=== PATIENT | male | born 1955 ===

== ENCOUNTER 2017-02-17 10:34 | Emergency (ER) | payer MEDICARE, OTHER ==
[2017-02-17 10:34] VITALS: BMI 32.9
--- NOTE | 2017-02-17 11:48 | ED PDOC ---
Upper Extremity Pain/Injury Time Seen by Provider: 02/17/17 10:51 Chief Complaint (Nursing): Upper Extremity Problem/Injury Chief Complaint (Provider): tremors History Per: Patient History/Exam Limitations: no limitations Additional Complaint(s): 61yo M in ED with hx of DM, HTN and renal failure-dialysis T Abram-MD Aaron- states he developed a tremor from face to neck-states that his tongue has tremor and tremor to voice that began at 4am this AM and presenting now. Pt completed his dialysis today. admitted to SOB earlier, but no longer with SOB. currently denies: CP, vision changes dizziness, SINGER, tinnitus, numbness to UE/LE , weakness, change in MS, abd pain, dysuria, change in BM, rash. Past Medical History Reviewed: Historical Data, Nursing Documentation, Vital Signs Vital Signs: Last Vital Signs Temp Pulse 75 02/17/17 10:50 Resp 17 02/17/17 10:50 BP 148/94 H 02/17/17 10:50 Pulse Ox 99 02/17/17 10:50 - Medical History PMH: Anemia, Diabetes, HTN, Chronic Kidney Disease, TIA Denies: Arthritis, CHF, COPD, HIV, Hypercholesterolemia, Hypothyroidism, Rheumatoid Arthritis - Family History Family History: States: Unknown Family Hx - Home Medications Home Medications: Ambulatory Orders Medication Instructions Recorded Bimatoprost [Lumigan] 1 drop EACHEYE HS #0 ahrini 05/08/15 Dorzolamide 2%/Timolol 0.5% 1 drop EACHEYE BID #0 bottle 05/08/15 [Cosopt 2%-0.5% Opht] Linagliptin [Tradjenta] 5 mg PO DAILY #0 tab 05/08/15 Brimonidine Tartrate [Alphagan P] 1 drop EACHEYE Q12H 07/20/15 Brimonidine 0.2% [Alphagan 0.2% 1 drop OU Q12 #0 bottle 08/08/15 Opht] Acetazolamide 250 mg PO HS 08/30/15 Aspirin 81 mg PO DAILY 08/30/15 Carvedilol [Coreg] 25 mg PO BID 08/30/15 Clindamycin HCl [Clindamycin] 4 tab PO Q8 08/30/15 Clopidogrel [Plavix] 75 mg PO DAILY 08/30/15 Hydralazine Hydrochloride 25 mg PO Q8 08/30/15 [Apresoline] Simvastatin 40 mg PO HS 08/30/15 Valsartan/Hydrochlorothiazide 1 tab PO DAILY 08/30/15 [Valsartan-Hydrochlorothiazide 25 mg-320 mg] Vitamin A/Vitamin D [Vitamin A & D 1 cap PO DAILY 08/30/15 24702 Iu-400 Iu] levoFLOXacin [Levaquin] 250 mg PO BID 08/30/15 - Allergies Allergies/Adverse Reactions: Allergies Allergy/AdvReac Type Severity Reaction Status Date / Time No Known Allergies Allergy Verified 02/17/17 10:47 Review of Systems ROS Statement: Except As Marked, All Systems Reviewed And Found Negative Constitutional: Negative for: Fever, Chills, Weakness, Malaise ENT: Negative for: Ear Pain, Ear Discharge, Nose Pain, Nose Discharge, Nose Congestion, Mouth Pain, Mouth Swelling, Throat Pain, Throat Swelling Cardiovascular: Negative for: Chest Pain, Palpitations, Orthopnea, Edema, Light Headedness Respiratory: Negative for: Cough Gastrointestinal: Negative for: Nausea, Vomiting, Abdominal Pain, Diarrhea, Constipation Genitourinary Male: Negative for: Dysuria, Penile Discharge Skin: Negative for: Rash Neurological: Negative for: Weakness, Numbness, Incoordination, Altered Mental Status, Headache, Dizziness Physical Exam - Reviewed Nursing Documentation Reviewed: Yes Vital Signs Reviewed: Yes - Physical Exam Appears: Positive for: Non-toxic, No Acute Distress Head Exam: Positive for: ATRAUMATIC, NORMAL INSPECTION, NORMOCEPHALIC Skin: Positive for: Normal Color, Warm. Negative for: Diaphoresis, Jaundice Eye Exam: Positive for: Normal appearance, EOMI, PERRL. Negative for: Scleral icterus ENT: Positive for: Normal ENT Inspection Neck: Positive for: Normal, Painless ROM Cardiovascular/Chest: Positive for: Regular Rate, Rhythm Respiratory: Positive for: CNT, Normal Breath Sounds Gastrointestinal/Abdominal: Positive for: Normal Exam, Bowel Sounds, Soft. 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 tremor mild noted to face, no nystagmus noted no evidence at this time fo tardive dyskinesia, some trmeor noted to voice. uvula not swollen. ). Negative for: Motor/Sensory Deficits, Facial Droop - Laboratory Results Result Diagrams: 02/17/17 12:05 02/17/17 12:05 - ECG ECG Rhythm: Positive for: Normal QRS, Sinus Rhythm, ST/T Changes Interpretation Of Abn EKG: QT: 506 O2 Sat by Pulse Oximetry: 99 Medical Decision Making Medical Decision Making: Pt looks well in ED, no longer with tremor. Pt with stable VS, well appearing, no elevated WBC, no abnormality of mag/phos/K +, EKG shows abdnormality however compared to prev. EKG uchanged. Creatine is elevated, however pt is undergoing dialysis. Pt has appt for Thurs at 11am at [facility]-made in ED by resident. MD Michael made aware and agrees with plan. Disposition - Clinical Impression Clinical Impression: Occasional tremors - Patient ED Disposition Is Patient to be Admitted: No Counseled Patient/Family Regarding: Studies Performed, Diagnosis, Need For Followup - Disposition Disposition: Routine/Home Disposition Time: 15:23 Condition: STABLE Instructions: Tremors (ED) Print Language: KAZAKH
--- NOTE | 2017-02-17 11:58 | CT ---
PROCEDURE: CT HEAD WITHOUT CONTRAST. HISTORY: tremor to face COMPARISON: Noncontrast head CT performed 09/26/14 TECHNIQUE: Axial computed tomography images were obtained through the head/brain without intravenous contrast. Radiation dose: Total exam DLP = 877.68 mGy-cm. FINDINGS: Streak artifact obscures evaluation of the skullbase. HEMORRHAGE: No intracranial hemorrhage. BRAIN: Diffuse atrophy with prominence of the ventricles and sulci noted. No mass effect or edema. Intracranial atherosclerosis. Moderate scattered periventricular and subcortical white matter hypodensities, which are nonspecific, but often seen with chronic microvascular ischemic disease. Scattered chronic appearing lacunar infarcts within the basal ganglia and thalami. Nonspecific left parietal small calcification re-identified. VENTRICLES: No hydrocephalus. CALVARIUM: Unremarkable. PARANASAL SINUSES: Unremarkable as visualized. No significant inflammatory changes. MASTOID AIR CELLS: Unremarkable as visualized. No inflammatory changes. OTHER FINDINGS: None. IMPRESSION: Generalized atrophy. Moderate nonspecific white matter changes. Please note that MRI with diffusion imaging is more sensitive in the detection of acute ischemic event. Scattered chronic appearing basal ganglia and thalamic lacunar infarcts. Additional incidental findings as above.
[2017-02-17 12:17] LABS: BASO # 0.1 K/uL (0.0-0.2); BASO % 1.1 % (0.0-2.0); EOS # 0.3 K/uL (0.0-0.7); EOS % 3.9 % (0.0-4.0); HEMATOCRIT 36.3 % (35.0-51.0); LYMPH # 0.9 K/uL (1.0-4.3); LYMPH % 12.4 % (20.0-40.0); MEAN CELL VOLUME 91.7 fl (80.0-94.0); MEAN CORPUSCULAR HEMOGLOBIN 30.4 pg (27.0-31.0); MEAN CORPUSCULAR HGB CONC 33.2 g/dL (33.0-37.0); MEAN PLATELET VOLUME 8.6 fl (7.2-11.7); MONO # 0.8 K/uL (0.0-0.8); MONO % 11.1 % (0.0-10.0); NEUT # 5.2 K/uL (1.8-7.0); NEUT % 71.5 % (50.0-75.0); WHITE BLOOD COUNT 7.3 K/uL (4.8-10.8)
[2017-02-17 12:33] LABS: PARTIAL THROMBOPLASTIN TIME 27.1 SECONDS (23.3-32.5)
[2017-02-17 12:43] LABS: ALB/GLOB RATIO 1.4 (1.0-2.1); BILIRUBIN,TOTAL 0.9 mg/dl (0.2-1.3); MAGNESIUM 2.1 MG/DL (1.6-2.3); PHOSPHOROUS 4.4 mg/dl (2.5-4.5); POTASSIUM 3.7 MMOL/L (3.6-5.0); TOTAL PROTEIN 7.7 G/DL (6.3-8.2)
--- NOTE | 2017-02-17 13:50 | RAD ---
HISTORY: SOB COMPARISON: 08/27/2015 TECHNIQUE: Chest PA and lateral FINDINGS: LUNGS: No active pulmonary disease. PLEURA: No significant pleural effusion identified. No pneumothorax apparent. CARDIOVASCULAR: Normal heart size. Left subclavian vascular stent. OSSEOUS STRUCTURES: No significant abnormalities. VISUALIZED UPPER ABDOMEN: Normal. OTHER FINDINGS: None. IMPRESSION: No active disease.
[2017-02-17 14:05] LABS: TROPONIN I 0.095 ng/mL (0.00-0.120)
[2017-02-17 17:18] VITALS: BP 149/88; PULSE 87; RESP 18; O2SAT 98
== END 2017-02-17 17:10 | disposition home or self-care (01) ==
LOC: H.ER 10:34
DX: R25.1 Tremor, unspecified (principal); E11.22 Type 2 diabetes mellitus with diabetic chronic kidney disease; I12.9 Hypertensive chronic kidney disease with stage 1 through stage 4 chronic kidney disease, or unspecified chronic kidney disease; N18.9 Chronic kidney disease, unspecified; Z86.73 Personal history of transient ischemic attack (TIA), and cerebral infarction without residual deficits; Z79.82 Long term (current) use of aspirin
CPT/HCPCS: 70450; 71020; 80053; 82948; 83735; 84100; 84484; 85025; 85610; 85730; 87040; 87804; 96374; 99283; J2060

== ENCOUNTER 2017-05-27 09:45 | Inpatient (IN) | payer MEDICARE, OTHER ==
--- NOTE | 2017-05-27 10:17 | ED PDOC ---
HPI:STROKE - Time Time: 09:50 - Historian Historian: Patient, Family (brother), EMS - Chief Complaint Chief Complaint: Weakness - Onset Date: 05/27/17 Time: 07:30 Onset: This morning - Location Locate right:: Face, Upper extremity, Lower extremity - Notes: Notes:: Lon Lafleur is a 61 year old male, with a previous medical history of end stage renal failure, hypertension and diabetes, who presents to the ED via EMS after being found on the floor by his family member. Patient reports feeling fine when he woke up and began experiencing right sided weakness and numbness at 07: 30 in the morning (2.5 hours prior to arrival) while he was walking to the bathroom. Patient denies any chest pain or shortness of breath. Brother reports patient experienced similar symptoms approximately 5 years ago where the patient was informed it was the beginning of a stroke. No headaches or dizziness. No nausea, vomit. PMD: [facility] NIHSS Stroke Scale - Date/Time Evaluation Performed Date Performed: 05/27/17 Time Performed: 10:00 When Was NIHSS Performed: Baseline - How Severe is the Stroke Level of Consciousness: 0=Alert LOC to Questions: 0=Both comments correct LOC to commands: 0=Obeys both correctly Best Gaze: 0=Normal Visual: 0=No visual loss Facial: 0=Normal Motor Arm - Left: 0=No drift Motor Arm - Right: 0=No drift Motor Leg - Left: 0=No drift Motor Leg - Right: 1=Drift before 5 sec Limb Ataxia: 0=Absent Sensory: 0=Normal Best Language: 0=No aphasia Dysarthia: 0=Normal articulation Extinction & Inattention (Neglect): 0=Normal, no object Score: 1 rTPA Inclusion/Exclusion - Refusal of Treatment Patient Refused Treatment: No - Inclusion Criteria for Altepase Patient is 18 years or Older: Yes The Clinical Diagnosis of Ischemic Stroke That is Causing a Potentially Disabling Neurological Deficit: No Time of Onset is Well Established to be Less Than 270 Minute Before Treatment Would Begin: Yes Risk/Benefit Discussed With Patient/Family Member Present: No - Exclusion Criteria for Altepase Uncontrolled Hypertension at Time of Treatment (Systolic BP above 185 or Diastolic BP above 110 mmHg): Yes Past Medical History Reviewed: Historical Data, Nursing Documentation, Vital Signs Vital Signs: Last Vital Signs Temp 98 F 05/27/17 10:00 Pulse 73 05/27/17 10:00 Resp 18 05/27/17 10:00 BP 191/108 H 05/27/17 10:00 Pulse Ox 98 05/27/17 10:00 - Medical History PMH: Anemia, Diabetes, HTN, Hyperlipidemia, End Stage Renal Disease, Chronic Kidney Disease, TIA Denies: Arthritis, CHF, COPD, HIV, Hypercholesterolemia, Hypothyroidism, Rheumatoid Arthritis - Surgical History Other surgeries: L arm fistula - Family History Family History: States: Unknown Family Hx - Living Arrangements Living Arrangements: With Family - Social History Current smoker - smoking cessation education provided: No Alcohol: None Drugs: Denies - Home Medications Home Medications: Ambulatory Orders Medication Instructions Recorded Bimatoprost [Lumigan] 1 drop EACHEYE HS #0 harini 05/08/15 Dorzolamide 2%/Timolol 0.5% 1 drop EACHEYE BID #0 bottle 05/08/15 [Cosopt 2%-0.5% Opht] Linagliptin [Tradjenta] 5 mg PO DAILY #0 tab 05/08/15 Brimonidine Tartrate [Alphagan P] 1 drop EACHEYE Q12H 07/20/15 Brimonidine 0.2% [Alphagan 0.2% 1 drop OU Q12 #0 bottle 08/08/15 Opht] Acetazolamide 250 mg PO HS 08/30/15 Aspirin 81 mg PO DAILY 08/30/15 Carvedilol [Coreg] 25 mg PO BID 08/30/15 Clindamycin HCl [Clindamycin] 4 tab PO Q8 08/30/15 Clopidogrel [Plavix] 75 mg PO DAILY 08/30/15 Hydralazine Hydrochloride 25 mg PO Q8 08/30/15 [Apresoline] Simvastatin 40 mg PO HS 08/30/15 Valsartan/Hydrochlorothiazide 1 tab PO DAILY 08/30/15 [Valsartan-Hydrochlorothiazide 25 mg-320 mg] Vitamin A/Vitamin D [Vitamin A & D 1 cap PO DAILY 08/30/15 88057 Iu-400 Iu] levoFLOXacin [Levaquin] 250 mg PO BID 08/30/15 - Allergies Allergies/Adverse Reactions: Allergies Allergy/AdvReac Type Severity Reaction Status Date / Time No Known Allergies Allergy Verified 05/27/17 10:00 Review of Systems ROS Statement: Except As Marked, All Systems Reviewed And Found Negative Constitutional: Positive for: Weakness Cardiovascular: Negative for: Chest Pain Respiratory: Negative for: Shortness of Breath Neurological: Positive for: Weakness, Numbness Physical Exam - Reviewed Nursing Documentation Reviewed: Yes Vital Signs Reviewed: Yes - Physical Exam Appears: Positive for: Well, Non-toxic, No Acute Distress Head Exam: Positive for: ATRAUMATIC, NORMAL INSPECTION, NORMOCEPHALIC Skin: Positive for: Normal Color, Warm, Dry Eye Exam: Positive for: EOMI, Normal appearance, PERRL ENT: Positive for: Normal ENT Inspection Neck: Positive for: Normal, Painless ROM, Supple Cardiovascular/Chest: Positive for: Regular Rate, Rhythm Respiratory: Positive for: Normal Breath Sounds Gastrointestinal/Abdominal: Positive for: Normal Exam, Bowel Sounds, Soft. Negative for: Tenderness Back: Positive for: Normal Inspection. Negative for: L CVA Tenderness, R CVA Tenderness, Vertebral Tenderness Extremity: Positive for: Deformity (amputation of right great toe ), Other ( right leg 3/5 all other extremities 4/5). 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 Negative for: Facial Droop - ECG ECG: Positive for: Interpreted By Me, Viewed By Me ECG Rhythm: Positive for: Sinus Rhythm, Nonspecific Changes (same as old) O2 Sat by Pulse Oximetry: 98 (RA) Pulse Ox Interpretation: Normal - Radiology X-Ray: Interpreted by Me, Viewed By Me X-Ray Interpretation: No Acute Disease - CT Scan/US ct Other Rad Studies (CT/US): Read By Radiologist Other Rad Interpretation: bleed basal ganglia and intraventricular - Progress ED Course And Treament: 1045: Spoke with neurology Dr. Long and neurosurgery. Will give labetolol and continue monitoring. Not a thrombolytic candidate as pt. has a bleed. [facility] resident aware and will admit. 1121: Spoke with ICU Dr. Arredondo. Will admit. - Critical Care Total Time (In Min): 30 Documented Critical Care: Time excludes all time spent performint seperately billable procedures Medical Decision Making Medical Decision Making: Initial Impression: Initial Plan: * blood type and screen * CT head w/o contrast * EKG * labs * hemoglobin A1C * lipid panel * Troponin I * PTT * PT * CXR * online content developer continuous * accu-check * vital signs Q 15 * reevaluation 10:00 accu-check: 114 Heart rate: 78 bpm O2: 100 % Blood Pressure: 190/105 10:48 CT head w/o contrast FINDINGS: BRAIN: Diffuse atrophy with prominence of the ventricles and sulci noted. Dense intracranial atherosclerotic calcifications. 1.3 x 1.6 x 2.6 cm focal hemorrhage within the left basal ganglia. Small amount of left intraventricular hemorrhage within the posterior horn lateral ventricle. Moderate scattered periventricular and subcortical white matter hypodensities, which are nonspecific, but often seen with chronic microvascular ischemic disease. Numerous scattered chronic appearing lacunar infarcts. VENTRICLES: See above. CALVARIUM: Unremarkable. PARANASAL SINUSES: Unremarkable as visualized. No significant inflammatory changes. MASTOID AIR CELLS: Unremarkable as visualized. No inflammatory changes. OTHER FINDINGS: None. IMPRESSION: 1.3 x 1.6 x 2.6 cm focal hemorrhage within the left basal ganglia. Small amount of left intraventricular hemorrhage within the posterior horn lateral ventricle. Moderate nonspecific white matter changes. Numerous scattered chronic appearing lacunar infarcts. Findings discussed with Dr. Rodriguez on 05/27/17 at 1029 a.m. Scribe Attestation: Documented by Daphne Oliveira, acting as a scribe for Jc Rodriguez MD. Provider Scribe Attestation: All medical record entries made by the Scribe were at my direction and personally dictated by me. I have reviewed the chart and agree that the record accurately reflects my personal performance of the history, physical exam, medical decision making, and the department course for this patient. I have also personally directed, reviewed, and agree with the discharge instructions and disposition. Disposition - Clinical Impression Clinical Impression: CVA (cerebral vascular accident), Hypertensive urgency - Patient ED Disposition Is Patient to be Admitted: Yes Counseled Patient/Family Regarding: Studies Performed, Diagnosis - Disposition Disposition Time: 11:30 Condition: FAIR - Pt Status Changed To: Hospital Disposition Of: Inpatient - Admit Certification Admit to Inpatient:: After my assessment, the patient will require hospitalization for at least two midnights. This is because of the severity of symptoms shown, intensity of services needed, and/or the medical risk in this patient being treated as an outpatient. - POA Present On Arrival: None
[2017-05-27 10:46] LABS: ALB/GLOB RATIO 1.6 (1.0-2.1); ALBUMIN 4.6 g/dL (3.5-5.0); CALCIUM 8.8 mg/dL (8.4-10.2)
[2017-05-27] MEDS ORDERED: Labetalol 5 mg/ml Inj 20ML IVP STA ×3 (10:49→16:56)
--- NOTE | 2017-05-27 10:50 | CT ---
PROCEDURE: CT HEAD WITHOUT CONTRAST. HISTORY: code stroke COMPARISON: None available. TECHNIQUE: Axial computed tomography images were obtained through the head/brain without intravenous contrast. Radiation dose: Total exam DLP = mGy-cm. This CT exam was performed using one or more of the following dose reduction techniques: Automated exposure control, adjustment of the mA and/or kV according to patient size, and/or use of iterative reconstruction technique. FINDINGS: BRAIN: Diffuse atrophy with prominence of the ventricles and sulci noted. Dense intracranial atherosclerotic calcifications. 1.3 x 1.6 x 2.6 cm focal hemorrhage within the left basal ganglia. Small amount of left intraventricular hemorrhage within the posterior horn lateral ventricle. Moderate scattered periventricular and subcortical white matter hypodensities, which are nonspecific, but often seen with chronic microvascular ischemic disease. Numerous scattered chronic appearing lacunar infarcts. VENTRICLES: See above. CALVARIUM: Unremarkable. PARANASAL SINUSES: Unremarkable as visualized. No significant inflammatory changes. MASTOID AIR CELLS: Unremarkable as visualized. No inflammatory changes. OTHER FINDINGS: None. IMPRESSION: 1.3 x 1.6 x 2.6 cm focal hemorrhage within the left basal ganglia. Small amount of left intraventricular hemorrhage within the posterior horn lateral ventricle. Moderate nonspecific white matter changes. Numerous scattered chronic appearing lacunar infarcts. Findings discussed with Dr. Rodriguez on 05/27/17 at 1029 a.m.
[2017-05-27 10:57] LABS: TROPONIN I 0.08 ng/mL (0.00-0.120)
--- NOTE | 2017-05-27 11:19 | RAD ---
HISTORY: code stroke COMPARISON: Chest x-ray performed 02/17/17 TECHNIQUE: Chest, one view. FINDINGS: Examination limited by habitus. Left vascular stent. LUNGS: Linear atelectasis, left mid lung zone. No focal consolidation. Please note that chest x-ray has limited sensitivity for the detection of pulmonary masses. PLEURA: No significant pleural effusion identified. No definite pneumothorax . CARDIOVASCULAR: The cardiomediastinal silhouette appears within normal limits of size. OSSEOUS STRUCTURES: No acute osseous abnormality identified. VISUALIZED UPPER ABDOMEN: Unremarkable. OTHER FINDINGS: None. IMPRESSION: Linear atelectasis, left mid lung zone. No focal consolidation.
[2017-05-27 11:54] LABS: INR 0.9 (0.9-1.2); PROTHROMBIN TIME 10.5 Seconds (9.8-13.1)
[2017-05-27 11:55] LABS: PARTIAL THROMBOPLASTIN TIME 33.1 Seconds (25.6-37.1)
[2017-05-27 12:22] LABS: BASO # 0.1 K/uL (0.0-0.2); EOS # 0.4 K/uL (0.0-0.7); EOS % 4.8 % (0.0-4.0); HEMOGLOBIN 11.6 g/dL (12.0-18.0); LYMPH # 1.1 K/uL (1.0-4.3); LYMPH % 13.9 % (20.0-40.0); MEAN CORPUSCULAR HEMOGLOBIN 30.4 pg (27.0-31.0); MEAN CORPUSCULAR HGB CONC 32.4 g/dL (33.0-37.0); MEAN PLATELET VOLUME 9.6 fl (7.2-11.7); MONO # 0.6 K/uL (0.0-0.8); MONO % 8.1 % (0.0-10.0); NEUT # 5.5 K/uL (1.8-7.0); NEUT % 72.2 % (50.0-75.0); RBC 3.82 Mil/uL (4.40-5.90); WHITE BLOOD COUNT 7.7 K/uL (4.8-10.8)
--- NOTE | 2017-05-27 13:32 | CP.PCM.HP ---
Past Patient History - Infectious Disease Hx of Infectious Diseases: None - Past Medical History & Family History Past Medical History?: Yes - Past Social History Alcohol: None Drugs: Denies - CARDIAC Hx Congestive Heart Failure: No Hx Hypercholesterolemia: No Hx Hypertension: Yes - PULMONARY Hx Chronic Obstructive Pulmonary Disease (COPD): No - NEUROLOGICAL Hx Transient Ischemic Attacks (TIA): Yes - HEENT Hx HEENT Problems: No - RENAL Hx Chronic Kidney Disease: Yes - ENDOCRINE/METABOLIC Hx Hypothyroidism: No - HEMATOLOGICAL/ONCOLOGICAL Hx Anemia: Yes Hx Human Immunodeficiency Virus (HIV): No - INTEGUMENTARY Hx Dermatological Problems: No - MUSCULOSKELETAL/RHEUMATOLOGICAL Hx Arthritis: No Hx Rheumatoid Arthritis: No - GASTROINTESTINAL Hx Gastrointestinal Disorders: No - PSYCHIATRIC Hx Substance Use: No - SURGICAL HISTORY Other/Comment: LEFT ANKLE SX - ANESTHESIA Hx Anesthesia: Yes Hx Anesthesia Reactions: No Hx Malignant Hyperthermia: No Meds Allergies/Adverse Reactions: Allergies Allergy/AdvReac Type Severity Reaction Status Date / Time No Known Allergies Allergy Verified 05/27/17 10:00 Results - Vital Signs Recent Vital Signs: Last Vital Signs Temp 98.1 F 05/27/17 11:10 Pulse 70 05/27/17 12:25 Resp 19 05/27/17 12:25 BP 137/88 05/27/17 12:25 Pulse Ox 98 05/27/17 12:39 - Labs Result Diagrams: 05/27/17 12:10 05/27/17 10:30 Labs: Laboratory Results - last 24 hr 05/27/17 12:10 WBC 7.7 RBC 3.82 L Hgb 11.6 L Hct 35.9 MCV 94.0 D MCH 30.4 MCHC 32.4 L RDW 18.0 H Plt Count 157 MPV 9.6 Neut % (Auto) 72.2 Lymph % (Auto) 13.9 L [place] % (Auto) 8.1 Eos % (Auto) 4.8 H Baso % (Auto) 1.0 Neut # 5.5 Lymph # 1.1 [place] # 0.6 Eos # 0.4 Baso # 0.1
--- NOTE | 2017-05-27 14:09 | CP.PCM.HP ---
History of Present Illness - History of Present Illness History of Present Illness: Interpretor: Franklyn #[id number] This is a 61 y.o M with pmh of HTN, ESRD on HD (TThS), NIDDM, hyperlipidemia, and visual impairment who presents with right sided facial numbness and weakness radiating down to lower extremities causing him to collapse at home (2/ 5 hours prior to arrival to ED), noted dizziness prior to episode. Patient denies preceding shortness of breath, chest pain, diaphoresis, nausea/vomiting. Patient denies trauma to head or LOC, slurring of speech, altered mental status , and recent infection. Similar episode 7 years ago which prompted him to go to ER. Patient states he has been taking antihypertensives and lipid lowering agents. PMD:[facility], Dr. Gonzales (nephro) Allergies: NKDA Medications: as per ambulatory orders Surgeries: left foot surgery, right great toe amputation. L arm fistula Social: Patient not currently employed. History of tobacco abuse (2-3 cig/day x3 years, quit 1 year ago). Patient also admits to ETOH abuse, last drink 2 months ago-states had 10-12 beers every week. ER:labetalol 10 mg IVP x2 Initial Plan: * blood type and screen * CT head w/o contrast * EKG * labs * hemoglobin A1C * lipid panel * Troponin I * PTT * PT * CXR * manager cardiac continuous * accu-check accu-check: 114 Heart rate: 78 bpm O2: 100 % Blood Pressure: 190/105 CT head w/o contrast FINDINGS: BRAIN: Diffuse atrophy with prominence of the ventricles and sulci noted. Dense intracranial atherosclerotic calcifications. 1.3 x 1.6 x 2.6 cm focal hemorrhage within the left basal ganglia. Small amount of left intraventricular hemorrhage within the posterior horn lateral ventricle. Moderate scattered periventricular and subcortical white matter hypodensities, which are nonspecific, but often seen with chronic microvascular ischemic disease. Numerous scattered chronic appearing lacunar infarcts. VENTRICLES: See above. CALVARIUM: Unremarkable. PARANASAL SINUSES: Unremarkable as visualized. No significant inflammatory changes. MASTOID AIR CELLS: Unremarkable as visualized. No inflammatory changes. OTHER FINDINGS: None. IMPRESSION: 1.3 x 1.6 x 2.6 cm focal hemorrhage within the left basal ganglia. Small amount of left intraventricular hemorrhage within the posterior horn lateral ventricle. Moderate nonspecific white matter changes. Numerous scattered chronic appearing lacunar infarcts. Present on Admission - Present on Admission Any Indicators Present on Admission: Yes History of Uncontrolled Diabetes: Yes Review of Systems - Review of Systems All systems: reviewed and no additional remarkable complaints except Past Patient History - Infectious Disease Hx of Infectious Diseases: None - Past Medical History & Family History Past Medical History?: Yes - Past Social History Alcohol: None Drugs: Denies - CARDIAC Hx Congestive Heart Failure: No Hx Hypercholesterolemia: No Hx Hypertension: Yes - PULMONARY Hx Chronic Obstructive Pulmonary Disease (COPD): No - NEUROLOGICAL Hx Transient Ischemic Attacks (TIA): Yes - HEENT Hx HEENT Problems: No - RENAL Hx Chronic Kidney Disease: Yes - ENDOCRINE/METABOLIC Hx Hypothyroidism: No - HEMATOLOGICAL/ONCOLOGICAL Hx Anemia: Yes Hx Human Immunodeficiency Virus (HIV): No - INTEGUMENTARY Hx Dermatological Problems: No - MUSCULOSKELETAL/RHEUMATOLOGICAL Hx Arthritis: No Hx Rheumatoid Arthritis: No - GASTROINTESTINAL Hx Gastrointestinal Disorders: No - PSYCHIATRIC Hx Substance Use: No - SURGICAL HISTORY Other/Comment: LEFT ANKLE SX - ANESTHESIA Hx Anesthesia: Yes Hx Anesthesia Reactions: No Hx Malignant Hyperthermia: No Meds Allergies/Adverse Reactions: Allergies Allergy/AdvReac Type Severity Reaction Status Date / Time No Known Allergies Allergy Verified 05/27/17 10:00 Physical Exam - Constitutional Appears: No Acute Distress - Eye Exam Eye Exam: EOMI, Scleral icterus. absent: Conjunctival injection, Nystagmus - ENT Exam ENT Exam: Mucous Membranes Dry - Neck Exam Neck exam: Positive for: Full Rom. Negative for: Lymphadenopathy, Tenderness, Thyromegaly - Respiratory Exam Respiratory Exam: Clear to Auscultation Bilateral, NORMAL BREATHING PATTERN. absent: Accessory Muscle Use - Cardiovascular Exam Cardiovascular Exam: +S1, +S2 (0) - GI/Abdominal Exam GI & Abdominal Exam: Normal Bowel Sounds, Soft. absent: Organomegaly, Tenderness - Back Exam Back exam: NORMAL INSPECTION. absent: CVA tenderness (L), CVA tenderness (R) - Neurological Exam Neurological exam: Alert, Oriented x3 Additional comments: noted drift on right upper extremity decreased sensation on right sided face, cranial nerves intact - Psychiatric Exam Psychiatric exam: Normal Affect, Normal Mood - Skin Skin Exam: Dry, Pallor, Warm Additional comments: L arm fistula c/d/i Results - Vital Signs Recent Vital Signs: Last Vital Signs Temp 98.1 F 05/27/17 11:10 Pulse 70 05/27/17 12:25 Resp 19 05/27/17 12:25 BP 167/88 H 05/27/17 12:25 Pulse Ox 98 05/27/17 12:39 - Labs Result Diagrams: 05/27/17 12:10 05/27/17 10:30 Labs: Laboratory Results - last 24 hr 05/27/17 12:10 WBC 7.7 RBC 3.82 L Hgb 11.6 L Hct 35.9 MCV 94.0 D MCH 30.4 MCHC 32.4 L RDW 18.0 H Plt Count 157 MPV 9.6 Neut % (Auto) 72.2 Lymph % (Auto) 13.9 L [place] % (Auto) 8.1 Eos % (Auto) 4.8 H Baso % (Auto) 1.0 Neut # 5.5 Lymph # 1.1 [place] # 0.6 Eos # 0.4 Baso # 0.1 Assessment & Plan - Assessment and Plan (Free Text) Assessment: This is a 61 y.o M with pmh of HTN, ESRD on HD (TThS), NIDDM, hyperlipidemia, and visual impairment who presents with right sided facial numbness and weakness radiating down to lower extremities causing him to collapse at home (2/ 5 hours prior to arrival to ED), noted dizziness prior to episode. Code stroke called. CT remarkable for: 1.3 x 1.6 x 2.6 cm focal hemorrhage within the left basal ganglia. Small amount of left intraventricular hemorrhage within the posterior horn lateral ventricle. 1. Hemorrhagic CVA -admit to ICU -monitor vitals; keep systolic bp under 140-15os -neurosurgery consult -neurology consult; as per neurology and neurosurgery no surgical intervention at this time -swallow eval -pt/ot eval and treat -repeat CT in 24 hours 2. HTN -uncontrolled -labetalol IVP given in ED -consider restarting home medication valsartan 320 mg 3. ESRD -HD on TThSat -nephrology consult 4. DM -last hemoglobin A1C: 7.0 -repeat hemoglobin A1C 5. Hyperlipidemia -continue lovastatin 40 mg DVT prophalyxis -SCDs Decision To Admit - Pt Status Changed To: Hospital Disposition Of: Inpatient - Admit Certification Admit to Inpatient:: After my assessment, the patient will require hospitalization for at least two midnights. This is because of the severity of symptoms shown, intensity of services needed, and/or the medical risk in this patient being treated as an outpatient. - . Bed Request Type: Intensive Care Admitting Physician: Sejal Vásquez
--- NOTE | 2017-05-27 15:04 | CP.CCUPN ---
CCU Subjective - Physician Review Subjective (Free Text): 61M admitted with new onset R sided weakness, was well until 730AM today, presented to ER 2.5 hours later and underwent Code Stroke eval, initial NIH SS = 1, found to have hypertensive bleed into left basal ganglia area with some ventricular blood noted. NSurg and Neuro called and deemed not a candidate for transfer to tertiary facility for further mgmt.. Admitted to ICU for neuro observation and BP control. In ER, initial BP 185/99, HR 68, Labetalol 10mg IVP x 2 doses, with subsequent BP down to approx. 170/90, HR 70 nad now down to 137/90 in ICU. Presently, awake and alert, no other new focal deficits noted. Has ESRD on Thu schedule. Allergies: NKDA ROS: No other pertinent negs or positives on + system review. Other PMSFH: DM II, ESRD on CAHD, HTN, Hyperlipidemia, denies Tobacco or ETOH use, No early family deaths from cardiac disease nor renal disease. CCU Objective - Vital Signs / Intake & Output Vital Signs (Last 4 hours): Vital Signs Temp Pulse Resp BP Pulse Ox 05/27/17 13:45 68 17 170/84 H 100 05/27/17 12:39 98 05/27/17 12:25 70 19 167/88 H 100 05/27/17 12:00 71 17 171/92 H 100 05/27/17 11:45 70 20 188/96 H 100 05/27/17 11:30 69 18 195/68 H 100 05/27/17 11:15 69 20 176/98 H 100 05/27/17 11:10 98.1 F Intake and Output (Last 8hrs): Intake & Output 05/27/17 05/27/17 05/27/17 06:59 14:59 22:59 Output Total 5 Balance -5 Output: Urine 5 Urine, Voided 5 Other: # Voids Urine, Voided 1 - Physical Exam Head: Positive for: Normocephalic Pupils: Positive for: PERRL Extroacular Muscles: Positive for: EOMI Conjunctiva: Positive for: Normal Mouth: Positive for: Moist Mucous Membranes Pharnyx: Positive for: Normal Neck: Positive for: Normal Range of Motion. Negative for: JVD, Lymphadenopathy Respiratory/Chest: Positive for: Clear to Auscultation Cardiovascular: Positive for: Regular Rate and Rhythm Abdomen: Positive for: Normal Bowel Sounds. Negative for: Tenderness, Distention Genitourinary Male: Positive for: Normal External Genitalia Lower Extremity: Positive for: Other (LUE AVF wit good bruit and thrill.) Neurological: Positive for: GCS=15, CN II-XII Intact, Speech Normal, Normal Sensory Function, Norm Deep Tendon Reflexes, Memory Normal. Negative for: Motor Func Grossly Intact (minimal 4-5/5 RUE strength better than RLE. ) - Patient Studies Lab Studies: Lab Studies 05/27/17 Range/Units 12:10 WBC 7.7 (4.8-10.8) K/uL RBC 3.82 L (4.40-5.90) Mil/uL Hgb 11.6 L (12.0-18.0) g/dL Hct 35.9 (35.0-51.0) % MCV 94.0 D (80.0-94.0) fl MCH 30.4 (27.0-31.0) pg MCHC 32.4 L (33.0-37.0) g/dL RDW 18.0 H (11.5-14.5) % Plt Count 157 (130-400) K/uL MPV 9.6 (7.2-11.7) fl Neut % (Auto) 72.2 (50.0-75.0) % Lymph % (Auto) 13.9 L (20.0-40.0) % [place] % (Auto) 8.1 (0.0-10.0) % Eos % (Auto) 4.8 H (0.0-4.0) % Baso % (Auto) 1.0 (0.0-2.0) % Neut # 5.5 (1.8-7.0) K/uL Lymph # 1.1 (1.0-4.3) K/uL [place] # 0.6 (0.0-0.8) K/uL Eos # 0.4 (0.0-0.7) K/uL Baso # 0.1 (0.0-0.2) K/uL Laboratory Results - last 24 hr 05/27/17 12:10 WBC 7.7 RBC 3.82 L Hgb 11.6 L Hct 35.9 MCV 94.0 D MCH 30.4 MCHC 32.4 L RDW 18.0 H Plt Count 157 MPV 9.6 Neut % (Auto) 72.2 Lymph % (Auto) 13.9 L [place] % (Auto) 8.1 Eos % (Auto) 4.8 H Baso % (Auto) 1.0 Neut # 5.5 Lymph # 1.1 [place] # 0.6 Eos # 0.4 Baso # 0.1 Radiology Interpretations (Free Text): ( my interp) Bilateral hilar interstitial changes, no gross consolidation. EKG/Cardiology Interpretations (Free Text): ( my interp) sinus 69/min, LAD, Poor R wave anteriorly, T inversions in I, L and V5-6. Fingerstick Blood Sugar Results: 104 Review of Systems - Review of Systems All systems: reviewed and no additional remarkable complaints except - Neurological Neurological: Weakness (minimal 4-5/5 RUE strength better than RLE. ) Critical Care Progress Note - Extremities/Vascular Does the Patient have a Central Venous Catheter?: No Does the Patient need a Central Venous Catheter?: No Does the Patient have a Avila Catheter?: No Does the Patient need a Avila Catheter?: No - Prophylaxis GI Prophylaxis GI: Not Indicated - Prophylaxis DVT Prophylaxis DVT: SCDs - Nutrition Nutrition: Nutrition Category Date Time Status Renal Diet [DIET] Diets 05/27/17 Lunch Ordered Assessment/Plan - Assessment and Plan (Free Text) Assessment: MAJOR PROBLEMS: 1. ICH 2 Accelerated HTN, versus CVA with hemmorhagic conversion. 2. Accelerated HTN 3. ESRD on HD Plan: - Neurochecks, Seizure precautions, HOB elevation 30 degrees, SCDs - Keep SBP no higher than 140-150 range. - HD schedule as per Nephro, K levels OK. - Repeat brain imaging in 24H unless there are new clinical changes. - Watch for s/sx obstructive hydrocephalus. - Minimize Heparin during HD.
[2017-05-27] MEDS ORDERED: Labetalol 5 mg/ml Inj 20ML IVP PRN (16:57)
--- NOTE | 2017-05-27 17:38 | CP.PCM.CON ---
History of Present Illness - History of Present Illness History of Present Illness: NEURO CONSULT NOTE 05/27/17 CHIEF COMPLAINT:RIGHT SIDE WEAKNESS. HPI: This is a 62-year-old man history of hypertension, history of end-stage renal disease on hemodialysis, aik-euqjydw-isilfyjsk diabetes mellitus, hyperlipidemia , visual impairment came in right sided facial numbness and weakness of the right side down to the lower extremities causing the fall at home and mostly lightheaded found to have elevated systolic and diastolic blood pressures in the ER. CAT scan of the head showed left basal ganglia with mild intraventricular component. No neurosurgical intervention is needed to be done this time it is more aggressive blood pressure control. No antiplatelet activity for at least 3 weeks from the onset of acute bleed. He currently has some right-sided facial numbness and right-sided weakness with a mild right pronator drift from the left basal ganglia bleed. He is currently monitored in the ICU. He will need acute physical therapy. His elevated BUN/creatinine. ROS: 14 POINT REVIEW OF SYMPTOMS IS NEGATIVE PER HPI. ALLERGIES: NONE SOCIAL HISTORY: NO ILLICIT DRUG USE, SMOKING, OR ETOH USE. FAMILY: NON CONTRIBUTORY. MEDICATIONS: REVIEWED BY NURSE'S RECONCILIATION SHEET. PAST MEDICAL HISTORY: ESRD ON HD, HLD, HTN, DM2 PHYSICAL EXAM: VITAL SIGNS: REVIEWED BY THE CHART: HYPERTENSIVE. GENERAL EXAM: PATIENT SEEN IN BED, IN NO ACUTE DISTRESS MORBIDLY OBESE. HEENT: PERRLA, EOMI, NECK SUPPLE, NO JVD, NO ADENOPATHY CVS: S1, S2, RRR, NO MURMURS NOTED LUNGS: CLEAR TO AUSCULTATION, NO ADVENTITIOUS SOUNDS ABDOMEN: SOFT AND NONTENDER EXTREMITIES: NO CLUBBING OR CYANOSIS. PP 2+ B/L NEURO: PT IS ALERT AND ORIENTED TO PERSON, PLACE, AND YEAR. POOR ATTENTION SPAN , SLOW THOUGHT PROCESS, RECALL TO 5 MINUTES 0/3, SPEECH IS FLUENT WITHOUT ERRORS, CN II-XII INTACT, MOTOR EXAM: NORMAL TONE, NORMAL BULK OF MUSCLE, MOVES ALL EXTREMITIES EQUALLY, EXCEPT RIGHT SIDE WEAKNESS AND RIGHT PRONATOR DRIFT SEEN. SENSORY EXAM: DECREASED LIGHT TOUCH, PIN PRICK UP TO CALVES B/L, PROPRIOCEPTION , VIBRATION DECREASED AT TOES AND KNEES. DEEP TENDON REFLEXES: 2+ THROUGHOUT AND ABSENT AT BOTH KNEES AND ANKLES.. COORDINATION: FINGER TO NOSE IS INTACT. HEEL TO REED IS INTACT GAIT: DEFERRED FOR NOW. LABS: REVIEWED BY THE CHART. ASSESSMENT AND PLAN: This is a 62-year-old man history of hypertension, history of end-stage renal disease on hemodialysis, xbh-neqgopg-rjvdwlgfb diabetes mellitus, hyperlipidemia , visual impairment came in right sided facial numbness and weakness of the right side down to the lower extremities causing the fall at home and mostly lightheaded found to have elevated systolic and diastolic blood pressures in the ER. CAT scan of the head showed left basal ganglia with mild intraventricular component. No neurosurgical intervention is needed to be done this time it is more aggressive blood pressure control. No antiplatelet activity for at least 3 weeks from the onset of acute bleed. He currently has some right-sided facial numbness and right-sided weakness with a mild right pronator drift from the left basal ganglia bleed. He is currently monitored in the ICU. He will need acute physical therapy. His elevated BUN/creatinine. IMPRESSION: LEFT BASAL GANGLIA BLEED SECONDARY TO UNCONTROLLED HTN. PLAN: 1.. ASA 81 MG NOT FOR 3 WEEKS FROM ACUTE ONSET OF BLEED. REPEAT CT HEAD KIRAN. ICU MX. 2. MONITOR ELECTROLYTES AND CORRECT ACCORDINGLY. 3. KEEP SBP BTW 130-140 4. ACUTE REHAB AND NEEDS PT/OT. THANK YOU PLEASE RECONSULT NECESSARY. Carina MONTALVO MD Past Patient History - Infectious Disease Hx of Infectious Diseases: None - Past Medical History & Family History Past Medical History?: Yes - Past Social History Alcohol: None Drugs: Denies - CARDIAC Hx Congestive Heart Failure: No Hx Hypercholesterolemia: No Hx Hypertension: Yes - PULMONARY Hx Chronic Obstructive Pulmonary Disease (COPD): No - NEUROLOGICAL Hx Transient Ischemic Attacks (TIA): Yes - HEENT Hx HEENT Problems: No - RENAL Hx Chronic Kidney Disease: Yes - ENDOCRINE/METABOLIC Hx Hypothyroidism: No - HEMATOLOGICAL/ONCOLOGICAL Hx Anemia: Yes Hx Human Immunodeficiency Virus (HIV): No - INTEGUMENTARY Hx Dermatological Problems: No - MUSCULOSKELETAL/RHEUMATOLOGICAL Hx Arthritis: No Hx Rheumatoid Arthritis: No - GASTROINTESTINAL Hx Gastrointestinal Disorders: No - GENITOURINARY/GYNECOLOGICAL Hx Genitourinary Disorders: Yes (ESRD,CKD) - PSYCHIATRIC Hx Substance Use: No - SURGICAL HISTORY Other/Comment: LEFT ANKLE SX - ANESTHESIA Hx Anesthesia: Yes Hx Anesthesia Reactions: No Hx Malignant Hyperthermia: No Meds Allergies/Adverse Reactions: Allergies Allergy/AdvReac Type Severity Reaction Status Date / Time No Known Allergies Allergy Verified 05/27/17 10:00 - Medications Medications: Current Medications Labetalol HCl (Trandate) 20 mg IVP Q3 PRN PRN Reason: Systolic Blood Pressure Results - Vital Signs Recent Vital Signs: Last Vital Signs Temp 98.4 F 05/27/17 14:37 Pulse 70 05/27/17 17:10 Resp 16 05/27/17 16:57 BP 195/94 H 05/27/17 17:10 Pulse Ox 96 05/27/17 16:57 - Labs Result Diagrams: 05/27/17 12:10 05/27/17 10:30 Labs: Laboratory Results - last 24 hr 05/27/17 12:10 WBC 7.7 RBC 3.82 L Hgb 11.6 L Hct 35.9 MCV 94.0 D MCH 30.4 MCHC 32.4 L RDW 18.0 H Plt Count 157 MPV 9.6 Neut % (Auto) 72.2 Lymph % (Auto) 13.9 L [place] % (Auto) 8.1 Eos % (Auto) 4.8 H Baso % (Auto) 1.0 Neut # 5.5 Lymph # 1.1 [place] # 0.6 Eos # 0.4 Baso # 0.1
[2017-05-27] MEDS: Labetalol 5 mg/ml Inj 20ML IVP PRN (21:00)
[2017-05-28 05:02] LABS: HEMOGLOBIN 10.4 g/dL (12.0-18.0); MEAN CORPUSCULAR HEMOGLOBIN 30.8 pg (27.0-31.0); MEAN CORPUSCULAR HGB CONC 33.1 g/dL (33.0-37.0); RBC 3.37 Mil/uL (4.40-5.90); RED CELL DISTRIBUTION WIDTH 18.3 % (11.5-14.5); WHITE BLOOD COUNT 8.4 K/uL (4.8-10.8)
[2017-05-28 05:14] LABS: ALB/GLOB RATIO 1.6 (1.0-2.1); CALCIUM 8.3 mg/dL (8.4-10.2)
[2017-05-28] MEDS: Labetalol 5 mg/ml Inj 20ML IVP PRN (07:39)
[2017-05-28] MEDS ORDERED: Nicardipine HCl 40 MG/200 ML 40 MG/200 ML SOL IV SCH (09:00)
[2017-05-28] MEDS: Nicardipine 20 MG/200 ML 20 MG/200 ML BAG IV SCH ×3 (09:14→18:16)
[2017-05-28] MEDS ORDERED: Nicardipine 20 MG/200 ML 20 MG/200 ML BAG IV SCH (09:15)
--- NOTE | 2017-05-28 09:35 | CP.PCM.PN ---
Subjective - Date & Time of Evaluation Date of Evaluation: 05/28/17 Time of Evaluation: 10:21 - Subjective Subjective: No acute events overnight. Patient seen and examined with Dr. Vásquez and family medicine team. Patient feels better. No complaints at present. Right sided weakness is improving. Denies headache, dizziness, nausea, vomiting, abdominal pain, pedal edema. He is for HD today. Patient seen by Dr. Gonzales. Patient lives with his Mother, who is 85 years old, on the third floor of a walk up building. Objective - Vital Signs/Intake and Output Vital Signs (last 24 hours): Temp Pulse Resp BP Pulse Ox 98.2 F 72 17 131/74 100 05/28/17 07:33 05/28/17 09:31 05/28/17 09:31 05/28/17 09:31 05/28/17 09:31 - Medications Medications: Active Medications Epoetin Jerry (Procrit) 4,000 unit IV TTS MELINA Nicardipine HCl (Cardene Iv Premix) 20 mg in 200 mls @ 50 mls/hr IV .Q4H MELINA Insulin Human Lispro (Humalog) 0 units SC ACHS MELINA Pantoprazole Sodium (Protonix Ec Tab) 20 mg PO DAILY MELINA Sevelamer Carbonate (Renvela) 2,400 gm PO TIDWM MELINA Valsartan (Diovan) 320 mg PO DAILY MELINA - Labs Labs: 05/28/17 04:20 05/28/17 04:20 PT 10.5 Seconds (9.8-13.1) 05/27/17 10:30 INR 0.9 (0.9-1.2) 05/27/17 10:30 APTT 33.1 Seconds (25.6-37.1) 05/27/17 10:30 - Constitutional Appears: No Acute Distress, Chronically Ill - ENT Exam ENT Exam: Mucous Membranes Moist - Respiratory Exam Respiratory Exam: Clear to Ausculation Bilateral, NORMAL BREATHING PATTERN. absent: Rales, Rhonchi, Wheezes, Respiratory Distress - Cardiovascular Exam Cardiovascular Exam: REGULAR RHYTHM, +S1, +S2. absent: Bradycardia, Tachycardia - GI/Abdominal Exam GI & Abdominal Exam: Soft. absent: Distended, Firm, Guarding, Rigid, Tenderness - Extremities Exam Extremities Exam: absent: Pedal Edema, Tenderness - Neurological Exam Neurological Exam: Alert, Awake, CN II-XII Intact, Oriented x3 Additional comments: strength 4/5 right, 5/5 left - Psychiatric Exam Psychiatric exam: Normal Affect, Normal Mood - Skin Skin Exam: Dry, Intact. absent: Pallor, Rash Assessment and Plan - Assessment and Plan (Free Text) Assessment: 61 y.o M with pmh of HTN, ESRD on HD (TThS), NIDDM, hyperlipidemia, and visual impairment who presents with right sided facial numbness and weakness radiating down to lower extremities causing him to collapse at home (2/5 hours prior to arrival to ED), noted dizziness prior to episode. Code stroke. . Hemorrhagic CVA : left basal ganglia with mild intraventricular component -CT remarkable for: 1.3 x 1.6 x 2.6 cm focal hemorrhage within the left basal ganglia. Small amount of left intraventricular hemorrhage within the posterior horn lateral ventricle. -monitor vitals; cardene drip started -neurosurgery consult and neurology consult;no surgical intervention at this time -swallow eval -pt/ot eval and treat : likely will need acute rehab, await recommendations -repeat CT in 24 hours : pending . HTN -uncontrolled -cardene drip -valsartan 320 mg . ESRD -HD on TThSat -nephrology consult: [facility] . history of DM -last hemoglobin A1C: 6.1 -sliding scale . Hyperlipidemia -controlled -continue lovastatin 40 mg . DVT prophalyxis -SCDs
--- NOTE | 2017-05-28 10:19 | CP.PCM.CON ---
History of Present Illness - History of Present Illness History of Present Illness: This patient who is 61 years of age known to me with end-stage renal disease [place] [facility] [place] presented to the emergency room because he had apparently for at home and he was approved to the ER for further evaluation. Because of the language with interpretation also I got the history from the chart as follow. pmh of HTN, ESRD on HD (TThS), NIDDM, hyperlipidemia, and visual impairment who presents with right sided facial numbness and weakness radiating down to lower extremities causing him to collapse at home (2/5 hours prior to arrival to ED), noted dizziness prior to episode. Review of Systems - Review of Systems Systems not reviewed;Unavailable: Respiratory Distress - Constitutional Constitutional: absent: Chills - Cardiovascular Cardiovascular: absent: Chest Pain, Dyspnea - Respiratory Respiratory: absent: Cough, Hemoptysis - Gastrointestinal Gastrointestinal: absent: Abdominal Pain - Genitourinary Genitourinary: As Per HPI, Nocturia - Musculoskeletal Musculoskeletal: As Per HPI, Muscle Weakness - Neurological Neurological: As Per HPI Past Patient History - Infectious Disease Hx of Infectious Diseases: None - Past Medical History & Family History Past Medical History?: Yes - Past Social History Alcohol: None Drugs: Denies - CARDIAC Hx Congestive Heart Failure: No Hx Hypercholesterolemia: No Hx Hypertension: Yes - PULMONARY Hx Chronic Obstructive Pulmonary Disease (COPD): No - NEUROLOGICAL Hx Transient Ischemic Attacks (TIA): Yes - HEENT Hx HEENT Problems: No - RENAL Hx Chronic Kidney Disease: Yes - ENDOCRINE/METABOLIC Hx Hypothyroidism: No - HEMATOLOGICAL/ONCOLOGICAL Hx Anemia: Yes Hx Human Immunodeficiency Virus (HIV): No - INTEGUMENTARY Hx Dermatological Problems: No - MUSCULOSKELETAL/RHEUMATOLOGICAL Hx Arthritis: No Hx Rheumatoid Arthritis: No - GASTROINTESTINAL Hx Gastrointestinal Disorders: No - GENITOURINARY/GYNECOLOGICAL Hx Genitourinary Disorders: Yes (ESRD,CKD) - PSYCHIATRIC Hx Substance Use: No - SURGICAL HISTORY Other/Comment: LEFT ANKLE SX - ANESTHESIA Hx Anesthesia: Yes Hx Anesthesia Reactions: No Hx Malignant Hyperthermia: No Meds Allergies/Adverse Reactions: Allergies Allergy/AdvReac Type Severity Reaction Status Date / Time No Known Allergies Allergy Verified 05/27/17 10:00 - Medications Medications: Current Medications Amlodipine Besylate (Norvasc) 5 mg PO DAILY MELINA Nicardipine HCl (Cardene Iv Premix) 20 mg in 200 mls @ 50 mls/hr IV .Q4H MELINA PRN Reason: Protocol Last Admin: 05/28/17 09:14 Dose: 50 mls/hr Labetalol HCl (Trandate) 40 mg IVP Q4H PRN PRN Reason: Systolic Blood Pressure Last Admin: 05/28/17 07:39 Dose: 40 mg Sevelamer Carbonate (Renvela) 2,400 gm PO TIDWM MELINA Valsartan (Diovan) 320 mg PO DAILY MELINA Last Admin: 05/27/17 18:39 Dose: 320 mg Physical Exam - Constitutional Appears: No Acute Distress - ENT Exam ENT Exam: Mucous Membranes Moist - Respiratory Exam Respiratory Exam: NORMAL BREATHING PATTERN. absent: Chest Wall Tenderness - Cardiovascular Exam Cardiovascular Exam: REGULAR RHYTHM. absent: Rubs - Extremities Exam Extremities exam: Negative for: calf tenderness - Back Exam Back exam: absent: CVA tenderness (L), CVA tenderness (R) - Neurological Exam Neurological exam: Alert Results - Vital Signs Recent Vital Signs: Last Vital Signs Temp 98.2 F 05/28/17 07:33 Pulse 72 05/28/17 09:31 Resp 17 05/28/17 09:31 BP 131/74 05/28/17 09:31 Pulse Ox 100 05/28/17 09:31 - Labs Result Diagrams: 05/28/17 04:20 05/28/17 04:20 Labs: Laboratory Results - last 24 hr 05/27/17 05/27/17 05/27/17 12:10 13:22 15:55 WBC 7.7 RBC 3.82 L Hgb 11.6 L Hct 35.9 MCV 94.0 D MCH 30.4 MCHC 32.4 L RDW 18.0 H Plt Count 157 MPV 9.6 Neut % (Auto) 72.2 Lymph % (Auto) 13.9 L [place] % (Auto) 8.1 Eos % (Auto) 4.8 H Baso % (Auto) 1.0 Neut # 5.5 Lymph # 1.1 [place] # 0.6 Eos # 0.4 Baso # 0.1 Sodium Potassium Chloride Carbon Dioxide Anion Gap BUN Creatinine Est GFR ( Amer) Est GFR (Non-Af Amer) POC Glucose (mg/dL) 104 138 H Random Glucose Calcium Total Bilirubin AST ALT Alkaline Phosphatase Troponin I Total Protein Albumin Globulin Albumin/Globulin Ratio Alcohol, Quantitative 05/27/17 05/27/17 05/27/17 18:27 18:27 21:02 WBC RBC Hgb Hct MCV MCH MCHC RDW Plt Count MPV Neut % (Auto) Lymph % (Auto) [place] % (Auto) Eos % (Auto) Baso % (Auto) Neut # Lymph # [place] # Eos # Baso # Sodium Potassium Chloride Carbon Dioxide Anion Gap BUN Creatinine Est GFR ( Amer) Est GFR (Non-Af Amer) POC Glucose (mg/dL) 103 Random Glucose Calcium Total Bilirubin AST ALT Alkaline Phosphatase Troponin I 0.0770 Total Protein Albumin Globulin Albumin/Globulin Ratio Alcohol, Quantitative < 10 05/27/17 05/28/17 05/28/17 23:18 04:20 04:20 WBC 8.4 RBC 3.37 L Hgb 10.4 L Hct 31.3 L MCV 93.0 MCH 30.8 MCHC 33.1 RDW 18.3 H Plt Count 134 MPV Neut % (Auto) Lymph % (Auto) [place] % (Auto) Eos % (Auto) Baso % (Auto) Neut # Lymph # [place] # Eos # Baso # Sodium 141 Potassium 4.5 Chloride 99 Carbon Dioxide 26 Anion Gap 20 BUN 61 H Creatinine 15.6 H* D Est GFR ( Amer) 4 Est GFR (Non-Af Amer) 3 POC Glucose (mg/dL) 162 H Random Glucose 98 Calcium 8.3 L Total Bilirubin 0.5 AST 21 ALT 31 Alkaline Phosphatase 105 Troponin I Total Protein 6.5 Albumin 4.0 Globulin 2.5 Albumin/Globulin Ratio 1.6 Alcohol, Quantitative 05/28/17 05:20 WBC RBC Hgb Hct MCV MCH MCHC RDW Plt Count MPV Neut % (Auto) Lymph % (Auto) [place] % (Auto) Eos % (Auto) Baso % (Auto) Neut # Lymph # [place] # Eos # Baso # Sodium Potassium Chloride Carbon Dioxide Anion Gap BUN Creatinine Est GFR ( Amer) Est GFR (Non-Af Amer) POC Glucose (mg/dL) 104 Random Glucose Calcium Total Bilirubin AST ALT Alkaline Phosphatase Troponin I Total Protein Albumin Globulin Albumin/Globulin Ratio Alcohol, Quantitative Assessment & Plan (1) CVA (cerebral vascular accident) Status: Acute (2) Hypertensive urgency Status: Acute (3) ESRD (end stage renal disease) Assessment and Plan: Patient with end stage renal disease admitted with intracranial bleeding see the detailed of the report. 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 Patient also diabetic to continue with the diabetic control To adjust antihypertensive medication as noted Status: Chronic Priority: High
[2017-05-28] MEDS ORDERED: Epoetin Alfa 4000 UNIT/ML Inj IV SCH (11:00)
--- NOTE | 2017-05-28 11:39 | CARD ---
APPROVED REPORT EKG Measurement Heart [id number] <Conclusion> Normal sinus rhythm Left axis deviation Anteroseptal infarct, age undetermined ST & T wave abnormality, consider lateral ischemia Abnormal ECG
[2017-05-28] MEDS ORDERED: Sevelamer Carb 0.8 gm/Packet PO SCH (12:00)
--- NOTE | 2017-05-28 13:03 | CP.CCUPN ---
CCU Subjective - Physician Review Events Since Last Encounter (Free Text): 05/28/17 13:01 still has weakness in RUE. No other complaints. CCU Objective - Vital Signs / Intake & Output Vital Signs (Last 4 hours): Vital Signs Temp Pulse Resp BP Pulse Ox 05/28/17 12:04 98.5 F 70 16 142/77 95 05/28/17 11:00 75 18 140/71 99 05/28/17 10:25 81 23 126/71 100 05/28/17 10:00 73 16 123/76 98 05/28/17 09:31 72 17 131/74 100 05/28/17 09:15 72 16 160/84 H 99 Intake and Output (Last 8hrs): Intake & Output 05/27/17 05/28/17 05/28/17 22:59 06:59 14:59 Intake Total 37.5 Balance 37.5 Intake: IV 37.5 - Physical Exam Head: Positive for: Normocephalic Pupils: Positive for: PERRL Extroacular Muscles: Positive for: EOMI Conjunctiva: Positive for: Normal Mouth: Positive for: Moist Mucous Membranes Pharnyx: Positive for: Normal Neck: Positive for: Normal Range of Motion. Negative for: JVD, Lymphadenopathy Respiratory/Chest: Positive for: Clear to Auscultation Cardiovascular: Positive for: Regular Rate and Rhythm Abdomen: Positive for: Normal Bowel Sounds. Negative for: Tenderness, Distention Genitourinary Male: Positive for: Normal External Genitalia Upper Extremity: Positive for: Other (LUE AVF with good bruit and thrill.) Neurological: Positive for: GCS=15, Speech Normal, Normal Sensory Function, Norm Deep Tendon Reflexes, Memory Normal, Other (RUE weakness). Negative for: Motor Func Grossly Intact (minimal 4-5/5 RUE strength better than RLE. ) Psychiatric: Positive for: Alert - Medications Active Medications: Active Medications Generic Name Dose Route Start Last Admin Trade Name Freq PRN Reason Stop Dose Admin Amlodipine Besylate 5 mg 05/28/17 09:00 Norvasc PO DAILY MELIAN Epoetin Jerry 4,000 unit 05/28/17 11:00 Procrit IV TTS MELINA Nicardipine HCl 20 mg in 200 mls @ 50 mls/hr 05/28/17 09:15 05/28/17 10:00 Cardene Iv Premix IV 25 mls/hr .Q4H MELINA Titration Protocol Insulin Human Lispro 0 units 05/28/17 16:30 Humalog SC ACHS MELINA Protocol Labetalol HCl 40 mg 05/27/17 18:21 05/28/17 07:39 Trandate IVP 40 mg Q4H PRN Administration Systolic Blood Pressure Pantoprazole Sodium 20 mg 05/28/17 13:00 Protonix Ec Tab PO DAILY MELINA Sevelamer Carbonate 2,400 gm 05/28/17 12:00 Renvela PO TIDWM MELINA Valsartan 320 mg 05/27/17 18:16 05/27/17 18:39 Diovan PO 320 mg DAILY MELINA Administration - Patient Studies Lab Studies: Lab Studies 05/28/17 05/28/17 05/28/17 Range/Units 11:04 05:20 04:20 WBC (4.8-10.8) K/uL RBC (4.40-5.90) Mil/uL Hgb (12.0-18.0) g/dL Hct (35.0-51.0) % MCV (80.0-94.0) fl MCH (27.0-31.0) pg MCHC (33.0-37.0) g/dL RDW (11.5-14.5) % Plt Count (130-400) K/uL Sodium 141 (132-148) mmol/l Potassium 4.5 (3.6-5.0) MMOL/L Chloride 99 (98-107) mmol/L Carbon Dioxide 26 (22-30) mmol/L Anion Gap 20 (10-20) BUN 61 H (9-20) mg/dl Creatinine 15.6 H* D (0.8-1.5) mg/dL Est GFR ( Amer) 4 Est GFR (Non-Af Amer) 3 POC Glucose (mg/dL) 198 H 104 (65-110) mg/dL Random Glucose 98 (75-110) mg/dL Calcium 8.3 L (8.4-10.2) mg/dL Phosphorus 7.0 H (2.5-4.5) mg/dl Total Bilirubin 0.5 (0.2-1.3) mg/dl AST 21 (17-59) U/L ALT 31 (21-72) U/L Alkaline Phosphatase 105 (38-126) U/L Troponin I (0.00-0.120) ng/mL Total Protein 6.5 (6.3-8.2) G/DL Albumin 4.0 (3.5-5.0) g/dL Globulin 2.5 (2.2-3.9) gm/dL Albumin/Globulin Ratio 1.6 (1.0-2.1) Alcohol, Quantitative (0-10) mg/dl 05/28/17 05/27/17 05/27/17 Range/Units 04:20 23:18 21:02 WBC 8.4 (4.8-10.8) K/uL RBC 3.37 L (4.40-5.90) Mil/uL Hgb 10.4 L (12.0-18.0) g/dL Hct 31.3 L (35.0-51.0) % MCV 93.0 (80.0-94.0) fl MCH 30.8 (27.0-31.0) pg MCHC 33.1 (33.0-37.0) g/dL RDW 18.3 H (11.5-14.5) % Plt Count 134 (130-400) K/uL Sodium (132-148) mmol/l Potassium (3.6-5.0) MMOL/L Chloride (98-107) mmol/L Carbon Dioxide (22-30) mmol/L Anion Gap (10-20) BUN (9-20) mg/dl Creatinine (0.8-1.5) mg/dL Est GFR ( Amer) Est GFR (Non-Af Amer) POC Glucose (mg/dL) 162 H 103 (65-110) mg/dL Random Glucose (75-110) mg/dL Calcium (8.4-10.2) mg/dL Phosphorus (2.5-4.5) mg/dl Total Bilirubin (0.2-1.3) mg/dl AST (17-59) U/L ALT (21-72) U/L Alkaline Phosphatase (38-126) U/L Troponin I (0.00-0.120) ng/mL Total Protein (6.3-8.2) G/DL Albumin (3.5-5.0) g/dL Globulin (2.2-3.9) gm/dL Albumin/Globulin Ratio (1.0-2.1) Alcohol, Quantitative (0-10) mg/dl 05/27/17 05/27/17 05/27/17 Range/Units 18:27 18:27 15:55 WBC (4.8-10.8) K/uL RBC (4.40-5.90) Mil/uL Hgb (12.0-18.0) g/dL Hct (35.0-51.0) % MCV (80.0-94.0) fl MCH (27.0-31.0) pg MCHC (33.0-37.0) g/dL RDW (11.5-14.5) % Plt Count (130-400) K/uL Sodium (132-148) mmol/l Potassium (3.6-5.0) MMOL/L Chloride (98-107) mmol/L Carbon Dioxide (22-30) mmol/L Anion Gap (10-20) BUN (9-20) mg/dl Creatinine (0.8-1.5) mg/dL Est GFR ( Amer) Est GFR (Non-Af Amer) POC Glucose (mg/dL) 138 H (65-110) mg/dL Random Glucose (75-110) mg/dL Calcium (8.4-10.2) mg/dL Phosphorus (2.5-4.5) mg/dl Total Bilirubin (0.2-1.3) mg/dl AST (17-59) U/L ALT (21-72) U/L Alkaline Phosphatase (38-126) U/L Troponin I 0.0770 (0.00-0.120) ng/mL Total Protein (6.3-8.2) G/DL Albumin (3.5-5.0) g/dL Globulin (2.2-3.9) gm/dL Albumin/Globulin Ratio (1.0-2.1) Alcohol, Quantitative < 10 (0-10) mg/dl 05/27/17 Range/Units 13:22 WBC (4.8-10.8) K/uL RBC (4.40-5.90) Mil/uL Hgb (12.0-18.0) g/dL Hct (35.0-51.0) % MCV (80.0-94.0) fl MCH (27.0-31.0) pg MCHC (33.0-37.0) g/dL RDW (11.5-14.5) % Plt Count (130-400) K/uL Sodium (132-148) mmol/l Potassium (3.6-5.0) MMOL/L Chloride (98-107) mmol/L Carbon Dioxide (22-30) mmol/L Anion Gap (10-20) BUN (9-20) mg/dl Creatinine (0.8-1.5) mg/dL Est GFR ( Amer) Est GFR (Non-Af Amer) POC Glucose (mg/dL) 104 (65-110) mg/dL Random Glucose (75-110) mg/dL Calcium (8.4-10.2) mg/dL Phosphorus (2.5-4.5) mg/dl Total Bilirubin (0.2-1.3) mg/dl AST (17-59) U/L ALT (21-72) U/L Alkaline Phosphatase (38-126) U/L Troponin I (0.00-0.120) ng/mL Total Protein (6.3-8.2) G/DL Albumin (3.5-5.0) g/dL Globulin (2.2-3.9) gm/dL Albumin/Globulin Ratio (1.0-2.1) Alcohol, Quantitative (0-10) mg/dl Laboratory Results - last 24 hr 05/27/17 05/27/17 05/27/17 13:22 15:55 18:27 WBC RBC Hgb Hct MCV MCH MCHC RDW Plt Count Sodium Potassium Chloride Carbon Dioxide Anion Gap BUN Creatinine Est GFR ( Amer) Est GFR (Non-Af Amer) POC Glucose (mg/dL) 104 138 H Random Glucose Calcium Phosphorus Total Bilirubin AST ALT Alkaline Phosphatase Troponin I Total Protein Albumin Globulin Albumin/Globulin Ratio Alcohol, Quantitative < 10 05/27/17 05/27/17 05/27/17 18:27 21:02 23:18 WBC RBC Hgb Hct MCV MCH MCHC RDW Plt Count Sodium Potassium Chloride Carbon Dioxide Anion Gap BUN Creatinine Est GFR ( Amer) Est GFR (Non-Af Amer) POC Glucose (mg/dL) 103 162 H Random Glucose Calcium Phosphorus Total Bilirubin AST ALT Alkaline Phosphatase Troponin I 0.0770 Total Protein Albumin Globulin Albumin/Globulin Ratio Alcohol, Quantitative 05/28/17 05/28/17 05/28/17 04:20 04:20 05:20 WBC 8.4 RBC 3.37 L Hgb 10.4 L Hct 31.3 L MCV 93.0 MCH 30.8 MCHC 33.1 RDW 18.3 H Plt Count 134 Sodium 141 Potassium 4.5 Chloride 99 Carbon Dioxide 26 Anion Gap 20 BUN 61 H Creatinine 15.6 H* D Est GFR ( Amer) 4 Est GFR (Non-Af Amer) 3 POC Glucose (mg/dL) 104 Random Glucose 98 Calcium 8.3 L Phosphorus 7.0 H Total Bilirubin 0.5 AST 21 ALT 31 Alkaline Phosphatase 105 Troponin I Total Protein 6.5 Albumin 4.0 Globulin 2.5 Albumin/Globulin Ratio 1.6 Alcohol, Quantitative 05/28/17 11:04 WBC RBC Hgb Hct MCV MCH MCHC RDW Plt Count Sodium Potassium Chloride Carbon Dioxide Anion Gap BUN Creatinine Est GFR ( Amer) Est GFR (Non-Af Amer) POC Glucose (mg/dL) 198 H Random Glucose Calcium Phosphorus Total Bilirubin AST ALT Alkaline Phosphatase Troponin I Total Protein Albumin Globulin Albumin/Globulin Ratio Alcohol, Quantitative Fingerstick Blood Sugar Results: 198 Review of Systems - Review of Systems All systems: reviewed and no additional remarkable complaints except - Neurological Neurological: Focal Weakness Critical Care Progress Note - Nutrition Nutrition: Nutrition Category Date Time Status Renal Diet [DIET] Diets 05/27/17 Lunch Active Assessment/Plan (1) CVA (cerebral vascular accident) Assessment and plan: 61yo M. PMHx HTN, ESRD on HD (T//thu), NIDDM type 2, dyslipidemia, blind in right eye. p/w acute hemorrhagic hypertensive stroke, left basal ganglia. Neuro: Alert and following commands, neurologic symptoms improving. Pulm: No acute issues, breathing spontaneously on room air. CV: Hypertension, controlling currently with nicardipine drip to maintain systolic blood pressure less than 140. Holding oral antihypertensives, losartan , labetalol, Norvasc. Hem: No acute issues Renal: End-stage renal disease on hemodialysis, scheduled for today. Continue sevelamer for secondary hyperparathyroidism with chronic renal disease. Endo: DM type II, short acting insulin sliding scale for coverage. GI: Renal diet, with low carbohydrate consistency. ID: No acute issues DVT proph - SCDs, anticoagulation held with current bleed GI proph - Protonix blum for strict I/O's during acute illness Code status - full code Critical Care Time spent 35 minutes Multi-disciplinary rounds were performed with house staff, nursing, speech therapy, respiratory therapy, pharmacy and nutrition with integrated input from the primary team/attending and other consulting services. The documented time is cumulative and includes review of patient data/exams/labs/chart review and examination of the patient on rounds and throughout the day; time is exclusive of any procedures or teaching time. Current Visit: Yes Status: Acute
--- NOTE | 2017-05-28 13:18 | CT ---
PROCEDURE: CT HEAD WITHOUT CONTRAST. HISTORY: assess ICH COMPARISON: 05/27/2017. TECHNIQUE: Axial computed tomography images were obtained through the head/brain without intravenous contrast. Radiation dose: Total exam DLP = 1365.42 mGy-cm. This CT exam was performed using one or more of the following dose reduction techniques: Automated exposure control, adjustment of the mA and/or kV according to patient size, and/or use of iterative reconstruction technique. FINDINGS: HEMORRHAGE: No intracranial hemorrhage. BRAIN: Given differences in slice selection, there is no significant interval change in known 16 x 13 x 20 mm acute parenchymal hematoma in the left none posterior martins radiata and extending into the posterior limb of internal capsule and lateral thalamus. There is moderate surrounding vasogenic edema. No evidence of mass effect or midline shift. No evidence of herniation. Again seen are moderate chronic microangiopathic changes. There is an old infarction in the shikha and lacunar infarction in the right basal ganglia. There is no extra-axial fluid collection. There are coarse atherosclerotic calcifications in the cavernous carotid arteries. VENTRICLES: There is intraventricular extension of hemorrhage in the occipital horn of the right lateral ventricle. There is moderate age-related global parenchymal volume loss and proportionate enlargement of the ventricles and cortical sulci. CALVARIUM: The skull base and calvarium are normal. PARANASAL SINUSES: There is a retention cyst/ polyp in the right maxillary sinus. The remaining included paranasal sinuses are clear. MASTOID AIR CELLS: Predominantly clear. OTHER FINDINGS: None. IMPRESSION: 1. Little interval change in known acute parenchymal hematoma in the left posterior martins radiata extending to the posterior limb of the internal capsule and lateral thalamus with moderate surrounding vasogenic edema. No evidence of mass effect, midline shift or herniation. No hydrocephalus. 2. Intraventricular extension of hemorrhage in the occipital horn of the right lateral ventricle. No hemorrhage is seen in the left lateral ventricle. 3. Moderate chronic microangiopathic changes and moderate age-related global parenchymal volume loss. Additional comments as described above.
[2017-05-28] MEDS: Pantoprazole 20 mg EC Tab PO SCH (14:35)
[2017-05-28] MEDS: Sevelamer Carb 0.8 gm/Packet PO SCH (17:02)
[2017-05-28] MEDS: Insulin Lispro (humaLOG) 100 Units/ml Inj SC SCH ×2 (17:03→23:10)
[2017-05-28 17:35] LABS: HEPATITIS B SURFACE AG NEGATIVE (NEGATIVE)
[2017-05-28 17:53] LABS: HEPATITIS C ANTIBODY NEGATIVE (NEGATIVE)
--- NOTE | 2017-05-28 19:41 | CP.PCM.PN ---
Subjective - Date & Time of Evaluation Date of Evaluation: 05/28/17 Time of Evaluation: 19:37 - Subjective Subjective: I spoke with Neurosurgery household appliances salesperson Dr. Brewer to discuss the repeat CT scan Head after [address] initial [address] scan Head. New finding of Intraventricular extension of hemorrhage in the occipital horn of the right lateral ventricle is not significant. Dr. Brewer recommends continue current medical management. PROCEDURE: CT HEAD WITHOUT CONTRAST. HISTORY: assess ICH COMPARISON: 05/27/2017. TECHNIQUE: Axial computed tomography images were obtained through the head/brain without intravenous contrast. Radiation dose: Total exam DLP = 1365.42 mGy-cm. This CT exam was performed using one or more of the following dose reduction techniques: Automated exposure control, adjustment of the mA and/or kV according to patient size, and/or use of iterative reconstruction technique. FINDINGS: HEMORRHAGE: No intracranial hemorrhage. BRAIN: Given differences in slice selection, there is no significant interval change in known 16 x 13 x 20 mm acute parenchymal hematoma in the left none posterior martins radiata and extending into the posterior limb of internal capsule and lateral thalamus. There is moderate surrounding vasogenic edema. No evidence of mass effect or midline shift. No evidence of herniation. Again seen are moderate chronic microangiopathic changes. There is an old infarction in the shikha and lacunar infarction in the right basal ganglia. There is no extra-axial fluid collection. There are coarse atherosclerotic calcifications in the cavernous carotid arteries. VENTRICLES: There is intraventricular extension of hemorrhage in the occipital horn of the right lateral ventricle. There is moderate age-related global parenchymal volume loss and proportionate enlargement of the ventricles and cortical sulci. CALVARIUM: The skull base and calvarium are normal. PARANASAL SINUSES: There is a retention cyst/ polyp in the right maxillary sinus. The remaining included paranasal sinuses are clear. MASTOID AIR CELLS: Predominantly clear. OTHER FINDINGS: None. IMPRESSION: 1. Little interval change in known acute parenchymal hematoma in the left posterior martins radiata extending to the posterior limb of the internal capsule and lateral thalamus with moderate surrounding vasogenic edema. No evidence of mass effect, midline shift or herniation. No hydrocephalus. 2. Intraventricular extension of hemorrhage in the occipital horn of the right lateral ventricle. No hemorrhage is seen in the left lateral ventricle. 3. Moderate chronic microangiopathic changes and moderate age-related global parenchymal volume loss. Additional comments as described above. Objective - Vital Signs/Intake and Output Vital Signs (last 24 hours): Temp Pulse Resp BP Pulse Ox 98.6 F 74 18 134/78 98 05/28/17 16:30 05/28/17 18:00 05/28/17 18:00 05/28/17 18:00 05/28/17 18:00 Intake and Output: 05/28/17 05/29/17 18:59 06:59 Intake Total 680.00 Output Total 3000 Balance -2320.00 - Medications Medications: Current Medications Acetaminophen (Tylenol 325mg Tab) 650 mg PO Q6 PRN PRN Reason: Headache Last Admin: 05/28/17 14:35 Dose: 650 mg Atorvastatin Calcium (Lipitor) 40 mg PO DAILY MELINA Last Admin: 05/28/17 17:02 Dose: 40 mg Epoetin Jerry (Procrit) 4,000 unit IV TTS MELINA Last Admin: 05/28/17 14:34 Dose: 4,000 unit Nicardipine HCl (Cardene Iv Premix) 20 mg in 200 mls @ 50 mls/hr IV .Q4H MELINA PRN Reason: Protocol Last Admin: 05/28/17 18:16 Dose: 25 mls/hr Insulin Human Lispro (Humalog) 0 units SC ACHS MELINA PRN Reason: Protocol Last Admin: 05/28/17 17:03 Dose: 1 unit Pantoprazole Sodium (Protonix Ec Tab) 20 mg PO DAILY [facility] Last Admin: 05/28/17 14:35 Dose: 20 mg Sevelamer Carbonate (Renvela) 2.4 gm PO TIDWM MELINA Last Admin: 05/28/17 17:02 Dose: 2.4 gm - Labs Labs: 05/28/17 04:20 05/28/17 04:20 PT 10.5 Seconds (9.8-13.1) 05/27/17 10:30 INR 0.9 (0.9-1.2) 05/27/17 10:30 APTT 33.1 Seconds (25.6-37.1) 05/27/17 10:30
[2017-05-29 05:30] LABS: HEMOGLOBIN 12.2 g/dL (12.0-18.0); MEAN CELL VOLUME 92.6 fl (80.0-94.0); MEAN CORPUSCULAR HEMOGLOBIN 30.4 pg (27.0-31.0); MEAN CORPUSCULAR HGB CONC 32.9 g/dL (33.0-37.0); RED CELL DISTRIBUTION WIDTH 18.2 % (11.5-14.5); WHITE BLOOD COUNT 9.1 K/uL (4.8-10.8)
[2017-05-29] MEDS: Insulin Lispro (humaLOG) 100 Units/ml Inj SC SCH ×4 (06:32→22:00)
[2017-05-29] MEDS: Nicardipine 20 MG/200 ML 20 MG/200 ML BAG IV SCH (06:45)
--- NOTE | 2017-05-29 06:50 | CP.PCM.PN ---
Subjective - Date & Time of Evaluation Date of Evaluation: 05/29/17 Time of Evaluation: 07:45 - Subjective Subjective: Patient feels 'poquito johnathan', he is alert and awake. Tingling in right arm, weakness improving. He reports he has eye drops that his mother will bring in today. He is eating well. Pt had dialysis yesterday, tolerated well. BP: 140s systolic, HR 70-80s. He is on nicardipine drip. CT on 05/28: revealed Intraventricular extension of hemorrhage in the occipital horn of the right lateral ventricle. Repeat CT this AM. Objective - Vital Signs/Intake and Output Vital Signs (last 24 hours): Temp Pulse Resp BP Pulse Ox 98.1 F 82 16 147/94 H 100 05/29/17 04:00 05/29/17 06:47 05/29/17 06:47 05/29/17 06:47 05/29/17 06:47 Intake and Output: 05/28/17 05/29/17 18:59 06:59 Intake Total 680.00 750 Output Total 3000 Balance -2320.00 750 - Medications Medications: Current Medications Acetaminophen (Tylenol 325mg Tab) 650 mg PO Q6 PRN PRN Reason: Headache Last Admin: 05/28/17 14:35 Dose: 650 mg Atorvastatin Calcium (Lipitor) 40 mg PO DAILY [facility] Last Admin: 05/28/17 17:02 Dose: 40 mg Epoetin Jerry (Procrit) 4,000 unit IV TTS MELINA Last Admin: 05/28/17 14:34 Dose: 4,000 unit Nicardipine HCl (Cardene Iv Premix) 20 mg in 200 mls @ 50 mls/hr IV .Q4H MELINA PRN Reason: Protocol Last Admin: 05/29/17 06:45 Dose: 25 mls/hr Insulin Human Lispro (Humalog) 0 units SC ACHS MELINA PRN Reason: Protocol Last Admin: 05/29/17 06:32 Dose: Not Given Pantoprazole Sodium (Protonix Ec Tab) 20 mg PO DAILY [facility] Last Admin: 05/28/17 14:35 Dose: 20 mg Sevelamer Carbonate (Renvela) 2.4 gm PO TIDWM MELINA Last Admin: 05/28/17 17:02 Dose: 2.4 gm - Labs Labs: 05/29/17 04:25 05/29/17 04:25 PT 10.5 Seconds (9.8-13.1) 05/27/17 10:30 INR 0.9 (0.9-1.2) 05/27/17 10:30 APTT 33.1 Seconds (25.6-37.1) 05/27/17 10:30 - Constitutional Appears: Non-toxic, In Acute Distress, Chronically Ill - Eye Exam Eye Exam: EOMI - Respiratory Exam Respiratory Exam: Clear to Ausculation Bilateral, NORMAL BREATHING PATTERN. absent: Rales, Rhonchi, Wheezes, Respiratory Distress - Cardiovascular Exam Cardiovascular Exam: REGULAR RHYTHM, +S1, +S2 - GI/Abdominal Exam GI & Abdominal Exam: Normal Bowel Sounds. absent: Distended, Guarding, Tenderness, Hernia, Rebound - Rectal Exam Rectal Exam: Deferred - Neurological Exam Neurological Exam: Alert, Awake, Motor Sensory Deficit, Oriented x3 Neuro motor strength exam: Left Upper Extremity: 5, Right Upper Extremity: 4, Left Lower Extremity: 5, Right Lower Extremity: 4 - Psychiatric Exam Psychiatric exam: Normal Affect, Normal Mood - Skin Skin Exam: Dry, Intact, Normal Color Assessment and Plan - Assessment and Plan (Free Text) Assessment: 61 y.o M with pmh of HTN, ESRD on HD (TThS), NIDDM, hyperlipidemia, and visual impairment who presents with right sided facial numbness and weakness radiating down to lower extremities causing him to collapse at home (2/5 hours prior to arrival to ED), noted dizziness prior to episode. Hemiparesis improving, numbness tingling RUE. Patient denies dizziness. . 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 Small amount of left intraventricular hemorrhage within the posterior horn lateral ventricle. ; Repeat CT revealed: intraventricular extension of hemorrhage in the occipital horn of the right lateral ventricle -monitor vitals; cardene drip continued, consider d/c given BP 120s -neurosurgery consult and neurology consult; no surgical intervention at this time -swallow eval -pt/ot eval and treat : likely will need acute rehab, await recommendations -rpt CT this AM . HTN -bp in 140s during visit this AM consider d/c. -cardene drip -valsartan 320 mg . ESRD -HD on TThSat -nephrology consult(Dr. Gonzales): brooke and nacho -CMP reviewed; creatinine improved. . history of DM -last hemoglobin A1C: 6.1 -sliding scale . Hyperlipidemia -controlled -continue lovastatin 40 mg . DVT prophalyxis -SCDs; pt has ICH
--- NOTE | 2017-05-29 07:55 | PQF GENQUE ---
This form is a permanent part of the medical record 05/29/17 Dr. Flex Grant, Admitted with hemorrhagic CVA. Documentation of some right sided weakness. Would you please clarify if this patient has a right sided hemiparesis or not. Clarification of your documentation is requested to better reflect the severity of illness and intensity of treatment of your patient. Indicators present [] Specify: [] [] Specify: [] [] Specify: [] [] Specify: [] Location in the medical record that reflects the above clinical findings: [] Treatment Provided: [] PHYSICIAN'S RESPONSE Based on your medical judgment of the clinical indicators outlined above please clarify the following: [] Practitioner response [] If unable to determine, please check the box, sign and date. Present On Admission (POA) Indicator: [] Present at the time of admission [] Not present at the time of admission [] Clinically Undetermined In responding to this query, please exercise your independent professional judgment. The fact that a question is asked does not imply that any particular answer is desired or expected. Thank you for your clarification on this documentation. If you have any questions please call:ext [phone] * Thank you, Tia August RN CD[facility]
[2017-05-29] MEDS: Sevelamer Carb 0.8 gm/Packet PO SCH ×3 (08:22→16:23)
[2017-05-29] MEDS: Pantoprazole 20 mg EC Tab PO SCH (08:22)
--- NOTE | 2017-05-29 09:27 | CT ---
PROCEDURE: CT HEAD WITHOUT CONTRAST. HISTORY: assess ICH COMPARISON: 05/28/2017 TECHNIQUE: Axial computed tomography images were obtained through the head/brain without intravenous contrast. Radiation dose: Total exam DLP = 2236.73 mGy-cm. This CT exam was performed using one or more of the following dose reduction techniques: Automated exposure control, adjustment of the mA and/or kV according to patient size, and/or use of iterative reconstruction technique. FINDINGS: HEMORRHAGE: Since the prior examination, there has been no significant interval change in the size and appearance of a 16 x 11 mm acute parenchymal hematoma in the left posterior martins radiata and posterior limb of internal capsule with moderate surrounding vasogenic edema without mass effect or midline shift. No evidence of uncal herniation. BRAIN: There are moderate chronic microangiopathic changes. There is no mass, mass effect or abnormal extra-axial fluid collection. Again seen is an old infarction in the shikha. There are coarse atherosclerotic calcifications in the cavernous carotid arteries. VENTRICLES: There is redemonstration of layering hemorrhage in the occipital horn of the right lateral ventricle. There is no hemorrhage in the left lateral ventricle. There is redemonstration of moderate global parenchymal volume loss with proportionate enlargement of the ventricles and cortical sulci. CALVARIUM: The skull base and calvarium are normal. PARANASAL SINUSES: Predominantly clear. MASTOID AIR CELLS: Predominantly clear. OTHER FINDINGS: None. IMPRESSION: No significant interval change in the size and appearance of 16 x 11 mm acute parenchymal hematoma in the left posterior martins radiata and posterior limb of the internal capsule with moderate surrounding vasogenic edema and layering hemorrhage in the occipital horn of the right lateral ventricle. Moderate chronic microangiopathic changes and moderate global parenchymal volume loss.
--- NOTE | 2017-05-29 10:35 | CP.PCM.PN ---
Subjective - Date & Time of Evaluation Date of Evaluation: 05/29/17 Time of Evaluation: 10:32 - Subjective Subjective: Patient and bed appears to be comfortable Patient awake and conscious eating well Objective - Vital Signs/Intake and Output Vital Signs (last 24 hours): Temp Pulse Resp BP Pulse Ox 98.7 F 82 24 133/75 100 05/29/17 08:00 05/29/17 08:00 05/29/17 08:00 05/29/17 08:00 05/29/17 08:00 Intake and Output: 05/29/17 05/29/17 06:59 18:59 Intake Total 750 Balance 750 - Medications Medications: Current Medications Acetaminophen (Tylenol 325mg Tab) 650 mg PO Q6 PRN PRN Reason: Headache Last Admin: 05/28/17 14:35 Dose: 650 mg Atorvastatin Calcium (Lipitor) 40 mg PO DAILY [facility] Last Admin: 05/29/17 08:22 Dose: 40 mg Doxercalciferol (Hectorol) 4 mcg IV TTS ONE Stop: 05/30/17 10:31 Epoetin Jerry (Procrit) 4,000 unit IV TTS [facility] Last Admin: 05/28/17 14:34 Dose: 4,000 unit Nicardipine HCl (Cardene Iv Premix) 20 mg in 200 mls @ 50 mls/hr IV .Q4H MELINA PRN Reason: Protocol Last Admin: 05/29/17 06:45 Dose: 25 mls/hr Insulin Human Lispro (Humalog) 0 units SC ACHS MELINA PRN Reason: Protocol Last Admin: 05/29/17 06:32 Dose: Not Given Pantoprazole Sodium (Protonix Ec Tab) 20 mg PO DAILY [facility] Last Admin: 05/29/17 08:22 Dose: 20 mg Sevelamer Carbonate (Renvela) 2.4 gm PO TIDWM MELINA Last Admin: 05/29/17 08:22 Dose: 2.4 gm - Labs Labs: 05/29/17 04:25 05/29/17 04:25 PT 10.5 Seconds (9.8-13.1) 05/27/17 10:30 INR 0.9 (0.9-1.2) 05/27/17 10:30 APTT 33.1 Seconds (25.6-37.1) 05/27/17 10:30 - Constitutional Appears: No Acute Distress - ENT Exam ENT Exam: Mucous Membranes Moist - Respiratory Exam Respiratory Exam: NORMAL BREATHING PATTERN. absent: Chest Wall Tenderness - Cardiovascular Exam Cardiovascular Exam: REGULAR RHYTHM. absent: JVD, Rubs - GI/Abdominal Exam GI & Abdominal Exam: Normal Bowel Sounds - Extremities Exam Extremities Exam: absent: Calf Tenderness - Back Exam Back Exam: absent: CVA tenderness (L), CVA tenderness (R) - Neurological Exam Neurological Exam: Alert Assessment and Plan (1) CVA (cerebral vascular accident) Status: Acute (2) Hypertensive urgency Status: Acute (3) ESRD (end stage renal disease) Assessment & Plan: Patient appeared to be comfortable and he completed hemodialysis yesterday There is refusing to complete 4 hours of dialysis I explained to him his serum creatinine very high indicating inadequate dialysis. Blood pressure better controlled appears to be okay Serum phosphorus high 7.0 started on Renvela I added Hectorol to be given during hemodialysis his PTH is high as outpatient Continue monitoring Status: Chronic
--- NOTE | 2017-05-29 12:32 | CP.CCUPN ---
CCU Subjective - Physician Review Events Since Last Encounter (Free Text): 05/29/17 12:28 Patient feels better, increased strength in right hand. CCU Objective - Vital Signs / Intake & Output Vital Signs (Last 4 hours): Vital Signs Temp Pulse Resp BP Pulse Ox 05/29/17 12:00 98.9 F 69 14 139/76 100 Intake and Output (Last 8hrs): Intake & Output 05/28/17 05/29/17 05/29/17 22:59 06:59 14:59 Intake Total 433.75 600 Output Total 3000 Balance -2566.25 600 Intake: IV 43.75 500 Oral 390 100 Output: Ultrafiltrate 3000 - Physical Exam Head: Positive for: Normocephalic Pupils: Positive for: PERRL Extroacular Muscles: Positive for: EOMI Conjunctiva: Positive for: Normal Mouth: Positive for: Moist Mucous Membranes Pharnyx: Positive for: Normal Neck: Positive for: Normal Range of Motion. Negative for: JVD, Lymphadenopathy Respiratory/Chest: Positive for: Clear to Auscultation Cardiovascular: Positive for: Regular Rate and Rhythm Abdomen: Positive for: Normal Bowel Sounds. Negative for: Tenderness, Distention Genitourinary Male: Positive for: Normal External Genitalia Upper Extremity: Positive for: Other (LUE AVF with good bruit and thrill.) Lower Extremity: Positive for: Other (LUE AVF wit good bruit and thrill.) Neurological: Positive for: GCS=15, Speech Normal, Normal Sensory Function, Norm Deep Tendon Reflexes, Memory Normal, Other (RUE +4/5). Negative for: Motor Func Grossly Intact (minimal 4-5/5 RUE strength better than RLE. ) Psychiatric: Positive for: Alert - Medications Active Medications: Active Medications Generic Name Dose Route Start Last Admin Trade Name Freq PRN Reason Stop Dose Admin Acetaminophen 650 mg 05/28/17 14:29 05/28/17 14:35 Tylenol 325mg Tab PO 650 mg Q6 PRN Administration Headache Atorvastatin Calcium 40 mg 05/28/17 16:15 05/29/17 08:22 Lipitor PO 40 mg DAILY MELINA Administration Carvedilol 25 mg 05/29/17 12:30 Coreg PO Q12 MELINA Doxercalciferol 4 mcg 05/30/17 10:30 Hectorol IV 05/30/17 10:31 TTS ONE Epoetin Jerry 4,000 unit 05/28/17 11:00 05/28/17 14:34 Procrit IV 4,000 unit TTS MELINA Administration Hydrochlorothiazide 25 mg 05/29/17 12:30 Hydrodiuril PO DAILY MELINA Nicardipine HCl 20 mg in 200 mls @ 50 mls/hr 05/28/17 09:15 05/29/17 06:45 Cardene Iv Premix IV 25 mls/hr .Q4H MELINA Administration Protocol Insulin Human Lispro 0 units 05/28/17 16:30 05/29/17 06:32 Humalog SC Not Given ACHS MELINA Protocol Pantoprazole Sodium 20 mg 05/28/17 13:00 05/29/17 08:22 Protonix Ec Tab PO 20 mg DAILY MELINA Administration Sevelamer Carbonate 2.4 gm 05/28/17 17:00 05/29/17 08:22 Renvela PO 2.4 gm TIDWM MELINA Administration Valsartan 320 mg 05/29/17 12:30 Diovan PO DAILY MELINA - Patient Studies Lab Studies: Microbiology Studies 05/27/17 17:16 MRSA Culture (Admit) - Final Naris MRSA NOT DETECTED Lab Studies 05/29/17 05/29/17 05/29/17 Range/Units 11:04 05:29 04:25 WBC (4.8-10.8) K/uL RBC (4.40-5.90) Mil/uL Hgb (12.0-18.0) g/dL Hct (35.0-51.0) % MCV (80.0-94.0) fl MCH (27.0-31.0) pg MCHC (33.0-37.0) g/dL RDW (11.5-14.5) % Plt Count (130-400) K/uL Sodium 138 (132-148) mmol/l Potassium 4.2 (3.6-5.0) MMOL/L Chloride 94 L (98-107) mmol/L Carbon Dioxide 29 (22-30) mmol/L Anion Gap 19 (10-20) BUN 28 H (9-20) mg/dl Creatinine 9.9 H* D (0.8-1.5) mg/dL Est GFR ( Amer) 7 Est GFR (Non-Af Amer) 5 POC Glucose (mg/dL) 182 H 114 H (65-110) mg/dL Random Glucose 108 (75-110) mg/dL Calcium 9.0 (8.4-10.2) mg/dL Hep Bs Antigen (NEGATIVE) Hep Bs Antibody (NEGATIVE) Hepatitis C Antibody (NEGATIVE) 05/29/17 05/28/17 05/28/17 Range/Units 04:25 20:51 16:42 WBC 9.1 (4.8-10.8) K/uL RBC 4.00 L (4.40-5.90) Mil/uL Hgb 12.2 (12.0-18.0) g/dL Hct 37.0 (35.0-51.0) % MCV 92.6 (80.0-94.0) fl MCH 30.4 (27.0-31.0) pg MCHC 32.9 L (33.0-37.0) g/dL RDW 18.2 H (11.5-14.5) % Plt Count 130 (130-400) K/uL Sodium (132-148) mmol/l Potassium (3.6-5.0) MMOL/L Chloride (98-107) mmol/L Carbon Dioxide (22-30) mmol/L Anion Gap (10-20) BUN (9-20) mg/dl Creatinine (0.8-1.5) mg/dL Est GFR ( Amer) Est GFR (Non-Af Amer) POC Glucose (mg/dL) 134 H 159 H (65-110) mg/dL Random Glucose (75-110) mg/dL Calcium (8.4-10.2) mg/dL Hep Bs Antigen (NEGATIVE) Hep Bs Antibody (NEGATIVE) Hepatitis C Antibody (NEGATIVE) 05/28/17 05/28/17 Range/Units 14:10 14:10 WBC (4.8-10.8) K/uL RBC (4.40-5.90) Mil/uL Hgb (12.0-18.0) g/dL Hct (35.0-51.0) % MCV (80.0-94.0) fl MCH (27.0-31.0) pg MCHC (33.0-37.0) g/dL RDW (11.5-14.5) % Plt Count (130-400) K/uL Sodium (132-148) mmol/l Potassium (3.6-5.0) MMOL/L Chloride (98-107) mmol/L Carbon Dioxide (22-30) mmol/L Anion Gap (10-20) BUN (9-20) mg/dl Creatinine (0.8-1.5) mg/dL Est GFR ( Amer) Est GFR (Non-Af Amer) POC Glucose (mg/dL) (65-110) mg/dL Random Glucose (75-110) mg/dL Calcium (8.4-10.2) mg/dL Hep Bs Antigen Negative (NEGATIVE) Hep Bs Antibody Positive (NEGATIVE) Hepatitis C Antibody Negative (NEGATIVE) Laboratory Results - last 24 hr 05/28/17 05/28/17 05/28/17 14:10 14:10 16:42 WBC RBC Hgb Hct MCV MCH MCHC RDW Plt Count Sodium Potassium Chloride Carbon Dioxide Anion Gap BUN Creatinine Est GFR ( Amer) Est GFR (Non-Af Amer) POC Glucose (mg/dL) 159 H Random Glucose Calcium Hep Bs Antigen Negative Hep Bs Antibody Positive Hepatitis C Antibody Negative 05/28/17 05/29/17 05/29/17 20:51 04:25 04:25 WBC 9.1 RBC 4.00 L Hgb 12.2 Hct 37.0 MCV 92.6 MCH 30.4 MCHC 32.9 L RDW 18.2 H Plt Count 130 Sodium 138 Potassium 4.2 Chloride 94 L Carbon Dioxide 29 Anion Gap 19 BUN 28 H Creatinine 9.9 H* D Est GFR ( Amer) 7 Est GFR (Non-Af Amer) 5 POC Glucose (mg/dL) 134 H Random Glucose 108 Calcium 9.0 Hep Bs Antigen Hep Bs Antibody Hepatitis C Antibody 05/29/17 05/29/17 05:29 11:04 WBC RBC Hgb Hct MCV MCH MCHC RDW Plt Count Sodium Potassium Chloride Carbon Dioxide Anion Gap BUN Creatinine Est GFR ( Amer) Est GFR (Non-Af Amer) POC Glucose (mg/dL) 114 H 182 H Random Glucose Calcium Hep Bs Antigen Hep Bs Antibody Hepatitis C Antibody Fingerstick Blood Sugar Results: 114 Review of Systems - Review of Systems All systems: reviewed and no additional remarkable complaints except - Neurological Additional comments: right upper extremity tingling Critical Care Progress Note - Nutrition Nutrition: Nutrition Category Date Time Status Renal Diet [DIET] Diets 05/27/17 Lunch Active Assessment/Plan (1) CVA (cerebral vascular accident) Assessment and plan: 61yo M. PMHx HTN, ESRD on HD (//thu), NIDDM type 2, dyslipidemia, blind in right eye. p/w acute hemorrhagic hypertensive stroke, left basal ganglia. Neuro: Alert and following commands, neurologic symptoms improving. Pulm: No acute issues, breathing spontaneously on room air. CV: Hypertension, controlling currently with nicardipine drip to maintain systolic blood pressure less than 140, titrating of, restarting oral antihypertensives, coreg, hctz, and valsartan according to MAR. Hem: No acute issues Renal: End-stage renal disease on hemodialysis, regular schedule. Continue sevelamer for secondary hyperparathyroidism with chronic renal disease. Endo: DM type II, short acting insulin sliding scale for coverage. GI: Renal diet, with low carbohydrate consistency. ID: No acute issues OOB to chair, Occupational therapy eval. Patient ready to go to rehab once off cardene drip. DVT proph - SCDs, anticoagulation held with current bleed GI proph - Protonix Code status - full code Critical Care Time spent 35 minutes Multi-disciplinary rounds were performed with house staff, nursing, speech therapy, respiratory therapy, pharmacy and nutrition with integrated input from the primary team/attending and other consulting services. The documented time is cumulative and includes review of patient data/exams/labs/chart review and examination of the patient on rounds and throughout the day; time is exclusive of any procedures or teaching time. Current Visit: Yes Status: Acute
[2017-05-29] MEDS: Latanoprost 0.005% Opht SOUTION OU SCH (21:12)
[2017-05-30 07:33] LABS: BASO % 0.7 % (0.0-2.0); EOS # 0.5 K/uL (0.0-0.7); HEMOGLOBIN 11.7 g/dL (12.0-18.0); LYMPH # 1.4 K/uL (1.0-4.3); LYMPH % 17.8 % (20.0-40.0); MEAN CELL VOLUME 92.6 fl (80.0-94.0); MEAN CORPUSCULAR HEMOGLOBIN 30.3 pg (27.0-31.0); MEAN CORPUSCULAR HGB CONC 32.8 g/dL (33.0-37.0); MEAN PLATELET VOLUME 9.3 fl (7.2-11.7); MONO # 0.9 K/uL (0.0-0.8); MONO % 11.5 % (0.0-10.0); NEUT # 4.9 K/uL (1.8-7.0); NRBC % 0.1 % (0.0-0.0); RBC 3.87 Mil/uL (4.40-5.90); WHITE BLOOD COUNT 7.6 K/uL (4.8-10.8)
[2017-05-30 07:37] LABS: CALCIUM 8.6 mg/dL (8.4-10.2)
[2017-05-30] MEDS ORDERED: Latanoprost 0.005% Opht SOUTION ONE (08:00)
[2017-05-30] MEDS ORDERED: Insulin Lispro (humaLOG) 100 Units/ml Inj ONE (08:00)
[2017-05-30] MEDS ORDERED: Sevelamer Carb 0.8 gm/Packet ONE (08:00)
[2017-05-30] MEDS: Insulin Lispro (humaLOG) 100 Units/ml Inj SC SCH ×2 (08:33→22:09)
[2017-05-30] MEDS: Sevelamer Carb 0.8 gm/Packet PO SCH (08:49)
[2017-05-30] MEDS: Pantoprazole 20 mg EC Tab PO SCH (08:50)
--- NOTE | 2017-05-30 09:10 | CP.CCUPN ---
CCU Subjective - Physician Review Events Since Last Encounter (Free Text): 05/30/17 10:39 The patient was Seen/interviewed and examined by me at the bedside during ICU round, Medical records reviewed and Management issues were discussed and formulated with the house staff. Mr Lafleur is 61 Years old Male with PMHx of Diabetes type 2, HTN, Hyperlipidemia, TIA, Anemia and End Stage Renal Disease on HD Who was who presents with right sided facial numbness and weakness radiating down to lower extremities In the ER BP 191/[address] scan showed 1.3 x 1.6 x 2.6 cm focal hemorrhage within the left basal ganglia, and Small amount of left intraventricular hemorrhage within the posterior horn lateral ventricle. He was admitted to the ICU for management of ICH, Hemorrhagic CVA and BP control. Was started on cardene drip which is off now. Doing better today, Improved R hand strength denies any CP/SOB No headaches, vision changes, vertigo, double vision, dysphagia or trouble with word finding. BP still high and in sinus bradycardia With episodes in mid-40's observed on monitor overnight On Diovan, Hydrochlorothiazide and Carvedilol (on hold for bradycardia) will add hydralazine 25 mg PO TID CCU Objective - Vital Signs / Intake & Output Vital Signs (Last 4 hours): Vital Signs Temp Pulse Resp BP Pulse Ox 05/30/17 08:00 98.6 F 65 16 185/95 H 100 05/30/17 06:00 63 17 156/80 H 100 Intake and Output (Last 8hrs): Intake & Output 05/29/17 05/30/17 05/30/17 22:59 06:59 14:59 Intake Total 365 120 Balance 365 120 Intake: IV 15 0 Oral 350 120 Other: # Bowel Movements 0 2 - Physical Exam Head: Positive for: Normocephalic Pupils: Positive for: PERRL Extroacular Muscles: Positive for: EOMI Conjunctiva: Positive for: Normal Mouth: Positive for: Moist Mucous Membranes Pharnyx: Positive for: Normal Neck: Positive for: Normal Range of Motion. Negative for: JVD, Lymphadenopathy Respiratory/Chest: Positive for: Clear to Auscultation Cardiovascular: Positive for: Regular Rate and Rhythm Abdomen: Positive for: Normal Bowel Sounds. Negative for: Tenderness, Distention Genitourinary Male: Positive for: Normal External Genitalia Upper Extremity: Positive for: Other (LUE AVF with good bruit and thrill.) Lower Extremity: Positive for: Other (LUE AVF wit good bruit and thrill.) Neurological: Positive for: GCS=15, Speech Normal, Normal Sensory Function, Norm Deep Tendon Reflexes, Memory Normal, Other (RUE +4/5). Negative for: Motor Func Grossly Intact (minimal 4-5/5 RUE strength better than RLE. ) Psychiatric: Positive for: Alert - Medications Active Medications: Active Medications Generic Name Dose Route Start Last Admin Trade Name Freq PRN Reason Stop Dose Admin Acetaminophen 650 mg 05/28/17 14:29 05/28/17 14:35 Tylenol 325mg Tab PO 650 mg Q6 PRN Administration Headache Atorvastatin Calcium 40 mg 05/30/17 22:00 Lipitor PO HS MELINA Carvedilol 25 mg 05/29/17 12:30 05/30/17 08:44 Coreg PO Not Given Q12 MELINA Doxercalciferol 4 mcg 05/30/17 10:30 Hectorol IV 05/30/17 10:31 TTS ONE Epoetin Jerry 4,000 unit 05/28/17 11:00 05/28/17 14:34 Procrit IV 4,000 unit TTS MELINA Administration Hydrochlorothiazide 25 mg 05/29/17 12:30 05/30/17 08:50 Hydrodiuril PO 25 mg DAILY MELINA Administration Insulin Human Lispro 0 units 05/28/17 16:30 05/30/17 08:33 Humalog SC Not Given ACHS MELINA Protocol Latanoprost 1 drop 05/29/17 22:00 05/29/17 21:12 Xalatan Opht OU 1 drop HS MELINA Administration Pantoprazole Sodium 20 mg 05/28/17 13:00 05/30/17 08:50 Protonix Ec Tab PO 20 mg DAILY MELINA Administration Sevelamer Carbonate 2.4 gm 05/28/17 17:00 05/30/17 08:49 Renvela PO 2.4 gm TIDWM MELINA Administration Valsartan 320 mg 05/29/17 12:30 05/30/17 08:50 Diovan PO 320 mg DAILY MELINA Administration - Patient Studies Lab Studies: Lab Studies 05/30/17 05/30/17 05/30/17 Range/Units 05:30 05:30 04:35 WBC 7.6 (4.8-10.8) K/uL RBC 3.87 L (4.40-5.90) Mil/uL Hgb 11.7 L (12.0-18.0) g/dL Hct 35.8 (35.0-51.0) % MCV 92.6 (80.0-94.0) fl MCH 30.3 (27.0-31.0) pg MCHC 32.8 L (33.0-37.0) g/dL RDW 18.0 H (11.5-14.5) % Plt Count 142 (130-400) K/uL MPV 9.3 (7.2-11.7) fl Neut % (Auto) 64.0 (50.0-75.0) % Lymph % (Auto) 17.8 L (20.0-40.0) % Campbell % (Auto) 11.5 H (0.0-10.0) % Eos % (Auto) 6.0 H (0.0-4.0) % Baso % (Auto) 0.7 (0.0-2.0) % Neut # 4.9 (1.8-7.0) K/uL Lymph # 1.4 (1.0-4.3) K/uL Campbell # 0.9 H (0.0-0.8) K/uL Eos # 0.5 (0.0-0.7) K/uL Baso # 0.0 (0.0-0.2) K/uL Sodium 137 (132-148) mmol/l Potassium 4.7 (3.6-5.0) MMOL/L Chloride 97 L (98-107) mmol/L Carbon Dioxide 24 (22-30) mmol/L Anion Gap 21 H (10-20) BUN 48 H (9-20) mg/dl Creatinine 12.1 H* D (0.8-1.5) mg/dL Est GFR ( Amer) 5 Est GFR (Non-Af Amer) 4 POC Glucose (mg/dL) 114 H (65-110) mg/dL Random Glucose 89 (75-110) mg/dL Calcium 8.6 (8.4-10.2) mg/dL 05/29/17 05/29/17 05/29/17 Range/Units 21:09 15:32 11:04 WBC (4.8-10.8) K/uL RBC (4.40-5.90) Mil/uL Hgb (12.0-18.0) g/dL Hct (35.0-51.0) % MCV (80.0-94.0) fl MCH (27.0-31.0) pg MCHC (33.0-37.0) g/dL RDW (11.5-14.5) % Plt Count (130-400) K/uL MPV (7.2-11.7) fl Neut % (Auto) (50.0-75.0) % Lymph % (Auto) (20.0-40.0) % Campbell % (Auto) (0.0-10.0) % Eos % (Auto) (0.0-4.0) % Baso % (Auto) (0.0-2.0) % Neut # (1.8-7.0) K/uL Lymph # (1.0-4.3) K/uL Campbell # (0.0-0.8) K/uL Eos # (0.0-0.7) K/uL Baso # (0.0-0.2) K/uL Sodium (132-148) mmol/l Potassium (3.6-5.0) MMOL/L Chloride (98-107) mmol/L Carbon Dioxide (22-30) mmol/L Anion Gap (10-20) BUN (9-20) mg/dl Creatinine (0.8-1.5) mg/dL Est GFR ( Amer) Est GFR (Non-Af Amer) POC Glucose (mg/dL) 161 H 98 182 H (65-110) mg/dL Random Glucose (75-110) mg/dL Calcium (8.4-10.2) mg/dL Laboratory Results - last 24 hr 05/29/17 05/29/17 05/29/17 11:04 15:32 21:09 WBC RBC Hgb Hct MCV MCH MCHC RDW Plt Count MPV Neut % (Auto) Lymph % (Auto) Campbell % (Auto) Eos % (Auto) Baso % (Auto) Neut # Lymph # Campbell # Eos # Baso # Sodium Potassium Chloride Carbon Dioxide Anion Gap BUN Creatinine Est GFR ( Amer) Est GFR (Non-Af Amer) POC Glucose (mg/dL) 182 H 98 161 H Random Glucose Calcium 05/30/17 05/30/17 05/30/17 04:35 05:30 05:30 WBC 7.6 RBC 3.87 L Hgb 11.7 L Hct 35.8 MCV 92.6 MCH 30.3 MCHC 32.8 L RDW 18.0 H Plt Count 142 MPV 9.3 Neut % (Auto) 64.0 Lymph % (Auto) 17.8 L Campbell % (Auto) 11.5 H Eos % (Auto) 6.0 H Baso % (Auto) 0.7 Neut # 4.9 Lymph # 1.4 Campbell # 0.9 H Eos # 0.5 Baso # 0.0 Sodium 137 Potassium 4.7 Chloride 97 L Carbon Dioxide 24 Anion Gap 21 H BUN 48 H Creatinine 12.1 H* D Est GFR ( Amer) 5 Est GFR (Non-Af Amer) 4 POC Glucose (mg/dL) 114 H Random Glucose 89 Calcium 8.6 EKG/Cardiology Studies: Cardiology / EKG Studies 05/30/17 EKG [ELECTROCARDIOGRAM] Stat Comment: Mode Of Transportation: PORTABLE Reason For Exam: Bradycardia R/O HB 05/30/17 07:00 EKG [ELECTROCARDIOGRAM] Routine Comment: Mode Of Transportation: Reason For Exam: Bradycardia Fingerstick Blood Sugar Results: 161 Critical Care Progress Note - Nutrition Nutrition: Nutrition Category Date Time Status Renal Diet [DIET] Diets 05/27/17 Lunch Active Assessment/Plan (1) Hemorrhagic cerebrovascular accident (CVA) Current Visit: Yes Status: Acute Comment: Frequent neurochecks Aspiraion and Seizure precautions HOB elevation 30 degrees (2) Hypertensive urgency Current Visit: Yes Status: Acute Comment: Off Cardene drip On Diovan, Hydrochlorothiazide and Carvedilol (on hold for bradycardia) will add hydralazine 25 mg PO TID (3) DM2 (diabetes mellitus, type 2) Current Visit: Yes Status: Acute (4) Hypertension Current Visit: Yes Status: Acute (5) TIA (transient ischemic attack) Current Visit: Yes Status: Acute (6) ESRD (end stage renal disease) Current Visit: Yes Status: Chronic Priority: Medium Comment: Frequent Neurochecks, Aspirationa and Seizure precautions HOB elevation 30 degrees PT/OT (7) HLD (hyperlipidemia) Current Visit: Yes Status: Acute Comment: Atorvastatin 40 mg daily (8) DVT prophylaxis Current Visit: No Status: Acute Comment: SCD
[2017-05-30] MEDS ORDERED: Doxercalciferol 4 mcg/2 ml Inj IV ONE (10:30)
--- NOTE | 2017-05-30 21:48 | CP.PCM.PN ---
Subjective - Date & Time of Evaluation Date of Evaluation: 05/30/17 Time of Evaluation: 15:30 - Subjective Subjective: Follow up Nephrology Consultation Note Assessment: Stable Hypertensive Chronic Kidney Disease (I12.0) End stage renal disease (N18.6) dependence on hemodialysis (Z99.2) (TTS) via AVF Anemia (D64.9), Hyperphosphatemia (E83.39), Secondary Hyperparathyroidism (E21.1 ), HTN (I12.0) s/p hemorrhagic stroke Plan: Will plan for HD today as ordered. Continue with Nephrovite 1 tab/day. PRBC as needed for anemia. On WILL as Mircera 50 mcg q 2 weeks as outpt, last Hb 11.7 and due to high BP and hemorrhagic CVA, will d/c epogen Continue with phos binders, last phos level 5.7 as outpt Continue with calcitriol 1.75 mcg with dialysis. Last PTH level 707 BP control with meds as ordered. Patient on RAAS kelly as diovan 320 mg. consider to uptitrate hydralazine or add norvasc 5 mg/day if BP remains elevated Glycemic control, Dialysis consistent diet Further work up/management as per primary team Dose meds/antibiotics (if needed) for ESRD status. Avoid fleets enema/magnesium based laxatives. d/w ICU attending Thanks for allowing me to participate in care of your patient. Will follow patient with you. Please call if any Qs Dr Bunny Ballesteros Office: [phone] Subjective: Noted events overnight. Patients feels okay. Denies chest pain, palpitation, shortness of breath, leg swelling. No urinary complaints Physical Examination: seen during dialysis General Appearance: Comfortable, in no acute respiratory distress, co- operative. Vitals reviewed and noted as below Lungs: Normal respiratory rate/effort. Breath sounds bilateral equal and clear Heart: Normal rate. s1s2 normal. No rub or gallop. Extremities: no edema. Neurological: Patient is alert, awake and oriented to person, place and time. No focal deficit. Strength bilateral appropriate and equal Skin: Warm and dry. Normal turgor. No rash. Palpitation: Normal elasticity for age Abdomen: Abdomen is soft. Bowel sounds +. There is no abdominal tenderness, no guarding/rigidity or organomegaly : kidney or bladder not palpable Access: AVF Labs/imaging reviewed. Past medical history, past surgical history, family history, social history, allergy reviewed Objective - Vital Signs/Intake and Output Vital Signs (last 24 hours): Temp Pulse Resp BP Pulse Ox 98.6 F 67 16 173/71 H 100 05/30/17 08:00 05/30/17 10:59 05/30/17 08:00 05/30/17 10:59 05/30/17 08:00 - Medications Medications: Current Medications Acetaminophen (Tylenol 325mg Tab) 650 mg PO Q6 PRN PRN Reason: Headache Last Admin: 05/28/17 14:35 Dose: 650 mg Atorvastatin Calcium (Lipitor) 40 mg PO HS MELINA Carvedilol (Coreg) 25 mg PO Q12 [facility] Last Admin: 05/30/17 08:44 Dose: Not Given Hydralazine HCl (Apresoline) 25 mg PO Q8@0600,1400,2200 [facility] Hydrochlorothiazide (Hydrodiuril) 25 mg PO DAILY [facility] Last Admin: 05/30/17 08:50 Dose: 25 mg Insulin Human Lispro (Humalog) 0 units SC ACHS [facility] PRN Reason: Protocol Last Admin: 05/30/17 08:33 Dose: Not Given Latanoprost (Xalatan Opht) 1 drop OU HS [facility] Last Admin: 05/29/17 21:12 Dose: 1 drop Pantoprazole Sodium (Protonix Ec Tab) 20 mg PO DAILY [facility] Last Admin: 05/30/17 08:50 Dose: 20 mg Sevelamer Carbonate (Renvela) 2.4 gm PO TIDWM [facility] Last Admin: 05/30/17 08:49 Dose: 2.4 gm Valsartan (Diovan) 320 mg PO DAILY [facility] Last Admin: 05/30/17 08:50 Dose: 320 mg - Labs Labs: 05/30/17 05:30 05/30/17 05:30 PT 10.5 Seconds (9.8-13.1) 05/27/17 10:30 INR 0.9 (0.9-1.2) 05/27/17 10:30 APTT 33.1 Seconds (25.6-37.1) 05/27/17 10:30
[2017-05-30] MEDS: Latanoprost 0.005% Opht SOUTION OU SCH (22:10)
[2017-05-31] MEDS: Insulin Lispro (humaLOG) 100 Units/ml Inj SC SCH ×4 (07:40→22:00)
[2017-05-31 07:46] LABS: BASO # 0.1 K/uL (0.0-0.2); BASO % 1.1 % (0.0-2.0); EOS # 0.4 K/uL (0.0-0.7); EOS % 6.5 % (0.0-4.0); LYMPH # 1.3 K/uL (1.0-4.3); LYMPH % 19.3 % (20.0-40.0); MEAN CELL VOLUME 93.6 fl (80.0-94.0); MEAN CORPUSCULAR HEMOGLOBIN 30.4 pg (27.0-31.0); MEAN CORPUSCULAR HGB CONC 32.5 g/dL (33.0-37.0); MEAN PLATELET VOLUME 8.9 fl (7.2-11.7); MONO # 0.8 K/uL (0.0-0.8); MONO % 11.9 % (0.0-10.0); NEUT # 4.2 K/uL (1.8-7.0); NEUT % 61.2 % (50.0-75.0); RBC 3.95 Mil/uL (4.40-5.90); RED CELL DISTRIBUTION WIDTH 17.5 % (11.5-14.5); WHITE BLOOD COUNT 6.8 K/uL (4.8-10.8)
[2017-05-31 07:50] LABS: ALB/GLOB RATIO 1.6 (1.0-2.1); ALBUMIN 4.3 g/dL (3.5-5.0)
[2017-05-31] MEDS: Multivitamin Vitamin B Complex (Nephro-Vite) Tab PO SCH (08:41)
[2017-05-31] MEDS: Pantoprazole 20 mg EC Tab PO SCH (08:43)
[2017-05-31] MEDS: Sevelamer Carb 0.8 gm/Packet PO SCH ×3 (08:44→16:28)
[2017-05-31] MEDS: Brimonidine 0.2% 50 DROP/5 ML BOTTLE OU SCH ×2 (10:11→21:00)
--- NOTE | 2017-05-31 10:46 | CP.PCM.PN ---
Subjective - Date & Time of Evaluation Date of Evaluation: 05/31/17 Time of Evaluation: 10:45 - Subjective Subjective: Pt is AAOx3, laying comfortably and head was elevated on bed. Patient reports improvement in strength of RUE, still complaining of mild tingling and numbness. BP is elevated this morning. denies headache, disartharia. Pt is speaking clearly in full sentences. no fever, chills or diarrhea . He is eating well. Objective - Vital Signs/Intake and Output Vital Signs (last 24 hours): Temp Pulse Resp BP Pulse Ox 98.7 F 66 13 156/82 H 100 05/31/17 08:00 05/31/17 08:42 05/31/17 08:00 05/31/17 08:42 05/31/17 08:00 Intake and Output: 05/31/17 05/31/17 06:59 18:59 Intake Total 180 100 Balance 180 100 - Medications Medications: Current Medications Acetaminophen (Tylenol 325mg Tab) 650 mg PO Q6 PRN PRN Reason: Headache Last Admin: 05/28/17 14:35 Dose: 650 mg Atorvastatin Calcium (Lipitor) 40 mg PO HS [facility] Brimonidine Tartrate (Alphagan 0.2% Opht) 1 drop OU Q12 [facility] Last Admin: 05/31/17 10:11 Dose: Not Given Calcitriol (Rocaltrol) 1.5 mcg PO TTS [facility]ELINA Calcitriol (Rocaltrol) 0.25 mcg PO TTS MELINA Carvedilol (Coreg) 25 mg PO Q12 [facility] Last Admin: 05/31/17 08:42 Dose: 25 mg Hydralazine HCl (Apresoline) 50 mg PO Q8@0600,1400,2200 [facility] Hydrochlorothiazide (Microzide) 50 mg PO DAILY [facility] Insulin Human Lispro (Humalog) 0 units SC ACHS [facility] PRN Reason: Protocol Last Admin: 05/31/17 07:40 Dose: Not Given Latanoprost (Xalatan Opht) 1 drop OU HS [facility] Last Admin: 05/30/17 22:10 Dose: 1 drop Pantoprazole Sodium (Protonix Ec Tab) 20 mg PO DAILY [facility] Last Admin: 05/31/17 08:43 Dose: 20 mg Sevelamer Carbonate (Renvela) 2.4 gm PO TIDWM [facility] Last Admin: 05/31/17 08:44 Dose: 2.4 gm Valsartan (Diovan) 320 mg PO DAILY [facility] Last Admin: 05/31/17 08:42 Dose: 320 mg Vitamin B Complex/Vit C/Folic Acid (Nephro-Ava) 1 tab PO DAILY [facility] Last Admin: 05/31/17 08:41 Dose: 1 tab - Labs Labs: 05/31/17 05:30 05/31/17 05:30 PT 10.5 Seconds (9.8-13.1) 05/27/17 10:30 INR 0.9 (0.9-1.2) 05/27/17 10:30 APTT 33.1 Seconds (25.6-37.1) 05/27/17 10:30 - Constitutional Appears: Well, Non-toxic, No Acute Distress - Head Exam Head Exam: ATRAUMATIC - Neck Exam Neck Exam: Full ROM. absent: Lymphadenopathy - Respiratory Exam Respiratory Exam: Clear to Ausculation Bilateral. absent: Accessory Muscle Use , Chest Wall Tenderness - Cardiovascular Exam Cardiovascular Exam: RRR, +S1, +S2. absent: Murmur - GI/Abdominal Exam GI & Abdominal Exam: Soft, Normal Bowel Sounds. absent: Distended, Guarding, Tenderness - Rectal Exam Rectal Exam: Deferred - Extremities Exam Extremities Exam: absent: Calf Tenderness - Neurological Exam Neurological Exam: Alert, Awake, CN II-XII Intact, Oriented x3 Neuro motor strength exam: Left Upper Extremity: 5, Right Upper Extremity: 5, Left Lower Extremity: 5, Right Lower Extremity: 5 Additional comments: No sensory deficit in extremities Assessment and Plan - Assessment and Plan (Free Text) Assessment: 61 y.o M with pmh of HTN, ESRD on HD (TThS), NIDDM, hyperlipidemia, and visual impairment who presented with right sided facial numbness and weakness who was found to have a hemorragic CT on 05/28. Neurosurgery was consulted with no surgical intervention indicated. CT findings have remained stable and patient is currently being monitored in ICU. Plan: Acute Hemorragic stroke, with rt sided weakness - initial CT showed 1.3 x 1.6 x 2.6 cm focal hemorrhage within the left basal ganglia, most recent CT showed stabalization of the bleed. -neurosurgery consult recommends no surgical intervention at this time -Neurology, Dr Long, consulted. Recommending tight BP control, no antiplt activity for atleast 3 weeks from onset of the bleed. and acute Physical therapy - BP remains elevated. will continue to optimize BP control - PT/OT - serial neuro examinations reveal improvement in rt sided weakness HTN, uncontrolled -Pt continues with PO Valsartan 320mg daily -Discussed with icu attending and HCT was increased from 25mg daily to 50mg daily. Hydralazine also increased from 25mg PO Q8h to 50mg Q8h -Will continue to monitor BP after current changes -If needed, may consider addition of amlopine ESRD -HD schedule on TThSat -as per nephrology consult(Dr. Gonzales): renvela and procrit -Last dialysis yesterday -current BUN/Cr; 32/8.9 History of DM -last hemoglobin A1C: 6.1% -sliding scale and BG is controlled Hyperlipidemia -controlled -continue statin 40 mg GI ppx - protonix 20mg DVT ppx - SCD
--- NOTE | 2017-05-31 15:02 | CP.PCM.PN ---
Subjective - Date & Time of Evaluation Date of Evaluation: 05/31/17 Time of Evaluation: 15:01 - Subjective Subjective: Follow up Nephrology Consultation Note Assessment: Stable Hypertensive Chronic Kidney Disease (I12.0) End stage renal disease (N18.6) dependence on hemodialysis (Z99.2) (TTS) via AVF Anemia (D64.9), Hyperphosphatemia (E83.39), Secondary Hyperparathyroidism (E21.1 ), HTN (I12.0) s/p hemorrhagic stroke Plan: Will plan for HD thursday as ordered. no acute need today Continue with Nephrovite 1 tab/day. PRBC as needed for anemia. On WILL as Mircera 50 mcg q 2 weeks as outpt, last Hb 12 and due to high BP and hemorrhagic CVA, will d/c epogen Continue with phos binders, last phos level 5.7 as outpt Continue with calcitriol 1.75 mcg with dialysis. Last PTH level 707 BP control with meds as ordered. Patient on RAAS kelly as diovan 320 mg. added norvasc 5 mg/day Glycemic control, Dialysis consistent diet Further work up/management as per primary team Dose meds/antibiotics (if needed) for ESRD status. Avoid fleets enema/magnesium based laxatives. Thanks for allowing me to participate in care of your patient. Will follow patient with you. Please call if any Qs Dr Bunny Ballesteros Office: [phone] Subjective: Noted events overnight. Patients feels okay. Denies chest pain, palpitation, shortness of breath, leg swelling. No urinary complaints. no headache Physical Examination: General Appearance: Comfortable, in no acute respiratory distress, co- operative. Vitals reviewed and noted as below Lungs: Normal respiratory rate/effort. Breath sounds bilateral equal and clear Heart: Normal rate. s1s2 normal. No rub or gallop. Extremities: no edema. Neurological: Patient is alert, awake and oriented to person, place and time. No focal deficit. Strength bilateral appropriate and equal Skin: Warm and dry. Normal turgor. No rash. Palpitation: Normal elasticity for age Abdomen: Abdomen is soft. Bowel sounds +. There is no abdominal tenderness, no guarding/rigidity or organomegaly : kidney or bladder not palpable Access: AVF Labs/imaging reviewed. Past medical history, past surgical history, family history, social history, allergy reviewed Objective - Vital Signs/Intake and Output Vital Signs (last 24 hours): Temp Pulse Resp BP Pulse Ox 98.7 F 66 14 183/94 H 99 05/31/17 08:00 05/31/17 13:17 05/31/17 13:00 05/31/17 13:17 05/31/17 13:00 Intake and Output: 05/31/17 05/31/17 06:59 18:59 Intake Total 180 250 Output Total 0 Balance 180 250 - Medications Medications: Current Medications Acetaminophen (Tylenol 325mg Tab) 650 mg PO Q6 PRN PRN Reason: Headache Last Admin: 05/28/17 14:35 Dose: 650 mg Amlodipine Besylate (Norvasc) 5 mg PO DAILY [facility] Atorvastatin Calcium (Lipitor) 40 mg PO HS [facility] Brimonidine Tartrate (Alphagan 0.2% Opht) 1 drop OU Q12 [facility] Last Admin: 05/31/17 10:11 Dose: Not Given Calcitriol (Rocaltrol) 1.5 mcg PO TTS [facility] Calcitriol (Rocaltrol) 0.25 mcg PO TTS [facility] Carvedilol (Coreg) 25 mg PO Q12 [facility] Last Admin: 05/31/17 08:42 Dose: 25 mg Hydralazine HCl (Apresoline) 50 mg PO Q8@0600,1400,2200 [facility] Last Admin: 05/31/17 13:17 Dose: 50 mg Hydrochlorothiazide (Hydrodiuril) 50 mg PO DAILY [facility] Insulin Human Lispro (Humalog) 0 units SC ACHS [facility] PRN Reason: Protocol Last Admin: 05/31/17 12:08 Dose: 1 unit Latanoprost (Xalatan Opht) 1 drop OU HS [facility] Last Admin: 05/30/17 22:10 Dose: 1 drop Pantoprazole Sodium (Protonix Ec Tab) 20 mg PO DAILY [facility] Last Admin: 05/31/17 08:43 Dose: 20 mg Sevelamer Carbonate (Renvela) 2.4 gm PO TIDWM [facility] Last Admin: 05/31/17 12:09 Dose: 2.4 gm Valsartan (Diovan) 320 mg PO DAILY [facility] Last Admin: 05/31/17 08:42 Dose: 320 mg Vitamin B Complex/Vit C/Folic Acid (Nephro-Ava) 1 tab PO DAILY [facility] Last Admin: 05/31/17 08:41 Dose: 1 tab - Labs Labs: 05/31/17 05:30 05/31/17 05:30 PT 10.5 Seconds (9.8-13.1) 05/27/17 10:30 INR 0.9 (0.9-1.2) 05/27/17 10:30 APTT 33.1 Seconds (25.6-37.1) 05/27/17 10:30
[2017-05-31 21:22] VITALS: BMI 37.0
[2017-05-31] MEDS: Latanoprost 0.005% Opht SOUTION OU SCH (22:44)
[2017-06-01 05:12] LABS: BASO # 0.1 K/uL (0.0-0.2); BASO % 0.8 % (0.0-2.0); EOS # 0.5 K/uL (0.0-0.7); EOS % 6.5 % (0.0-4.0); LYMPH # 1.4 K/uL (1.0-4.3); LYMPH % 17.8 % (20.0-40.0); MEAN CELL VOLUME 93.2 fl (80.0-94.0); MEAN CORPUSCULAR HEMOGLOBIN 30.8 pg (27.0-31.0); MEAN PLATELET VOLUME 8.9 fl (7.2-11.7); MONO # 0.9 K/uL (0.0-0.8); MONO % 11.3 % (0.0-10.0); NEUT # 5.1 K/uL (1.8-7.0); NEUT % 63.6 % (50.0-75.0); NRBC % 0.1 % (0.0-0.0); RBC 3.91 Mil/uL (4.40-5.90); RED CELL DISTRIBUTION WIDTH 17.8 % (11.5-14.5)
[2017-06-01 05:17] LABS: ALB/GLOB RATIO 1.5 (1.0-2.1); ALBUMIN 4.1 g/dL (3.5-5.0); CALCIUM 9.1 mg/dL (8.4-10.2)
[2017-06-01] MEDS: Insulin Lispro (humaLOG) 100 Units/ml Inj SC SCH ×4 (06:30→22:00)
--- NOTE | 2017-06-01 06:58 | CARD ---
APPROVED REPORT EKG Measurement Heart [id number] <Conclusion> Normal sinus rhythm Left axis deviation Septal infarct, age undetermined ST & T wave abnormality, consider inferolateral ischemia Abnormal ECG
--- NOTE | 2017-06-01 08:23 | CP.PCM.PN ---
Subjective - Date & Time of Evaluation Date of Evaluation: 06/01/17 Time of Evaluation: 08:23 - Subjective Subjective: Pt seen and examined, AAOx3, head was elevated on bed. Patient had an episode of nausea, and complaining of dizziness, repeat head CT was ordered. Patient still complaining of right hand tingling and numbness. BP is elevated this morning. Pt is speaking clearly in full sentences. patient denies headache, palpitations, fever, chills, or diarrhea . He is eating well. Objective - Vital Signs/Intake and Output Vital Signs (last 24 hours): Temp Pulse Resp BP Pulse Ox 98 F 73 18 172/81 H 100 06/01/17 08:00 06/01/17 08:00 06/01/17 08:00 06/01/17 08:00 06/01/17 08:00 Intake and Output: 06/01/17 06/01/17 06:59 18:59 Intake Total 360 Output Total 1 Balance 359 - Medications Medications: Current Medications Acetaminophen (Tylenol 325mg Tab) 650 mg PO Q6 PRN PRN Reason: Headache Last Admin: 05/28/17 14:35 Dose: 650 mg Amlodipine Besylate (Norvasc) 5 mg PO DAILY [facility] Last Admin: 05/31/17 16:27 Dose: 5 mg Atorvastatin Calcium (Lipitor) 40 mg PO HS [facility] Last Admin: 05/31/17 22:45 Dose: 40 mg Brimonidine Tartrate (Alphagan 0.2% Opht) 1 drop OU Q12 [facility] Last Admin: 05/31/17 21:00 Dose: 1 drop Calcitriol (Rocaltrol) 1.5 mcg PO TTS [facility] Calcitriol (Rocaltrol) 0.25 mcg PO TTS [facility] Carvedilol (Coreg) 25 mg PO Q12 [facility] Last Admin: 05/31/17 21:00 Dose: 25 mg Hydralazine HCl (Apresoline) 50 mg PO Q8@0600,1400,2200 [facility] Last Admin: 06/01/17 06:19 Dose: 50 mg Hydrochlorothiazide (Hydrodiuril) 50 mg PO DAILY [facility] Insulin Human Lispro (Humalog) 0 units SC ACHS [facility] PRN Reason: Protocol Last Admin: 06/01/17 06:30 Dose: Not Given Latanoprost (Xalatan Opht) 1 drop OU HS [facility] Last Admin: 05/31/17 22:44 Dose: 1 drop Pantoprazole Sodium (Protonix Ec Tab) 20 mg PO DAILY [facility] Last Admin: 05/31/17 08:43 Dose: 20 mg Sevelamer Carbonate (Renvela) 2.4 gm PO TIDWM [facility] Last Admin: 05/31/17 16:28 Dose: 2.4 gm Valsartan (Diovan) 320 mg PO DAILY [facility] Last Admin: 05/31/17 08:42 Dose: 320 mg Vitamin B Complex/Vit C/Folic Acid (Nephro-Ava) 1 tab PO DAILY [facility] Last Admin: 05/31/17 08:41 Dose: 1 tab - Labs Labs: 06/01/17 04:20 06/01/17 04:20 PT 10.5 Seconds (9.8-13.1) 05/27/17 10:30 INR 0.9 (0.9-1.2) 05/27/17 10:30 APTT 33.1 Seconds (25.6-37.1) 05/27/17 10:30 - Constitutional Appears: Well, No Acute Distress - Head Exam Head Exam: ATRAUMATIC, NORMAL INSPECTION, NORMOCEPHALIC - Eye Exam Eye Exam: Normal appearance - Neck Exam Neck Exam: Full ROM. absent: Lymphadenopathy, Tenderness - Respiratory Exam Respiratory Exam: Clear to Ausculation Bilateral, NORMAL BREATHING PATTERN. absent: Accessory Muscle Use, Chest Wall Tenderness - Cardiovascular Exam Cardiovascular Exam: REGULAR RHYTHM, RRR, +S1, +S2. absent: Bradycardia, Tachycardia, Murmur - GI/Abdominal Exam GI & Abdominal Exam: Soft, Normal Bowel Sounds - Extremities Exam Extremities Exam: absent: Calf Tenderness, Joint Swelling, Pedal Edema, Tenderness - Back Exam Back Exam: NORMAL INSPECTION - Neurological Exam Neurological Exam: Alert, Awake, CN II-XII Intact, Oriented x3. absent: Motor Sensory Deficit Neuro motor strength exam: Left Upper Extremity: 4, Right Upper Extremity: 4, Left Lower Extremity: 4, Right Lower Extremity: 4 - Psychiatric Exam Psychiatric exam: Normal Mood - Skin Skin Exam: Normal Color Assessment and Plan - Assessment and Plan (Free Text) Assessment: 61 y.o M with pmh of HTN, ESRD on HD (TThS), NIDDM, hyperlipidemia, and visual impairment who presented with right sided facial numbness and weakness who was found to have a hemorragic CT on 05/28. Neurosurgery was consulted with no surgical intervention indicated. CT findings have remained stable and patient is currently being monitored in ICU for HTN. Plan: Acute Hemorragic stroke, with rt sided weakness - initial CT showed 1.3 x 1.6 x 2.6 cm focal hemorrhage within the left basal ganglia, most recent CT showed stabalization of the bleed. -neurosurgery consult recommends no surgical intervention at this time -Neurology, Dr Long, consulted. Recommending tight BP control, no antiplt activity for atleast 3 weeks from onset of the bleed. and acute Physical therapy - Patient is feeling nauseated and dizzy today - f/u on head CT - BP remains elevated. will continue to optimize BP control - PT/OT - serial neuro examinations reveal improvement in rt sided weakness HTN, uncontrolled -Pt continues with PO Valsartan 320mg daily, HCT 50mg daily. Hydralazine 50mg Q8h -As per ICU, Norvasc 10mg PO daily was added to optimize BP control (1 dose of 5mg Norvasc was given yesterday) - Norvasc dose this morning wasn't given due to drop in his BP to 123/77 -Will continue to monitor BP after current changes ESRD -HD schedule on TThSat -as per nephrology consult(Dr. Gonzales): renvela -Last dialysis on Sat -current BUN/Cr: 48/11.0 from 32/8.9 History of DM -last hemoglobin A1C: 6.1% -sliding scale and BG is controlled Hyperlipidemia -controlled -continue statin 40 mg GI ppx - protonix 20mg DVT ppx - SCD
[2017-06-01] MEDS: Brimonidine 0.2% 50 DROP/5 ML BOTTLE OU SCH ×2 (08:25→21:48)
[2017-06-01] MEDS: Sevelamer Carb 0.8 gm/Packet PO SCH ×3 (08:30→17:35)
[2017-06-01] MEDS: Multivitamin Vitamin B Complex (Nephro-Vite) Tab PO SCH (08:32)
[2017-06-01] MEDS: Pantoprazole 20 mg EC Tab PO SCH (08:32)
--- NOTE | 2017-06-01 10:13 | CP.PCM.PN ---
Subjective - Date & Time of Evaluation Date of Evaluation: 06/01/17 Time of Evaluation: 10:11 - Subjective Subjective: Patient and bed appears to be comfortable no acute distress No chest pain or shortness of breath Physical exam Chest no rales Heart no rubs Abdomen soft Extremity no edema Lab reviewed serum creatinine still high Impression and plan End stage renal disease on maintenance hemodialysis TTS. Patient refusing 4 hours dialysis yet his serum creatinine high above goal Status post intracranial bleeding as noted on the MRI Continue hemodialysis TTS Objective - Vital Signs/Intake and Output Vital Signs (last 24 hours): Temp Pulse Resp BP Pulse Ox 98 F 76 18 123/77 100 06/01/17 08:00 06/01/17 10:00 06/01/17 08:00 06/01/17 10:00 06/01/17 08:00 Intake and Output: 06/01/17 06/01/17 06:59 18:59 Intake Total 360 100 Output Total 1 Balance 359 100 - Medications Medications: Current Medications Acetaminophen (Tylenol 325mg Tab) 650 mg PO Q6 PRN PRN Reason: Headache Last Admin: 05/28/17 14:35 Dose: 650 mg Amlodipine Besylate (Norvasc) 10 mg PO DAILY [facility] Last Admin: 06/01/17 10:00 Dose: Not Given Atorvastatin Calcium (Lipitor) 40 mg PO HS [facility] Last Admin: 05/31/17 22:45 Dose: 40 mg Brimonidine Tartrate (Alphagan 0.2% Opht) 1 drop OU Q12 [facility] Last Admin: 06/01/17 08:25 Dose: 1 drop Calcitriol (Rocaltrol) 1.5 mcg PO TTS [facility] Calcitriol (Rocaltrol) 0.25 mcg PO TTS [facility] Carvedilol (Coreg) 25 mg PO Q12 [facility] Last Admin: 06/01/17 08:27 Dose: 25 mg Hydralazine HCl (Apresoline) 50 mg PO Q8@0600,1400,2200 [facility] Last Admin: 06/01/17 06:19 Dose: 50 mg Hydrochlorothiazide (Hydrodiuril) 50 mg PO DAILY [facility] Last Admin: 06/01/17 08:31 Dose: 50 mg Insulin Human Lispro (Humalog) 0 units SC ACHS [facility] PRN Reason: Protocol Last Admin: 06/01/17 06:30 Dose: Not Given Latanoprost (Xalatan Opht) 1 drop OU HS [facility] Last Admin: 05/31/17 22:44 Dose: 1 drop Pantoprazole Sodium (Protonix Ec Tab) 20 mg PO DAILY [facility] Last Admin: 06/01/17 08:32 Dose: 20 mg Sevelamer Carbonate (Renvela) 2.4 gm PO TIDWM [facility] Last Admin: 06/01/17 08:30 Dose: 2.4 gm Valsartan (Diovan) 320 mg PO DAILY [facility] Vitamin B Complex/Vit C/Folic Acid (Nephro-Ava) 1 tab PO DAILY [facility] Last Admin: 06/01/17 08:32 Dose: 1 tab - Labs Labs: 06/01/17 04:20 06/01/17 04:20 PT 10.5 Seconds (9.8-13.1) 05/27/17 10:30 INR 0.9 (0.9-1.2) 05/27/17 10:30 APTT 33.1 Seconds (25.6-37.1) 05/27/17 10:30 Assessment and Plan (1) CVA (cerebral vascular accident) Status: Acute (2) Hypertensive urgency Status: Acute (3) ESRD (end stage renal disease) Status: Chronic
--- NOTE | 2017-06-01 12:06 | CT ---
PROCEDURE: CT scan brain dated 06/01/2017 HISTORY: assess for bleed COMPARISON: Comparison made with CT scan brain 05/29/2017 TECHNIQUE: Axial computed tomography images were obtained through the head/brain without intravenous contrast. Radiation dose: Total exam DLP = 948.61 mGy-cm. This CT exam was performed using one or more of the following dose reduction techniques: Automated exposure control, adjustment of the mA and/or kV according to patient size, and/or use of iterative reconstruction technique. FINDINGS: HEMORRHAGE: Re- demonstrated is a small hematoma in the left posterior basal ganglia extending superiorly into the left periatrial white matter/martins radiata. This could represent hemorrhagic conversion of the infarct or hypertensive hemorrhage however clinical correlation with history recommended to exclude other etiologies including underlying vascular lesion. The hematoma appears less dense consistent with expected evolution. BRAIN: Moderate to significant chronic periventricular white matter ischemic changes again seen extending peripherally into the deep and subcortical white matter both cerebral hemispheres. . There also are ischemic changes in both basal nuclei and brainstem. Note again made of a small nonspecific calcific density within the left parasagittal posterior occipital parietal watershed zone unchanged Moderate to significant central volume loss VENTRICLES: No evidence of obstructive type hydrocephalus CALVARIUM: There are no acute calvarial fractures. Extensive scalp vascular calcifications again noted consistent with underlying IDDM PARANASAL SINUSES: Mucosal thickening again noted within right maxillary antrum. Minimal mucosal thickening left maxillary antrum. MASTOID AIR CELLS: Unremarkable as visualized. No inflammatory changes. OTHER FINDINGS: Changes of bilateral cataract surgery again noted. IMPRESSION: Re- demonstrated is a small left posterior basal ganglia/coronal radiata hematoma which has undergone some evolution and appears less dense. Extensive chronic white matter, basal nuclei and brainstem ischemic changes. Moderate to significant central volume loss. No new hemorrhages or obstructive type hydrocephalus
--- NOTE | 2017-06-01 12:47 | CP.CCUPN ---
CCU Subjective - Physician Review Events Since Last Encounter (Free Text): 06/01/17 12:42 Patient had an episode of nausea today with dizziness. Repeated head CT. CCU Objective - Vital Signs / Intake & Output Vital Signs (Last 4 hours): Vital Signs Temp Pulse Resp BP Pulse Ox 06/01/17 12:00 97.6 F 59 L 13 157/75 H 100 06/01/17 11:27 157/87 H 06/01/17 10:00 76 123/77 Intake and Output (Last 8hrs): Intake & Output 05/31/17 06/01/17 06/01/17 22:59 06:59 14:59 Intake Total 270 120 150 Output Total 1 100 Balance 269 120 50 Weight 209 lb Intake: IV 0 120 0 Oral 270 150 Output: Stool 1 100 Other: # Bowel Movements 1 - Physical Exam Head: Positive for: Normocephalic Pupils: Positive for: PERRL Extroacular Muscles: Positive for: EOMI Conjunctiva: Positive for: Normal Mouth: Positive for: Moist Mucous Membranes Pharnyx: Positive for: Normal Neck: Positive for: Normal Range of Motion. Negative for: JVD, Lymphadenopathy Respiratory/Chest: Positive for: Clear to Auscultation Cardiovascular: Positive for: Regular Rate and Rhythm Abdomen: Positive for: Normal Bowel Sounds. Negative for: Tenderness, Distention Genitourinary Male: Positive for: Normal External Genitalia Upper Extremity: Positive for: Other (LUE AVF with good bruit and thrill.) Lower Extremity: Positive for: Other (LUE AVF wit good bruit and thrill.) Neurological: Positive for: GCS=15, CN II-XII Intact, Speech Normal, Normal Sensory Function, Norm Deep Tendon Reflexes, Memory Normal, Other (RUE +4/5). Negative for: Motor Func Grossly Intact (minimal 4-5/5 RUE strength better than RLE. ) Psychiatric: Positive for: Alert - Medications Active Medications: Active Medications Generic Name Dose Route Start Last Admin Trade Name Freq PRN Reason Stop Dose Admin Acetaminophen 650 mg 05/28/17 14:29 05/28/17 14:35 Tylenol 325mg Tab PO 650 mg Q6 PRN Administration Headache Amlodipine Besylate 10 mg 06/01/17 08:30 06/01/17 10:00 Norvasc PO Not Given DAILY [facility] Atorvastatin Calcium 40 mg 05/31/17 22:00 05/31/17 22:45 Lipitor PO 40 mg HS [facility] Administration Brimonidine Tartrate 1 drop 05/31/17 09:45 06/01/17 08:25 Alphagan 0.2% Opht OU 1 drop Q12 [facility] Administration Calcitriol 1.5 mcg 06/02/17 09:00 Rocaltrol PO TTS [facility] Calcitriol 0.25 mcg 06/02/17 09:00 Rocaltrol PO TTS [facility] Carvedilol 12.5 mg 06/01/17 21:00 Coreg PO Q12 [facility] Hydralazine HCl 50 mg 05/31/17 09:34 06/01/17 06:19 Apresoline PO 50 mg Q8@0600,1400,2200 [facility] Administration Hydrochlorothiazide 50 mg 06/01/17 09:00 06/01/17 08:31 Hydrodiuril PO 50 mg DAILY [facility] Administration Insulin Human Lispro 0 units 05/28/17 16:30 06/01/17 12:23 Humalog SC 1 unit ACHS [facility] Administration Protocol Latanoprost 1 drop 05/29/17 22:00 05/31/17 22:44 Xalatan Opht OU 1 drop HS [facility] Administration Pantoprazole Sodium 20 mg 05/28/17 13:00 06/01/17 08:32 Protonix Ec Tab PO 20 mg DAILY [facility] Administration Sevelamer Carbonate 2.4 gm 05/28/17 17:00 06/01/17 12:24 Renvela PO 2.4 gm TIDWM [facility] Administration Valsartan 320 mg 06/02/17 16:00 Diovan PO DAILY [facility] Vitamin B Complex/Vit C/Folic Acid 1 tab 05/31/17 09:00 06/01/17 08:32 Nephro-Ava PO 1 tab DAILY [facility] Administration - Patient Studies Lab Studies: Lab Studies 06/01/17 06/01/17 06/01/17 Range/Units 11:15 06:29 04:20 WBC (4.8-10.8) K/uL RBC (4.40-5.90) Mil/uL Hgb (12.0-18.0) g/dL Hct (35.0-51.0) % MCV (80.0-94.0) fl MCH (27.0-31.0) pg MCHC (33.0-37.0) g/dL RDW (11.5-14.5) % Plt Count (130-400) K/uL MPV (7.2-11.7) fl Neut % (Auto) (50.0-75.0) % Lymph % (Auto) (20.0-40.0) % Brooks % (Auto) (0.0-10.0) % Eos % (Auto) (0.0-4.0) % Baso % (Auto) (0.0-2.0) % Neut # (1.8-7.0) K/uL Lymph # (1.0-4.3) K/uL Brooks # (0.0-0.8) K/uL Eos # (0.0-0.7) K/uL Baso # (0.0-0.2) K/uL Sodium 143 (132-148) mmol/l Potassium 5.1 H (3.6-5.0) MMOL/L Chloride 102 (98-107) mmol/L Carbon Dioxide 26 (22-30) mmol/L Anion Gap 20 (10-20) BUN 48 H (9-20) mg/dl Creatinine 11.0 H* D (0.8-1.5) mg/dL Est GFR ( Amer) 6 Est GFR (Non-Af Amer) 5 POC Glucose (mg/dL) 197 H 139 H (65-110) mg/dL Random Glucose 122 H (75-110) mg/dL Calcium 9.1 (8.4-10.2) mg/dL Total Bilirubin 0.6 (0.2-1.3) mg/dl AST 16 L D (17-59) U/L ALT 27 (21-72) U/L Alkaline Phosphatase 122 (38-126) U/L Total Protein 6.9 (6.3-8.2) G/DL Albumin 4.1 (3.5-5.0) g/dL Globulin 2.7 (2.2-3.9) gm/dL Albumin/Globulin Ratio 1.5 (1.0-2.1) 06/01/17 05/31/17 05/31/17 Range/Units 04:20 23:04 16:45 WBC 8.0 (4.8-10.8) K/uL RBC 3.91 L (4.40-5.90) Mil/uL Hgb 12.0 (12.0-18.0) g/dL Hct 36.4 (35.0-51.0) % MCV 93.2 (80.0-94.0) fl MCH 30.8 (27.0-31.0) pg MCHC 33.0 (33.0-37.0) g/dL RDW 17.8 H (11.5-14.5) % Plt Count 154 (130-400) K/uL MPV 8.9 (7.2-11.7) fl Neut % (Auto) 63.6 (50.0-75.0) % Lymph % (Auto) 17.8 L (20.0-40.0) % Brooks % (Auto) 11.3 H (0.0-10.0) % Eos % (Auto) 6.5 H (0.0-4.0) % Baso % (Auto) 0.8 (0.0-2.0) % Neut # 5.1 (1.8-7.0) K/uL Lymph # 1.4 (1.0-4.3) K/uL Brooks # 0.9 H (0.0-0.8) K/uL Eos # 0.5 (0.0-0.7) K/uL Baso # 0.1 (0.0-0.2) K/uL Sodium (132-148) mmol/l Potassium (3.6-5.0) MMOL/L Chloride (98-107) mmol/L Carbon Dioxide (22-30) mmol/L Anion Gap (10-20) BUN (9-20) mg/dl Creatinine (0.8-1.5) mg/dL Est GFR ( Amer) Est GFR (Non-Af Amer) POC Glucose (mg/dL) 115 H 147 H (65-110) mg/dL Random Glucose (75-110) mg/dL Calcium (8.4-10.2) mg/dL Total Bilirubin (0.2-1.3) mg/dl AST (17-59) U/L ALT (21-72) U/L Alkaline Phosphatase (38-126) U/L Total Protein (6.3-8.2) G/DL Albumin (3.5-5.0) g/dL Globulin (2.2-3.9) gm/dL Albumin/Globulin Ratio (1.0-2.1) Laboratory Results - last 24 hr 05/31/17 05/31/17 06/01/17 16:45 23:04 04:20 WBC 8.0 RBC 3.91 L Hgb 12.0 Hct 36.4 MCV 93.2 MCH 30.8 MCHC 33.0 RDW 17.8 H Plt Count 154 MPV 8.9 Neut % (Auto) 63.6 Lymph % (Auto) 17.8 L Brooks % (Auto) 11.3 H Eos % (Auto) 6.5 H Baso % (Auto) 0.8 Neut # 5.1 Lymph # 1.4 Brooks # 0.9 H Eos # 0.5 Baso # 0.1 Sodium Potassium Chloride Carbon Dioxide Anion Gap BUN Creatinine Est GFR ( Amer) Est GFR (Non-Af Amer) POC Glucose (mg/dL) 147 H 115 H Random Glucose Calcium Total Bilirubin AST ALT Alkaline Phosphatase Total Protein Albumin Globulin Albumin/Globulin Ratio 06/01/17 06/01/17 06/01/17 04:20 06:29 11:15 WBC RBC Hgb Hct MCV MCH MCHC RDW Plt Count MPV Neut % (Auto) Lymph % (Auto) Brooks % (Auto) Eos % (Auto) Baso % (Auto) Neut # Lymph # Brooks # Eos # Baso # Sodium 143 Potassium 5.1 H Chloride 102 Carbon Dioxide 26 Anion Gap 20 BUN 48 H Creatinine 11.0 H* D Est GFR ( Amer) 6 Est GFR (Non-Af Amer) 5 POC Glucose (mg/dL) 139 H 197 H Random Glucose 122 H Calcium 9.1 Total Bilirubin 0.6 AST 16 L D ALT 27 Alkaline Phosphatase 122 Total Protein 6.9 Albumin 4.1 Globulin 2.7 Albumin/Globulin Ratio 1.5 Fingerstick Blood Sugar Results: 197 Review of Systems - Constitutional Additional comments: nausea Critical Care Progress Note - Nutrition Nutrition: Nutrition Category Date Time Status Renal Diet [DIET] Diets 05/27/17 Lunch Active Assessment/Plan (1) CVA (cerebral vascular accident) Assessment and plan: 61yo M. PMHx HTN, ESRD on HD (T//thu), NIDDM type 2, dyslipidemia, blind in right eye. p/w acute hemorrhagic hypertensive stroke, left basal ganglia. Neuro: Alert and following commands. Repeat Head CT today showed normal evolution of left basal ganglia hemorrhagic stroke. Nausea resolved s/p Zofran po. Pulm: No acute issues, breathing spontaneously on room air. CV: Hypertension, staggering medications. Valsartan 320mg po 4pm daily. Hydralazine po q8h, increased norvasc 10mg po am, decreased carvedilol to 12.5mg po q12h - patient was having bradycardic episodes, if this continues will need to stop, HCTZ 50mg po qam. Hem: No acute issues Renal: End-stage renal disease on hemodialysis, regular schedule. Continue sevelamer for secondary hyperparathyroidism with chronic renal disease. Endo: DM type II, short acting insulin sliding scale for coverage. GI: Renal diet, with low carbohydrate consistency. ID: No acute issues OOB to chair, Occupational therapy eval. Patient downgraded to Telemetry, ready to go to rehab. DVT proph - SCDs, anticoagulation held with current bleed GI proph - Protonix Code status - full code Critical Care Time spent 35 minutes Multi-disciplinary rounds were performed with house staff, nursing, speech therapy, respiratory therapy, pharmacy and nutrition with integrated input from the primary team/attending and other consulting services. The documented time is cumulative and includes review of patient data/exams/labs/chart review and examination of the patient on rounds and throughout the day; time is exclusive of any procedures or teaching time. Current Visit: Yes Status: Acute
[2017-06-01] MEDS: Latanoprost 0.005% Opht SOUTION OU SCH (21:52)
--- NOTE | 2017-06-02 07:33 | CP.PCM.PN ---
Subjective - Date & Time of Evaluation Date of Evaluation: 06/02/17 Time of Evaluation: 07:27 - Subjective Subjective: Patient seen and examined, lying comfortably in bed. Patient is complaining of dizziness and weakness, which gets more prominent with movements.Still complaining of right arm tingling and numbness, but improved strength. No episode of nausea or dizziness since yesterday. patient denies fever, vomiting, diarrhea, SOB or chest pain. Objective - Vital Signs/Intake and Output Vital Signs (last 24 hours): Temp Pulse Resp BP Pulse Ox 98.3 F 67 20 163/76 H 98 06/02/17 00:56 06/02/17 06:20 06/02/17 00:56 06/02/17 06:20 06/02/17 06:20 Intake and Output: 06/02/17 06/02/17 06:59 18:59 Intake Total 230 Output Total 3100 Balance -2870 - Medications Medications: Current Medications Acetaminophen (Tylenol 325mg Tab) 650 mg PO Q6 PRN PRN Reason: Headache Last Admin: 05/28/17 14:35 Dose: 650 mg Amlodipine Besylate (Norvasc) 10 mg PO DAILY [facility] Last Admin: 06/01/17 17:22 Dose: 10 mg Atorvastatin Calcium (Lipitor) 40 mg PO HS [facility] Last Admin: 06/01/17 21:49 Dose: 40 mg Brimonidine Tartrate (Alphagan 0.2% Opht) 1 drop OU Q12 [facility] Last Admin: 06/01/17 21:48 Dose: 1 drop Calcitriol (Rocaltrol) 1.5 mcg PO TTS [facility] Calcitriol (Rocaltrol) 0.25 mcg PO TTS [facility] Hydralazine HCl (Apresoline) 50 mg PO Q8@0600,1400,2200 [facility] Last Admin: 06/02/17 05:49 Dose: 50 mg Hydrochlorothiazide (Hydrodiuril) 50 mg PO DAILY [facility] Last Admin: 06/01/17 08:31 Dose: 50 mg Insulin Human Lispro (Humalog) 0 units SC ACHS [facility] PRN Reason: Protocol Last Admin: 06/01/17 22:00 Dose: Not Given Latanoprost (Xalatan Opht) 1 drop OU HS [facility] Last Admin: 06/01/17 21:52 Dose: 1 drop Pantoprazole Sodium (Protonix Ec Tab) 20 mg PO DAILY [facility] Last Admin: 06/01/17 08:32 Dose: 20 mg Sevelamer Carbonate (Renvela) 2.4 gm PO TIDWM [facility] Last Admin: 06/01/17 17:35 Dose: 2.4 gm Valsartan (Diovan) 320 mg PO DAILY [facility] Vitamin B Complex/Vit C/Folic Acid (Nephro-Ava) 1 tab PO DAILY [facility] Last Admin: 06/01/17 08:32 Dose: 1 tab - Labs Labs: 06/01/17 04:20 06/01/17 04:20 PT 10.5 Seconds (9.8-13.1) 05/27/17 10:30 INR 0.9 (0.9-1.2) 05/27/17 10:30 APTT 33.1 Seconds (25.6-37.1) 05/27/17 10:30 - Constitutional Appears: Well, No Acute Distress - Head Exam Head Exam: ATRAUMATIC, NORMAL INSPECTION, NORMOCEPHALIC - Eye Exam Eye Exam: Normal appearance (Visual impairment ) - Neck Exam Neck Exam: Full ROM. absent: Lymphadenopathy - Respiratory Exam Respiratory Exam: Clear to Ausculation Bilateral, NORMAL BREATHING PATTERN. absent: Accessory Muscle Use, Chest Wall Tenderness - Cardiovascular Exam Cardiovascular Exam: REGULAR RHYTHM - GI/Abdominal Exam GI & Abdominal Exam: Soft, Normal Bowel Sounds - Extremities Exam Extremities Exam: absent: Calf Tenderness, Pedal Edema - Back Exam Back Exam: absent: CVA tenderness (L), CVA tenderness (R) - Neurological Exam Neurological Exam: Alert, Awake, CN II-XII Intact, Oriented x3 Neuro motor strength exam: Left Upper Extremity: 4, Right Upper Extremity: 4, Left Lower Extremity: 4 - Psychiatric Exam Psychiatric exam: Normal Mood - Skin Skin Exam: Normal Color Assessment and Plan - Assessment and Plan (Free Text) Assessment: 61 y.o M with pmh of HTN, ESRD on HD (TThS), NIDDM, hyperlipidemia, and visual impairment who presented with right sided facial numbness and weakness who was found to have a hemorragic CT on 05/28. Neurosurgery was consulted with no surgical intervention indicated. CT findings have remained stable and patient is currently being monitored in ICU for HTN. Plan: Acute Hemorragic stroke, with rt sided weakness -initial CT showed 1.3 x 1.6 x 2.6 cm focal hemorrhage within the left basal ganglia, most recent CT showed stabalization of the bleed. -neurosurgery consult recommends no surgical intervention at this time -Neurology, Dr Long, consulted. Recommending tight BP control, no antiplt activity for atleast 3 weeks from onset of the bleed. and acute Physical therapy -recent head CT (06/01/17) re-demonstrated small left hematoma which is less dense now, No sign of new hemorrhages or Obstructive type of hydrocephalus. -BP remains elevated. will continue to optimize BP control -PT/OT -serial neuro examinations reveal improvement in rt sided weakness HTN, uncontrolled -Pt continues with PO Valsartan 320mg daily, HCT 50mg daily. - will change Hydralazine 50mg Q8h to 25mg Q8H -pt received Norvasc 10mg PO yesterday, will get one dose this morning to optimize BP control -Will continue to monitor BP ESRD -HD schedule on TThSat -as per nephrology consult(Dr. Gonzales): renweia -will go for dialysis today -will monitor BUN/Cr History of DM -last hemoglobin A1C: 6.1% -sliding scale and BG is controlled Hyperlipidemia -controlled -continue statin 40 mg GI ppx -protonix 20mg DVT ppx -SCD
[2017-06-02] MEDS: Brimonidine 0.2% 50 DROP/5 ML BOTTLE OU SCH ×2 (09:10→21:07)
[2017-06-02] MEDS: Sevelamer Carb 0.8 gm/Packet PO SCH ×4 (09:11→16:16)
[2017-06-02] MEDS: Pantoprazole 20 mg EC Tab PO SCH (09:11)
[2017-06-02] MEDS: Multivitamin Vitamin B Complex (Nephro-Vite) Tab PO SCH (09:13)
[2017-06-02] MEDS: Insulin Lispro (humaLOG) 100 Units/ml Inj SC SCH ×4 (09:13→21:46)
--- NOTE | 2017-06-02 15:37 | CP.PCM.PN ---
Subjective - Date & Time of Evaluation Date of Evaluation: 06/02/17 Time of Evaluation: 03:00 - Subjective Subjective: Appears comfortable in bed Objective - Vital Signs/Intake and Output Vital Signs (last 24 hours): Temp Pulse Resp BP Pulse Ox 98.5 F 73 19 127/77 98 06/02/17 08:17 06/02/17 13:09 06/02/17 08:17 06/02/17 13:09 06/02/17 08:17 Intake and Output: 06/02/17 06/02/17 06:59 18:59 Intake Total 230 Output Total 3100 Balance -2870 - Medications Medications: Current Medications Acetaminophen (Tylenol 325mg Tab) 650 mg PO Q6 PRN PRN Reason: Headache Last Admin: 06/02/17 11:16 Dose: 650 mg Amlodipine Besylate (Norvasc) 10 mg PO DAILY [facility] Last Admin: 06/02/17 12:42 Dose: 10 mg Atorvastatin Calcium (Lipitor) 40 mg PO HS [facility] Last Admin: 06/01/17 21:49 Dose: 40 mg Brimonidine Tartrate (Alphagan 0.2% Opht) 1 drop OU Q12 [facility] Last Admin: 06/02/17 09:10 Dose: 1 drop Calcitriol (Rocaltrol) 1.5 mcg PO TTS [facility] Last Admin: 06/02/17 09:12 Dose: 1.5 mcg Calcitriol (Rocaltrol) 0.25 mcg PO TTS [facility] Last Admin: 06/02/17 09:13 Dose: 0.25 mcg Hydralazine HCl (Apresoline) 25 mg PO Q8@0600,1400,2200 [facility] Hydrochlorothiazide (Hydrodiuril) 50 mg PO DAILY [facility] Last Admin: 06/02/17 12:43 Dose: 50 mg Insulin Human Lispro (Humalog) 0 units SC ACHS [facility] PRN Reason: Protocol Last Admin: 06/02/17 12:39 Dose: Not Given Latanoprost (Xalatan Opht) 1 drop OU HS [facility] Last Admin: 06/01/17 21:52 Dose: 1 drop Pantoprazole Sodium (Protonix Ec Tab) 20 mg PO DAILY [facility] Last Admin: 06/02/17 09:11 Dose: 20 mg Sevelamer Carbonate (Renvela) 2.4 gm PO TIDWM [facility] Last Admin: 06/02/17 12:42 Dose: 2.4 gm Valsartan (Diovan) 320 mg PO DAILY [facility] Vitamin B Complex/Vit C/Folic Acid (Nephro-Ava) 1 tab PO DAILY [facility] Last Admin: 06/02/17 09:13 Dose: 1 tab - Labs Labs: 06/01/17 04:20 06/01/17 04:20 PT 10.5 Seconds (9.8-13.1) 05/27/17 10:30 INR 0.9 (0.9-1.2) 05/27/17 10:30 APTT 33.1 Seconds (25.6-37.1) 05/27/17 10:30 - Respiratory Exam Additional comments: Lungs clear - Cardiovascular Exam Cardiovascular Exam: REGULAR RHYTHM - Extremities Exam Additional comments: No edema Assessment and Plan - Assessment and Plan (Free Text) Assessment: ESRD on HD HTN Plan: Stable on dialysis Continue HD MWF
[2017-06-02 16:29] VITALS: RESP 20
[2017-06-02] MEDS: Latanoprost 0.005% Opht SOUTION OU SCH (21:11)
[2017-06-03] MEDS: Insulin Lispro (humaLOG) 100 Units/ml Inj SC SCH ×2 (06:48→12:25)
--- NOTE | 2017-06-03 08:11 | CP.PCM.PN ---
Subjective - Date & Time of Evaluation Date of Evaluation: 06/03/17 Time of Evaluation: 08:06 - Subjective Subjective: Patient seen and examined, lying comfortably in bed. Patient is not dizzy today but still complaining of right arm tingling and numbness, and improved strength. patient denies fever, nausea, vomiting, diarrhea, SOB or chest pain. Objective - Vital Signs/Intake and Output Vital Signs (last 24 hours): Temp Pulse Resp BP Pulse Ox 98.7 F 79 20 139/74 97 06/02/17 23:51 06/03/17 05:45 06/02/17 23:51 06/03/17 05:45 06/02/17 23:51 - Medications Medications: Current Medications Acetaminophen (Tylenol 325mg Tab) 650 mg PO Q6 PRN PRN Reason: Headache Last Admin: 06/02/17 11:16 Dose: 650 mg Amlodipine Besylate (Norvasc) 10 mg PO DAILY [facility] Last Admin: 06/02/17 12:42 Dose: 10 mg Atorvastatin Calcium (Lipitor) 40 mg PO HS [facility] Last Admin: 06/02/17 21:10 Dose: 40 mg Brimonidine Tartrate (Alphagan 0.2% Opht) 1 drop OU Q12 [facility] Last Admin: 06/02/17 21:07 Dose: 1 drop Calcitriol (Rocaltrol) 1.5 mcg PO TTS [facility] Last Admin: 06/02/17 09:12 Dose: 1.5 mcg Calcitriol (Rocaltrol) 0.25 mcg PO TTS [facility] Last Admin: 06/02/17 09:13 Dose: 0.25 mcg Hydralazine HCl (Apresoline) 25 mg PO Q8@0600,1400,2200 [facility] Last Admin: 06/03/17 05:45 Dose: 25 mg Hydrochlorothiazide (Hydrodiuril) 50 mg PO DAILY [facility] Last Admin: 06/02/17 12:43 Dose: 50 mg Insulin Human Lispro (Humalog) 0 units SC ACHS [facility] PRN Reason: Protocol Last Admin: 06/03/17 06:48 Dose: Not Given Latanoprost (Xalatan Opht) 1 drop OU HS [facility] Last Admin: 06/02/17 21:11 Dose: 1 drop Pantoprazole Sodium (Protonix Ec Tab) 20 mg PO DAILY [facility] Last Admin: 06/02/17 09:11 Dose: 20 mg Sevelamer Carbonate (Renvela) 2.4 gm PO TIDWM [facility] Last Admin: 06/02/17 16:16 Dose: 2.4 gm Valsartan (Diovan) 320 mg PO DAILY [facility] Last Admin: 06/02/17 16:16 Dose: 320 mg Vitamin B Complex/Vit C/Folic Acid (Nephro-Ava) 1 tab PO DAILY [facility] Last Admin: 06/02/17 09:13 Dose: 1 tab - Labs Labs: 06/01/17 04:20 06/01/17 04:20 PT 10.5 Seconds (9.8-13.1) 05/27/17 10:30 INR 0.9 (0.9-1.2) 05/27/17 10:30 APTT 33.1 Seconds (25.6-37.1) 05/27/17 10:30 - Constitutional Appears: Well, No Acute Distress - Head Exam Head Exam: ATRAUMATIC, NORMAL INSPECTION, NORMOCEPHALIC - Eye Exam Eye Exam: Normal appearance (Chronic Visual impairment)
[2017-06-03 08:14] VITALS: PULSE 94; TEMP 98.5; O2SAT 99
[2017-06-03] MEDS: Pantoprazole 20 mg EC Tab PO SCH (08:20)
[2017-06-03] MEDS: Sevelamer Carb 0.8 gm/Packet PO SCH ×2 (08:20→12:24)
[2017-06-03] MEDS: Multivitamin Vitamin B Complex (Nephro-Vite) Tab PO SCH (08:20)
[2017-06-03] MEDS: Brimonidine 0.2% 50 DROP/5 ML BOTTLE OU SCH (08:20)
--- NOTE | 2017-06-03 10:36 | CP.PCM.PN ---
Subjective - Date & Time of Evaluation Date of Evaluation: 06/03/17 Time of Evaluation: 10:34 - Subjective Subjective: No significant changes patient appears to be comfortable No chest pain no shortness of breath Objective - Vital Signs/Intake and Output Vital Signs (last 24 hours): Temp Pulse Resp BP Pulse Ox 98.5 F 94 H 20 134/76 99 06/03/17 08:14 06/03/17 08:20 06/03/17 08:14 06/03/17 08:20 06/03/17 08:14 - Medications Medications: Current Medications Acetaminophen (Tylenol 325mg Tab) 650 mg PO Q6 PRN PRN Reason: Headache Last Admin: 06/02/17 11:16 Dose: 650 mg Amlodipine Besylate (Norvasc) 10 mg PO DAILY [facility] Last Admin: 06/03/17 08:20 Dose: 10 mg Atorvastatin Calcium (Lipitor) 40 mg PO HS [facility] Last Admin: 06/02/17 21:10 Dose: 40 mg Brimonidine Tartrate (Alphagan 0.2% Opht) 1 drop OU Q12 [facility] Last Admin: 06/03/17 08:20 Dose: 1 drop Calcitriol (Rocaltrol) 1.5 mcg PO TTS [facility] Last Admin: 06/02/17 09:12 Dose: 1.5 mcg Calcitriol (Rocaltrol) 0.25 mcg PO TTS [facility] Last Admin: 06/02/17 09:13 Dose: 0.25 mcg Hydralazine HCl (Apresoline) 25 mg PO Q8@0600,1400,2200 [facility] Last Admin: 06/03/17 05:45 Dose: 25 mg Hydrochlorothiazide (Hydrodiuril) 50 mg PO DAILY [facility] Last Admin: 06/03/17 08:21 Dose: 50 mg Insulin Human Lispro (Humalog) 0 units SC ACHS [facility] PRN Reason: Protocol Last Admin: 06/03/17 06:48 Dose: Not Given Latanoprost (Xalatan Opht) 1 drop OU HS [facility] Last Admin: 06/02/17 21:11 Dose: 1 drop Pantoprazole Sodium (Protonix Ec Tab) 20 mg PO DAILY [facility] Last Admin: 06/03/17 08:20 Dose: 20 mg Sevelamer Carbonate (Renvela) 2.4 gm PO TIDWM [facility] Last Admin: 06/03/17 08:20 Dose: 2.4 gm Valsartan (Diovan) 320 mg PO DAILY [facility] Last Admin: 06/03/17 08:20 Dose: 320 mg Vitamin B Complex/Vit C/Folic Acid (Nephro-Ava) 1 tab PO DAILY [facility] Last Admin: 06/03/17 08:20 Dose: 1 tab - Labs Labs: 06/01/17 04:20 06/01/17 04:20 PT 10.5 Seconds (9.8-13.1) 05/27/17 10:30 INR 0.9 (0.9-1.2) 05/27/17 10:30 APTT 33.1 Seconds (25.6-37.1) 05/27/17 10:30 - Constitutional Appears: No Acute Distress - ENT Exam ENT Exam: Mucous Membranes Moist - Respiratory Exam Respiratory Exam: absent: Chest Wall Tenderness - Cardiovascular Exam Cardiovascular Exam: REGULAR RHYTHM. absent: Rubs - GI/Abdominal Exam GI & Abdominal Exam: Normal Bowel Sounds - Extremities Exam Extremities Exam: absent: Calf Tenderness - Back Exam Back Exam: absent: CVA tenderness (L), CVA tenderness (R) - Neurological Exam Neurological Exam: Alert Assessment and Plan (1) CVA (cerebral vascular accident) Status: Acute (2) Hypertensive urgency Status: Acute (3) ESRD (end stage renal disease) Assessment & Plan: Patient with end stage renal disease admitted with intracranial bleeding as noted on CT scan which has been improving Continue hemodialysis as scheduled He shouldn't tolerating well his blood pressure and vital sign appears to be stable Continue monitoring Status: Chronic
--- NOTE | 2017-06-03 11:03 | CP.PCM.DIS ---
Provider - Provider Date of Admission: 05/27/17 11:08 Attending physician: Sejal Vásquez MD Consults: Nephrology, Dr. Gonzales Neurology, Dr. Long ' Time Spent in preparation of Discharge (in minutes): 30 Diagnosis - Discharge Diagnosis (1) Hemorrhagic cerebrovascular accident (CVA) Status: Acute (2) Hypertension Status: Chronic (3) ESRD (end stage renal disease) Status: Chronic Priority: Medium (4) DM2 (diabetes mellitus, type 2) Status: Chronic (5) HLD (hyperlipidemia) Status: Chronic Hospital Course - Lab Results Lab Results: Micro Results 05/27/17 17:16 Naris MRSA Culture (Admit) - Final MRSA NOT DETECTED Most Recent Lab Values WBC 8.0 K/uL (4.8-10.8) 06/01/17 04:20 RBC 3.91 Mil/uL (4.40-5.90) L 06/01/17 04:20 Hgb 12.0 g/dL (12.0-18.0) 06/01/17 04:20 Hct 36.4 % (35.0-51.0) 06/01/17 04:20 MCV 93.2 fl (80.0-94.0) 06/01/17 04:20 MCH 30.8 pg (27.0-31.0) 06/01/17 04:20 MCHC 33.0 g/dL (33.0-37.0) 06/01/17 04:20 RDW 17.8 % (11.5-14.5) H 06/01/17 04:20 Plt Count 154 K/uL (130-400) 06/01/17 04:20 MPV 8.9 fl (7.2-11.7) 06/01/17 04:20 Neut % (Auto) 63.6 % (50.0-75.0) 06/01/17 04:20 Lymph % (Auto) 17.8 % (20.0-40.0) L 06/01/17 04:20 Haakon % (Auto) 11.3 % (0.0-10.0) H 06/01/17 04:20 Eos % (Auto) 6.5 % (0.0-4.0) H 06/01/17 04:20 Baso % (Auto) 0.8 % (0.0-2.0) 06/01/17 04:20 Neut # 5.1 K/uL (1.8-7.0) 06/01/17 04:20 Lymph # 1.4 K/uL (1.0-4.3) 06/01/17 04:20 Haakon # 0.9 K/uL (0.0-0.8) H 06/01/17 04:20 Eos # 0.5 K/uL (0.0-0.7) 06/01/17 04:20 Baso # 0.1 K/uL (0.0-0.2) 06/01/17 04:20 PT 10.5 Seconds (9.8-13.1) 05/27/17 10:30 INR 0.9 (0.9-1.2) 05/27/17 10:30 APTT 33.1 Seconds (25.6-37.1) 05/27/17 10:30 Sodium 143 mmol/l (132-148) 06/01/17 04:20 Potassium 5.1 MMOL/L (3.6-5.0) H 06/01/17 04:20 Chloride 102 mmol/L (98-107) 06/01/17 04:20 Carbon Dioxide 26 mmol/L (22-30) 06/01/17 04:20 Anion Gap 20 (10-20) 06/01/17 04:20 BUN 48 mg/dl (9-20) H 06/01/17 04:20 Creatinine 11.0 mg/dL (0.8-1.5) H* D 06/01/17 04:20 Est GFR ( Amer) 6 06/01/17 04:20 Est GFR (Non-Af Amer) 5 06/01/17 04:20 POC Glucose (mg/dL) 152 mg/dL (65-110) H 06/03/17 10:42 Random Glucose 122 mg/dL (75-110) H 06/01/17 04:20 Hemoglobin A1c 6.1 % (4.2-6.5) 05/27/17 10:30 Calcium 9.1 mg/dL (8.4-10.2) 06/01/17 04:20 Phosphorus 7.0 mg/dl (2.5-4.5) H 05/28/17 04:20 Total Bilirubin 0.6 mg/dl (0.2-1.3) 06/01/17 04:20 AST 16 U/L (17-59) L D 06/01/17 04:20 ALT 27 U/L (21-72) 06/01/17 04:20 Alkaline Phosphatase 122 U/L (38-126) 06/01/17 04:20 Troponin I 0.0770 ng/mL (0.00-0.120) 05/27/17 18:27 Total Protein 6.9 G/DL (6.3-8.2) 06/01/17 04:20 Albumin 4.1 g/dL (3.5-5.0) 06/01/17 04:20 Globulin 2.7 gm/dL (2.2-3.9) 06/01/17 04:20 Albumin/Globulin Ratio 1.5 (1.0-2.1) 06/01/17 04:20 Triglycerides 71 mg/DL (0-149) D 05/27/17 10:30 Cholesterol 106 mg/dL (0-199) 05/27/17 10:30 LDL Cholesterol Direct 37 mg/dL (0-129) 05/27/17 10:30 HDL Cholesterol 45 MG/DL (30-70) 05/27/17 10:30 Alcohol, Quantitative < 10 mg/dl (0-10) 05/27/17 18:27 Hep Bs Antigen Negative (NEGATIVE) 05/28/17 14:10 Hep Bs Antibody Positive (NEGATIVE) 05/28/17 14:10 Hepatitis C Antibody Negative (NEGATIVE) 05/28/17 14:10 Blood Type O POSITIVE 05/27/17 10:30 Antibody Screen Negative 05/27/17 10:30 BBK History Checked Patient has bt 05/27/17 10:30 - Hospital Course Hospital Course: 61 y.o M with pmh of HTN, ESRD on HD (TThS), NIDDM, hyperlipidemia, and visual impairment who presented with right sided facial numbness and weakness who was found to have a hemorrhagic CT on 05/28. Neurosurgery was consulted with no surgical intervention indicated. CT findings have remained stable. During his stay patient's BP was fluctuating from 140s systolic to 160s systolic. Patients BP was stabilized around 130s on Valsartan 320mg PO daily, HCT 50mg daily, Hydralazine 25mg Q8H, and Norvasc 10mg PO daily. Patient is stable significantly improved numbness, tingling and weakness. Patient is ready for discharge for further acute rehabilitation. - Date & Time of H&P Date of H&P: 05/27/17 Time of H&P: 13:43 Discharge Exam - Head Exam Head Exam: ATRAUMATIC, NORMAL INSPECTION, NORMOCEPHALIC - Eye Exam Eye Exam: EOMI, Normal appearance (Visual impairment ) - Neck Exam Neck exam: Full Rom - Respiratory Exam Respiratory Exam: NORMAL BREATHING PATTERN. absent: Accessory Muscle Use, Chest Wall Tenderness, Decreased Breath Sounds, Rales, Wheezes - Cardiovascular Exam Cardiovascular Exam: REGULAR RHYTHM, +S1, +S2. absent: Bradycardia, Tachycardia , +S4, Systolic Murmur - GI/Abdominal Exam GI & Abdominal Exam: Normal Bowel Sounds, Soft. absent: Tenderness - Extremities Exam Extremities exam: full ROM, normal capillary refill, pedal pulses present - Back Exam Back exam: absent: CVA tenderness (L), CVA tenderness (R) - Neurological Exam Neurological exam: Alert, CN II-XII Intact (Visual impairment ), Oriented x3 - Psychiatric Exam Psychiatric exam: Normal Mood - Skin Skin Exam: Normal Color Discharge Plan - Follow Up Plan Condition: FAIR Disposition: HOME/ ROUTINE Instructions: Hemorrhagic Stroke (DC), Hemorrhagic Stroke (GEN), Hypertension ( DC), Hypertension (GEN), Renal Failure Diet (DC) Clinical Quality Measures - CQM - Stroke Antithrombotic Prescribed: Medical Contraindication Present (Hemorrhagic CVA) Contranindication/Reason for not providing: Risk for Bleeding Anticoagulation Prescribed for Atrial Flutter, Atrial Fibrillation and History of:: Not Applicable Contranindication/Reason for not providing: Risk for Bleeding Statin prescribed: Yes - Date & Time of Discharge Summary Date of Discharge Summary: 06/03/17 Time of Discharge Summary: 11:26
[2017-06-03 12:11] VITALS: BP 133/79
== END 2017-06-03 13:30 | DRG 64 ==
LOC: H.ER 09:45 → H.ERHOLD 11:08 → H.ICU/CCU 14:26 → H.MEDSURG1 06-02 00:40
PROVIDERS: ADMIT Family Medicine Geriatric Medicine; ATTEND Family Medicine Geriatric Medicine
PROC: 5A1D60Z (ICD-10-PCS; principal; 2017-05-28)
PROC: F07Z9FZ Gait Training/Functional Ambulation Treatment using Assistive, Adaptive, Supportive or Protective Equipment (ICD-10-PCS; 2017-06-01)
DX: I61.5 Nontraumatic intracerebral hemorrhage, intraventricular (principal); N18.6 End stage renal disease; G93.6 Cerebral edema; E11.22 Type 2 diabetes mellitus with diabetic chronic kidney disease; N25.81 Secondary hyperparathyroidism of renal origin; I12.0 Hypertensive chronic kidney disease with stage 5 chronic kidney disease or end stage renal disease; G81.91 Hemiplegia, unspecified affecting right dominant side; E83.39 Other disorders of phosphorus metabolism; I16.0 Hypertensive urgency; D64.9 Anemia, unspecified; E78.5 Hyperlipidemia, unspecified; I69.192 Facial weakness following nontraumatic intracerebral hemorrhage; H54.41 Blindness, right eye, normal vision left eye; Z99.2 Dependence on renal dialysis; Z79.02 Long term (current) use of antithrombotics/antiplatelets; Z79.82 Long term (current) use of aspirin; Z87.891 Personal history of nicotine dependence; Z86.73 Personal history of transient ischemic attack (TIA), and cerebral infarction without residual deficits; Z89.411 Acquired absence of right great toe

== ENCOUNTER 2017-06-03 12:14 | Inpatient (IN) | payer MEDICARE, OTHER ==
[2017-06-03] MEDS: Sevelamer Carb 0.8 gm/Packet PO SCH (17:04)
--- NOTE | 2017-06-03 17:13 | CP.PCM.CON ---
History of Present Illness - History of Present Illness History of Present Illness: NEURO CONSULT NOTE 06/03/17 CHIEF COMPLAINT:RIGHT SIDE WEAKNESS. HPI: This is a 62-year-old man history of hypertension, history of end-stage renal disease on hemodialysis, koh-mzjishe-expfukivt diabetes mellitus, hyperlipidemia , visual impairment came in right sided facial numbness and weakness of the right side down to the lower extremities causing the fall at home and mostly lightheaded found to have elevated systolic and diastolic blood pressures in the ER. CAT scan of the head showed left basal ganglia with mild intraventricular component. No neurosurgical intervention is needed to be done this time it is more aggressive blood pressure control. He currently has some right-sided facial numbness and right-sided weakness with a mild right pronator drift from the left basal ganglia bleed. His elevated BUN/creatinine is from CKD which is being managed by Nephrology. His BP has been stabilized on the medical floor and is doing better in terms of his right side weakness. Repeat CT head shows decreased in left basal ganglia hematoma. He is in rehab under going acute physical therapy. No headaches at this time. No antiplatelet activity for at least 3 weeks from the onset of acute bleed. ROS: 14 POINT REVIEW OF SYMPTOMS IS NEGATIVE PER HPI. ALLERGIES: NONE SOCIAL HISTORY: NO ILLICIT DRUG USE, SMOKING, OR ETOH USE. FAMILY: NON CONTRIBUTORY. MEDICATIONS: REVIEWED BY NURSE'S RECONCILIATION SHEET. PAST MEDICAL HISTORY: ESRD ON HD, HLD, HTN, DM2 PHYSICAL EXAM: VITAL SIGNS: REVIEWED BY THE CHART GENERAL EXAM: PATIENT SEEN IN BED, IN NO ACUTE DISTRESS MORBIDLY OBESE. HEENT: PERRLA, EOMI, NECK SUPPLE, NO JVD, NO ADENOPATHY CVS: S1, S2, RRR, NO MURMURS NOTED LUNGS: CLEAR TO AUSCULTATION, NO ADVENTITIOUS SOUNDS ABDOMEN: SOFT AND NONTENDER EXTREMITIES: NO CLUBBING OR CYANOSIS. PP 2+ B/L NEURO: PT IS ALERT AND ORIENTED TO PERSON, PLACE, AND YEAR. POOR ATTENTION SPAN , SLOW THOUGHT PROCESS, RECALL TO 5 MINUTES 0/3, SPEECH IS FLUENT WITHOUT ERRORS, CN II-XII INTACT, MOTOR EXAM: NORMAL TONE, NORMAL BULK OF MUSCLE, MOVES ALL EXTREMITIES EQUALLY, EXCEPT RIGHT SIDE WEAKNESS AND RIGHT PRONATOR DRIFT SEEN. SENSORY EXAM: DECREASED LIGHT TOUCH, PIN PRICK UP TO CALVES B/L, PROPRIOCEPTION , VIBRATION DECREASED AT TOES AND KNEES. DEEP TENDON REFLEXES: 2+ THROUGHOUT AND ABSENT AT BOTH KNEES AND ANKLES.. COORDINATION: FINGER TO NOSE IS INTACT. HEEL TO REED IS INTACT GAIT: DEFERRED FOR NOW. LABS: REVIEWED BY THE CHART. ASSESSMENT AND PLAN: This is a 62-year-old man history of hypertension, history of end-stage renal disease on hemodialysis, jmt-oyjldti-irwghalmu diabetes mellitus, hyperlipidemia , visual impairment came in right sided facial numbness and weakness of the right side down to the lower extremities causing the fall at home and mostly lightheaded found to have elevated systolic and diastolic blood pressures in the ER. CAT scan of the head showed left basal ganglia with mild intraventricular component. No neurosurgical intervention is needed to be done this time it is more aggressive blood pressure control. No antiplatelet activity for at least 3 weeks from the onset of acute bleed. He currently has some right-sided facial numbness and right-sided weakness with a mild right pronator drift from the left basal ganglia bleed. He is currently monitored in the ICU. He will need acute physical therapy. IMPRESSION: LEFT BASAL GANGLIA BLEED SECONDARY TO UNCONTROLLED HTN. PLAN: 1.. ASA 81 MG NOT FOR 3 WEEKS FROM ACUTE ONSET OF BLEED. 2. MONITOR ELECTROLYTES AND CORRECT ACCORDINGLY. 3. KEEP SBP BTW 130-140 4. ACUTE REHAB AND NEEDS PT/OT. 5. DIABETIC DIET. HE IS CLINICALLY STABLE. THANK YOU PLEASE RECONSULT NECESSARY. Carina MONTALVO MD Past Patient History - Infectious Disease Hx of Infectious Diseases: None - Past Medical History & Family History Past Medical History?: Yes - Past Social History Smoking Status: Never Smoked - CARDIAC Hx Cardiac Disorders: Yes Hx Hypercholesterolemia: Yes Hx Hypertension: Yes - PULMONARY Hx Chronic Obstructive Pulmonary Disease (COPD): No - NEUROLOGICAL HX Cerebrovascular Accident: Yes - HEENT Hx HEENT Problems: No Hx Blind: Yes (right eye) - RENAL Hx Chronic Kidney Disease: Yes (ESRD) Type of Dialysis Access: av shunt Date of Last Dialysis Treatment: 05/30/17 Hx Renal Failure: Yes - ENDOCRINE/METABOLIC Hx Diabetes Mellitus Type 2: Yes - HEMATOLOGICAL/ONCOLOGICAL Hx Anemia: Yes Hx Human Immunodeficiency Virus (HIV): No - INTEGUMENTARY Hx Dermatological Problems: No - MUSCULOSKELETAL/RHEUMATOLOGICAL Hx Falls: No - GASTROINTESTINAL Hx Gastrointestinal Disorders: No - GENITOURINARY/GYNECOLOGICAL Hx Genitourinary Disorders: Yes (ESRD,CKD) - PSYCHIATRIC Hx Substance Use: No - SURGICAL HISTORY 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)) Other/Comment: LEFT ANKLE SX - ANESTHESIA Hx Anesthesia: Yes Hx Anesthesia Reactions: No Hx Malignant Hyperthermia: No Has any member of the family had a problem w/ anesthesia?: No Meds Allergies/Adverse Reactions: Allergies Allergy/AdvReac Type Severity Reaction Status Date / Time No Known Allergies Allergy Verified 05/27/17 10:00 - Medications Medications: Current Medications Acetaminophen (Tylenol 325mg Tab) 325 mg PO Q6 PRN PRN Reason: Headache Amlodipine Besylate (Norvasc) 10 mg PO DAILY [facility] Atorvastatin Calcium (Lipitor) 40 mg PO HS [facility] Brimonidine Tartrate (Alphagan 0.2% Opht) 1 drop OU Q12 [facility] Calcitriol (Rocaltrol) 0.25 mcg PO TTS [facility] Calcitriol (Rocaltrol) 1.5 mcg PO TTS [facility] Hydralazine HCl (Apresoline) 25 mg PO Q8@0600,1400,2200 [facility] Hydrochlorothiazide (Microzide) 50 mg PO DAILY [facility] Latanoprost (Xalatan Opht) 1 drop OU HS [facility] Pantoprazole Sodium (Protonix Ec Tab) 20 mg PO DAILY [facility] Sevelamer Carbonate (Renvela) 2.4 gm PO TID [facility] Last Admin: 06/03/17 17:04 Dose: 2.4 gm Valsartan (Diovan) 320 mg PO DAILY [facility] Vitamin B Complex/Vit C/Folic Acid (Nephro-Ava) 1 tab PO DAILY [facility] Results - Vital Signs Recent Vital Signs: Last Vital Signs Temp 98.2 F 06/03/17 16:18 Pulse 72 06/03/17 16:18 Resp 18 06/03/17 16:18 BP 124/74 06/03/17 16:18 Pulse Ox 100 06/03/17 16:18 - Labs Labs: Laboratory Results - last 24 hr 06/03/17 16:18 POC Glucose (mg/dL) 149 H
--- NOTE | 2017-06-03 18:26 | CP.PCM.PN ---
Subjective - Date & Time of Evaluation Date of Evaluation: 06/03/17 Time of Evaluation: 18:25 - Subjective Subjective: left CVA right HP Objective - Vital Signs/Intake and Output Vital Signs (last 24 hours): Temp Pulse Resp BP Pulse Ox 98.2 F 72 18 124/74 100 06/03/17 16:18 06/03/17 16:18 06/03/17 16:18 06/03/17 16:18 06/03/17 16:18 - Medications Medications: Current Medications Acetaminophen (Tylenol 325mg Tab) 325 mg PO Q6 PRN PRN Reason: Headache Amlodipine Besylate (Norvasc) 10 mg PO DAILY [facility] Atorvastatin Calcium (Lipitor) 40 mg PO HS [facility] Brimonidine Tartrate (Alphagan 0.2% Opht) 1 drop OU Q12 [facility] Calcitriol (Rocaltrol) 0.25 mcg PO TTS [facility] Calcitriol (Rocaltrol) 1.5 mcg PO TTS [facility] Hydralazine HCl (Apresoline) 25 mg PO Q8@0600,1400,2200 [facility] Hydrochlorothiazide (Microzide) 50 mg PO DAILY [facility] Latanoprost (Xalatan Opht) 1 drop OU HS [facility] Pantoprazole Sodium (Protonix Ec Tab) 20 mg PO DAILY [facility] Sevelamer Carbonate (Renvela) 2.4 gm PO TID [facility] Last Admin: 06/03/17 17:04 Dose: 2.4 gm Valsartan (Diovan) 320 mg PO DAILY [facility] Vitamin B Complex/Vit C/Folic Acid (Nephro-Ava) 1 tab PO DAILY [facility] Physiatry Overall Plan of Care - Overall Plan of Care Estimated Length of Stay in Weeks: 2 Rehab Impairment: Mobility, Gait, Balance, Coordination Etiologic Diagnosis: Cerebrovascular Accident Rehab/Medical Prognosis: Good - Anticipated Interventions Physical Therapy:: Yes Occupational Therapy:: Yes Speech Therapy:: No Recreational Therapy:: Yes - Therapy Goals Bed Mobility: Independent Ambulation: Independent Functional Positional Changes:: Independent - Discharge Plan Discharge Destination: Home
--- NOTE | 2017-06-03 18:29 | CP.PCM.CON ---
History of Present Illness - History of Present Illness History of Present Illness: Dr Villa PMR coverage for Dr Nye on Lon Lafleur, born 1955, who has been admitted to the hospital after a left CVA with right HP. Doing well with good neurological return, but with some functional limitations Review of Systems - Constitutional Constitutional: absent: Anorexia, Chills - EENT Eyes: absent: Blurred Vision Nose/Mouth/Throat: absent: Nasal Congestion - Cardiovascular Cardiovascular: Dyspnea on Exertion. absent: Chest Pain - Respiratory Respiratory: Dyspnea on Exertion - Gastrointestinal Gastrointestinal: absent: Abdominal Pain, Constipation - Musculoskeletal Musculoskeletal: absent: Arthralgias, Back Pain - Neurological Neurological: absent: Abnormal Movements - Psychiatric Psychiatric: absent: Change in Appetite Past Patient History - Infectious Disease Hx of Infectious Diseases: None - Past Medical History & Family History Past Medical History?: Yes - Past Social History Smoking Status: Former Smoker Alcohol: < 2 Drinks/Day Drugs: Denies Home Situation {Lives}: With Family - CARDIAC Hx Cardiac Disorders: Yes Hx Hypercholesterolemia: Yes Hx Hypertension: Yes - PULMONARY Hx Chronic Obstructive Pulmonary Disease (COPD): No - NEUROLOGICAL HX Cerebrovascular Accident: Yes - HEENT Hx HEENT Problems: No Hx Blind: Yes (right eye) - RENAL Hx Chronic Kidney Disease: Yes (ESRD) Type of Dialysis Access: av shunt Date of Last Dialysis Treatment: 05/30/17 Hx Renal Failure: Yes - ENDOCRINE/METABOLIC Hx Diabetes Mellitus Type 2: Yes - HEMATOLOGICAL/ONCOLOGICAL Hx Anemia: Yes Hx Human Immunodeficiency Virus (HIV): No - INTEGUMENTARY Hx Dermatological Problems: No - MUSCULOSKELETAL/RHEUMATOLOGICAL Hx Falls: No - GASTROINTESTINAL Hx Gastrointestinal Disorders: No - GENITOURINARY/GYNECOLOGICAL Hx Genitourinary Disorders: Yes (ESRD,CKD) - PSYCHIATRIC Hx Substance Use: No - SURGICAL HISTORY 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)) Other/Comment: LEFT ANKLE SX - ANESTHESIA Hx Anesthesia: Yes Hx Anesthesia Reactions: No Hx Malignant Hyperthermia: No Has any member of the family had a problem w/ anesthesia?: No Meds Allergies/Adverse Reactions: Allergies Allergy/AdvReac Type Severity Reaction Status Date / Time No Known Allergies Allergy Verified 05/27/17 10:00 - Medications Medications: Current Medications Acetaminophen (Tylenol 325mg Tab) 325 mg PO Q6 PRN PRN Reason: Headache Amlodipine Besylate (Norvasc) 10 mg PO DAILY [facility] Atorvastatin Calcium (Lipitor) 40 mg PO HS [facility] Brimonidine Tartrate (Alphagan 0.2% Opht) 1 drop OU Q12 [facility] Calcitriol (Rocaltrol) 0.25 mcg PO TTS [facility] Calcitriol (Rocaltrol) 1.5 mcg PO TTS [facility] Hydralazine HCl (Apresoline) 25 mg PO Q8@0600,1400,2200 [facility] Hydrochlorothiazide (Microzide) 50 mg PO DAILY [facility] Latanoprost (Xalatan Opht) 1 drop OU HS [facility] Pantoprazole Sodium (Protonix Ec Tab) 20 mg PO DAILY [facility] Sevelamer Carbonate (Renvela) 2.4 gm PO TID [facility] Last Admin: 06/03/17 17:04 Dose: 2.4 gm Valsartan (Diovan) 320 mg PO DAILY [facility] Vitamin B Complex/Vit C/Folic Acid (Nephro-Ava) 1 tab PO DAILY [facility] Physical Exam - Constitutional Appears: Non-toxic, No Acute Distress, Other (large neck, would appear to be at risk for sleep apnea) - Head Exam Head Exam: ATRAUMATIC, NORMAL INSPECTION, NORMOCEPHALIC - Eye Exam Eye Exam: EOMI - ENT Exam ENT Exam: Mucous Membranes Moist - Respiratory Exam Respiratory Exam: NORMAL BREATHING PATTERN - Cardiovascular Exam Cardiovascular Exam: REGULAR RHYTHM - GI/Abdominal Exam GI & Abdominal Exam: Distended, Normal Bowel Sounds. absent: Firm - Extremities Exam Extremities exam: Negative for: calf tenderness, joint swelling, pedal edema - Neurological Exam Neurological exam: Alert, CN II-XII Intact, Oriented x3 - Psychiatric Exam Psychiatric exam: Normal Affect, Normal Mood - Skin Skin Exam: Warm Results - Vital Signs Recent Vital Signs: Last Vital Signs Temp 98.2 F 06/03/17 16:18 Pulse 72 06/03/17 16:18 Resp 18 06/03/17 16:18 BP 124/74 06/03/17 16:18 Pulse Ox 100 06/03/17 16:18 - Labs Labs: Laboratory Results - last 24 hr 06/03/17 16:18 POC Glucose (mg/dL) 149 H Assessment & Plan - Assessment and Plan (Free Text) Assessment: PT/OT to continue to help increase functional independence Team conference for d/c planning Pain: controlled Vascular: no evidence of DVT GI: No evidence of constipation or diarrhea Patient is an excellent acute rehabilitation candidate and will have focused PT , OT and recreational therapy to help facilitate a safe and appropriate d/c plan No clear focal strength deficit at this time impairment code: 01.2
[2017-06-03] MEDS: Brimonidine 0.2% 50 DROP/5 ML BOTTLE OU SCH (21:01)
[2017-06-03] MEDS: Insulin Lispro (humaLOG) 100 Units/ml Inj SC SCH (22:00)
[2017-06-03] MEDS: Latanoprost 0.005% Opht SOUTION OU SCH (22:26)
[2017-06-04] MEDS: Insulin Lispro (humaLOG) 100 Units/ml Inj SC SCH ×4 (06:33→21:33)
[2017-06-04] MEDS: Multivitamin Vitamin B Complex (Nephro-Vite) Tab PO SCH (08:49)
[2017-06-04] MEDS: Brimonidine 0.2% 50 DROP/5 ML BOTTLE OU SCH ×2 (08:49→21:26)
[2017-06-04] MEDS: Sevelamer Carb 0.8 gm/Packet PO SCH ×3 (08:50→17:12)
[2017-06-04] MEDS: Pantoprazole 20 mg EC Tab PO SCH (08:51)
--- NOTE | 2017-06-04 10:12 | CP.PCM.CON ---
History of Present Illness - History of Present Illness History of Present Illness: Patient is a 61 years of age transferred from the floor after been admitted earlier with the acute CVA with intracranial bleeding as noted in the CT scan. Patient receiving dialysis TTS. And the history from the floor as follow history of hypertension, history of end-stage renal disease on hemodialysis, non -insulin-dependent diabetes mellitus, hyperlipidemia, visual impairment came in right sided facial numbness and weakness of the right side down to the lower extremities causing the fall at home and mostly lightheaded found to have elevated systolic and diastolic blood pressures in the ER. CAT scan of the head showed left basal ganglia with mild intraventricular component. No neurosurgical intervention is needed to be done this time it is more aggressive blood pressure control. He currently has some right-sided facial numbness and right-sided weakness Past medical history as above end stage renal disease diabetes hypertension history of peripheral vascular disease multitude of admission in the past Review of Systems - Constitutional Constitutional: absent: Chills - Cardiovascular Cardiovascular: absent: Chest Pain - Respiratory Respiratory: absent: Cough, Dyspnea - Gastrointestinal Gastrointestinal: absent: Abdominal Pain - Genitourinary Genitourinary: Nocturia - Neurological Neurological: As Per HPI, Abnormal Gait - Psychiatric Psychiatric: As Per HPI Past Patient History - Infectious Disease Hx of Infectious Diseases: None - Past Medical History & Family History Past Medical History?: Yes - Past Social History Smoking Status: Former Smoker Alcohol: < 2 Drinks/Day Drugs: Denies Home Situation {Lives}: With Family - CARDIAC Hx Cardiac Disorders: Yes Hx Hypercholesterolemia: Yes Hx Hypertension: Yes - PULMONARY Hx Chronic Obstructive Pulmonary Disease (COPD): No - NEUROLOGICAL HX Cerebrovascular Accident: Yes - HEENT Hx HEENT Problems: No Hx Blind: Yes (right eye) - RENAL Hx Chronic Kidney Disease: Yes (ESRD) Type of Dialysis Access: av shunt Date of Last Dialysis Treatment: 05/30/17 Hx Renal Failure: Yes - ENDOCRINE/METABOLIC Hx Diabetes Mellitus Type 2: Yes - HEMATOLOGICAL/ONCOLOGICAL Hx Anemia: Yes Hx Human Immunodeficiency Virus (HIV): No - INTEGUMENTARY Hx Dermatological Problems: No - MUSCULOSKELETAL/RHEUMATOLOGICAL Hx Falls: No - GASTROINTESTINAL Hx Gastrointestinal Disorders: No - GENITOURINARY/GYNECOLOGICAL Hx Genitourinary Disorders: Yes (ESRD,CKD) - PSYCHIATRIC Hx Substance Use: No - SURGICAL HISTORY 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)) Other/Comment: LEFT ANKLE SX - ANESTHESIA Hx Anesthesia: Yes Hx Anesthesia Reactions: No Hx Malignant Hyperthermia: No Has any member of the family had a problem w/ anesthesia?: No Meds Allergies/Adverse Reactions: Allergies Allergy/AdvReac Type Severity Reaction Status Date / Time No Known Allergies Allergy Verified 05/27/17 10:00 - Medications Medications: Current Medications Acetaminophen (Tylenol 325mg Tab) 325 mg PO Q6 PRN PRN Reason: Headache Amlodipine Besylate (Norvasc) 10 mg PO DAILY [facility] Last Admin: 06/04/17 08:50 Dose: 10 mg Atorvastatin Calcium (Lipitor) 40 mg PO HS [facility] Last Admin: 06/03/17 22:24 Dose: 40 mg Brimonidine Tartrate (Alphagan 0.2% Opht) 1 drop OU Q12 [facility] Last Admin: 06/04/17 08:49 Dose: 1 drop Calcitriol (Rocaltrol) 0.25 mcg PO TTS [facility] Last Admin: 06/04/17 08:53 Dose: 0.25 mcg Calcitriol (Rocaltrol) 1.5 mcg PO TTS [facility] Last Admin: 06/04/17 08:53 Dose: 1.5 mcg Hydralazine HCl (Apresoline) 25 mg PO Q8@0600,1400,2200 [facility] Last Admin: 06/04/17 07:12 Dose: 25 mg Hydrochlorothiazide (Hydrodiuril) 50 mg PO DAILY [facility] Last Admin: 06/04/17 08:48 Dose: 50 mg Insulin Human Lispro (Humalog) 0 units SC ACHS [facility] PRN Reason: Protocol Last Admin: 06/04/17 06:33 Dose: Not Given Latanoprost (Xalatan Opht) 1 drop OU HS [facility] Last Admin: 06/03/17 22:26 Dose: 1 drop Pantoprazole Sodium (Protonix Ec Tab) 20 mg PO DAILY [facility] Last Admin: 06/04/17 08:51 Dose: 20 mg Sevelamer Carbonate (Renvela) 2.4 gm PO TID [facility] Last Admin: 06/04/17 08:50 Dose: 2.4 gm Valsartan (Diovan) 320 mg PO DAILY [facility] Last Admin: 06/04/17 08:49 Dose: 320 mg Vitamin B Complex/Vit C/Folic Acid (Nephro-Ava) 1 tab PO DAILY [facility] Last Admin: 06/04/17 08:49 Dose: 1 tab Physical Exam - Constitutional Appears: No Acute Distress - ENT Exam ENT Exam: Mucous Membranes Moist - Respiratory Exam Respiratory Exam: NORMAL BREATHING PATTERN. absent: Chest Wall Tenderness, Rales - Cardiovascular Exam Cardiovascular Exam: REGULAR RHYTHM. absent: Rubs - GI/Abdominal Exam GI & Abdominal Exam: Normal Bowel Sounds - Extremities Exam Extremities exam: Negative for: calf tenderness - Back Exam Back exam: absent: CVA tenderness (L), CVA tenderness (R) - Neurological Exam Neurological exam: Alert Results - Vital Signs Recent Vital Signs: Last Vital Signs Temp 98.1 F 06/04/17 07:57 Pulse 82 06/04/17 08:50 Resp 19 06/04/17 07:57 BP 149/87 06/04/17 08:50 Pulse Ox 100 06/04/17 07:57 - Labs Labs: Laboratory Results - last 24 hr 06/03/17 06/03/17 06/04/17 16:18 21:11 05:39 POC Glucose (mg/dL) 149 H 148 H 128 H Assessment & Plan (1) Hemorrhagic cerebrovascular accident (CVA) Status: Acute (2) DM2 (diabetes mellitus, type 2) Status: Chronic (3) ESRD (end stage renal disease) Assessment and Plan: Patient with end stage renal disease with the status post intracranial hemorrhage as noted on the CT scan transferred to rehabilitation for rehabilitation and scheduled for hemodialysis TTS Consent was taken Order was given Hemodialysis for 3-1/2 hours patient refusing to go for 4 hours Potassium bath 2 mEq Sodium bath 138 Bicarbonate bacillary for Ultrafiltration about 2000 mL as tolerated Status: Chronic Priority: Medium (4) Hypertension Status: Chronic
--- NOTE | 2017-06-04 16:51 | CP.PCM.HP ---
History of Present Illness - History of Present Illness History of Present Illness: 61 y.o M with pmh of HTN, ESRD on HD (TThS), NIDDM, hyperlipidemia, and visual impairment who presented with right sided facial numbness and weakness who was found to have a hemorrhagic CT on 05/28. Neurosurgery was consulted with no surgical intervention indicated. CT findings have remained stable. During his in patient stay patient's BP was fluctuating from 140s systolic to 160s systolic. Patients BP was stabilized around 130s on Valsartan 320mg PO daily, HCT 50mg daily, Hydralazine 25mg Q8H, and Norvasc 10mg PO daily. Patient's numbness, tingling and weakness improved and he was admitted to acute rehab for further rehabilitation/therapy. Present on Admission - Present on Admission Any Indicators Present on Admission: Yes History of DVT/PE: No History of Uncontrolled Diabetes: Yes Urinary Catheter: No Decubitus Ulcer Present: No Review of Systems - Review of Systems All systems: reviewed and no additional remarkable complaints except Review of Systems: patient is complaining of numbness, tingling and weakness of his right face and U and L extremities. also complaining of mild dizziness with movement - Constitutional Constitutional: As Per HPI - EENT Eyes: As Per HPI Ears: absent: Decreased Hearing, Ear Discharge, Abnormal Hearing - Cardiovascular Cardiovascular: absent: Chest Pain, Chest Pain with Activity - Respiratory Respiratory: absent: Cough, Dyspnea, Hemoptysis, Wheezing - Gastrointestinal Gastrointestinal: absent: Abdominal Pain, Change in Bowel Habits, Constipation - Musculoskeletal Musculoskeletal: As Per HPI - Integumentary Integumentary: absent: Bleeding Lesions, Erythema, Skin Ulcer - Neurological Neurological: As Per HPI, Dizziness, Numbness, Headaches, Tingling. absent: Abnormal Gait, Abnormal Hearing, Abnormal Movements, Behavioral Changes, Confusion, Convulsions, Lack of Coordination - Psychiatric Psychiatric: As Per HPI - Endocrine Endocrine: As Per HPI - Hematologic/Lymphatic Hematologic: As Per HPI Past Patient History - Infectious Disease Hx of Infectious Diseases: None - Past Medical History & Family History Past Medical History?: Yes - Past Social History Alcohol: None Drugs: Denies - CARDIAC Hx Cardiac Disorders: No Hx Cardia Arrhythmia: No Hx Heart Murmur: No Hx Hypertension: Yes - PULMONARY Hx Chronic Obstructive Pulmonary Disease (COPD): No - NEUROLOGICAL HX Cerebrovascular Accident: Yes - HEENT Hx HEENT Problems: No Hx Blind: Yes (right eye) - RENAL Hx Chronic Kidney Disease: Yes (ESRD) Type of Dialysis Access: av shunt Date of Last Dialysis Treatment: 05/30/17 Hx Renal Failure: Yes - ENDOCRINE/METABOLIC Hx Diabetes Mellitus Type 2: Yes - HEMATOLOGICAL/ONCOLOGICAL Hx Anemia: Yes Hx Human Immunodeficiency Virus (HIV): No - INTEGUMENTARY Hx Dermatological Problems: No - MUSCULOSKELETAL/RHEUMATOLOGICAL Hx Falls: No - GASTROINTESTINAL Hx Gastrointestinal Disorders: No - GENITOURINARY/GYNECOLOGICAL Hx Genitourinary Disorders: Yes (ESRD,CKD) - PSYCHIATRIC Hx Substance Use: No - SURGICAL HISTORY 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)) Other/Comment: LEFT ANKLE SX - ANESTHESIA Hx Anesthesia: Yes Hx Anesthesia Reactions: No Hx Malignant Hyperthermia: No Has any member of the family had a problem w/ anesthesia?: No Meds Allergies/Adverse Reactions: Allergies Allergy/AdvReac Type Severity Reaction Status Date / Time No Known Allergies Allergy Verified 05/27/17 10:00 Physical Exam - Constitutional Appears: No Acute Distress - Head Exam Head Exam: ATRAUMATIC, NORMAL INSPECTION, NORMOCEPHALIC - Eye Exam Eye Exam: EOMI. absent: Conjunctival injection, Nystagmus - ENT Exam ENT Exam: Mucous Membranes Dry - Neck Exam Neck exam: Positive for: Full Rom. Negative for: Lymphadenopathy - Respiratory Exam Respiratory Exam: Clear to Auscultation Bilateral, NORMAL BREATHING PATTERN. absent: Chest Wall Tenderness, Decreased Breath Sounds, Wheezes - Cardiovascular Exam Cardiovascular Exam: REGULAR RHYTHM, +S1, +S2. absent: +S4, Systolic Murmur - GI/Abdominal Exam GI & Abdominal Exam: Normal Bowel Sounds, Soft. absent: Tenderness - Extremities Exam Extremities exam: Negative for: calf tenderness, joint swelling, pedal edema - Neurological Exam Neurological exam: Alert, CN II-XII Intact, Oriented x3 Additional comments: noted drift on right upper extremity decreased sensation on right sided face, cranial nerves intact - Psychiatric Exam Psychiatric exam: Normal Mood - Skin Skin Exam: Dry, Pallor, Warm - Additional Findings Additional findings: L arm fistula c/d/i Results - Vital Signs Recent Vital Signs: Last Vital Signs Temp 98.1 F 06/04/17 07:57 Pulse 77 06/04/17 13:47 Resp 20 06/04/17 13:27 BP 153/83 H 06/04/17 13:30 Pulse Ox 100 07/06/17 13:47 - Labs Labs: Laboratory Results - last 24 hr 06/03/17 06/04/17 06/04/17 21:11 05:39 11:55 POC Glucose (mg/dL) 148 H 128 H 138 H 06/04/17 15:52 POC Glucose (mg/dL) 162 H Assessment & Plan - Assessment and Plan (Free Text) Assessment: 61 y.o M with pmh of HTN, ESRD on HD (TT), NIDDM, hyperlipidemia, and visual impairment who presented with right sided facial numbness and weakness who was found to have a hemorragic CT on 05/28. Neurosurgery was consulted with no surgical intervention indicated. CT findings have remained stable. Plan: Acute Hemorragic stroke, with rt sided weakness -initial CT showed 1.3 x 1.6 x 2.6 cm focal hemorrhage within the left basal ganglia, most recent CT showed stabalization of the bleed. -neurosurgery consult recommends no surgical intervention at this time -Neurology, Dr Long, consulted. Recommending tight BP control, no antiplt activity for atleast 3 weeks from onset of the bleed. and acute Physical therapy -recent head CT (06/01/17) re-demonstrated small left hematoma which is less dense now, No sign of new hemorrhages or Obstructive type of hydrocephalus. -BP remains elevated. will continue to optimize BP control -PT/OT -serial neuro examinations reveal improvement in rt sided weakness HTN, uncontrolled -continue with PO Valsartan 320mg daily, HCT 50mg daily. -continue Hydralazine 25mg Q8H, Norvasc 10mg PO -Will continue to monitor BP ESRD -HD schedule on TThSat -as per nephrology consult(Dr. Gonzales): renvela -will go for dialysis today -will monitor BUN/Cr History of DM -last hemoglobin A1C: 6.1% -sliding scale and BG is controlled Hyperlipidemia -controlled -continue statin 40 mg GI ppx -protonix 20mg DVT ppx -SCD
[2017-06-04] MEDS: Latanoprost 0.005% Opht SOUTION OU SCH (21:56)
[2017-06-05] MEDS: Insulin Lispro (humaLOG) 100 Units/ml Inj SC SCH ×4 (07:14→21:00)
[2017-06-05] MEDS: Brimonidine 0.2% 50 DROP/5 ML BOTTLE OU SCH ×2 (08:33→20:47)
[2017-06-05] MEDS: Pantoprazole 20 mg EC Tab PO SCH (08:33)
[2017-06-05] MEDS: Sevelamer Carb 0.8 gm/Packet PO SCH ×3 (08:33→17:01)
[2017-06-05] MEDS: Multivitamin Vitamin B Complex (Nephro-Vite) Tab PO SCH (08:33)
--- NOTE | 2017-06-05 13:18 | CP.PCM.PN ---
Subjective - Date & Time of Evaluation Date of Evaluation: 06/05/17 Time of Evaluation: 13:17 - Subjective Subjective: Patient seen in room denies significant pain no sob/fever or headache Patient continues to be an excellent acute rehabilitation candidate and will have continued PT, OT and recreational therapy to help facilitate a safe and appropriate d/c plan Objective - Vital Signs/Intake and Output Vital Signs (last 24 hours): Temp Pulse Resp BP Pulse Ox 98.2 F 80 20 121/75 97 06/05/17 08:58 06/05/17 08:58 06/05/17 08:58 06/05/17 08:58 06/05/17 08:58 - Medications Medications: Current Medications Acetaminophen (Tylenol 325mg Tab) 325 mg PO Q6 PRN PRN Reason: Headache Amlodipine Besylate (Norvasc) 10 mg PO DAILY [facility] Last Admin: 06/05/17 08:33 Dose: 10 mg Atorvastatin Calcium (Lipitor) 40 mg PO HS [facility] Last Admin: 06/04/17 21:26 Dose: 40 mg Brimonidine Tartrate (Alphagan 0.2% Opht) 1 drop OU Q12 [facility] Last Admin: 06/05/17 08:33 Dose: 1 drop Calcitriol (Rocaltrol) 0.25 mcg PO TTS [facility] Last Admin: 06/04/17 08:53 Dose: 0.25 mcg Calcitriol (Rocaltrol) 1.5 mcg PO TTS [facility] Last Admin: 06/04/17 08:53 Dose: 1.5 mcg Gabapentin (Neurontin) 100 mg PO DAILY [facility] Last Admin: 06/05/17 08:34 Dose: 100 mg Hydralazine HCl (Apresoline) 25 mg PO Q8@0600,1400,2200 [facility] Last Admin: 06/05/17 06:16 Dose: 25 mg Insulin Human Lispro (Humalog) 0 units SC ACHS [facility] PRN Reason: Protocol Last Admin: 06/05/17 12:34 Dose: 2 unit Latanoprost (Xalatan Opht) 1 drop OU HS [facility] Last Admin: 06/04/17 21:56 Dose: 1 drop Pantoprazole Sodium (Protonix Ec Tab) 20 mg PO DAILY [facility] Last Admin: 06/05/17 08:33 Dose: 20 mg Senna/Docusate Sodium (Senokot S 50 Mg-8.6 Mg) 1 tab PO HS [facility] Sevelamer Carbonate (Renvela) 2.4 gm PO TID [facility] Last Admin: 06/05/17 12:35 Dose: 2.4 gm Valsartan (Diovan) 320 mg PO DAILY [facility] Last Admin: 06/05/17 08:33 Dose: 320 mg Vitamin B Complex/Vit C/Folic Acid (Nephro-Ava) 1 tab PO DAILY [facility] Last Admin: 06/05/17 08:33 Dose: 1 tab
--- NOTE | 2017-06-05 13:18 | CP.PCM.CON ---
History of Present Illness - History of Present Illness History of Present Illness: 61YR OLD MALE WITH HX OF RECENT CEREBROVASCULAR ACCIDENT AND MULTIPLE MEDICAL PROBLEMS WHO IS REFERREDV FOR PULMONARY FOLLOWUP AND EVALUATION FOR OBSTRUCTIVE SLEEP APNEA SYNDROME THE PT ADMITS TO DAYTIME SOMNOLENCE AND RESTLESS NIGHT SLEEP PRIOR TO CVA FORMER SMOKER,QUIT MANY YRS AGO PRESENTLY ALERT AND AWAKE OBESE WITH SHORT NECK Past Patient History - Infectious Disease Hx of Infectious Diseases: None - Past Medical History & Family History Past Medical History?: Yes - Past Social History Alcohol: None Drugs: Denies - CARDIAC Hx Cardiac Disorders: No Hx Cardia Arrhythmia: No Hx Heart Murmur: No Hx Hypertension: Yes - PULMONARY Hx Chronic Obstructive Pulmonary Disease (COPD): No - NEUROLOGICAL HX Cerebrovascular Accident: Yes - HEENT Hx HEENT Problems: No Hx Blind: Yes (right eye) - RENAL Hx Chronic Kidney Disease: Yes (ESRD) Type of Dialysis Access: av shunt Date of Last Dialysis Treatment: 05/30/17 Hx Renal Failure: Yes - ENDOCRINE/METABOLIC Hx Diabetes Mellitus Type 2: Yes - HEMATOLOGICAL/ONCOLOGICAL Hx Anemia: Yes Hx Human Immunodeficiency Virus (HIV): No - INTEGUMENTARY Hx Dermatological Problems: No - MUSCULOSKELETAL/RHEUMATOLOGICAL Hx Falls: No - GASTROINTESTINAL Hx Gastrointestinal Disorders: No - GENITOURINARY/GYNECOLOGICAL Hx Genitourinary Disorders: Yes (ESRD,CKD) - PSYCHIATRIC Hx Substance Use: No - SURGICAL HISTORY 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)) Other/Comment: LEFT ANKLE SX - ANESTHESIA Hx Anesthesia: Yes Hx Anesthesia Reactions: No Hx Malignant Hyperthermia: No Has any member of the family had a problem w/ anesthesia?: No Meds Allergies/Adverse Reactions: Allergies Allergy/AdvReac Type Severity Reaction Status Date / Time No Known Allergies Allergy Verified 05/27/17 10:00 - Medications Medications: Current Medications Acetaminophen (Tylenol 325mg Tab) 325 mg PO Q6 PRN PRN Reason: Headache Amlodipine Besylate (Norvasc) 10 mg PO DAILY [facility] Last Admin: 06/05/17 08:33 Dose: 10 mg Atorvastatin Calcium (Lipitor) 40 mg PO HS [facility] Last Admin: 06/04/17 21:26 Dose: 40 mg Brimonidine Tartrate (Alphagan 0.2% Opht) 1 drop OU Q12 [facility] Last Admin: 06/05/17 08:33 Dose: 1 drop Calcitriol (Rocaltrol) 0.25 mcg PO TTS [facility] Last Admin: 06/04/17 08:53 Dose: 0.25 mcg Calcitriol (Rocaltrol) 1.5 mcg PO TTS [facility] Last Admin: 06/04/17 08:53 Dose: 1.5 mcg Gabapentin (Neurontin) 100 mg PO DAILY [facility] Last Admin: 06/05/17 08:34 Dose: 100 mg Hydralazine HCl (Apresoline) 25 mg PO Q8@0600,1400,2200 [facility] Last Admin: 06/05/17 06:16 Dose: 25 mg Insulin Human Lispro (Humalog) 0 units SC [facility] PRN Reason: Protocol Last Admin: 06/05/17 12:34 Dose: 2 unit Latanoprost (Xalatan Opht) 1 drop OU [facility] Last Admin: 06/04/17 21:56 Dose: 1 drop Pantoprazole Sodium (Protonix Ec Tab) 20 mg PO DAILY [facility] Last Admin: 06/05/17 08:33 Dose: 20 mg Senna/Docusate Sodium (Senokot S 50 Mg-8.6 Mg) 1 tab PO [facility] Sevelamer Carbonate (Renvela) 2.4 gm PO TID [facility] Last Admin: 06/05/17 12:35 Dose: 2.4 gm Valsartan (Diovan) 320 mg PO DAILY [facility] Last Admin: 06/05/17 08:33 Dose: 320 mg Vitamin B Complex/Vit C/Folic Acid (Nephro-Ava) 1 tab PO DAILY [facility] Last Admin: 06/05/17 08:33 Dose: 1 tab Physical Exam - Constitutional Appears: No Acute Distress - Head Exam Head Exam: ATRAUMATIC, NORMAL INSPECTION, NORMOCEPHALIC - Eye Exam Eye Exam: EOMI, Normal appearance, PERRL Pupil Exam: NORMAL ACCOMODATION, PERRL - ENT Exam ENT Exam: Mucous Membranes Moist, Normal Exam - Neck Exam Additional comments: THICK NECK - Respiratory Exam Respiratory Exam: Clear to Auscultation Bilateral, NORMAL BREATHING PATTERN - Cardiovascular Exam Cardiovascular Exam: REGULAR RHYTHM - GI/Abdominal Exam GI & Abdominal Exam: Normal Bowel Sounds, Soft. absent: Tenderness - Rectal Exam Rectal Exam: NORMAL INSPECTION - Extremities Exam Additional comments: WEAKNESS OF R ARM AND LEG - Back Exam Back exam: NORMAL INSPECTION - Neurological Exam Neurological exam: Alert, CN II-XII Intact, Oriented x3, Reflexes Normal - Psychiatric Exam Psychiatric exam: Normal Affect, Normal Mood - Skin Skin Exam: Dry, Intact, Normal Color, Warm Results - Vital Signs Recent Vital Signs: Last Vital Signs Temp 98.2 F 06/05/17 08:58 Pulse 80 06/05/17 08:58 Resp 20 06/05/17 08:58 BP 121/75 06/05/17 08:58 Pulse Ox 97 06/05/17 08:58 - Labs Labs: Laboratory Results - last 24 hr 06/04/17 06/04/17 06/05/17 15:52 21:11 06:22 POC Glucose (mg/dL) 162 H 179 H 144 H 06/05/17 11:20 POC Glucose (mg/dL) 219 H Assessment & Plan - Assessment and Plan (Free Text) Assessment: CLINICAL PICTURE IS COMPARTIBLE WITH OBSTRUCTIVE SLEEP APNEA SYNDROME WHICH WILL BE EXACERBATED BY PT'S OTHER MEDICAL PROBLEM ESPECIALLY CVA Plan: AGREE WITH CURRENT RX WILL FOLLOW WITH YOU OBSERVE FOR SLEEP DISTURBANCES WILL NEED OUT PT SLEEP STUDIES AFTER D/C HOME
--- NOTE | 2017-06-05 13:23 | CP.PCM.PN ---
Subjective - Date & Time of Evaluation Date of Evaluation: 06/05/17 Time of Evaluation: 13:21 - Subjective Subjective: Patient appears to be comfortable receiving physiotherapy at the rehabilitation No chest pain no shortness of breath reported Vital sign noted to be controlled blood pressure Chest no rales Heart no rubs Abdomen soft Extremity no edema Impression and plan Patient and at that he had for CVA status post intracranial bleeding as noted on the CT scan and MRI. Patient receiving therapy Blood pressure well controlled Hemodialysis tomorrow as scheduled Objective - Vital Signs/Intake and Output Vital Signs (last 24 hours): Temp Pulse Resp BP Pulse Ox 98.2 F 80 20 121/75 97 06/05/17 08:58 06/05/17 08:58 06/05/17 08:58 06/05/17 08:58 06/05/17 08:58 - Medications Medications: Current Medications Acetaminophen (Tylenol 325mg Tab) 325 mg PO Q6 PRN PRN Reason: Headache Amlodipine Besylate (Norvasc) 10 mg PO DAILY [facility] Last Admin: 06/05/17 08:33 Dose: 10 mg Atorvastatin Calcium (Lipitor) 40 mg PO HS [facility] Last Admin: 06/04/17 21:26 Dose: 40 mg Brimonidine Tartrate (Alphagan 0.2% Opht) 1 drop OU Q12 [facility] Last Admin: 06/05/17 08:33 Dose: 1 drop Calcitriol (Rocaltrol) 0.25 mcg PO TTS [facility] Last Admin: 06/04/17 08:53 Dose: 0.25 mcg Calcitriol (Rocaltrol) 1.5 mcg PO TTS [facility] Last Admin: 06/04/17 08:53 Dose: 1.5 mcg Gabapentin (Neurontin) 100 mg PO DAILY [facility] Last Admin: 06/05/17 08:34 Dose: 100 mg Hydralazine HCl (Apresoline) 25 mg PO Q8@0600,1400,2200 [facility] Last Admin: 06/05/17 06:16 Dose: 25 mg Insulin Human Lispro (Humalog) 0 units SC ACHS [facility] PRN Reason: Protocol Last Admin: 06/05/17 12:34 Dose: 2 unit Latanoprost (Xalatan Opht) 1 drop OU HS [facility] Last Admin: 06/04/17 21:56 Dose: 1 drop Pantoprazole Sodium (Protonix Ec Tab) 20 mg PO DAILY [facility] Last Admin: 06/05/17 08:33 Dose: 20 mg Senna/Docusate Sodium (Senokot S 50 Mg-8.6 Mg) 1 tab PO [facility] Sevelamer Carbonate (Renvela) 2.4 gm PO TID [facility] Last Admin: 06/05/17 12:35 Dose: 2.4 gm Valsartan (Diovan) 320 mg PO DAILY [facility] Last Admin: 06/05/17 08:33 Dose: 320 mg Vitamin B Complex/Vit C/Folic Acid (Nephro-Ava) 1 tab PO DAILY [facility] Last Admin: 06/05/17 08:33 Dose: 1 tab Assessment and Plan (1) Hemorrhagic cerebrovascular accident (CVA) Status: Acute (2) DM2 (diabetes mellitus, type 2) Status: Chronic (3) ESRD (end stage renal disease) Status: Chronic (4) Hypertension Status: Chronic
[2017-06-05] MEDS: Latanoprost 0.005% Opht SOUTION OU SCH (21:10)
[2017-06-05] MEDS: Docusate-Senna 50 mg-8.6 mg Tab PO SCH (21:10)
[2017-06-06] MEDS: Insulin Lispro (humaLOG) 100 Units/ml Inj SC SCH ×4 (06:41→21:53)
[2017-06-06] MEDS: Multivitamin Vitamin B Complex (Nephro-Vite) Tab PO SCH (08:44)
[2017-06-06] MEDS: Brimonidine 0.2% 50 DROP/5 ML BOTTLE OU SCH ×2 (08:44→21:41)
[2017-06-06] MEDS: Sevelamer Carb 0.8 gm/Packet PO SCH ×3 (08:44→17:19)
[2017-06-06] MEDS: Pantoprazole 20 mg EC Tab PO SCH (08:45)
--- NOTE | 2017-06-06 12:51 | CP.PCM.PN ---
Subjective - Date & Time of Evaluation Date of Evaluation: 06/06/17 Time of Evaluation: 11:00 - Subjective Subjective: Comfortable in bed No complaints today Objective - Vital Signs/Intake and Output Vital Signs (last 24 hours): Temp Pulse Resp BP Pulse Ox 98.1 F 83 20 136/81 97 06/06/17 07:40 06/06/17 08:45 06/06/17 07:40 06/06/17 08:45 06/06/17 07:40 - Medications Medications: Current Medications Acetaminophen (Tylenol 325mg Tab) 325 mg PO Q6 PRN PRN Reason: Headache Amlodipine Besylate (Norvasc) 10 mg PO DAILY [facility] Last Admin: 06/06/17 08:45 Dose: 10 mg Atorvastatin Calcium (Lipitor) 40 mg PO HS [facility] Last Admin: 06/05/17 21:10 Dose: 40 mg Brimonidine Tartrate (Alphagan 0.2% Opht) 1 drop OU Q12 [facility] Last Admin: 06/06/17 08:44 Dose: 1 drop Calcitriol (Rocaltrol) 0.25 mcg PO TTS [facility] Last Admin: 06/06/17 12:17 Dose: 0.25 mcg Calcitriol (Rocaltrol) 1.5 mcg PO TTS [facility] Last Admin: 06/06/17 12:17 Dose: 1.5 mcg Gabapentin (Neurontin) 100 mg PO HS [facility] Hydralazine HCl (Apresoline) 25 mg PO Q8@0600,1400,2200 [facility] Last Admin: 06/06/17 05:50 Dose: 25 mg Insulin Human Lispro (Humalog) 0 units SC ACHS [facility] PRN Reason: Protocol Last Admin: 06/06/17 12:18 Dose: 2 unit Latanoprost (Xalatan Opht) 1 drop OU HS [facility] Last Admin: 06/05/17 21:10 Dose: 1 drop Pantoprazole Sodium (Protonix Ec Tab) 20 mg PO DAILY [facility] Last Admin: 06/06/17 08:45 Dose: 20 mg Senna/Docusate Sodium (Senokot S 50 Mg-8.6 Mg) 1 tab PO HS [facility] Last Admin: 06/05/17 21:10 Dose: 1 tab Sevelamer Carbonate (Renvela) 2.4 gm PO TID [facility] Last Admin: 06/06/17 08:44 Dose: 2.4 gm Valsartan (Diovan) 320 mg PO DAILY [facility] Last Admin: 06/06/17 08:45 Dose: 320 mg Vitamin B Complex/Vit C/Folic Acid (Nephro-Ava) 1 tab PO DAILY [facility] Last Admin: 06/06/17 08:44 Dose: 1 tab - Respiratory Exam Additional comments: Lungs clear - Cardiovascular Exam Cardiovascular Exam: REGULAR RHYTHM - Extremities Exam Additional comments: No edema Assessment and Plan - Assessment and Plan (Free Text) Assessment: ESRD HTN Intracranial bleed Plan: Receiving dialsis today Has been stable on dialysis Cont HD TTS
[2017-06-06] MEDS: Latanoprost 0.005% Opht SOUTION OU SCH (21:56)
[2017-06-06] MEDS: Docusate-Senna 50 mg-8.6 mg Tab PO SCH (21:56)
[2017-06-07] MEDS: Insulin Lispro (humaLOG) 100 Units/ml Inj SC SCH ×4 (06:40→21:09)
[2017-06-07] MEDS: Sevelamer Carb 0.8 gm/Packet PO SCH ×3 (08:54→16:51)
[2017-06-07] MEDS: Brimonidine 0.2% 50 DROP/5 ML BOTTLE OU SCH ×2 (08:54→21:10)
[2017-06-07] MEDS: Pantoprazole 20 mg EC Tab PO SCH (08:54)
[2017-06-07] MEDS: Multivitamin Vitamin B Complex (Nephro-Vite) Tab PO SCH (08:54)
--- NOTE | 2017-06-07 10:13 | CP.PCM.PN ---
Subjective - Date & Time of Evaluation Date of Evaluation: 06/07/17 Time of Evaluation: 10:13 - Subjective Subjective: NO APPARENT DISTRESS HEAVY SNORING DURING SLEEP Objective - Vital Signs/Intake and Output Vital Signs (last 24 hours): Temp Pulse Resp BP Pulse Ox 96.8 F L 88 20 131/74 99 06/07/17 09:40 06/07/17 09:40 06/07/17 09:40 06/07/17 09:40 06/07/17 09:40 - Medications Medications: Current Medications Acetaminophen (Tylenol 325mg Tab) 325 mg PO Q6 PRN PRN Reason: Headache Last Admin: 06/06/17 15:17 Dose: 325 mg Amlodipine Besylate (Norvasc) 10 mg PO DAILY [facility] Last Admin: 06/07/17 08:54 Dose: 10 mg Atorvastatin Calcium (Lipitor) 40 mg PO HS [facility] Last Admin: 06/06/17 21:56 Dose: 40 mg Brimonidine Tartrate (Alphagan 0.2% Opht) 1 drop OU Q12 [facility] Last Admin: 06/07/17 08:54 Dose: 1 drop Calcitriol (Rocaltrol) 0.25 mcg PO TTS [facility] Last Admin: 06/06/17 12:17 Dose: 0.25 mcg Calcitriol (Rocaltrol) 1.5 mcg PO TTS [facility] Last Admin: 06/06/17 12:17 Dose: 1.5 mcg Gabapentin (Neurontin) 100 mg PO HS [facility] Last Admin: 06/06/17 21:56 Dose: 100 mg Hydralazine HCl (Apresoline) 25 mg PO Q8@0600,1400,2200 [facility] Last Admin: 06/07/17 06:48 Dose: Not Given Insulin Human Lispro (Humalog) 0 units SC [facility] PRN Reason: Protocol Last Admin: 06/07/17 06:40 Dose: Not Given Latanoprost (Xalatan Opht) 1 drop OU HS [facility] Last Admin: 06/06/17 21:56 Dose: 1 drop Pantoprazole Sodium (Protonix Ec Tab) 20 mg PO DAILY [facility] Last Admin: 06/07/17 08:54 Dose: 20 mg Senna/Docusate Sodium (Senokot S 50 Mg-8.6 Mg) 1 tab PO HS [facility] Last Admin: 06/06/17 21:56 Dose: 1 tab Sevelamer Carbonate (Renvela) 2.4 gm PO TID [facility] Last Admin: 06/07/17 08:54 Dose: 2.4 gm Valsartan (Diovan) 320 mg PO DAILY [facility] Last Admin: 06/07/17 08:54 Dose: 320 mg Vitamin B Complex/Vit C/Folic Acid (Nephro-Ava) 1 tab PO DAILY [facility] Last Admin: 06/07/17 08:54 Dose: 1 tab - Constitutional Appears: No Acute Distress - Head Exam Head Exam: ATRAUMATIC, NORMAL INSPECTION, NORMOCEPHALIC - Eye Exam Eye Exam: EOMI, Normal appearance, PERRL Pupil Exam: NORMAL ACCOMODATION, PERRL - ENT Exam ENT Exam: Mucous Membranes Moist, Normal Exam - Neck Exam Neck Exam: Full ROM, Normal Inspection. absent: Lymphadenopathy - Respiratory Exam Respiratory Exam: Clear to Ausculation Bilateral, NORMAL BREATHING PATTERN - Cardiovascular Exam Cardiovascular Exam: REGULAR RHYTHM, +S1, +S2. absent: Murmur - GI/Abdominal Exam GI & Abdominal Exam: Soft, Normal Bowel Sounds. absent: Tenderness - Rectal Exam Rectal Exam: NORMAL INSPECTION - Extremities Exam Extremities Exam: Full ROM, Normal Capillary Refill, Normal Inspection. absent : Joint Swelling, Pedal Edema Additional comments: WEAKNESS OF R SIDE OF BODY - Back Exam Back Exam: NORMAL INSPECTION - Neurological Exam Neurological Exam: Abnormal Gait, Alert, Awake, CN II-XII Intact, Oriented x3 - Psychiatric Exam Psychiatric exam: Normal Affect, Normal Mood - Skin Skin Exam: Dry, Intact, Normal Color, Warm Assessment and Plan - Assessment and Plan (Free Text) Assessment: CED SYNDROME CVA Plan: CONTINUE PRESENT RX SUGGEST THYROID PROFILE WITH NEXT LABS
--- NOTE | 2017-06-07 13:20 | CP.PCM.PN ---
Subjective - Date & Time of Evaluation Date of Evaluation: 06/07/17 Time of Evaluation: 10:30 - Subjective Subjective: Lethargic but easily arousable Objective - Vital Signs/Intake and Output Vital Signs (last 24 hours): Temp Pulse Resp BP Pulse Ox 96.8 F L 88 20 131/74 99 06/07/17 09:40 06/07/17 09:40 06/07/17 09:40 06/07/17 09:40 06/07/17 09:40 - Medications Medications: Current Medications Acetaminophen (Tylenol 325mg Tab) 325 mg PO Q6 PRN PRN Reason: Headache Last Admin: 06/06/17 15:17 Dose: 325 mg Amlodipine Besylate (Norvasc) 10 mg PO DAILY [facility] Last Admin: 06/07/17 08:54 Dose: 10 mg Atorvastatin Calcium (Lipitor) 40 mg PO HS [facility] Last Admin: 06/06/17 21:56 Dose: 40 mg Brimonidine Tartrate (Alphagan 0.2% Opht) 1 drop OU Q12 [facility] Last Admin: 06/07/17 08:54 Dose: 1 drop Calcitriol (Rocaltrol) 0.25 mcg PO TTS [facility] Last Admin: 06/06/17 12:17 Dose: 0.25 mcg Calcitriol (Rocaltrol) 1.5 mcg PO TTS [facility] Last Admin: 06/06/17 12:17 Dose: 1.5 mcg Gabapentin (Neurontin) 100 mg PO HS [facility] Last Admin: 06/06/17 21:56 Dose: 100 mg Insulin Human Lispro (Humalog) 0 units SC ACHS [facility] PRN Reason: Protocol Last Admin: 06/07/17 11:44 Dose: Not Given Latanoprost (Xalatan Opht) 1 drop OU HS [facility] Last Admin: 06/06/17 21:56 Dose: 1 drop Pantoprazole Sodium (Protonix Ec Tab) 20 mg PO DAILY [facility] Last Admin: 06/07/17 08:54 Dose: 20 mg Senna/Docusate Sodium (Senokot S 50 Mg-8.6 Mg) 1 tab PO HS [facility] Last Admin: 06/06/17 21:56 Dose: 1 tab Sevelamer Carbonate (Renvela) 2.4 gm PO TID [facility] Last Admin: 06/07/17 08:54 Dose: 2.4 gm Valsartan (Diovan) 320 mg PO DAILY [facility] Last Admin: 06/07/17 08:54 Dose: 320 mg Vitamin B Complex/Vit C/Folic Acid (Nephro-Ava) 1 tab PO DAILY [facility] Last Admin: 06/07/17 08:54 Dose: 1 tab - Respiratory Exam Additional comments: Lungs clear - Cardiovascular Exam Cardiovascular Exam: REGULAR RHYTHM - Extremities Exam Additional comments: No edema Assessment and Plan - Assessment and Plan (Free Text) Assessment: ESRD HTN Intracranial bleed Plan: Dialysis was tolerated well yesterday Continue HD TTS
[2017-06-07] MEDS: Docusate-Senna 50 mg-8.6 mg Tab PO SCH (21:10)
[2017-06-07] MEDS: Latanoprost 0.005% Opht SOUTION OU SCH (21:18)
[2017-06-08 05:59] LABS: HEMOGLOBIN 12.4 g/dL (12.0-18.0); MEAN CELL VOLUME 93.2 fl (80.0-94.0); MEAN CORPUSCULAR HEMOGLOBIN 30.7 pg (27.0-31.0); RBC 4.05 Mil/uL (4.40-5.90); RED CELL DISTRIBUTION WIDTH 16.9 % (11.5-14.5); WHITE BLOOD COUNT 10.3 K/uL (4.8-10.8)
[2017-06-08 06:08] LABS: CALCIUM 9.6 mg/dL (8.4-10.2)
[2017-06-08] MEDS: Insulin Lispro (humaLOG) 100 Units/ml Inj SC SCH ×4 (06:57→21:40)
[2017-06-08] MEDS: Brimonidine 0.2% 50 DROP/5 ML BOTTLE OU SCH ×2 (08:23→21:31)
[2017-06-08] MEDS: Multivitamin Vitamin B Complex (Nephro-Vite) Tab PO SCH (08:24)
[2017-06-08] MEDS: Sevelamer Carb 0.8 gm/Packet PO SCH ×3 (08:25→16:46)
[2017-06-08] MEDS: Pantoprazole 20 mg EC Tab PO SCH (08:25)
--- NOTE | 2017-06-08 10:39 | CP.PCM.PN ---
Subjective - Date & Time of Evaluation Date of Evaluation: 06/08/17 Time of Evaluation: 10:37 - Subjective Subjective: Patient receiving rehabilitation for status post intracranial bleeding was weakness Blood pressure has been well controlled Chest clear no rales Heart no rubs Abdomen soft Extremity no edema Impression and plan Continue hemodialysis as scheduled TTS Continue rehabilitation Continue the same medication Objective - Vital Signs/Intake and Output Vital Signs (last 24 hours): Temp Pulse Resp BP Pulse Ox 97.2 F L 75 20 142/77 98 06/08/17 08:05 06/08/17 08:25 06/08/17 08:05 06/08/17 08:25 06/08/17 08:05 - Medications Medications: Current Medications Acetaminophen (Tylenol 325mg Tab) 325 mg PO Q6 PRN PRN Reason: Headache Last Admin: 06/06/17 15:17 Dose: 325 mg Amlodipine Besylate (Norvasc) 10 mg PO DAILY [facility] Last Admin: 06/08/17 08:25 Dose: 10 mg Atorvastatin Calcium (Lipitor) 40 mg PO HS [facility] Last Admin: 06/07/17 21:10 Dose: 40 mg Brimonidine Tartrate (Alphagan 0.2% Opht) 1 drop OU Q12 [facility] Last Admin: 06/08/17 08:23 Dose: 1 drop Calcitriol (Rocaltrol) 0.25 mcg PO TTS [facility] Last Admin: 06/06/17 12:17 Dose: 0.25 mcg Calcitriol (Rocaltrol) 1.5 mcg PO TTS [facility] Gabapentin (Neurontin) 100 mg PO HS [facility] Last Admin: 06/07/17 21:10 Dose: 100 mg Insulin Human Lispro (Humalog) 0 units SC ACHS [facility] PRN Reason: Protocol Last Admin: 06/08/17 06:57 Dose: Not Given Latanoprost (Xalatan Opht) 1 drop OU HS [facility] Last Admin: 06/07/17 21:18 Dose: 1 drop Pantoprazole Sodium (Protonix Ec Tab) 20 mg PO DAILY [facility] Last Admin: 06/08/17 08:25 Dose: 20 mg Senna/Docusate Sodium (Senokot S 50 Mg-8.6 Mg) 1 tab PO HS [facility] Last Admin: 06/07/17 21:10 Dose: 1 tab Sevelamer Carbonate (Renvela) 2.4 gm PO TID [facility] Last Admin: 06/08/17 08:25 Dose: 2.4 gm Valsartan (Diovan) 320 mg PO DAILY [facility] Last Admin: 06/08/17 08:24 Dose: 320 mg Vitamin B Complex/Vit C/Folic Acid (Nephro-Ava) 1 tab PO DAILY [facility] Last Admin: 06/08/17 08:24 Dose: 1 tab - Labs Labs: 06/08/17 05:25 06/08/17 05:25 Assessment and Plan (1) Hemorrhagic cerebrovascular accident (CVA) Status: Acute (2) DM2 (diabetes mellitus, type 2) Status: Chronic (3) ESRD (end stage renal disease) Status: Chronic (4) Hypertension Status: Chronic
--- NOTE | 2017-06-08 14:20 | CP.PCM.PN ---
Subjective - Date & Time of Evaluation Date of Evaluation: 06/08/17 Time of Evaluation: 14:17 - Subjective Subjective: Patient seen and examined, lying comfortably in bed. Still complaining of right arm tingling and numbness, but improved strength. No episode of nausea or dizziness or palpitations. patient denies fever, vomiting, diarrhea, SOB or chest pain. BP and HR are well controlled. Safety precaution reinforced and maintained. Objective - Vital Signs/Intake and Output Vital Signs (last 24 hours): Temp Pulse Resp BP Pulse Ox 97.2 F L 75 20 142/77 98 06/08/17 08:05 06/08/17 08:25 06/08/17 08:05 06/08/17 08:25 06/08/17 08:05 - Medications Medications: Current Medications Acetaminophen (Tylenol 325mg Tab) 325 mg PO Q6 PRN PRN Reason: Headache Last Admin: 06/06/17 15:17 Dose: 325 mg Amlodipine Besylate (Norvasc) 10 mg PO DAILY [facility] Last Admin: 06/08/17 08:25 Dose: 10 mg Atorvastatin Calcium (Lipitor) 40 mg PO HS [facility] Last Admin: 06/07/17 21:10 Dose: 40 mg Brimonidine Tartrate (Alphagan 0.2% Opht) 1 drop OU Q12 [facility] Last Admin: 06/08/17 08:23 Dose: 1 drop Calcitriol (Rocaltrol) 0.25 mcg PO TTS [facility] Last Admin: 06/06/17 12:17 Dose: 0.25 mcg Calcitriol (Rocaltrol) 1.5 mcg PO TTS [facility] Gabapentin (Neurontin) 100 mg PO [facility] Last Admin: 06/07/17 21:10 Dose: 100 mg Insulin Human Lispro (Humalog) 0 units SC ACHS [facility] PRN Reason: Protocol Last Admin: 06/08/17 11:48 Dose: 1 unit Latanoprost (Xalatan Opht) 1 drop OU HS [facility] Last Admin: 06/07/17 21:18 Dose: 1 drop Pantoprazole Sodium (Protonix Ec Tab) 20 mg PO DAILY [facility] Last Admin: 06/08/17 08:25 Dose: 20 mg Senna/Docusate Sodium (Senokot S 50 Mg-8.6 Mg) 1 tab PO HS [facility] Last Admin: 06/07/17 21:10 Dose: 1 tab Sevelamer Carbonate (Renvela) 2.4 gm PO TID [facility] Last Admin: 06/08/17 12:01 Dose: 2.4 gm Valsartan (Diovan) 320 mg PO DAILY [facility] Last Admin: 06/08/17 08:24 Dose: 320 mg Vitamin B Complex/Vit C/Folic Acid (Nephro-Ava) 1 tab PO DAILY [facility] Last Admin: 06/08/17 08:24 Dose: 1 tab - Labs Labs: 06/08/17 05:25 06/08/17 05:25 - Constitutional Appears: Well, No Acute Distress - Head Exam Head Exam: ATRAUMATIC, NORMAL INSPECTION, NORMOCEPHALIC - Neck Exam Neck Exam: Full ROM. absent: Lymphadenopathy - Respiratory Exam Respiratory Exam: Clear to Ausculation Bilateral, NORMAL BREATHING PATTERN. absent: Accessory Muscle Use, Chest Wall Tenderness - Cardiovascular Exam Cardiovascular Exam: Bradycardia, Tachycardia, REGULAR RHYTHM, +S1, +S2. absent : +S4, Murmur - GI/Abdominal Exam GI & Abdominal Exam: Soft, Normal Bowel Sounds - Extremities Exam Extremities Exam: absent: Calf Tenderness - Back Exam Back Exam: absent: CVA tenderness (L), CVA tenderness (R) - Neurological Exam Neurological Exam: Alert, Awake, Oriented x3 Neuro motor strength exam: Left Upper Extremity: 4, Right Upper Extremity: 4, Left Lower Extremity: 4, Right Lower Extremity: 4 - Psychiatric Exam Psychiatric exam: Normal Mood - Skin Skin Exam: Normal Color - Additional Findings Additional findings: Left upper arm AV shunt (+) for bruit and thrill Assessment and Plan - Assessment and Plan (Free Text) Assessment: 61 y.o M with pmh of HTN, ESRD on HD (TThS), NIDDM, hyperlipidemia, and visual impairment who presented with right sided facial numbness and weakness who was found to have a hemorragic CT on 05/28. Neurosurgery was consulted with no surgical intervention indicated. CT findings have remained stable. Patient was discharge for further acute rehabilitation. Plan: Acute Hemorragic stroke, with rt sided weakness -initial CT showed 1.3 x 1.6 x 2.6 cm focal hemorrhage within the left basal ganglia, most recent CT showed stabalization of the bleed. -neurosurgery consult recommends no surgical intervention needed -Neurology, Dr Long, consulted. Recommending tight BP control, no antiplt activity for atleast 3 weeks from onset of the bleed. and acute Physical therapy -recent head CT (06/01/17) re-demonstrated small left hematoma which is less dense now, No sign of new hemorrhages or Obstructive type of hydrocephalus. -BP is contolled -serial neuro examinations reveal improvement in rt sided weakness -Continue hemodialysis as scheduled TTS -Continue rehabilitation -Tylenol 325 PO Q6 PRN -Gabapentin 100 mg PO HS [facility] HTN, controlled -continue with PO Valsartan 320mg daily. -continue Norvasc 10mg PO -Will continue to monitor BP ESRD -HD schedule on TThSat -as per nephrology consult(Dr. Gonzales): renvela -will go for dialysis tomorrow -will monitor BUN/Cr History of DM -last hemoglobin A1C: 6.1% -sliding scale and BG is controlled CED syndrome -f/u Thyroid Profile as recommended -will need outpatient sleep studies after d/c home Hyperlipidemia -controlled -continue statin 40 mg GI ppx -protonix 20mg DVT ppx -SCD
--- NOTE | 2017-06-08 16:14 | CP.PCM.PN ---
Subjective - Date & Time of Evaluation Date of Evaluation: 06/08/17 Time of Evaluation: 16:14 - Subjective Subjective: Lon, was seen in the room denies sob/cp no joint pain doing well in PT, ambulating with a walker continue current care Objective - Vital Signs/Intake and Output Vital Signs (last 24 hours): Temp Pulse Resp BP Pulse Ox 97.2 F L 75 20 142/77 98 06/08/17 08:05 06/08/17 08:25 06/08/17 08:05 06/08/17 08:25 06/08/17 08:05 - Medications Medications: Current Medications Acetaminophen (Tylenol 325mg Tab) 325 mg PO Q6 PRN PRN Reason: Headache Last Admin: 06/06/17 15:17 Dose: 325 mg Amlodipine Besylate (Norvasc) 10 mg PO DAILY [facility] Last Admin: 06/08/17 08:25 Dose: 10 mg Atorvastatin Calcium (Lipitor) 40 mg PO HS [facility] Last Admin: 06/07/17 21:10 Dose: 40 mg Brimonidine Tartrate (Alphagan 0.2% Opht) 1 drop OU Q12 [facility] Last Admin: 06/08/17 08:23 Dose: 1 drop Calcitriol (Rocaltrol) 0.25 mcg PO TTS [facility] Last Admin: 06/06/17 12:17 Dose: 0.25 mcg Calcitriol (Rocaltrol) 1.5 mcg PO TTS [facility] Gabapentin (Neurontin) 100 mg PO HS [facility] Last Admin: 06/07/17 21:10 Dose: 100 mg Insulin Human Lispro (Humalog) 0 units SC ACHS [facility] PRN Reason: Protocol Last Admin: 06/08/17 11:48 Dose: 1 unit Latanoprost (Xalatan Opht) 1 drop OU HS [facility] Last Admin: 06/07/17 21:18 Dose: 1 drop Pantoprazole Sodium (Protonix Ec Tab) 20 mg PO DAILY [facility] Last Admin: 06/08/17 08:25 Dose: 20 mg Senna/Docusate Sodium (Senokot S 50 Mg-8.6 Mg) 1 tab PO HS [facility] Last Admin: 06/07/17 21:10 Dose: 1 tab Sevelamer Carbonate (Renvela) 2.4 gm PO TID [facility] Last Admin: 06/08/17 12:01 Dose: 2.4 gm Valsartan (Diovan) 320 mg PO DAILY [facility] Last Admin: 06/08/17 08:24 Dose: 320 mg Vitamin B Complex/Vit C/Folic Acid (Nephro-Ava) 1 tab PO DAILY [facility] Last Admin: 06/08/17 08:24 Dose: 1 tab - Labs Labs: 06/08/17 05:25 06/08/17 05:25
[2017-06-08] MEDS: Docusate-Senna 50 mg-8.6 mg Tab PO SCH (21:32)
[2017-06-08] MEDS: Latanoprost 0.005% Opht SOUTION OU SCH (21:41)
[2017-06-09] MEDS: Insulin Lispro (humaLOG) 100 Units/ml Inj SC SCH ×4 (06:42→22:08)
[2017-06-09] MEDS: Brimonidine 0.2% 50 DROP/5 ML BOTTLE OU SCH ×2 (08:24→22:05)
[2017-06-09] MEDS: Sevelamer Carb 0.8 gm/Packet PO SCH ×3 (08:26→16:29)
[2017-06-09] MEDS: Pantoprazole 20 mg EC Tab PO SCH (08:26)
[2017-06-09] MEDS: Multivitamin Vitamin B Complex (Nephro-Vite) Tab PO SCH (08:27)
--- NOTE | 2017-06-09 10:24 | CP.PCM.PN ---
Subjective - Date & Time of Evaluation Date of Evaluation: 06/09/17 Time of Evaluation: 10:22 - Subjective Subjective: Patient conscious and alert no new event reported Receiving dialysis therapy at rehabilitation Physical exam Chest no rales Heart no rubs Abdomen soft Extremity no edema Impression and plan End stage renal disease who is status post intracranial bleeding as noted previously Hypertension controlled Dialysis to start shortly as scheduled with potassium bath 2 mEq Sodium bath 138 Bicarbonate bath 34 With ultrafiltration as order approximately 2500 mL as tolerated Objective - Vital Signs/Intake and Output Vital Signs (last 24 hours): Temp Pulse Resp BP Pulse Ox 97.8 F 86 20 152/69 H 98 06/09/17 08:16 06/09/17 08:26 06/09/17 08:16 06/09/17 08:26 06/09/17 08:16 - Medications Medications: Current Medications Acetaminophen (Tylenol 325mg Tab) 325 mg PO Q6 PRN PRN Reason: Headache Last Admin: 06/06/17 15:17 Dose: 325 mg Amlodipine Besylate (Norvasc) 10 mg PO DAILY [facility] Last Admin: 06/09/17 08:26 Dose: 10 mg Atorvastatin Calcium (Lipitor) 40 mg PO HS [facility] Last Admin: 06/08/17 21:32 Dose: 40 mg Brimonidine Tartrate (Alphagan 0.2% Opht) 1 drop OU Q12 [facility] Last Admin: 06/09/17 08:24 Dose: 1 drop Calcitriol (Rocaltrol) 0.25 mcg PO TTS [facility] Last Admin: 06/06/17 12:17 Dose: 0.25 mcg Calcitriol (Rocaltrol) 1.5 mcg PO TTS [facility] Gabapentin (Neurontin) 100 mg PO [facility] Last Admin: 06/08/17 21:32 Dose: 100 mg Insulin Human Lispro (Humalog) 0 units SC ACHS [facility] PRN Reason: Protocol Last Admin: 06/09/17 06:42 Dose: Not Given Latanoprost (Xalatan Opht) 1 drop OU HS [facility] Last Admin: 06/08/17 21:41 Dose: 1 drop Pantoprazole Sodium (Protonix Ec Tab) 20 mg PO DAILY [facility] Last Admin: 06/09/17 08:26 Dose: 20 mg Senna/Docusate Sodium (Senokot S 50 Mg-8.6 Mg) 1 tab PO [facility] Last Admin: 06/08/17 21:32 Dose: 1 tab Sevelamer Carbonate (Renvela) 2.4 gm PO TID [facility] Last Admin: 06/09/17 08:26 Dose: 2.4 gm Valsartan (Diovan) 320 mg PO DAILY [facility] Last Admin: 06/09/17 08:25 Dose: 320 mg Vitamin B Complex/Vit C/Folic Acid (Nephro-Ava) 1 tab PO DAILY [facility] Last Admin: 06/09/17 08:27 Dose: 1 tab - Labs Labs: 06/08/17 05:25 06/08/17 05:25 Assessment and Plan (1) Hemorrhagic cerebrovascular accident (CVA) Status: Acute (2) DM2 (diabetes mellitus, type 2) Status: Chronic (3) ESRD (end stage renal disease) Status: Chronic (4) Hypertension Status: Chronic
--- NOTE | 2017-06-09 18:17 | CP.PCM.PN ---
Subjective - Date & Time of Evaluation Date of Evaluation: 06/09/17 Time of Evaluation: 18:17 - Subjective Subjective: Patient seen in room doing ok denies SINGER/SOB or dizziness ambulated 120' with RW nice gains he is an excellent acute rehab candidate Objective - Vital Signs/Intake and Output Vital Signs (last 24 hours): Temp Pulse Resp BP Pulse Ox 97.8 F 72 20 152/69 H 98 06/09/17 08:16 06/09/17 16:33 06/09/17 08:16 06/09/17 08:26 06/09/17 16:33 - Medications Medications: Current Medications Acetaminophen (Tylenol 325mg Tab) 325 mg PO Q6 PRN PRN Reason: Headache Last Admin: 06/06/17 15:17 Dose: 325 mg Amlodipine Besylate (Norvasc) 10 mg PO DAILY [facility] Last Admin: 06/09/17 08:26 Dose: 10 mg Atorvastatin Calcium (Lipitor) 40 mg PO HS [facility] Last Admin: 06/08/17 21:32 Dose: 40 mg Brimonidine Tartrate (Alphagan 0.2% Opht) 1 drop OU Q12 [facility] Last Admin: 06/09/17 08:24 Dose: 1 drop Calcitriol (Rocaltrol) 0.25 mcg PO TTS [facility] Last Admin: 06/09/17 09:00 Dose: 0.25 mcg Calcitriol (Rocaltrol) 1.5 mcg PO TTS [facility] Last Admin: 06/09/17 09:00 Dose: 1.5 mcg Gabapentin (Neurontin) 100 mg PO HS [facility] Last Admin: 06/08/17 21:32 Dose: 100 mg Insulin Human Lispro (Humalog) 0 units SC ACHS [facility] PRN Reason: Protocol Last Admin: 06/09/17 16:26 Dose: Not Given Latanoprost (Xalatan Opht) 1 drop OU HS [facility] Last Admin: 06/08/17 21:41 Dose: 1 drop Pantoprazole Sodium (Protonix Ec Tab) 20 mg PO DAILY [facility] Last Admin: 06/09/17 08:26 Dose: 20 mg Senna/Docusate Sodium (Senokot S 50 Mg-8.6 Mg) 1 tab PO HS [facility] Last Admin: 06/08/17 21:32 Dose: 1 tab Sevelamer Carbonate (Renvela) 2.4 gm PO TID [facility] Last Admin: 06/09/17 16:29 Dose: 2.4 gm Valsartan (Diovan) 320 mg PO DAILY [facility] Last Admin: 06/09/17 08:25 Dose: 320 mg Vitamin B Complex/Vit C/Folic Acid (Nephro-Ava) 1 tab PO DAILY [facility] Last Admin: 06/09/17 08:27 Dose: 1 tab - Labs Labs: 06/08/17 05:25 06/08/17 05:25
[2017-06-09] MEDS: Docusate-Senna 50 mg-8.6 mg Tab PO SCH (23:44)
[2017-06-09] MEDS: Latanoprost 0.005% Opht SOUTION OU SCH (23:44)
[2017-06-10] MEDS: Insulin Lispro (humaLOG) 100 Units/ml Inj SC SCH ×4 (06:32→21:22)
[2017-06-10] MEDS: Brimonidine 0.2% 50 DROP/5 ML BOTTLE OU SCH ×2 (09:16→21:24)
[2017-06-10] MEDS: Multivitamin Vitamin B Complex (Nephro-Vite) Tab PO SCH (09:17)
[2017-06-10] MEDS: Pantoprazole 20 mg EC Tab PO SCH (09:18)
[2017-06-10] MEDS: Sevelamer Carb 0.8 gm/Packet PO SCH ×3 (09:18→16:51)
--- NOTE | 2017-06-10 11:23 | CP.PCM.PN ---
Subjective - Date & Time of Evaluation Date of Evaluation: 06/10/17 Time of Evaluation: 11:22 - Subjective Subjective: No overnight changes or event Patient receiving rehabilitation Vital signs stable He tolerated very well hemodialysis Impression and plan The same as described was status post intracranial bleeding hypertension and this stage renal disease with hemodialysis TTS Objective - Vital Signs/Intake and Output Vital Signs (last 24 hours): Temp Pulse Resp BP Pulse Ox 97.9 F 81 22 157/87 H 96 06/10/17 08:11 06/10/17 09:17 06/10/17 08:11 06/10/17 09:17 06/10/17 08:11 - Medications Medications: Current Medications Acetaminophen (Tylenol 325mg Tab) 325 mg PO Q6 PRN PRN Reason: Headache Last Admin: 06/06/17 15:17 Dose: 325 mg Amlodipine Besylate (Norvasc) 10 mg PO DAILY [facility] Last Admin: 06/10/17 09:17 Dose: 10 mg Atorvastatin Calcium (Lipitor) 40 mg PO HS [facility] Last Admin: 06/09/17 23:42 Dose: 40 mg Brimonidine Tartrate (Alphagan 0.2% Opht) 1 drop OU Q12 [facility] Last Admin: 06/10/17 09:16 Dose: 1 drop Calcitriol (Rocaltrol) 0.25 mcg PO TTS [facility] Last Admin: 06/09/17 09:00 Dose: 0.25 mcg Calcitriol (Rocaltrol) 1.5 mcg PO TTS [facility] Last Admin: 06/09/17 09:00 Dose: 1.5 mcg Gabapentin (Neurontin) 100 mg PO HS [facility] Last Admin: 06/09/17 23:42 Dose: 100 mg Insulin Human Lispro (Humalog) 0 units SC ACHS [facility] PRN Reason: Protocol Last Admin: 06/10/17 06:32 Dose: Not Given Latanoprost (Xalatan Opht) 1 drop OU HS [facility] Last Admin: 06/09/17 23:44 Dose: 1 drop Pantoprazole Sodium (Protonix Ec Tab) 20 mg PO DAILY [facility] Last Admin: 06/10/17 09:18 Dose: 20 mg Senna/Docusate Sodium (Senokot S 50 Mg-8.6 Mg) 1 tab PO HS [facility] Last Admin: 06/09/17 23:44 Dose: Not Given Sevelamer Carbonate (Renvela) 2.4 gm PO TID [facility] Last Admin: 06/10/17 09:18 Dose: 2.4 gm Valsartan (Diovan) 320 mg PO DAILY [facility] Last Admin: 06/10/17 09:17 Dose: 320 mg Vitamin B Complex/Vit C/Folic Acid (Nephro-Ava) 1 tab PO DAILY [facility] Last Admin: 06/10/17 09:17 Dose: 1 tab - Labs Labs: 06/08/17 05:25 06/08/17 05:25 Assessment and Plan (1) Hemorrhagic cerebrovascular accident (CVA) Status: Acute (2) DM2 (diabetes mellitus, type 2) Status: Chronic (3) ESRD (end stage renal disease) Status: Chronic (4) Hypertension Status: Chronic
--- NOTE | 2017-06-10 12:16 | PSY.TMCNF ---
Nursing - Vital Signs Vital Signs (Last 8 hours): Vital Signs 06/10/17 06/10/17 06/10/17 08:11 09:17 11:25 Temperature 97.9 F 97.9 F Pulse Rate 81 81 81 Respiratory 22 22 Rate Blood Pressure 157/87 H 157/87 H 157/87 H O2 Sat by Pulse 96 Oximetry Pain: 0 - Precautions: Precautions: Fall Prevention - Medications/Other Issues Comment: - On HD q T-TH-Sat. - (+) Left AV shunt - Consults Comment: Dr. Gonzales, Dr. Long, Dr. Foster, Dr. Walker - Toileting Toileting: Moderate Assistance - Bladder Management Bladder Pattern: Normal Voiding Method: Urinal Bladder Management: Supervision Frequency of Accidents: 0 - Bowel Management Bowel Pattern: Normal Bowel Management: Supervision Frequency of Accidents: 0 - Transfers Transfers: Minimal Assistance - ADL's ADL's: Moderate Assistance - Patient/Family Teaching Comments: Care post CVA and safety precautions - Goals/Time Frame Comments: Per multidisciplinary care plan and goals Physical Therapy - Bed Mobility Bed Mobility: Verbal Cues, Contact Guard - Transfers Wheelchair to Mat: Verbal Cues, Minimal Assistance Sit to Stand: Verbal Cues, Contact Guard - Ambulation Level of Assistance: Verbal Cues, Contact Guard, Minimal Assistance Distance (ft.): 120 Assistive Devices: Rolling Walker - Stair Negotiation Stairs: Level of Assistance: Verbal Cues, Minimal Assistance Number of Stairs: 6 Handrails: Bilateral Stairs: Assistive Devices: Left Handrail, Right Handrail - Standing Balance Static Stand: Minimal Assistance Dynamic Stand: Moderate Assistance - Pain Management Techniques: Medication, Position Change, Inactivity - Insight/Carryover Insight/Carryover: Good - Patient/Family Education Comment: Pt education for increased safety awareness and proper techniques during functional mobility training - Assessment/Plan Assessment: Pt is agreeable to participate in recreation therapy sessions. Pt has participated in card task with large print playing cards and 5 second rule task. Pt has done well with both tasks as pt recalled and initiated facts on demand during 5 second rule. Pt's main barriers is his vision as pt reports on varying objects/items that he can see. Pt's mood continues to be stable- positive and will continue to be encouraged to participate in recreation therapy sessions. - Goals Timeframe: 3 weeks Goals: Sit < > supine mod I. Sit < > stand supervision. Bed < > chair supervision. Pt will ambulate 500 ft with AD and supervision. Pt will ascend/ descend 2 flights of stairs with B hnadrails and supervision - Provider Therapist: Sirena NEWMAN RN CRRN Occupational Therapy - Arousal/Attention/Orientation Patient Orientation: Person, Place, Time - ADL/IADL Self Feeding: Verbal Cues, Contact Guard Grooming: Verbal Cues, Set-up Help Bathing-Upper Extremity: Minimal Assistance Bathing-Lower Extremity: Minimal Assistance Dressing-Upper Extremity: Supervision, Verbal Cues, Set-up Help Dressing-Lower Extremity: Verbal Cues, Set-up Help, Minimal Assistance, Moderate Assistance Comment: showering: TBA if safe - Sitting Balance Static Sitting: Supervision Dynamic Sitting: Reaches across midline, Reaches out of base of support, Reaches within base of support, Requires supervision, Minimal Assistance Comment: seated at edge of bed - Transfers Wheelchair to Bed Transfers: Verbal Cues, Set-up Help, Minimal Assistance, Moderate Assistance Toilet Transfers: Verbal Cues, Set-up Help, Minimal Assistance, Moderate Assistance Comment: shower: TBA if safe - Wheelchair Management Level of Assistance: Dependent - Upper Extremity Status Right Upper Extremity Comment: AROM is WFLS, + dysmetria and incoordination mild to moderate Left Upper Extremity Comment: AROM is WNLS throughout - Pain Alleviating Techniques: Medication, Position Change, Inactivity - Insight/Carryover Insight/Carryover: Good - Patient/Family Education Comment: Pt education for increased safety awareness and proper techniques during functional mobility training - Assessment/Plan Assessment: Pt is agreeable to participate in recreation therapy sessions. Pt has participated in card task with large print playing cards and 5 second rule task. Pt has done well with both tasks as pt recalled and initiated facts on demand during 5 second rule. Pt's main barriers is his vision as pt reports on varying objects/items that he can see. Pt's mood continues to be stable- positive and will continue to be encouraged to participate in recreation therapy sessions. - Goals Timeframe: 3 weeks Goals: Sit < > supine mod I. Sit < > stand supervision. Bed < > chair supervision. Pt will ambulate 500 ft with AD and supervision. Pt will ascend/ descend 2 flights of stairs with B hnadrails and supervision - Provider Therapist: Rachel Gonzáles,OTR/L Speech Therapy - Plan Assessment: Pt is agreeable to participate in recreation therapy sessions. Pt has participated in card task with large print playing cards and 5 second rule task. Pt has done well with both tasks as pt recalled and initiated facts on demand during 5 second rule. Pt's main barriers is his vision as pt reports on varying objects/items that he can see. Pt's mood continues to be stable- positive and will continue to be encouraged to participate in recreation therapy sessions. Recreational Therapy - Participation Participation: Participates in Individual and/or Group Sessions, Monitors His/ Her Own Leisure Time - Attendance Attendance: 3-5 times per week - Activities Leisure Activities: Television - Socialization Level of Socialization: Initiates/interacts freely with care givers and peer - Diversional Time Diversional Time: television - Assessment Assessment/Plan: Pt is agreeable to participate in recreation therapy sessions. Pt has participated in card task with large print playing cards and 5 second rule task. Pt has done well with both tasks as pt recalled and initiated facts on demand during 5 second rule. Pt's main barriers is his vision as pt reports on varying objects/items that he can see. Pt's mood continues to be stable- positive and will continue to be encouraged to participate in recreation therapy sessions. 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 - Provider Therapist: Tracy Kaye, [employer] #[id number] Nutrition - Current Diet Current Diet/ Supplement/ Feedings: Renal dialysis high consistent CHO - Appetite Percent Meal Consumed: 50-74% - Comments Comments: Care post CVA and safety precautions - Assessment/Goals/Time Frame Assessment/Goals/Time Frame: - On HD q T-TH-Sat. - (+) Left AV shunt - Provider Provider: Martha Arreaga RD Case Management - Discharge Plan Discharge Plan: Home with significant other/family Rehabilitation Plan - Discharge Plan Estimated Date of Discharge: 06/22/17 Discharge to: Home
--- NOTE | 2017-06-10 14:59 | CP.PCM.PN ---
Subjective - Date & Time of Evaluation Date of Evaluation: 06/10/17 Time of Evaluation: 09:00 - Subjective Subjective: Patient seen and examined, lying comfortably in bed. Still complaining of right arm tingling and numbness, but improved strength. No episode of nausea or dizziness or palpitations. patient denies fever, vomiting, diarrhea, SOB or chest pain. BP and HR are well controlled. Safety precaution reinforced and maintained. Receiving rehabilitation and HD yesterday, well tolerated Objective - Vital Signs/Intake and Output Vital Signs (last 24 hours): Temp Pulse Resp BP Pulse Ox 97.9 F 81 22 157/87 H 96 06/10/17 11:25 06/10/17 11:25 06/10/17 11:25 06/10/17 11:25 06/10/17 08:11 - Medications Medications: Current Medications Acetaminophen (Tylenol 325mg Tab) 325 mg PO Q6 PRN PRN Reason: Headache Last Admin: 06/06/17 15:17 Dose: 325 mg Amlodipine Besylate (Norvasc) 10 mg PO DAILY [facility] Last Admin: 06/10/17 09:17 Dose: 10 mg Atorvastatin Calcium (Lipitor) 40 mg PO HS [facility] Last Admin: 06/09/17 23:42 Dose: 40 mg Brimonidine Tartrate (Alphagan 0.2% Opht) 1 drop OU Q12 [facility] Last Admin: 06/10/17 09:16 Dose: 1 drop Calcitriol (Rocaltrol) 0.25 mcg PO TTS [facility] Last Admin: 06/09/17 09:00 Dose: 0.25 mcg Calcitriol (Rocaltrol) 1.5 mcg PO TTS [facility] Last Admin: 06/09/17 09:00 Dose: 1.5 mcg Gabapentin (Neurontin) 100 mg PO HS [facility] Last Admin: 06/09/17 23:42 Dose: 100 mg Insulin Human Lispro (Humalog) 0 units SC ACHS [facility] PRN Reason: Protocol Last Admin: 06/10/17 12:10 Dose: Not Given Latanoprost (Xalatan Opht) 1 drop OU HS [facility] Last Admin: 06/09/17 23:44 Dose: 1 drop Pantoprazole Sodium (Protonix Ec Tab) 20 mg PO DAILY [facility] Last Admin: 06/10/17 09:18 Dose: 20 mg Senna/Docusate Sodium (Senokot S 50 Mg-8.6 Mg) 1 tab PO HS [facility] Last Admin: 06/09/17 23:44 Dose: Not Given Sevelamer Carbonate (Renvela) 2.4 gm PO TID [facility] Last Admin: 06/10/17 12:10 Dose: 2.4 gm Valsartan (Diovan) 320 mg PO DAILY [facility] Last Admin: 06/10/17 09:17 Dose: 320 mg Vitamin B Complex/Vit C/Folic Acid (Nephro-Ava) 1 tab PO DAILY [facility] Last Admin: 06/10/17 09:17 Dose: 1 tab - Labs Labs: 06/08/17 05:25 06/08/17 05:25 - Constitutional Appears: Non-toxic, No Acute Distress - Head Exam Head Exam: ATRAUMATIC, NORMAL INSPECTION, NORMOCEPHALIC - ENT Exam ENT Exam: Mucous Membranes Moist - Neck Exam Neck Exam: Full ROM. absent: Lymphadenopathy - Respiratory Exam Respiratory Exam: Clear to Ausculation Bilateral, NORMAL BREATHING PATTERN. absent: Accessory Muscle Use, Chest Wall Tenderness, Decreased Breath Sounds - Cardiovascular Exam Cardiovascular Exam: REGULAR RHYTHM, RRR, +S1, +S2. absent: Bradycardia, Tachycardia, JVD, +S4, Murmur - GI/Abdominal Exam GI & Abdominal Exam: Soft, Normal Bowel Sounds - Extremities Exam Extremities Exam: absent: Calf Tenderness - Back Exam Back Exam: absent: CVA tenderness (L), CVA tenderness (R) - Neurological Exam Neurological Exam: Alert, Awake, Oriented x3 Neuro motor strength exam: Left Upper Extremity: 4, Right Upper Extremity: 4, Left Lower Extremity: 4, Right Lower Extremity: 4 - Psychiatric Exam Psychiatric exam: Normal Mood - Skin Skin Exam: Normal Color - Additional Findings Additional findings: Left upper arm AV shunt (+) for bruit and thrill Assessment and Plan - Assessment and Plan (Free Text) Assessment: 61 y.o M with pmh of HTN, ESRD on HD (TThS), NIDDM, hyperlipidemia, and visual impairment who presented with right sided facial numbness and weakness who was found to have a hemorragic CT on 05/28. Neurosurgery was consulted with no surgical intervention indicated. CT findings have remained stable. Patient was discharge for further acute rehabilitation. he is an excellent acute rehab candidate Plan: Acute Hemorragic stroke, with rt sided weakness -initial CT showed 1.3 x 1.6 x 2.6 cm focal hemorrhage within the left basal ganglia, most recent CT showed stabalization of the bleed. -neurosurgery consult recommends no surgical intervention needed -Neurology, Dr Long, consulted. Recommending tight BP control, no antiplt activity for atleast 3 weeks from onset of the bleed. and acute Physical therapy -recent head CT (06/01/17) re-demonstrated small left hematoma which is less dense now, No sign of new hemorrhages or Obstructive type of hydrocephalus. -BP is contolled -serial neuro examinations reveal improvement in rt sided weakness -Continue hemodialysis as scheduled TTS -Continue rehabilitation -Tylenol 325 PO Q6 PRN -Gabapentin 100 mg PO HS [facility] HTN, controlled -continue with PO Valsartan 320mg daily. -continue Norvasc 10mg PO -Will continue to monitor BP ESRD -HD schedule on TThSat -as per nephrology consult(Dr. 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
--- NOTE | 2017-06-10 17:53 | CP.PCM.PN ---
Subjective - Date & Time of Evaluation Date of Evaluation: 06/10/17 Time of Evaluation: 17:52 - Subjective Subjective: Patient seen in room today is his birthday not compliant with diet, family brings food in from [id number] He had a good day in therapy today PT/OT to continue to help increase functional independence Team conference for d/c planning Pain: controlled Vascular: no evidence of DVT GI: No evidence of constipation or diarrhea Patient continues to be an excellent acute rehabilitation candidate and will have continued PT, OT and recreational therapy to help facilitate a safe and appropriate d/c plan The patients plan was discussed in great detail in team conference. This was then discussed with the patient at length. The discussions directly impact on the patients plan of care. Please see the note for more details Objective - Vital Signs/Intake and Output Vital Signs (last 24 hours): Temp Pulse Resp BP Pulse Ox 97.9 F 81 22 157/87 H 96 06/10/17 11:25 06/10/17 11:25 06/10/17 11:25 06/10/17 11:25 06/10/17 08:11 - Medications Medications: Current Medications Acetaminophen (Tylenol 325mg Tab) 325 mg PO Q6 PRN PRN Reason: Headache Last Admin: 06/06/17 15:17 Dose: 325 mg Amlodipine Besylate (Norvasc) 10 mg PO DAILY [facility] Last Admin: 06/10/17 09:17 Dose: 10 mg Atorvastatin Calcium (Lipitor) 40 mg PO HS [facility] Last Admin: 06/09/17 23:42 Dose: 40 mg Brimonidine Tartrate (Alphagan 0.2% Opht) 1 drop OU Q12 [facility] Last Admin: 06/10/17 09:16 Dose: 1 drop Calcitriol (Rocaltrol) 0.25 mcg PO TTS [facility] Last Admin: 06/09/17 09:00 Dose: 0.25 mcg Calcitriol (Rocaltrol) 1.5 mcg PO TTS [facility] Last Admin: 06/09/17 09:00 Dose: 1.5 mcg Gabapentin (Neurontin) 100 mg PO HS [facility] Last Admin: 06/09/17 23:42 Dose: 100 mg Insulin Human Lispro (Humalog) 0 units SC ACHS [facility] PRN Reason: Protocol Last Admin: 06/10/17 16:51 Dose: Not Given Latanoprost (Xalatan Opht) 1 drop OU HS [facility] Last Admin: 06/09/17 23:44 Dose: 1 drop Pantoprazole Sodium (Protonix Ec Tab) 20 mg PO DAILY [facility] Last Admin: 06/10/17 09:18 Dose: 20 mg Senna/Docusate Sodium (Senokot S 50 Mg-8.6 Mg) 1 tab PO HS [facility] Last Admin: 06/09/17 23:44 Dose: Not Given Sevelamer Carbonate (Renvela) 2.4 gm PO TID [facility] Last Admin: 06/10/17 16:51 Dose: 2.4 gm Valsartan (Diovan) 320 mg PO DAILY [facility] Last Admin: 06/10/17 09:17 Dose: 320 mg Vitamin B Complex/Vit C/Folic Acid (Nephro-Ava) 1 tab PO DAILY [facility] Last Admin: 06/10/17 09:17 Dose: 1 tab - Labs Labs: 06/08/17 05:25 06/08/17 05:25
[2017-06-10] MEDS: Latanoprost 0.005% Opht SOUTION OU SCH (21:25)
[2017-06-10] MEDS: Docusate-Senna 50 mg-8.6 mg Tab PO SCH (21:25)
[2017-06-11] MEDS: Insulin Lispro (humaLOG) 100 Units/ml Inj SC SCH ×4 (08:28→21:16)
[2017-06-11] MEDS: Brimonidine 0.2% 50 DROP/5 ML BOTTLE OU SCH ×2 (08:52→21:16)
[2017-06-11] MEDS: Multivitamin Vitamin B Complex (Nephro-Vite) Tab PO SCH (08:52)
[2017-06-11] MEDS: Pantoprazole 20 mg EC Tab PO SCH (08:55)
[2017-06-11] MEDS: Sevelamer Carb 0.8 gm/Packet PO SCH ×3 (08:56→16:45)
--- NOTE | 2017-06-11 10:52 | CP.PCM.PN ---
Subjective - Date & Time of Evaluation Date of Evaluation: 06/11/17 Time of Evaluation: 10:50 - Subjective Subjective: No changes reported overnight Patient continued to receive physiotherapy at the rehabilitation Vital signs stable Physical exam Chest no rales Heart no rubs Abdomen soft Extremity no edema Lab noted that was few days ago Hemodialysis to start shortly after completing rehabilitation session Order in place Continue monitoring Ultrafiltration about 2000 mL Sodium 138 Potassium bath 2 mEq Bicarbonate bath 34 Objective - Vital Signs/Intake and Output Vital Signs (last 24 hours): Temp Pulse Resp BP Pulse Ox 97.9 F 86 20 166/86 H 95 06/11/17 08:26 06/11/17 08:53 06/11/17 08:26 06/11/17 08:53 06/11/17 08:26 - Medications Medications: Current Medications Acetaminophen (Tylenol 325mg Tab) 325 mg PO Q6 PRN PRN Reason: Headache Last Admin: 06/06/17 15:17 Dose: 325 mg Amlodipine Besylate (Norvasc) 10 mg PO DAILY [facility] Last Admin: 06/11/17 08:53 Dose: 10 mg Atorvastatin Calcium (Lipitor) 40 mg PO HS [facility] Last Admin: 06/10/17 21:24 Dose: 40 mg Brimonidine Tartrate (Alphagan 0.2% Opht) 1 drop OU Q12 [facility] Last Admin: 06/11/17 08:52 Dose: 1 drop Calcitriol (Rocaltrol) 0.25 mcg PO TTS [facility] Last Admin: 06/11/17 08:57 Dose: 0.25 mcg Calcitriol (Rocaltrol) 1.5 mcg PO TTS [facility] Last Admin: 06/09/17 09:00 Dose: 1.5 mcg Gabapentin (Neurontin) 100 mg PO HS [facility] Last Admin: 06/10/17 21:25 Dose: 100 mg Insulin Human Lispro (Humalog) 0 units SC ACHS [facility] PRN Reason: Protocol Last Admin: 06/11/17 08:28 Dose: Not Given Latanoprost (Xalatan Opht) 1 drop OU HS [facility] Last Admin: 06/10/17 21:25 Dose: 1 drop Pantoprazole Sodium (Protonix Ec Tab) 20 mg PO DAILY [facility] Last Admin: 06/11/17 08:55 Dose: 20 mg Senna/Docusate Sodium (Senokot S 50 Mg-8.6 Mg) 1 tab PO HS [facility] Last Admin: 06/10/17 21:25 Dose: Not Given Sevelamer Carbonate (Renvela) 2.4 gm PO TID [facility] Last Admin: 06/11/17 08:56 Dose: 2.4 gm Valsartan (Diovan) 320 mg PO DAILY [facility] Last Admin: 06/11/17 08:52 Dose: 320 mg Vitamin B Complex/Vit C/Folic Acid (Nephro-Ava) 1 tab PO DAILY [facility] Last Admin: 06/11/17 08:52 Dose: 1 tab - Labs Labs: 06/08/17 05:25 06/08/17 05:25 Assessment and Plan (1) Hemorrhagic cerebrovascular accident (CVA) Status: Acute (2) DM2 (diabetes mellitus, type 2) Status: Chronic (3) ESRD (end stage renal disease) Status: Chronic (4) Hypertension Status: Chronic
[2017-06-11] MEDS: Latanoprost 0.005% Opht SOUTION OU SCH (21:11)
[2017-06-11] MEDS: Docusate-Senna 50 mg-8.6 mg Tab PO SCH (21:12)
[2017-06-12] MEDS: Insulin Lispro (humaLOG) 100 Units/ml Inj SC SCH ×4 (06:42→21:18)
[2017-06-12] MEDS: Brimonidine 0.2% 50 DROP/5 ML BOTTLE OU SCH ×2 (08:42→21:18)
[2017-06-12] MEDS: Pantoprazole 20 mg EC Tab PO SCH (08:43)
[2017-06-12] MEDS: Multivitamin Vitamin B Complex (Nephro-Vite) Tab PO SCH (08:44)
[2017-06-12] MEDS: Sevelamer Carb 0.8 gm/Packet PO SCH ×3 (08:45→17:50)
--- NOTE | 2017-06-12 11:42 | CP.PCM.PN ---
Subjective - Date & Time of Evaluation Date of Evaluation: 06/12/17 Time of Evaluation: 09:30 - Subjective Subjective: Patient was seen and examined at bedside, NAD. Pt was complaining of right UE tingling and numbness in morning but denied in afternoon. no fever, chills, nausea or vomiting. Safety precaution reinforced and maintained. Receiving rehabilitation and HD tomorrow. Objective - Vital Signs/Intake and Output Vital Signs (last 24 hours): Temp Pulse Resp BP Pulse Ox 97.7 F 81 20 165/87 H 99 06/12/17 07:35 06/12/17 08:44 06/12/17 07:35 06/12/17 08:44 06/12/17 07:35 - Medications Medications: Current Medications Acetaminophen (Tylenol 325mg Tab) 325 mg PO Q6 PRN PRN Reason: Headache Last Admin: 06/06/17 15:17 Dose: 325 mg Amlodipine Besylate (Norvasc) 10 mg PO DAILY [facility] Last Admin: 06/12/17 08:44 Dose: 10 mg Atorvastatin Calcium (Lipitor) 40 mg PO HS [facility] Last Admin: 06/11/17 21:12 Dose: 40 mg Brimonidine Tartrate (Alphagan 0.2% Opht) 1 drop OU Q12 [facility] Last Admin: 06/12/17 08:42 Dose: 1 drop Calcitriol (Rocaltrol) 0.25 mcg PO TTS [facility] Last Admin: 06/11/17 08:57 Dose: 0.25 mcg Calcitriol (Rocaltrol) 1.5 mcg PO TTS [facility] Last Admin: 06/11/17 12:22 Dose: 1.5 mcg Gabapentin (Neurontin) 100 mg PO HS [facility] Last Admin: 06/11/17 21:11 Dose: 100 mg Insulin Human Lispro (Humalog) 0 units SC ACHS [facility] PRN Reason: Protocol Last Admin: 06/12/17 06:42 Dose: Not Given Latanoprost (Xalatan Opht) 1 drop OU HS [facility] Last Admin: 06/11/17 21:11 Dose: 1 drop Pantoprazole Sodium (Protonix Ec Tab) 20 mg PO DAILY [facility] Last Admin: 06/12/17 08:43 Dose: 20 mg Senna/Docusate Sodium (Senokot S 50 Mg-8.6 Mg) 1 tab PO HS [facility] Last Admin: 06/11/17 21:12 Dose: 1 tab Sevelamer Carbonate (Renvela) 2.4 gm PO TID [facility] Last Admin: 06/12/17 08:45 Dose: 2.4 gm Valsartan (Diovan) 320 mg PO DAILY [facility] Last Admin: 06/12/17 08:43 Dose: 320 mg Vitamin B Complex/Vit C/Folic Acid (Nephro-Ava) 1 tab PO DAILY [facility] Last Admin: 06/12/17 08:44 Dose: 1 tab - Labs Labs: 06/08/17 05:25 06/08/17 05:25 - Constitutional Appears: Non-toxic, No Acute Distress - Head Exam Head Exam: ATRAUMATIC, NORMAL INSPECTION, NORMOCEPHALIC - Eye Exam Eye Exam: EOMI - ENT Exam ENT Exam: Mucous Membranes Moist - Neck Exam Neck Exam: absent: Tenderness - Respiratory Exam Respiratory Exam: Clear to Ausculation Bilateral, NORMAL BREATHING PATTERN. absent: Accessory Muscle Use, Chest Wall Tenderness, Decreased Breath Sounds - Cardiovascular Exam Cardiovascular Exam: REGULAR RHYTHM, +S1, +S2. absent: Bradycardia, Tachycardia , Murmur - GI/Abdominal Exam GI & Abdominal Exam: Soft, Normal Bowel Sounds. absent: Guarding, Rigid, Tenderness - Extremities Exam Extremities Exam: Normal Capillary Refill. absent: Calf Tenderness, Pedal Edema , Tenderness - Back Exam Back Exam: absent: CVA tenderness (L), CVA tenderness (R) - Neurological Exam Neurological Exam: Alert, Awake, Oriented x3 Neuro motor strength exam: Left Upper Extremity: 4, Right Upper Extremity: 4, Left Lower Extremity: 4, Right Lower Extremity: 4 - Psychiatric Exam Psychiatric exam: Flat Affect - Skin Skin Exam: Dry, Normal Color, Warm - Additional Findings Additional findings: Left upper arm AV shunt (+) for bruit and thrill Assessment and Plan - Assessment and Plan (Free Text) Assessment: 61 y.o M with pmh of HTN, ESRD on HD (TThS), NIDDM, hyperlipidemia, and visual impairment who presented with right sided facial numbness and weakness who was found to have a hemorragic CT on 05/28. Neurosurgery was consulted with no surgical intervention indicated. CT findings have remained stable. Patient was discharge for further acute rehabilitation. he is an excellent acute rehab candidate. Plan: Acute Hemorragic stroke, with rt sided numbness and tingling -initial CT showed 1.3 x 1.6 x 2.6 cm focal hemorrhage within the left basal ganglia, most recent CT showed stabalization of the bleed. -neurosurgery consult recommends no surgical intervention needed -Neurology, Dr Long, consulted. Recommending tight BP control, no antiplt activity for atleast 3 weeks from onset of the bleed. and acute Physical therapy -recent head CT (06/01/17) re-demonstrated small left hematoma which is less dense now, No sign of new hemorrhages or Obstructive type of hydrocephalus. -serial neuro examinations reveal improvement in rt sided weakness -Continue rehabilitation -Tylenol 325 PO Q6 PRN -Gabapentin 100 mg PO HS [facility] HTN, controlled -continue with PO Valsartan 320mg daily. -continue Norvasc 10mg PO -fluctuating elevated BP -Will continue to monitor BP -will start Clonidine 0.1mg BID,to optimize BP after discussing with pt and nephrology ESRD -HD schedule on TThSat -as per nephrology consult(Dr. Gonzales): renvela -will go for dialysis tomorrow -will monitor BUN/Cr History of DM -last hemoglobin A1C: 6.1% -sliding scale and BG is controlled Hyperlipidemia -controlled -continue statin 40 mg GI ppx -protonix 20mg DVT ppx -SCD
--- NOTE | 2017-06-12 13:16 | CP.PCM.PN ---
Subjective - Date & Time of Evaluation Date of Evaluation: 06/12/17 Time of Evaluation: 13:15 - Subjective Subjective: Patient seen in room comfortable, doing well denies sob/cp continues to make gains in therapies remains very good acute rehab candidate Objective - Vital Signs/Intake and Output Vital Signs (last 24 hours): Temp Pulse Resp BP Pulse Ox 97.7 F 81 20 165/87 H 99 06/12/17 07:35 06/12/17 08:44 06/12/17 07:35 06/12/17 08:44 06/12/17 07:35 - Medications Medications: Current Medications Acetaminophen (Tylenol 325mg Tab) 325 mg PO Q6 PRN PRN Reason: Headache Last Admin: 06/06/17 15:17 Dose: 325 mg Amlodipine Besylate (Norvasc) 10 mg PO DAILY [facility] Last Admin: 06/12/17 08:44 Dose: 10 mg Atorvastatin Calcium (Lipitor) 40 mg PO HS [facility] Last Admin: 06/11/17 21:12 Dose: 40 mg Brimonidine Tartrate (Alphagan 0.2% Opht) 1 drop OU Q12 [facility] Last Admin: 06/12/17 08:42 Dose: 1 drop Calcitriol (Rocaltrol) 0.25 mcg PO TTS [facility] Last Admin: 06/11/17 08:57 Dose: 0.25 mcg Calcitriol (Rocaltrol) 1.5 mcg PO TTS [facility] Last Admin: 06/11/17 12:22 Dose: 1.5 mcg Gabapentin (Neurontin) 100 mg PO HS [facility] Last Admin: 06/11/17 21:11 Dose: 100 mg Insulin Human Lispro (Humalog) 0 units SC ACHS [facility] PRN Reason: Protocol Last Admin: 06/12/17 06:42 Dose: Not Given Latanoprost (Xalatan Opht) 1 drop OU HS [facility] Last Admin: 06/11/17 21:11 Dose: 1 drop Pantoprazole Sodium (Protonix Ec Tab) 20 mg PO DAILY [facility] Last Admin: 06/12/17 08:43 Dose: 20 mg Senna/Docusate Sodium (Senokot S 50 Mg-8.6 Mg) 1 tab PO HS [facility] Last Admin: 06/11/17 21:12 Dose: 1 tab Sevelamer Carbonate (Renvela) 2.4 gm PO TID [facility] Last Admin: 06/12/17 08:45 Dose: 2.4 gm Valsartan (Diovan) 320 mg PO DAILY [facility] Last Admin: 06/12/17 08:43 Dose: 320 mg Vitamin B Complex/Vit C/Folic Acid (Nephro-Ava) 1 tab PO DAILY [facility] Last Admin: 06/12/17 08:44 Dose: 1 tab - Labs Labs: 06/08/17 05:25 06/08/17 05:25
--- NOTE | 2017-06-12 20:16 | CP.PCM.PN ---
Subjective - Date & Time of Evaluation Date of Evaluation: 06/12/17 Time of Evaluation: 20:13 - Subjective Subjective: no changes receiving PT. BP noted to be high discussed with resident to add clonidin A/P s/p intracranial bleeding ESRD HD TTS HTN stable chest no rales HT. no rubs Abd soft Objective - Vital Signs/Intake and Output Vital Signs (last 24 hours): Temp Pulse Resp BP Pulse Ox 97.7 F 78 20 150/80 99 06/12/17 07:35 06/12/17 17:48 06/12/17 07:35 06/12/17 17:48 06/12/17 07:35 - Medications Medications: Current Medications Acetaminophen (Tylenol 325mg Tab) 325 mg PO Q6 PRN PRN Reason: Headache Last Admin: 06/06/17 15:17 Dose: 325 mg Amlodipine Besylate (Norvasc) 10 mg PO DAILY [facility] Last Admin: 06/12/17 08:44 Dose: 10 mg Atorvastatin Calcium (Lipitor) 40 mg PO HS [facility] Last Admin: 06/11/17 21:12 Dose: 40 mg Brimonidine Tartrate (Alphagan 0.2% Opht) 1 drop OU Q12 [facility] Last Admin: 06/12/17 08:42 Dose: 1 drop Calcitriol (Rocaltrol) 0.25 mcg PO TTS [facility] Last Admin: 06/11/17 08:57 Dose: 0.25 mcg Calcitriol (Rocaltrol) 1.5 mcg PO TTS [facility] Last Admin: 06/11/17 12:22 Dose: 1.5 mcg Clonidine HCl (Catapres) 0.1 mg PO BID [facility] Last Admin: 06/12/17 17:48 Dose: 0.1 mg Gabapentin (Neurontin) 100 mg PO HS [facility] Last Admin: 06/11/17 21:11 Dose: 100 mg Insulin Human Lispro (Humalog) 0 units SC ACHS [facility] PRN Reason: Protocol Last Admin: 06/12/17 16:30 Dose: Not Given Latanoprost (Xalatan Opht) 1 drop OU HS [facility] Last Admin: 06/11/17 21:11 Dose: 1 drop Pantoprazole Sodium (Protonix Ec Tab) 20 mg PO DAILY [facility] Last Admin: 06/12/17 08:43 Dose: 20 mg Senna/Docusate Sodium (Senokot S 50 Mg-8.6 Mg) 1 tab PO HS [facility] Last Admin: 06/11/17 21:12 Dose: 1 tab Sevelamer Carbonate (Renvela) 2.4 gm PO TID [facility] Last Admin: 06/12/17 17:50 Dose: 2.4 gm Valsartan (Diovan) 320 mg PO DAILY [facility] Last Admin: 06/12/17 08:43 Dose: 320 mg Vitamin B Complex/Vit C/Folic Acid (Nephro-Ava) 1 tab PO DAILY [facility] Last Admin: 06/12/17 08:44 Dose: 1 tab - Labs Labs: 06/08/17 05:25 06/08/17 05:25 Assessment and Plan (1) Hemorrhagic cerebrovascular accident (CVA) Status: Acute (2) DM2 (diabetes mellitus, type 2) Status: Chronic (3) ESRD (end stage renal disease) Status: Chronic (4) Hypertension Status: Chronic
[2017-06-12] MEDS: Docusate-Senna 50 mg-8.6 mg Tab PO SCH (21:18)
[2017-06-12] MEDS: Latanoprost 0.005% Opht SOUTION OU SCH (21:23)
[2017-06-13] MEDS: Insulin Lispro (humaLOG) 100 Units/ml Inj SC SCH ×4 (06:44→21:14)
[2017-06-13 07:58] LABS: CALCIUM 9.1 mg/dL (8.4-10.2); HEMOGLOBIN 11.4 g/dL (12.0-18.0); MEAN CELL VOLUME 93.4 fl (80.0-94.0); MEAN CORPUSCULAR HEMOGLOBIN 29.9 pg (27.0-31.0); RBC 3.82 Mil/uL (4.40-5.90); RED CELL DISTRIBUTION WIDTH 16.2 % (11.5-14.5); WHITE BLOOD COUNT 8.6 K/uL (4.8-10.8)
[2017-06-13] MEDS: Sevelamer Carb 0.8 gm/Packet PO SCH ×3 (08:47→18:41)
[2017-06-13] MEDS: Multivitamin Vitamin B Complex (Nephro-Vite) Tab PO SCH (08:47)
[2017-06-13] MEDS: Brimonidine 0.2% 50 DROP/5 ML BOTTLE OU SCH ×2 (08:47→21:14)
[2017-06-13] MEDS: Pantoprazole 20 mg EC Tab PO SCH (08:48)
[2017-06-13] MEDS: Latanoprost 0.005% Opht SOUTION OU SCH (21:15)
[2017-06-13] MEDS: Docusate-Senna 50 mg-8.6 mg Tab PO SCH (21:15)
[2017-06-14] MEDS: Insulin Lispro (humaLOG) 100 Units/ml Inj SC SCH ×4 (06:39→21:16)
[2017-06-14] MEDS: Brimonidine 0.2% 50 DROP/5 ML BOTTLE OU SCH ×2 (08:13→21:15)
[2017-06-14] MEDS: Multivitamin Vitamin B Complex (Nephro-Vite) Tab PO SCH (08:14)
[2017-06-14] MEDS: Pantoprazole 20 mg EC Tab PO SCH (08:15)
[2017-06-14] MEDS: Sevelamer Carb 0.8 gm/Packet PO SCH (09:30)
--- NOTE | 2017-06-14 16:49 | CP.PCM.PN ---
Subjective - Date & Time of Evaluation Date of Evaluation: 06/14/17 Time of Evaluation: 11:45 - Subjective Subjective: Pt seen and examined at bedside this morning, doing well. does not have any complaints, denies headaches, vision changes, nausea or vomiting. tolerating PT well. Nurses notes reviewed, physical therapist notes reviewed Objective - Vital Signs/Intake and Output Vital Signs (last 24 hours): Temp Pulse Resp BP Pulse Ox 97.9 F 77 20 141/73 99 06/14/17 15:11 06/14/17 15:11 06/14/17 15:11 06/14/17 15:11 06/14/17 15:11 - Medications Medications: Current Medications Acetaminophen (Tylenol 325mg Tab) 325 mg PO Q6 PRN PRN Reason: Headache Last Admin: 06/06/17 15:17 Dose: 325 mg Amlodipine Besylate (Norvasc) 10 mg PO DAILY [facility] Last Admin: 06/14/17 08:14 Dose: 10 mg Atorvastatin Calcium (Lipitor) 40 mg PO HS [facility] Last Admin: 06/13/17 21:14 Dose: 40 mg Brimonidine Tartrate (Alphagan 0.2% Opht) 1 drop OU Q12 [facility] Last Admin: 06/14/17 08:13 Dose: 1 drop Calcitriol (Rocaltrol) 0.25 mcg PO TTS [facility] Last Admin: 06/13/17 08:49 Dose: 0.25 mcg Calcitriol (Rocaltrol) 1.5 mcg PO TTS [facility] Last Admin: 06/13/17 10:00 Dose: 1.5 mcg Clonidine HCl (Catapres) 0.1 mg PO BID [facility] Last Admin: 06/14/17 08:14 Dose: 0.1 mg Gabapentin (Neurontin) 100 mg PO HS [facility] Last Admin: 06/13/17 21:15 Dose: 100 mg Insulin Human Lispro (Humalog) 0 units SC ACHS [facility] PRN Reason: Protocol Last Admin: 06/14/17 12:14 Dose: 1 unit Latanoprost (Xalatan Opht) 1 drop OU HS [facility] Last Admin: 06/13/17 21:15 Dose: 1 drop Pantoprazole Sodium (Protonix Ec Tab) 20 mg PO DAILY [facility] Last Admin: 06/14/17 08:15 Dose: 20 mg Senna/Docusate Sodium (Senokot S 50 Mg-8.6 Mg) 1 tab PO HS [facility] Last Admin: 06/13/17 21:15 Dose: 1 tab Sevelamer HCl (Renagel) 2,400 mg PO TIDWM [facility] Last Admin: 06/14/17 11:35 Dose: 2,400 mg Valsartan (Diovan) 320 mg PO DAILY [facility] Last Admin: 06/14/17 08:14 Dose: 320 mg Vitamin B Complex/Vit C/Folic Acid (Nephro-Ava) 1 tab PO DAILY [facility] Last Admin: 06/14/17 08:14 Dose: 1 tab - Labs Labs: 06/13/17 05:30 06/13/17 05:30 - Constitutional Appears: Non-toxic, No Acute Distress - Head Exam Head Exam: NORMOCEPHALIC - Eye Exam Eye Exam: Normal appearance, PERRL Pupil Exam: NORMAL ACCOMODATION - ENT Exam ENT Exam: Mucous Membranes Moist - Respiratory Exam Respiratory Exam: Clear to Ausculation Bilateral, NORMAL BREATHING PATTERN. absent: Wheezes - Cardiovascular Exam Cardiovascular Exam: REGULAR RHYTHM, +S1, +S2 - GI/Abdominal Exam GI & Abdominal Exam: Soft, Normal Bowel Sounds. absent: Tenderness - Extremities Exam Extremities Exam: absent: Calf Tenderness, Pedal Edema - Neurological Exam Neurological Exam: Alert, Awake, Oriented x3 Neuro motor strength exam: Left Upper Extremity: 4, Right Upper Extremity: 4, Left Lower Extremity: 4, Right Lower Extremity: 4 Assessment and Plan - Assessment and Plan (Free Text) Assessment: 61 y.o M with pmh of HTN, ESRD on HD (TThS), NIDDM, hyperlipidemia, and visual impairment who presented with right sided facial numbness and weakness who was found to have a hemorragic stroke on CT 05/28. Neurosurgery was consulted with no surgical intervention indicated. CT findings have remained stable. Patient was discharge for further acute rehabilitation. Plan: Acute Hemorragic stroke, with rt sided numbness and tingling -initial CT showed 1.3 x 1.6 x 2.6 cm focal hemorrhage within the left basal ganglia. -neurosurgery consult recommends no surgical intervention needed -Neurology, Dr Long, consulted. Recommending tight BP control, no antiplt activity for atleast 3 weeks from onset of the bleed. and acute Physical therapy -recent head CT (06/01/17) re-demonstrated small left hematoma which is less dense now, No sign of new hemorrhages or Obstructive type of hydrocephalus. -serial neuro examinations reveal improvement in rt sided weakness -Continue rehabilitation -Tylenol 325 PO Q6 PRN -Gabapentin 100 mg PO HS [facility] HTN, uncontrolled -continue with clonidine 0.1mg BID -continue with PO Valsartan 320mg daily. -continue Norvasc 10mg PO -fluctuating elevated BP -Will continue to monitor BP ESRD -HD schedule on TThSat -as per nephrology consult(Dr. Gonzales): renvela -will monitor BUN/Cr Type 2 non-insulin depedent DM -last hemoglobin A1C: 6.1% -continue with SSI Hyperlipidemia -controlled -continue statin 40 mg GI ppx -protonix 20mg DVT ppx -SCD -no medication given hemorrhagic stroke
[2017-06-14] MEDS: Docusate-Senna 50 mg-8.6 mg Tab PO SCH (21:15)
[2017-06-14] MEDS: Latanoprost 0.005% Opht SOUTION OU SCH (21:15)
[2017-06-15] MEDS: Insulin Lispro (humaLOG) 100 Units/ml Inj SC SCH ×4 (06:48→21:14)
[2017-06-15] MEDS: Brimonidine 0.2% 50 DROP/5 ML BOTTLE OU SCH ×2 (08:28→21:13)
[2017-06-15] MEDS: Multivitamin Vitamin B Complex (Nephro-Vite) Tab PO SCH (08:29)
[2017-06-15] MEDS: Pantoprazole 20 mg EC Tab PO SCH (08:30)
--- NOTE | 2017-06-15 09:30 | CP.PCM.PN ---
Subjective - Date & Time of Evaluation Date of Evaluation: 06/15/17 Time of Evaluation: 09:28 - Subjective Subjective: Patient is awake and conscious No significant changes Blood pressure is still elevated this morning We will adjust giving clonidine now Then patient and plan Status post intracranial bleeding and recovering Hypertension A. fib blood pressure is still not controlled by tomorrow increase the clonidine 0.2 mg every 12 hours And this stage renal disease with dialysis TTS Objective - Vital Signs/Intake and Output Vital Signs (last 24 hours): Temp Pulse Resp BP Pulse Ox 97 F L 78 20 176/88 H 98 06/14/17 20:00 06/15/17 08:30 06/14/17 22:00 06/15/17 08:30 06/14/17 22:00 - Medications Medications: Current Medications Acetaminophen (Tylenol 325mg Tab) 325 mg PO Q6 PRN PRN Reason: Headache Last Admin: 06/06/17 15:17 Dose: 325 mg Amlodipine Besylate (Norvasc) 10 mg PO DAILY [facility] Last Admin: 06/15/17 08:30 Dose: 10 mg Atorvastatin Calcium (Lipitor) 40 mg PO HS [facility] Last Admin: 06/14/17 21:15 Dose: 40 mg Brimonidine Tartrate (Alphagan 0.2% Opht) 1 drop OU Q12 [facility] Last Admin: 06/15/17 08:28 Dose: 1 drop Calcitriol (Rocaltrol) 0.25 mcg PO TTS [facility] Last Admin: 06/13/17 08:49 Dose: 0.25 mcg Calcitriol (Rocaltrol) 1.5 mcg PO TTS [facility] Last Admin: 06/13/17 10:00 Dose: 1.5 mcg Clonidine HCl (Catapres) 0.1 mg PO Q12 [facility] Gabapentin (Neurontin) 100 mg PO HS [facility] Last Admin: 06/14/17 21:15 Dose: 100 mg Insulin Human Lispro (Humalog) 0 units SC ACHS [facility] PRN Reason: Protocol Last Admin: 06/15/17 06:48 Dose: Not Given Latanoprost (Xalatan Opht) 1 drop OU HS [facility] Last Admin: 06/14/17 21:15 Dose: 1 drop Pantoprazole Sodium (Protonix Ec Tab) 20 mg PO DAILY [facility] Last Admin: 06/15/17 08:30 Dose: 20 mg Senna/Docusate Sodium (Senokot S 50 Mg-8.6 Mg) 1 tab PO HS [facility] Last Admin: 06/14/17 21:15 Dose: Not Given Sevelamer HCl (Renagel) 2,400 mg PO TIDWM [facility] Last Admin: 06/15/17 08:30 Dose: 2,400 mg Valsartan (Diovan) 320 mg PO DAILY [facility] Last Admin: 06/15/17 08:29 Dose: 320 mg Vitamin B Complex/Vit C/Folic Acid (Nephro-Ava) 1 tab PO DAILY [facility] Last Admin: 06/15/17 08:29 Dose: 1 tab - Labs Labs: 06/13/17 05:30 06/13/17 05:30 Assessment and Plan (1) Hemorrhagic cerebrovascular accident (CVA) Status: Acute (2) DM2 (diabetes mellitus, type 2) Status: Chronic (3) ESRD (end stage renal disease) Status: Chronic (4) Hypertension Status: Chronic
[2017-06-15] MEDS: Docusate-Senna 50 mg-8.6 mg Tab PO SCH (21:15)
[2017-06-15] MEDS: Latanoprost 0.005% Opht SOUTION OU SCH (21:19)
[2017-06-16] MEDS: Insulin Lispro (humaLOG) 100 Units/ml Inj SC SCH ×4 (06:30→21:20)
[2017-06-16] MEDS: Brimonidine 0.2% 50 DROP/5 ML BOTTLE OU SCH ×2 (08:27→21:19)
[2017-06-16] MEDS: Multivitamin Vitamin B Complex (Nephro-Vite) Tab PO SCH (08:29)
[2017-06-16] MEDS: Pantoprazole 20 mg EC Tab PO SCH (08:30)
--- NOTE | 2017-06-16 10:49 | CP.PCM.PN ---
Subjective - Date & Time of Evaluation Date of Evaluation: 06/16/17 Time of Evaluation: 10:47 - Subjective Subjective: Patient receiving physiotherapy Blood pressure is still elevated Increase the clonidine 0.2 mg every 12 hours Hemodialysis about to start shortly With ultrafiltration 2000 mL Potassium bath 2 meq Sodium bath 138 mEq Bicarbonate 34 Patient tolerating hemodialysis and as we mentioned continue monitor blood pressure and continue adjustment of antihypertensive medication Objective - Vital Signs/Intake and Output Vital Signs (last 24 hours): Temp Pulse Resp BP Pulse Ox 97.3 F L 79 20 175/84 H 98 06/16/17 09:00 06/16/17 09:00 06/16/17 09:00 06/16/17 09:00 06/16/17 07:34 - Medications Medications: Current Medications Acetaminophen (Tylenol 325mg Tab) 325 mg PO Q6 PRN PRN Reason: Headache Last Admin: 06/06/17 15:17 Dose: 325 mg Amlodipine Besylate (Norvasc) 10 mg PO DAILY [facility] Last Admin: 06/16/17 08:29 Dose: 10 mg Atorvastatin Calcium (Lipitor) 40 mg PO HS [facility] Last Admin: 06/15/17 21:15 Dose: 40 mg Brimonidine Tartrate (Alphagan 0.2% Opht) 1 drop OU Q12 [facility] Last Admin: 06/16/17 08:27 Dose: 1 drop Calcitriol (Rocaltrol) 0.25 mcg PO TTS [facility] Last Admin: 06/16/17 08:30 Dose: 0.25 mcg Calcitriol (Rocaltrol) 1.5 mcg PO TTS [facility] Last Admin: 06/16/17 08:30 Dose: 1.5 mcg Clonidine HCl (Catapres) 0.2 mg PO Q12 [facility] Gabapentin (Neurontin) 100 mg PO HS [facility] Last Admin: 06/15/17 21:15 Dose: 100 mg Insulin Human Lispro (Humalog) 0 units SC ACHS [facility] PRN Reason: Protocol Last Admin: 06/16/17 06:30 Dose: Not Given Latanoprost (Xalatan Opht) 1 drop OU HS [facility] Last Admin: 06/15/17 21:19 Dose: 1 drop Pantoprazole Sodium (Protonix Ec Tab) 20 mg PO DAILY [facility] Last Admin: 06/16/17 08:30 Dose: 20 mg Senna/Docusate Sodium (Senokot S 50 Mg-8.6 Mg) 1 tab PO HS [facility] Last Admin: 06/15/17 21:15 Dose: 1 tab Sevelamer HCl (Renagel) 2,400 mg PO TIDWM [facility] Last Admin: 06/16/17 08:30 Dose: 2,400 mg Valsartan (Diovan) 320 mg PO DAILY [facility] Last Admin: 06/16/17 08:28 Dose: 320 mg Vitamin B Complex/Vit C/Folic Acid (Nephro-Ava) 1 tab PO DAILY [facility] Last Admin: 06/16/17 08:29 Dose: 1 tab - Labs Labs: 06/13/17 05:30 06/13/17 05:30 Assessment and Plan (1) Hemorrhagic cerebrovascular accident (CVA) Status: Acute (2) DM2 (diabetes mellitus, type 2) Status: Chronic (3) ESRD (end stage renal disease) Status: Chronic (4) Hypertension Status: Chronic
--- NOTE | 2017-06-16 11:37 | CP.PCM.PN ---
Subjective - Date & Time of Evaluation Date of Evaluation: 06/16/17 Time of Evaluation: 12:20 - Subjective Subjective: Pt seen and examined at bedside, does not have any complaints. denies pain, or headache or visual changes. tolerating his diet and PT. PT's notes reviewed. Pt has another rounds of elevated BPs today for which Nephrology increased his clonidine to 0.2mg BID. Objective - Vital Signs/Intake and Output Vital Signs (last 24 hours): Temp Pulse Resp BP Pulse Ox 97.3 F L 79 20 175/84 H 98 06/16/17 09:00 06/16/17 09:00 06/16/17 09:00 06/16/17 09:00 06/16/17 07:34 - Medications Medications: Current Medications Acetaminophen (Tylenol 325mg Tab) 325 mg PO Q6 PRN PRN Reason: Headache Last Admin: 06/06/17 15:17 Dose: 325 mg Amlodipine Besylate (Norvasc) 10 mg PO DAILY [facility] Last Admin: 06/16/17 08:29 Dose: 10 mg Atorvastatin Calcium (Lipitor) 40 mg PO HS [facility] Last Admin: 06/15/17 21:15 Dose: 40 mg Brimonidine Tartrate (Alphagan 0.2% Opht) 1 drop OU Q12 [facility] Last Admin: 06/16/17 08:27 Dose: 1 drop Calcitriol (Rocaltrol) 0.25 mcg PO TTS [facility] Last Admin: 06/16/17 08:30 Dose: 0.25 mcg Calcitriol (Rocaltrol) 1.5 mcg PO TTS [facility] Last Admin: 06/16/17 08:30 Dose: 1.5 mcg Clonidine HCl (Catapres) 0.2 mg PO Q12 [facility] Gabapentin (Neurontin) 100 mg PO HS [facility] Last Admin: 06/15/17 21:15 Dose: 100 mg Insulin Human Lispro (Humalog) 0 units SC ACHS [facility] PRN Reason: Protocol Last Admin: 06/16/17 11:15 Dose: Not Given Latanoprost (Xalatan Opht) 1 drop OU HS [facility] Last Admin: 06/15/17 21:19 Dose: 1 drop Pantoprazole Sodium (Protonix Ec Tab) 20 mg PO DAILY [facility] Last Admin: 06/16/17 08:30 Dose: 20 mg Senna/Docusate Sodium (Senokot S 50 Mg-8.6 Mg) 1 tab PO HS [facility] Last Admin: 06/15/17 21:15 Dose: 1 tab Sevelamer HCl (Renagel) 2,400 mg PO TIDWM [facility] Last Admin: 06/16/17 08:30 Dose: 2,400 mg Valsartan (Diovan) 320 mg PO DAILY [facility] Last Admin: 06/16/17 08:28 Dose: 320 mg Vitamin B Complex/Vit C/Folic Acid (Nephro-Ava) 1 tab PO DAILY [facility] Last Admin: 06/16/17 08:29 Dose: 1 tab - Labs Labs: 06/13/17 05:30 06/13/17 05:30 - Constitutional Appears: Non-toxic, No Acute Distress - Head Exam Head Exam: NORMOCEPHALIC - ENT Exam ENT Exam: Mucous Membranes Moist - Respiratory Exam Respiratory Exam: Clear to Ausculation Bilateral, NORMAL BREATHING PATTERN. absent: Wheezes - Cardiovascular Exam Cardiovascular Exam: REGULAR RHYTHM, +S1, +S2 - GI/Abdominal Exam GI & Abdominal Exam: Soft, Normal Bowel Sounds. absent: Tenderness - Extremities Exam Extremities Exam: absent: Calf Tenderness, Pedal Edema - Neurological Exam Neurological Exam: Alert, Awake Neuro motor strength exam: Left Upper Extremity: 3, Right Upper Extremity: 3, Left Lower Extremity: 3, Right Lower Extremity: 3 Assessment and Plan - Assessment and Plan (Free Text) Assessment: 61 y.o M with pmh of HTN, ESRD on HD (TThS), NIDDM, hyperlipidemia, and visual impairment who presented with right sided facial numbness and weakness who was found to have a hemorragic stroke on CT 05/28. Neurosurgery was consulted with no surgical intervention indicated. CT findings have remained stable. Patient was discharge for further acute rehabilitation. Plan: Acute Hemorragic stroke, with rt sided numbness and tingling -initial CT showed 1.3 x 1.6 x 2.6 cm focal hemorrhage within the left basal ganglia. -neurosurgery consult recommends no surgical intervention needed -Neurology, Dr Long, consulted. Recommending tight BP control, no antiplt activity for atleast 3 weeks from onset of the bleed. and acute Physical therapy -recent head CT (06/01/17) re-demonstrated small left hematoma which is less dense now, No sign of new hemorrhages or Obstructive type of hydrocephalus. -serial neuro examinations reveal improvement in rt sided weakness -Continue rehabilitation -Tylenol 325 PO Q6 PRN -Gabapentin 100 mg PO HS [facility] HTN, uncontrolled -clonidine increased 0.2mg BID today due to elevation in BP -continue with PO Valsartan 320mg daily. -continue Norvasc 10mg PO -fluctuating elevated BP -Will continue to monitor BP ESRD -HD schedule on TThSat -as per nephrology consult(Dr. Gonzales): renvela -will monitor BUN/Cr Type 2 non-insulin depedent DM -last hemoglobin A1C: 6.1% -continue with SSI Hyperlipidemia -controlled -continue statin 40 mg GI ppx -protonix 20mg DVT ppx -SCD -no medication given hemorrhagic stroke, per neurology obtain follow up CT of head before starting antiplt
--- NOTE | 2017-06-16 13:15 | CP.PCM.PN ---
Subjective - Date & Time of Evaluation Date of Evaluation: 06/16/17 Time of Evaluation: 12:00 - Subjective Subjective: patinet with no complaints of pain, speaks mostly trinidadian Objective - Vital Signs/Intake and Output Vital Signs (last 24 hours): Temp Pulse Resp BP Pulse Ox 97.3 F L 79 20 175/84 H 98 06/16/17 09:00 06/16/17 09:00 06/16/17 09:00 06/16/17 09:00 06/16/17 07:34 - Medications Medications: Current Medications Acetaminophen (Tylenol 325mg Tab) 325 mg PO Q6 PRN PRN Reason: Headache Last Admin: 06/06/17 15:17 Dose: 325 mg Amlodipine Besylate (Norvasc) 10 mg PO DAILY [facility] Last Admin: 06/16/17 08:29 Dose: 10 mg Atorvastatin Calcium (Lipitor) 40 mg PO HS [facility] Last Admin: 06/15/17 21:15 Dose: 40 mg Brimonidine Tartrate (Alphagan 0.2% Opht) 1 drop OU Q12 [facility] Last Admin: 06/16/17 08:27 Dose: 1 drop Calcitriol (Rocaltrol) 0.25 mcg PO TTS [facility] Last Admin: 06/16/17 08:30 Dose: 0.25 mcg Calcitriol (Rocaltrol) 1.5 mcg PO TTS [facility] Last Admin: 06/16/17 08:30 Dose: 1.5 mcg Clonidine HCl (Catapres) 0.2 mg PO Q12 [facility] Gabapentin (Neurontin) 100 mg PO HS [facility] Last Admin: 06/15/17 21:15 Dose: 100 mg Insulin Human Lispro (Humalog) 0 units SC ACHS [facility] PRN Reason: Protocol Last Admin: 06/16/17 11:15 Dose: Not Given Latanoprost (Xalatan Opht) 1 drop OU HS [facility] Last Admin: 06/15/17 21:19 Dose: 1 drop Pantoprazole Sodium (Protonix Ec Tab) 20 mg PO DAILY [facility] Last Admin: 06/16/17 08:30 Dose: 20 mg Senna/Docusate Sodium (Senokot S 50 Mg-8.6 Mg) 1 tab PO HS [facility] Last Admin: 06/15/17 21:15 Dose: 1 tab Sevelamer HCl (Renagel) 2,400 mg PO TIDWM [facility] Last Admin: 06/16/17 12:04 Dose: 2,400 mg Valsartan (Diovan) 320 mg PO DAILY [facility] Last Admin: 06/16/17 08:28 Dose: 320 mg Vitamin B Complex/Vit C/Folic Acid (Nephro-Ava) 1 tab PO DAILY [facility] Last Admin: 06/16/17 08:29 Dose: 1 tab - Labs Labs: 06/13/17 05:30 06/13/17 05:30 - Head Exam Head Exam: ATRAUMATIC, NORMAL INSPECTION, NORMOCEPHALIC - Eye Exam Eye Exam: EOMI, Normal appearance, PERRL Pupil Exam: NORMAL ACCOMODATION - ENT Exam ENT Exam: Mucous Membranes Moist, Normal Exam - Neck Exam Neck Exam: Full ROM - Respiratory Exam Respiratory Exam: NORMAL BREATHING PATTERN - Cardiovascular Exam Cardiovascular Exam: REGULAR RHYTHM - GI/Abdominal Exam GI & Abdominal Exam: Normal Bowel Sounds - Rectal Exam Rectal Exam: NORMAL INSPECTION - Extremities Exam Extremities Exam: Normal Capillary Refill - Neurological Exam Neurological Exam: Alert, Awake Neuro motor strength exam: Left Upper Extremity: 3, Right Upper Extremity: 3, Left Lower Extremity: 3, Right Lower Extremity: 3 - Psychiatric Exam Psychiatric exam: Normal Affect, Normal Mood - Skin Skin Exam: Normal Color Assessment and Plan (1) CVA (cerebral vascular accident) Assessment & Plan: plan for physical, and occupational and rec therapy discussed with family Status: Acute (2) Chest pain Status: Acute (3) Chronic renal failure Status: Acute (4) DVT prophylaxis Status: Acute (5) Fluid overload Status: Acute (6) Gangrene Status: Acute (7) Headache Status: Acute (8) Hemorrhagic cerebrovascular accident (CVA) Status: Acute
[2017-06-16] MEDS: Docusate-Senna 50 mg-8.6 mg Tab PO SCH (21:19)
[2017-06-16] MEDS: Latanoprost 0.005% Opht SOUTION OU SCH (21:23)
[2017-06-17] MEDS: Insulin Lispro (humaLOG) 100 Units/ml Inj SC SCH ×4 (08:20→21:00)
[2017-06-17] MEDS: Multivitamin Vitamin B Complex (Nephro-Vite) Tab PO SCH (08:23)
[2017-06-17] MEDS: Brimonidine 0.2% 50 DROP/5 ML BOTTLE OU SCH ×2 (08:23→20:47)
[2017-06-17] MEDS: Pantoprazole 20 mg EC Tab PO SCH (08:23)
--- NOTE | 2017-06-17 11:17 | CP.PCM.PN ---
Subjective - Date & Time of Evaluation Date of Evaluation: 06/17/17 Time of Evaluation: 11:16 - Subjective Subjective: Patient appears to be stable receiving rehabilitation Blood pressure better controlled on clonidine 0.2 mg twice a day as we adjusted yesterday Continue monitoring his scheduled for hemodialysis for tomorrow No new event reported Objective - Vital Signs/Intake and Output Vital Signs (last 24 hours): Temp Pulse Resp BP Pulse Ox 98.0 F 70 19 141/86 98 06/17/17 08:36 06/17/17 08:36 06/17/17 08:36 06/17/17 08:36 06/17/17 08:36 - Medications Medications: Current Medications Acetaminophen (Tylenol 325mg Tab) 325 mg PO Q6 PRN PRN Reason: Headache Last Admin: 06/16/17 13:47 Dose: 325 mg Amlodipine Besylate (Norvasc) 10 mg PO DAILY [facility] Last Admin: 06/17/17 08:25 Dose: 10 mg Atorvastatin Calcium (Lipitor) 40 mg PO HS [facility] Last Admin: 06/16/17 21:19 Dose: 40 mg Brimonidine Tartrate (Alphagan 0.2% Opht) 1 drop OU Q12 [facility] Last Admin: 06/17/17 08:23 Dose: 1 drop Calcitriol (Rocaltrol) 0.25 mcg PO TTS [facility] Last Admin: 06/16/17 08:30 Dose: 0.25 mcg Calcitriol (Rocaltrol) 1.5 mcg PO TTS [facility] Last Admin: 06/16/17 08:30 Dose: 1.5 mcg Clonidine HCl (Catapres) 0.2 mg PO Q12 [facility] Last Admin: 06/17/17 08:24 Dose: 0.2 mg Gabapentin (Neurontin) 100 mg PO HS [facility] Last Admin: 06/16/17 21:19 Dose: 100 mg Insulin Human Lispro (Humalog) 0 units SC ACHS [facility] PRN Reason: Protocol Last Admin: 06/17/17 08:20 Dose: 1 unit Latanoprost (Xalatan Opht) 1 drop OU HS [facility] Last Admin: 06/16/17 21:23 Dose: 1 drop Pantoprazole Sodium (Protonix Ec Tab) 20 mg PO DAILY [facility] Last Admin: 06/17/17 08:23 Dose: 20 mg Senna/Docusate Sodium (Senokot S 50 Mg-8.6 Mg) 1 tab PO HS [facility] Last Admin: 06/16/17 21:19 Dose: 1 tab Sevelamer HCl (Renagel) 2,400 mg PO TIDWM [facility] Last Admin: 06/17/17 08:23 Dose: 2,400 mg Valsartan (Diovan) 320 mg PO DAILY [facility] Last Admin: 06/17/17 08:24 Dose: 320 mg Vitamin B Complex/Vit C/Folic Acid (Nephro-Ava) 1 tab PO DAILY [facility] Last Admin: 06/17/17 08:23 Dose: 1 tab - Labs Labs: 06/13/17 05:30 06/13/17 05:30 Assessment and Plan (1) Hemorrhagic cerebrovascular accident (CVA) Status: Acute (2) DM2 (diabetes mellitus, type 2) Status: Chronic (3) ESRD (end stage renal disease) Status: Chronic (4) Hypertension Status: Chronic
--- NOTE | 2017-06-17 12:18 | PSY.TMCNF ---
Nursing - Vital Signs Vital Signs (Last 8 hours): Vital Signs 06/17/17 06/17/17 06/17/17 08:24 08:25 08:36 Temperature 98.0 F Pulse Rate 69 69 70 Respiratory 19 Rate Blood Pressure 141/86 141/86 141/86 O2 Sat by Pulse 98 Oximetry Pain: 0 - Precautions: Precautions: Fall Prevention - Medications/Other Issues Comment: Pt at moderate nutritional risk. goals: 1: Consume >75% of meals.( partially met, continue). 2: Maintain weight within 5 lbs. of current body weight.(partially met, continue). Follow-up due on 06/18/2017 - Consults Comment: Dr. Gonzales, Dr. Long, Dr. Foster, Dr. Walker - Toileting Toileting: Minimal Assistance - Bladder Management Bladder Pattern: Normal Voiding Method: Toilet, Urinal - Bowel Management Bowel Pattern: Normal Bowel Management: Supervision Frequency of Accidents: 0 - Transfers Transfers: Minimal Assistance - ADL's ADL's: Minimal Assistance - Pain Management Comments: Denies pain - Patient/Family Teaching Comments: Care post CVA and safety precautions - Goals/Time Frame Comments: Per multidisciplinary care plan and goals Physical Therapy - Bed Mobility Bed Mobility: Verbal Cues, Contact Guard - Transfers Sit to Stand: Verbal Cues, Contact Guard - Ambulation Level of Assistance: Contact Guard Distance (ft.): 130 Assistive Devices: Rolling Walker - Stair Negotiation Stairs: Level of Assistance: Verbal Cues, Contact Guard Number of Stairs: 11 Stairs: Assistive Devices: Left Handrail, Right Handrail Comment: up and down 12 steps with bilateral rails cg- step to pattern. VCs for proper technique and to take rest breaks when appearing fatigued - Standing Balance Static Stand: Contact Guard Assist Dynamic Stand: Contact Guard Assist, Minimal Assistance Comment: unsupported short period of time on flat surface - Pain Pain (assessed during therapy session): 0 - Insight/Carryover Insight/Carryover: Good - Patient/Family Education Comment: -ongoing re: functional training, neuro re. ed. strengthening, safety, proper posture, deep breathing, DME use. -scheduled family training for 06/18/17 - Assessment/Plan Assessment: Pt continues to be agreeable to participate in recreation therapy sessions. Pt's main barrier to participation is his vision and fatigue. Pt is unable to read smaller print cards or items and requires items to be large print. Pt expressed no interest in audiobooks. - Goals Timeframe: 3 weeks Goals: Sit < > supine mod I. Sit < > stand supervision. Bed < > chair supervision. Pt will ambulate 500 ft with AD and supervision. Pt will ascend/ descend 2 flights of stairs with B hnadrails and supervision - Provider Therapist: Jossie Owens PT License Number: [id number] Occupational Therapy - Arousal/Attention/Orientation Patient Orientation: Person, Place, Time - ADL/IADL Self Feeding: Supervision, Verbal Cues, Set-up Help Grooming: Supervision, Verbal Cues, Set-up Help Bathing-Upper Extremity: Minimal Assistance Bathing-Lower Extremity: Set-up Help, Minimal Assistance, Moderate Assistance Dressing-Upper Extremity: Supervision, Verbal Cues, Set-up Help Dressing-Lower Extremity: Verbal Cues, Set-up Help, Minimal Assistance - Sitting Balance Static Sitting: Supervision Dynamic Sitting: Reaches across midline, Reaches out of base of support, Reaches within base of support, Requires supervision, Contact Guard Assist Comment: seated at edge of bed - Transfers Wheelchair to Bed Transfers: Verbal Cues, Set-up Help, Minimal Assistance, Moderate Assistance Toilet Transfers: Verbal Cues, Set-up Help, Minimal Assistance, Moderate Assistance - Wheelchair Management Level of Assistance: Dependent - Upper Extremity Status Right Upper Extremity Comment: AROM is WFLS, +minimal dysmetria and incoordination Left Upper Extremity Comment: AROM is WNLS throughout - Pain Pain (assessed during therapy session): 0 - Insight/Carryover Insight/Carryover: Good - Patient/Family Education Comment: -ongoing re: functional training, neuro re. ed. strengthening, safety, proper posture, deep breathing, DME use. -scheduled family training for 06/18/17 - Assessment/Plan Assessment: Pt continues to be agreeable to participate in recreation therapy sessions. Pt's main barrier to participation is his vision and fatigue. Pt is unable to read smaller print cards or items and requires items to be large print. Pt expressed no interest in audiobooks. - Goals Timeframe: 3 weeks Goals: Sit < > supine mod I. Sit < > stand supervision. Bed < > chair supervision. Pt will ambulate 500 ft with AD and supervision. Pt will ascend/ descend 2 flights of stairs with B hnadrails and supervision - Provider Therapist: Ariadne Pascual OTR/[facility] - Plan Assessment: Pt continues to be agreeable to participate in recreation therapy sessions. Pt's main barrier to participation is his vision and fatigue. Pt is unable to read smaller print cards or items and requires items to be large print. Pt expressed no interest in audiobooks. Recreational Therapy - Participation Participation: Monitors His/Her Own Leisure Time - Attendance Attendance: Daily - Activities Leisure Activities: Television - Socialization Level of Socialization: Initiates/interacts freely with care givers and peer - Diversional Time Diversional Time: television - Assessment Assessment/Plan: Pt continues to be agreeable to participate in recreation therapy sessions. Pt's main barrier to participation is his vision and fatigue. Pt is unable to read smaller print cards or items and requires items to be large print. Pt expressed no interest in audiobooks. 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 - Provider Therapist: Tracy Kaye, MEDIA COORDINATOR #[id number] Nutrition - Current Diet Current Diet/ Supplement/ Feedings: renal dialysis high consistent CHO diet - Appetite Percent Meal Consumed: 75-100% - Comments Comments: Care post CVA and safety precautions - Assessment/Goals/Time Frame Assessment/Goals/Time Frame: Pt at moderate nutritional risk. goals: 1: Consume >75% of meals.(partially met, continue). 2: Maintain weight within 5 lbs. of current body weight.(partially met, continue). Follow-up due on 2016 - Provider Provider: Martha Arreaga RD Case Management - Discharge Plan Discharge Plan: Home with significant other/family Rehabilitation Plan - Treatment Plan Treatment Plan: Occupational Therapy, Dietary, Patient/Family Education - Recommendation Recommendation: Physical Therapy, Occupational Therapy, Dietary, Patient/Family Education - Discharge Plan Discharge to: Home (wi 24 family training DME)
--- NOTE | 2017-06-17 14:12 | CT ---
PROCEDURE: CT HEAD WITHOUT CONTRAST. HISTORY: f/u hemorrhagic stroke COMPARISON: 06/01/2017 TECHNIQUE: Axial computed tomography images were obtained through the head/brain without intravenous contrast. Radiation dose: Total exam DLP = 839.29 mGy-cm. This CT exam was performed using one or more of the following dose reduction techniques: Automated exposure control, adjustment of the mA and/or kV according to patient size, and/or use of iterative reconstruction technique. FINDINGS: HEMORRHAGE: High attenuation hematoma in the left posterior basal ganglia/ left martins radiata seen on prior examination has resolved. There may be some low-attenuation fluid/seroma in the region of the high attenuation hematoma though it is difficult to distinguish from the low-density white matter surrounding at. No evidence of acute hemorrhage elsewhere. BRAIN: No mass effect or edema. Moderate to severe white matter ischemic change including periventricular matter as well as patchy and confluent deep and subcortical white matter, consistent with microvascular ischemic change. Old bilateral thalamic lacunar infarcts. . Old small bilateral basal ganglia lacunar infarcts. Nonspecific nodular calcification in the high posterior left parietal lobe. . VENTRICLES: Unremarkable. No hydrocephalus. CALVARIUM: Unremarkable. PARANASAL SINUSES: Unremarkable as visualized. No significant inflammatory changes. MASTOID AIR CELLS: Unremarkable as visualized. No inflammatory changes. OTHER FINDINGS: None. IMPRESSION: No acute hemorrhage. Previous high attenuation hemorrhage in the left posterior basal ganglia/ martins radiata has resolved. Possible low-attenuation seroma in the region of the prior acute hemorrhage. Atrophy and chronic white matter ischemic change. Bilateral old basal ganglia and thalamic lacunar infarcts.
--- NOTE | 2017-06-17 14:35 | CP.PCM.PN ---
Subjective - Date & Time of Evaluation Date of Evaluation: 06/17/17 Time of Evaluation: 07:00 - Subjective Subjective: no acute complaints at present Objective - Vital Signs/Intake and Output Vital Signs (last 24 hours): Temp Pulse Resp BP Pulse Ox 98.0 F 70 19 141/86 98 06/17/17 08:36 06/17/17 08:36 06/17/17 08:36 06/17/17 08:36 06/17/17 08:36 - Medications Medications: Current Medications Acetaminophen (Tylenol 325mg Tab) 325 mg PO Q6 PRN PRN Reason: Headache Last Admin: 06/16/17 13:47 Dose: 325 mg Amlodipine Besylate (Norvasc) 10 mg PO DAILY [facility] Last Admin: 06/17/17 08:25 Dose: 10 mg Atorvastatin Calcium (Lipitor) 40 mg PO HS [facility] Last Admin: 06/16/17 21:19 Dose: 40 mg Brimonidine Tartrate (Alphagan 0.2% Opht) 1 drop OU Q12 [facility] Last Admin: 06/17/17 08:23 Dose: 1 drop Calcitriol (Rocaltrol) 0.25 mcg PO TTS [facility] Last Admin: 06/16/17 08:30 Dose: 0.25 mcg Calcitriol (Rocaltrol) 1.5 mcg PO TTS [facility] Last Admin: 06/16/17 08:30 Dose: 1.5 mcg Clonidine HCl (Catapres) 0.2 mg PO Q12 [facility] Last Admin: 06/17/17 08:24 Dose: 0.2 mg Gabapentin (Neurontin) 100 mg PO HS [facility] Last Admin: 06/16/17 21:19 Dose: 100 mg Insulin Human Lispro (Humalog) 0 units SC ACHS [facility] PRN Reason: Protocol Last Admin: 06/17/17 12:00 Dose: Not Given Latanoprost (Xalatan Opht) 1 drop OU HS [facility] Last Admin: 06/16/17 21:23 Dose: 1 drop Pantoprazole Sodium (Protonix Ec Tab) 20 mg PO DAILY [facility] Last Admin: 06/17/17 08:23 Dose: 20 mg Senna/Docusate Sodium (Senokot S 50 Mg-8.6 Mg) 1 tab PO HS [facility] Last Admin: 06/16/17 21:19 Dose: 1 tab Sevelamer HCl (Renagel) 2,400 mg PO TIDWM [facility] Last Admin: 06/17/17 12:55 Dose: 2,400 mg Valsartan (Diovan) 320 mg PO DAILY [facility] Last Admin: 06/17/17 08:24 Dose: 320 mg Vitamin B Complex/Vit C/Folic Acid (Nephro-Ava) 1 tab PO DAILY [facility] Last Admin: 06/17/17 08:23 Dose: 1 tab - Labs Labs: 06/13/17 05:30 06/13/17 05:30 - Eye Exam Eye Exam: EOMI, Normal appearance, PERRL Pupil Exam: NORMAL ACCOMODATION - ENT Exam ENT Exam: Mucous Membranes Moist, Normal Exam - Neck Exam Neck Exam: Normal Inspection - Respiratory Exam Respiratory Exam: NORMAL BREATHING PATTERN - Cardiovascular Exam Cardiovascular Exam: REGULAR RHYTHM - GI/Abdominal Exam GI & Abdominal Exam: Normal Bowel Sounds - Rectal Exam Rectal Exam: NORMAL INSPECTION - Extremities Exam Extremities Exam: Normal Capillary Refill - Back Exam Back Exam: NORMAL INSPECTION - Neurological Exam Neurological Exam: Alert, Awake Neuro motor strength exam: Left Upper Extremity: 3, Right Upper Extremity: 3, Left Lower Extremity: 3, Right Lower Extremity: 3 - Psychiatric Exam Psychiatric exam: Normal Affect, Normal Mood - Skin Skin Exam: Dry, Intact Assessment and Plan (1) CVA (cerebral vascular accident) Assessment & Plan: plan for physical, occupational and rec therapy Rom, stregnthening rom , transfers, gait training status post team conference Status: Acute (2) Chest pain Status: Acute (3) Chronic renal failure Status: Acute (4) DVT prophylaxis Status: Acute (5) Fluid overload Status: Acute (6) Gangrene Status: Acute (7) Headache Status: Acute (8) Hemorrhagic cerebrovascular accident (CVA) Status: Acute
[2017-06-17] MEDS: Docusate-Senna 50 mg-8.6 mg Tab PO SCH (21:00)
[2017-06-17] MEDS: Latanoprost 0.005% Opht SOUTION OU SCH (21:00)
[2017-06-18] MEDS: Insulin Lispro (humaLOG) 100 Units/ml Inj SC SCH ×4 (06:31→21:28)
[2017-06-18] MEDS: Brimonidine 0.2% 50 DROP/5 ML BOTTLE OU SCH ×2 (08:36→21:28)
[2017-06-18] MEDS: Pantoprazole 20 mg EC Tab PO SCH (08:37)
[2017-06-18] MEDS: Multivitamin Vitamin B Complex (Nephro-Vite) Tab PO SCH (08:37)
--- NOTE | 2017-06-18 10:00 | CP.PCM.PN ---
Subjective - Date & Time of Evaluation Date of Evaluation: 06/18/17 Time of Evaluation: 09:58 - Subjective Subjective: No new event reported Patient appears to be stable clinically Vital sign noted to be okay blood pressure is still somewhat elevated although he is about to go on dialysis Objective - Vital Signs/Intake and Output Vital Signs (last 24 hours): Temp Pulse Resp BP Pulse Ox 97.0 F L 70 20 173/90 H 100 06/18/17 08:27 06/18/17 08:37 06/18/17 08:27 06/18/17 08:37 06/18/17 08:27 - Medications Medications: Current Medications Acetaminophen (Tylenol 325mg Tab) 325 mg PO Q6 PRN PRN Reason: Headache Last Admin: 06/16/17 13:47 Dose: 325 mg Amlodipine Besylate (Norvasc) 10 mg PO DAILY [facility] Last Admin: 06/18/17 08:37 Dose: 10 mg Aspirin (Aspirin) 325 mg PO DAILY [facility] Last Admin: 06/18/17 08:36 Dose: 325 mg Atorvastatin Calcium (Lipitor) 40 mg PO HS [facility] Last Admin: 06/17/17 21:00 Dose: 40 mg Brimonidine Tartrate (Alphagan 0.2% Opht) 1 drop OU Q12 [facility] Last Admin: 06/18/17 08:36 Dose: 1 drop Calcitriol (Rocaltrol) 0.25 mcg PO TTS [facility] Last Admin: 06/18/17 08:38 Dose: 0.25 mcg Calcitriol (Rocaltrol) 1.5 mcg PO TTS [facility] Last Admin: 06/18/17 08:36 Dose: 1.5 mcg Clonidine HCl (Catapres) 0.2 mg PO Q12 [facility] Last Admin: 06/18/17 08:36 Dose: 0.2 mg Gabapentin (Neurontin) 100 mg PO HS [facility] Last Admin: 06/17/17 21:00 Dose: 100 mg Insulin Human Lispro (Humalog) 0 units SC ACHS [facility] PRN Reason: Protocol Last Admin: 06/18/17 06:31 Dose: Not Given Latanoprost (Xalatan Opht) 1 drop OU HS [facility] Last Admin: 06/17/17 21:00 Dose: 1 drop Pantoprazole Sodium (Protonix Ec Tab) 20 mg PO DAILY [facility] Last Admin: 06/18/17 08:37 Dose: 20 mg Senna/Docusate Sodium (Senokot S 50 Mg-8.6 Mg) 1 tab PO HS [facility] Last Admin: 06/17/17 21:00 Dose: 1 tab Sevelamer HCl (Renagel) 2,400 mg PO TIDWM [facility] Last Admin: 06/18/17 08:33 Dose: 2,400 mg Valsartan (Diovan) 320 mg PO DAILY [facility] Last Admin: 06/18/17 08:37 Dose: 320 mg Vitamin B Complex/Vit C/Folic Acid (Nephro-Ava) 1 tab PO DAILY [facility] Last Admin: 06/18/17 08:37 Dose: 1 tab - Labs Labs: 06/13/17 05:30 06/13/17 05:30 - Constitutional Appears: No Acute Distress - ENT Exam ENT Exam: Mucous Membranes Moist - Respiratory Exam Respiratory Exam: absent: Chest Wall Tenderness - Cardiovascular Exam Cardiovascular Exam: REGULAR RHYTHM. absent: Rubs - GI/Abdominal Exam GI & Abdominal Exam: absent: Guarding - Extremities Exam Extremities Exam: absent: Calf Tenderness - Back Exam Back Exam: absent: CVA tenderness (L), CVA tenderness (R) - Neurological Exam Neurological Exam: Alert Assessment and Plan (1) Hemorrhagic cerebrovascular accident (CVA) Status: Acute (2) DM2 (diabetes mellitus, type 2) Status: Chronic (3) ESRD (end stage renal disease) Assessment & Plan: End stage renal disease hemodialysis about to start now after completing physiotherapy Dialysis order was given Ultrafiltration 2000 mL Sodium bath 138 Potassium bath 2 mEq and Continue monitoring blood pressure post dialysis if need to be we will adjust antihypertensive medication. Status: Chronic (4) Hypertension Status: Chronic
[2017-06-18 16:19] LABS: HEMOGLOBIN 9.4 g/dL (12.0-18.0); MEAN CELL VOLUME 91.8 fl (80.0-94.0); MEAN CORPUSCULAR HGB CONC 32.6 g/dL (33.0-37.0); RBC 3.14 Mil/uL (4.40-5.90); RED CELL DISTRIBUTION WIDTH 16.1 % (11.5-14.5); WHITE BLOOD COUNT 7.2 K/uL (4.8-10.8)
[2017-06-18 16:33] LABS: ALB/GLOB RATIO 1.5 (1.0-2.1); ALBUMIN 3.8 g/dL (3.5-5.0); CALCIUM 8.9 mg/dL (8.4-10.2)
[2017-06-18 18:28] VITALS: BMI 33.9
[2017-06-18] MEDS: Latanoprost 0.005% Opht SOUTION OU SCH (21:29)
[2017-06-18] MEDS: Docusate-Senna 50 mg-8.6 mg Tab PO SCH (21:32)
[2017-06-19] MEDS: Insulin Lispro (humaLOG) 100 Units/ml Inj SC SCH ×4 (06:29→22:17)
[2017-06-19] MEDS: Brimonidine 0.2% 50 DROP/5 ML BOTTLE OU SCH ×2 (08:28→22:17)
[2017-06-19] MEDS: Pantoprazole 20 mg EC Tab PO SCH (08:29)
[2017-06-19] MEDS: Multivitamin Vitamin B Complex (Nephro-Vite) Tab PO SCH (08:29)
--- NOTE | 2017-06-19 10:14 | CP.PCM.PN ---
Subjective - Date & Time of Evaluation Date of Evaluation: 06/19/17 Time of Evaluation: 10:12 - Subjective Subjective: Patient seen and the whole way at that he had visitations receiving physiotherapy Patient was able to walk with a walker Blood pressure is still elevated I will add minoxidil 2.5 mg daily Physical exam Chest no rales Heart no rubs Abdomen soft Extremity no edema Impression and plan As above add minoxidil hemodialysis tomorrow TTS Objective - Vital Signs/Intake and Output Vital Signs (last 24 hours): Temp Pulse Resp BP Pulse Ox 97.5 F L 67 22 171/66 H 99 06/19/17 08:42 06/19/17 08:42 06/19/17 08:42 06/19/17 08:42 06/19/17 08:42 - Medications Medications: Current Medications Acetaminophen (Tylenol 325mg Tab) 325 mg PO Q6 PRN PRN Reason: Headache Last Admin: 06/16/17 13:47 Dose: 325 mg Amlodipine Besylate (Norvasc) 10 mg PO DAILY [facility] Last Admin: 06/19/17 08:28 Dose: 10 mg Aspirin (Aspirin) 325 mg PO DAILY [facility] Last Admin: 06/19/17 08:29 Dose: 325 mg Atorvastatin Calcium (Lipitor) 40 mg PO HS [facility] Last Admin: 06/18/17 21:28 Dose: 40 mg Brimonidine Tartrate (Alphagan 0.2% Opht) 1 drop OU Q12 [facility] Last Admin: 06/19/17 08:28 Dose: 1 drop Calcitriol (Rocaltrol) 0.25 mcg PO TTS [facility] Last Admin: 06/18/17 08:38 Dose: 0.25 mcg Calcitriol (Rocaltrol) 1.5 mcg PO TTS [facility] Last Admin: 06/18/17 08:36 Dose: 1.5 mcg Clonidine HCl (Catapres) 0.2 mg PO Q12 [facility] Last Admin: 06/19/17 08:29 Dose: 0.2 mg Gabapentin (Neurontin) 100 mg PO HS [facility] Last Admin: 06/18/17 21:28 Dose: 100 mg Insulin Human Lispro (Humalog) 0 units SC ACHS [facility] PRN Reason: Protocol Last Admin: 06/19/17 06:29 Dose: Not Given Latanoprost (Xalatan Opht) 1 drop OU HS [facility] Last Admin: 06/18/17 21:29 Dose: 1 drop Minoxidil (Minoxidil) 2.5 mg PO DAILY [facility] Pantoprazole Sodium (Protonix Ec Tab) 20 mg PO DAILY [facility] Last Admin: 06/19/17 08:29 Dose: 20 mg Senna/Docusate Sodium (Senokot S 50 Mg-8.6 Mg) 1 tab PO HS [facility] Last Admin: 06/18/17 21:32 Dose: Not Given Sevelamer HCl (Renagel) 2,400 mg PO TIDWM [facility] Last Admin: 06/19/17 08:28 Dose: 2,400 mg Valsartan (Diovan) 320 mg PO DAILY [facility] Last Admin: 06/19/17 08:29 Dose: 320 mg Vitamin B Complex/Vit C/Folic Acid (Nephro-Ava) 1 tab PO DAILY [facility] Last Admin: 06/19/17 08:29 Dose: 1 tab - Labs Labs: 06/18/17 16:14 06/18/17 16:14 Assessment and Plan (1) Hemorrhagic cerebrovascular accident (CVA) Status: Acute (2) DM2 (diabetes mellitus, type 2) Status: Chronic (3) ESRD (end stage renal disease) Status: Chronic (4) Hypertension Status: Chronic
--- NOTE | 2017-06-19 13:22 | CP.PCM.PN ---
Subjective - Date & Time of Evaluation Date of Evaluation: 06/17/17 Time of Evaluation: 09:00 - Subjective Subjective: no acute complaints at present Objective - Vital Signs/Intake and Output Vital Signs (last 24 hours): Temp Pulse Resp BP Pulse Ox 97.5 F L 67 22 171/66 H 99 06/19/17 08:42 06/19/17 08:42 06/19/17 08:42 06/19/17 08:42 06/19/17 08:42 - Medications Medications: Current Medications Acetaminophen (Tylenol 325mg Tab) 325 mg PO Q6 PRN PRN Reason: Headache Last Admin: 06/16/17 13:47 Dose: 325 mg Amlodipine Besylate (Norvasc) 10 mg PO DAILY [facility] Last Admin: 06/19/17 08:28 Dose: 10 mg Aspirin (Aspirin) 325 mg PO DAILY [facility] Last Admin: 06/19/17 08:29 Dose: 325 mg Atorvastatin Calcium (Lipitor) 40 mg PO HS [facility] Last Admin: 06/18/17 21:28 Dose: 40 mg Brimonidine Tartrate (Alphagan 0.2% Opht) 1 drop OU Q12 [facility] Last Admin: 06/19/17 08:28 Dose: 1 drop Calcitriol (Rocaltrol) 0.25 mcg PO TTS [facility] Last Admin: 06/18/17 08:38 Dose: 0.25 mcg Calcitriol (Rocaltrol) 1.5 mcg PO TTS [facility] Last Admin: 06/18/17 08:36 Dose: 1.5 mcg Clonidine HCl (Catapres) 0.2 mg PO Q12 [facility] Last Admin: 06/19/17 08:29 Dose: 0.2 mg Gabapentin (Neurontin) 100 mg PO HS [facility] Last Admin: 06/18/17 21:28 Dose: 100 mg Insulin Human Lispro (Humalog) 0 units SC ACHS [facility] PRN Reason: Protocol Last Admin: 06/19/17 12:16 Dose: Not Given Latanoprost (Xalatan Opht) 1 drop OU HS [facility] Last Admin: 06/18/17 21:29 Dose: 1 drop Minoxidil (Minoxidil) 2.5 mg PO DAILY [facility] Last Admin: 06/19/17 12:19 Dose: 2.5 mg Pantoprazole Sodium (Protonix Ec Tab) 20 mg PO DAILY [facility] Last Admin: 06/19/17 08:29 Dose: 20 mg Senna/Docusate Sodium (Senokot S 50 Mg-8.6 Mg) 1 tab PO HS [facility] Last Admin: 06/18/17 21:32 Dose: Not Given Sevelamer HCl (Renagel) 2,400 mg PO TIDWM [facility] Last Admin: 06/19/17 12:19 Dose: 2,400 mg Valsartan (Diovan) 320 mg PO DAILY [facility] Last Admin: 06/19/17 08:29 Dose: 320 mg Vitamin B Complex/Vit C/Folic Acid (Nephro-Ava) 1 tab PO DAILY [facility] Last Admin: 06/19/17 08:29 Dose: 1 tab - Labs Labs: 06/18/17 16:14 06/18/17 16:14 - Head Exam Head Exam: ATRAUMATIC, NORMAL INSPECTION, NORMOCEPHALIC - Eye Exam Eye Exam: EOMI, Normal appearance, PERRL Pupil Exam: NORMAL ACCOMODATION - ENT Exam ENT Exam: Mucous Membranes Moist, Normal Exam - Neck Exam Neck Exam: Normal Inspection - Respiratory Exam Respiratory Exam: NORMAL BREATHING PATTERN - Cardiovascular Exam Cardiovascular Exam: REGULAR RHYTHM - GI/Abdominal Exam GI & Abdominal Exam: Normal Bowel Sounds - Rectal Exam Rectal Exam: NORMAL INSPECTION - Exam External exam: NORMAL EXTERNAL EXAM - Extremities Exam Extremities Exam: Normal Capillary Refill - Back Exam Back Exam: NORMAL INSPECTION - Neurological Exam Neurological Exam: Alert, Awake Neuro motor strength exam: Left Upper Extremity: 3, Right Upper Extremity: 3, Left Lower Extremity: 3, Right Lower Extremity: 3 - Psychiatric Exam Psychiatric exam: Normal Affect, Normal Mood - Skin Skin Exam: Dry, Intact Assessment and Plan (1) CVA (cerebral vascular accident) Assessment & Plan: plan for physical, occupational and rec ttherapy team conferecne Status: Acute (2) Chest pain Status: Acute (3) Chronic renal failure Status: Acute (4) DVT prophylaxis Status: Acute (5) Fluid overload Status: Acute (6) Gangrene Status: Acute (7) Headache Status: Acute (8) Hemorrhagic cerebrovascular accident (CVA) Status: Acute
--- NOTE | 2017-06-19 13:55 | CP.PCM.PN ---
Subjective - Date & Time of Evaluation Date of Evaluation: 06/19/17 Time of Evaluation: 07:00 - Subjective Subjective: no acute neck or back pain, generalized weakness Objective - Vital Signs/Intake and Output Vital Signs (last 24 hours): Temp Pulse Resp BP Pulse Ox 97.5 F L 67 22 171/66 H 99 06/19/17 08:42 06/19/17 08:42 06/19/17 08:42 06/19/17 08:42 06/19/17 08:42 - Medications Medications: Current Medications Acetaminophen (Tylenol 325mg Tab) 325 mg PO Q6 PRN PRN Reason: Headache Last Admin: 06/16/17 13:47 Dose: 325 mg Amlodipine Besylate (Norvasc) 10 mg PO DAILY [facility] Last Admin: 06/19/17 08:28 Dose: 10 mg Aspirin (Aspirin) 325 mg PO DAILY [facility] Last Admin: 06/19/17 08:29 Dose: 325 mg Atorvastatin Calcium (Lipitor) 40 mg PO HS [facility] Last Admin: 06/18/17 21:28 Dose: 40 mg Brimonidine Tartrate (Alphagan 0.2% Opht) 1 drop OU Q12 [facility] Last Admin: 06/19/17 08:28 Dose: 1 drop Calcitriol (Rocaltrol) 0.25 mcg PO TTS [facility] Last Admin: 06/18/17 08:38 Dose: 0.25 mcg Calcitriol (Rocaltrol) 1.5 mcg PO TTS [facility] Last Admin: 06/18/17 08:36 Dose: 1.5 mcg Clonidine HCl (Catapres) 0.2 mg PO Q12 [facility] Last Admin: 06/19/17 08:29 Dose: 0.2 mg Gabapentin (Neurontin) 100 mg PO HS [facility] Last Admin: 06/18/17 21:28 Dose: 100 mg Insulin Human Lispro (Humalog) 0 units SC ACHS [facility] PRN Reason: Protocol Last Admin: 06/19/17 12:16 Dose: Not Given Latanoprost (Xalatan Opht) 1 drop OU HS [facility] Last Admin: 06/18/17 21:29 Dose: 1 drop Minoxidil (Minoxidil) 2.5 mg PO DAILY [facility] Last Admin: 06/19/17 12:19 Dose: 2.5 mg Pantoprazole Sodium (Protonix Ec Tab) 20 mg PO DAILY [facility] Last Admin: 06/19/17 08:29 Dose: 20 mg Senna/Docusate Sodium (Senokot S 50 Mg-8.6 Mg) 1 tab PO HS [facility] Last Admin: 06/18/17 21:32 Dose: Not Given Sevelamer HCl (Renagel) 2,400 mg PO TIDWM [facility] Last Admin: 06/19/17 12:19 Dose: 2,400 mg Valsartan (Diovan) 320 mg PO DAILY [facility] Last Admin: 06/19/17 08:29 Dose: 320 mg Vitamin B Complex/Vit C/Folic Acid (Nephro-Ava) 1 tab PO DAILY [facility] Last Admin: 06/19/17 08:29 Dose: 1 tab - Labs Labs: 06/18/17 16:14 06/18/17 16:14 - Head Exam Head Exam: ATRAUMATIC, NORMAL INSPECTION, NORMOCEPHALIC - Eye Exam Eye Exam: EOMI, Normal appearance, PERRL Pupil Exam: NORMAL ACCOMODATION - ENT Exam ENT Exam: Mucous Membranes Moist, Normal Exam - Respiratory Exam Respiratory Exam: NORMAL BREATHING PATTERN - Cardiovascular Exam Cardiovascular Exam: REGULAR RHYTHM - GI/Abdominal Exam GI & Abdominal Exam: Normal Bowel Sounds - Exam External exam: NORMAL EXTERNAL EXAM - Extremities Exam Extremities Exam: Normal Capillary Refill, Normal Inspection - Neurological Exam Neurological Exam: Alert, Awake Neuro motor strength exam: Left Upper Extremity: 3, Right Upper Extremity: 3, Left Lower Extremity: 3, Right Lower Extremity: 3 - Psychiatric Exam Psychiatric exam: Normal Affect, Normal Mood - Skin Skin Exam: Dry, Intact Assessment and Plan (1) CVA (cerebral vascular accident) Assessment & Plan: plan for physical, occupational therapy monitor skin, bowel and bladder dc planning and rec therapy continue for Range of motion, strenghtening transfers and gait training Dc for 7?24 Status: Acute (2) Chest pain Status: Acute (3) Chronic renal failure Status: Acute (4) DVT prophylaxis Status: Acute (5) Fluid overload Status: Acute (6) Gangrene Status: Acute (7) Headache Status: Acute (8) Hemorrhagic cerebrovascular accident (CVA) Status: Acute
--- NOTE | 2017-06-19 17:22 | CP.PCM.PN ---
<Mary Lopez - Last Filed: 06/19/17 17:31> Subjective - Date & Time of Evaluation Date of Evaluation: 06/19/17 Time of Evaluation: 10:50 - Subjective Subjective: Pt was seen and evaluated today at bedside, reports he was told he is being discharged home on Thursday, but he does not feel like his gait is back to normal so he would like us to to talk to rehab about extending his rehab or sending him to another rehab. He does not have any other complaints otherwise. denies headache, dizziness, sob. Objective - Vital Signs/Intake and Output Vital Signs (last 24 hours): Temp Pulse Resp BP Pulse Ox 97.5 F L 67 22 171/66 H 99 06/19/17 08:42 06/19/17 08:42 06/19/17 08:42 06/19/17 08:42 06/19/17 08:42 - Medications Medications: Current Medications Acetaminophen (Tylenol 325mg Tab) 325 mg PO Q6 PRN PRN Reason: Headache Last Admin: 06/16/17 13:47 Dose: 325 mg Amlodipine Besylate (Norvasc) 10 mg PO DAILY [facility] Last Admin: 06/19/17 08:28 Dose: 10 mg Aspirin (Aspirin) 325 mg PO DAILY [facility] Last Admin: 06/19/17 08:29 Dose: 325 mg Atorvastatin Calcium (Lipitor) 40 mg PO HS [facility] Last Admin: 06/18/17 21:28 Dose: 40 mg Brimonidine Tartrate (Alphagan 0.2% Opht) 1 drop OU Q12 [facility] Last Admin: 06/19/17 08:28 Dose: 1 drop Calcitriol (Rocaltrol) 0.25 mcg PO TTS [facility] Last Admin: 06/18/17 08:38 Dose: 0.25 mcg Calcitriol (Rocaltrol) 1.5 mcg PO TTS [facility] Last Admin: 06/18/17 08:36 Dose: 1.5 mcg Clonidine HCl (Catapres) 0.2 mg PO Q12 [facility] Last Admin: 06/19/17 08:29 Dose: 0.2 mg Gabapentin (Neurontin) 100 mg PO HS [facility] Last Admin: 06/18/17 21:28 Dose: 100 mg Insulin Human Lispro (Humalog) 0 units SC ACHS [facility] PRN Reason: Protocol Last Admin: 06/19/17 16:55 Dose: Not Given Latanoprost (Xalatan Opht) 1 drop OU HS [facility] Last Admin: 06/18/17 21:29 Dose: 1 drop Minoxidil (Minoxidil) 2.5 mg PO DAILY [facility] Last Admin: 06/19/17 12:19 Dose: 2.5 mg Pantoprazole Sodium (Protonix Ec Tab) 20 mg PO DAILY [facility] Last Admin: 06/19/17 08:29 Dose: 20 mg Senna/Docusate Sodium (Senokot S 50 Mg-8.6 Mg) 1 tab PO HS [facility] Last Admin: 06/18/17 21:32 Dose: Not Given Sevelamer HCl (Renagel) 2,400 mg PO TIDWM [facility] Last Admin: 06/19/17 16:56 Dose: 2,400 mg Valsartan (Diovan) 320 mg PO DAILY [facility] Last Admin: 06/19/17 08:29 Dose: 320 mg Vitamin B Complex/Vit C/Folic Acid (Nephro-Ava) 1 tab PO DAILY [facility] Last Admin: 06/19/17 08:29 Dose: 1 tab - Labs Labs: 06/18/17 16:14 06/18/17 16:14 - Constitutional Appears: Non-toxic, No Acute Distress - Head Exam Head Exam: ATRAUMATIC - Eye Exam Eye Exam: Normal appearance - ENT Exam ENT Exam: Mucous Membranes Moist - Respiratory Exam Respiratory Exam: Clear to Ausculation Bilateral, NORMAL BREATHING PATTERN - Cardiovascular Exam Cardiovascular Exam: REGULAR RHYTHM, +S1, +S2 - GI/Abdominal Exam GI & Abdominal Exam: Soft, Normal Bowel Sounds - Extremities Exam Extremities Exam: absent: Calf Tenderness, Pedal Edema - Neurological Exam Neurological Exam: Alert Neuro motor strength exam: Left Upper Extremity: 3, Right Upper Extremity: 3, Left Lower Extremity: 3, Right Lower Extremity: 3 Additional comments: Gait: pt hesitant in initiating swing phase of gait Assessment and Plan - Assessment and Plan (Free Text) Assessment: 61 y.o M with pmh of HTN, ESRD on HD (TThS), NIDDM, hyperlipidemia, and visual impairment who presented with right sided facial numbness and weakness who was found to have a hemorragic stroke on CT 05/28. Neurosurgery was consulted with no surgical intervention indicated. Patient was discharge for further acute rehabilitation. Plan: Acute Hemorragic stroke, with rt sided numbness and tingling -initial CT showed 1.3 x 1.6 x 2.6 cm focal hemorrhage within the left basal ganglia. -neurosurgery consult recommends no surgical intervention needed -Neurology, Dr Long, consulted. Recommending tight BP control, no antiplt activity for atleast 3 weeks from onset of the bleed. and acute Physical therapy -recent head CT (06/17/17) No acute hemorrhage previous high attenuation hemorrhage in left posterior basal ganglia/martins radiate has resolved . -serial neuro examinations reveal improvement in rt sided weakness - gait not at baseline, need further rehabilitation -Continue rehabilitation -Tylenol 325 PO Q6 PRN -Gabapentin 100 mg PO HS [facility] HTN, uncontrolled -clonidine increased 0.2mg BID today due to elevation in BP -continue with PO Valsartan 320mg daily. -continue Norvasc 10mg PO -fluctuating elevated BP -Will continue to monitor BP ESRD -HD schedule on TThSat -as per nephrology consult(Dr. Gonzales): renvela -will monitor BUN/Cr Type 2 non-insulin depedent DM -last hemoglobin A1C: 6.1% -continue with SSI Hyperlipidemia -controlled -continue statin 40 mg GI ppx -protonix 20mg DVT ppx -SCD -antiplt was initiated on 06/18/17- Aspirin 325mg <Jana Sinha - Last Filed: 06/20/17 09:41> Subjective - Subjective Subjective: ATTENDING NOTE - ADDENDUM PATIENT SEEN AND EXAMINED. CASE DISCUSSED WITH RESIDENT. AGREE WITH PLAN. Objective - Vital Signs/Intake and Output Vital Signs (last 24 hours): Temp Pulse Resp BP Pulse Ox 96.4 F L 65 18 151/79 H 98 06/20/17 07:42 06/20/17 08:35 06/20/17 07:42 06/20/17 08:35 06/20/17 07:42 - Medications Medications: Current Medications Acetaminophen (Tylenol 325mg Tab) 325 mg PO Q6 PRN PRN Reason: Headache Last Admin: 06/16/17 13:47 Dose: 325 mg Amlodipine Besylate (Norvasc) 10 mg PO DAILY [facility] Last Admin: 06/20/17 08:34 Dose: 10 mg Aspirin (Aspirin) 325 mg PO DAILY [facility] Last Admin: 06/20/17 08:33 Dose: 325 mg Atorvastatin Calcium (Lipitor) 40 mg PO HS [facility] Last Admin: 06/19/17 22:17 Dose: 40 mg Brimonidine Tartrate (Alphagan 0.2% Opht) 1 drop OU Q12 [facility] Last Admin: 06/20/17 08:35 Dose: 1 drop Calcitriol (Rocaltrol) 0.25 mcg PO TTS [facility] Last Admin: 06/20/17 08:34 Dose: 0.25 mcg Calcitriol (Rocaltrol) 1.5 mcg PO TTS [facility] Last Admin: 06/20/17 08:34 Dose: 1.5 mcg Clonidine HCl (Catapres) 0.2 mg PO Q12 [facility] Last Admin: 06/20/17 08:35 Dose: 0.2 mg Gabapentin (Neurontin) 100 mg PO HS [facility] Last Admin: 06/19/17 22:17 Dose: 100 mg Insulin Human Lispro (Humalog) 0 units SC [facility] PRN Reason: Protocol Last Admin: 06/20/17 06:36 Dose: Not Given Latanoprost (Xalatan Opht) [address] [facility] Last Admin: 06/19/17 22:18 Dose: 1 drop Minoxidil (Minoxidil) 2.5 mg PO DAILY [facility] Last Admin: 06/20/17 08:34 Dose: 2.5 mg Pantoprazole Sodium (Protonix Ec Tab) 20 mg PO DAILY [facility] Last Admin: 06/20/17 08:34 Dose: 20 mg Senna/Docusate Sodium (Senokot S 50 Mg-8.6 Mg) 1 tab PO HS [facility] Last Admin: 06/19/17 22:18 Dose: 1 tab Sevelamer HCl (Renagel) 2,400 mg PO TIDWM [facility] Last Admin: 06/20/17 08:34 Dose: 2,400 mg Valsartan (Diovan) 320 mg PO DAILY [facility] Last Admin: 06/20/17 08:35 Dose: 320 mg Vitamin B Complex/Vit C/Folic Acid (Nephro-Ava) 1 tab PO DAILY [facility] Last Admin: 06/20/17 08:34 Dose: 1 tab - Labs Labs: 06/18/17 16:14 06/18/17 16:14
[2017-06-19] MEDS: Docusate-Senna 50 mg-8.6 mg Tab PO SCH (22:18)
[2017-06-19] MEDS: Latanoprost 0.005% Opht SOUTION OU SCH (22:18)
[2017-06-20] MEDS: Insulin Lispro (humaLOG) 100 Units/ml Inj SC SCH ×4 (06:36→21:01)
[2017-06-20] MEDS: Multivitamin Vitamin B Complex (Nephro-Vite) Tab PO SCH (08:34)
[2017-06-20] MEDS: Pantoprazole 20 mg EC Tab PO SCH (08:34)
[2017-06-20] MEDS: Brimonidine 0.2% 50 DROP/5 ML BOTTLE OU SCH ×2 (08:35→20:53)
--- NOTE | 2017-06-20 11:37 | CP.PCM.PCO ---
Physician Communication Note - Physician Communication Note Physician Communication Note: Nurse paged reporting pt has right arm pain, started this morning Additional Comments - Additional Comments Additional Comments: Seen and evaluated pt with in presence of his nurse, pt right forearm is significantly bigger compared to the left, with about a 7cm surface area tender and thickened. recommend warm/ cold compresses will obtain ultrasound of upper extremity
--- NOTE | 2017-06-20 14:00 | CP.PCM.PN ---
Subjective - Date & Time of Evaluation Date of Evaluation: 06/20/17 Time of Evaluation: 01:20 - Subjective Subjective: Alert. States he feels better Objective - Vital Signs/Intake and Output Vital Signs (last 24 hours): Temp Pulse Resp BP Pulse Ox 96.4 F L 65 18 151/79 H 98 06/20/17 07:42 06/20/17 08:35 06/20/17 07:42 06/20/17 08:35 06/20/17 07:42 - Medications Medications: Current Medications Acetaminophen (Tylenol 325mg Tab) 325 mg PO Q6 PRN PRN Reason: Headache Last Admin: 06/16/17 13:47 Dose: 325 mg Amlodipine Besylate (Norvasc) 10 mg PO DAILY [facility] Last Admin: 06/20/17 08:34 Dose: 10 mg Aspirin (Aspirin) 325 mg PO DAILY [facility] Last Admin: 06/20/17 08:33 Dose: 325 mg Atorvastatin Calcium (Lipitor) 40 mg PO HS [facility] Last Admin: 06/19/17 22:17 Dose: 40 mg Brimonidine Tartrate (Alphagan 0.2% Opht) 1 drop OU Q12 [facility] Last Admin: 06/20/17 08:35 Dose: 1 drop Calcitriol (Rocaltrol) 0.25 mcg PO TTS [facility] Last Admin: 06/20/17 08:34 Dose: 0.25 mcg Calcitriol (Rocaltrol) 1.5 mcg PO TTS [facility] Last Admin: 06/20/17 08:34 Dose: 1.5 mcg Clonidine HCl (Catapres) 0.2 mg PO Q12 [facility] Last Admin: 06/20/17 08:35 Dose: 0.2 mg Gabapentin (Neurontin) 100 mg PO HS [facility] Last Admin: 06/19/17 22:17 Dose: 100 mg Insulin Human Lispro (Humalog) 0 units SC ACHS [facility] PRN Reason: Protocol Last Admin: 06/20/17 12:15 Dose: Not Given Latanoprost (Xalatan Opht) 1 drop OU HS [facility] Last Admin: 06/19/17 22:18 Dose: 1 drop Minoxidil (Minoxidil) 2.5 mg PO DAILY [facility] Last Admin: 06/20/17 08:34 Dose: 2.5 mg Pantoprazole Sodium (Protonix Ec Tab) 20 mg PO DAILY [facility] Last Admin: 06/20/17 08:34 Dose: 20 mg Senna/Docusate Sodium (Senokot S 50 Mg-8.6 Mg) 1 tab PO HS [facility] Last Admin: 06/19/17 22:18 Dose: 1 tab Sevelamer HCl (Renagel) 2,400 mg PO TIDWM [facility] Last Admin: 06/20/17 12:17 Dose: 2,400 mg Valsartan (Diovan) 320 mg PO DAILY [facility] Last Admin: 06/20/17 08:35 Dose: 320 mg Vitamin B Complex/Vit C/Folic Acid (Nephro-Ava) 1 tab PO DAILY [facility] Last Admin: 06/20/17 08:34 Dose: 1 tab - Labs Labs: 06/18/17 16:14 06/18/17 16:14 - Respiratory Exam Additional comments: Lungs clear - Cardiovascular Exam Cardiovascular Exam: REGULAR RHYTHM - Extremities Exam Additional comments: Edema of Rt arm No pedal edema Assessment and Plan - Assessment and Plan (Free Text) Assessment: ESRD on maintenance HD HTN S/P CVA Plan: Continue HD TTS Stable on dialysis
--- NOTE | 2017-06-20 15:25 | US ---
PROCEDURE: Right Upper Extremity Venous Doppler HISTORY: right arm swollen, hard, tender COMPARISON: None available. TECHNIQUE: Right upper extremity deep veins, including the lower internal jugular, subclavian, axillary and brachial veins, were evaluated flow, compressibility and respiratory phasicity. Radial and ulnar veins were evaluated. Superficial cephalic and basilic veins were also evaluated. FINDINGS: Normal flow, compressibility and respiratory phasicity was observed in the right upper extremity deep veins. Normal flow is also demonstrated in the cephalic and basilic veins. IMPRESSION: No evidence of deep venous thrombosis in the right upper extremity. .
[2017-06-20 20:29] VITALS: O2SAT 97
--- NOTE | 2017-06-20 21:45 | CP.PCM.PN ---
Subjective - Date & Time of Evaluation Date of Evaluation: 06/20/17 Time of Evaluation: 12:00 - Subjective Subjective: no acute complaints of any pain Objective - Vital Signs/Intake and Output Vital Signs (last 24 hours): Temp Pulse Resp BP Pulse Ox 97.0 F L 67 20 152/74 H 97 06/20/17 20:28 06/20/17 20:28 06/20/17 20:28 06/20/17 20:28 06/20/17 20:28 - Medications Medications: Current Medications Acetaminophen (Tylenol 325mg Tab) 325 mg PO Q6 PRN PRN Reason: Headache Last Admin: 06/16/17 13:47 Dose: 325 mg Amlodipine Besylate (Norvasc) 10 mg PO DAILY [facility] Last Admin: 06/20/17 08:34 Dose: 10 mg Aspirin (Aspirin) 325 mg PO DAILY [facility] Last Admin: 06/20/17 08:33 Dose: 325 mg Atorvastatin Calcium (Lipitor) 40 mg PO HS [facility] Last Admin: 06/19/17 22:17 Dose: 40 mg Brimonidine Tartrate (Alphagan 0.2% Opht) 1 drop OU Q12 [facility] Last Admin: 06/20/17 20:53 Dose: 1 drop Calcitriol (Rocaltrol) 0.25 mcg PO TTS [facility] Last Admin: 06/20/17 08:34 Dose: 0.25 mcg Calcitriol (Rocaltrol) 1.5 mcg PO TTS [facility] Last Admin: 06/20/17 08:34 Dose: 1.5 mcg Clonidine HCl (Catapres) 0.2 mg PO Q12 [facility] Last Admin: 06/20/17 08:35 Dose: 0.2 mg Gabapentin (Neurontin) 100 mg PO HS [facility] Last Admin: 06/19/17 22:17 Dose: 100 mg Insulin Human Lispro (Humalog) 0 units SC ACHS [facility] PRN Reason: Protocol Last Admin: 06/20/17 21:01 Dose: Not Given Latanoprost (Xalatan Opht) 1 drop OU HS [facility] Last Admin: 06/19/17 22:18 Dose: 1 drop Minoxidil (Minoxidil) 2.5 mg PO DAILY [facility] Last Admin: 06/20/17 08:34 Dose: 2.5 mg Pantoprazole Sodium (Protonix Ec Tab) 20 mg PO DAILY [facility] Last Admin: 06/20/17 08:34 Dose: 20 mg Senna/Docusate Sodium (Senokot S 50 Mg-8.6 Mg) 1 tab PO HS [facility] Last Admin: 06/19/17 22:18 Dose: 1 tab Sevelamer HCl (Renagel) 2,400 mg PO TIDWM [facility] Last Admin: 06/20/17 16:37 Dose: 2,400 mg Valsartan (Diovan) 320 mg PO DAILY [facility] Last Admin: 06/20/17 08:35 Dose: 320 mg Vitamin B Complex/Vit C/Folic Acid (Nephro-Ava) 1 tab PO DAILY [facility] Last Admin: 06/20/17 08:34 Dose: 1 tab - Labs Labs: 06/18/17 16:14 06/18/17 16:14 - Head Exam Head Exam: ATRAUMATIC, NORMAL INSPECTION, NORMOCEPHALIC - Eye Exam Eye Exam: EOMI - ENT Exam ENT Exam: Mucous Membranes Moist - Respiratory Exam Respiratory Exam: Clear to Ausculation Bilateral, NORMAL BREATHING PATTERN - GI/Abdominal Exam GI & Abdominal Exam: Normal Bowel Sounds - Exam External exam: NORMAL EXTERNAL EXAM - Extremities Exam Extremities Exam: Normal Inspection - Back Exam Back Exam: NORMAL INSPECTION - Neurological Exam Neurological Exam: Alert, Awake Neuro motor strength exam: Left Upper Extremity: 3, Right Upper Extremity: 3, Left Lower Extremity: 3, Right Lower Extremity: 3 - Psychiatric Exam Psychiatric exam: Normal Affect, Normal Mood - Skin Skin Exam: Normal Color Assessment and Plan (1) CVA (cerebral vascular accident) Assessment & Plan: plan to continue with physical, occupational therapy acute rehab monitor bowel, bladder and labs monitor renal function Status: Acute (2) Chest pain Status: Acute (3) Chronic renal failure Status: Acute (4) DVT prophylaxis Status: Acute (5) Fluid overload Status: Acute (6) Gangrene Status: Acute (7) Headache Status: Acute (8) Hemorrhagic cerebrovascular accident (CVA) Status: Acute
[2017-06-20] MEDS: Latanoprost 0.005% Opht SOUTION OU SCH (22:00)
[2017-06-20] MEDS: Docusate-Senna 50 mg-8.6 mg Tab PO SCH (23:17)
[2017-06-21] MEDS: Insulin Lispro (humaLOG) 100 Units/ml Inj SC SCH ×4 (06:30→21:18)
[2017-06-21] MEDS: Multivitamin Vitamin B Complex (Nephro-Vite) Tab PO SCH (08:19)
[2017-06-21] MEDS: Pantoprazole 20 mg EC Tab PO SCH (08:19)
[2017-06-21] MEDS: Brimonidine 0.2% 50 DROP/5 ML BOTTLE OU SCH ×2 (08:19→21:04)
[2017-06-21 20:26] VITALS: RESP 20
[2017-06-21] MEDS: Docusate-Senna 50 mg-8.6 mg Tab PO SCH (21:05)
[2017-06-21] MEDS: Latanoprost 0.005% Opht SOUTION OU SCH (21:11)
[2017-06-22] MEDS: Insulin Lispro (humaLOG) 100 Units/ml Inj SC SCH ×2 (06:37→12:23)
[2017-06-22] MEDS: Brimonidine 0.2% 50 DROP/5 ML BOTTLE OU SCH (08:27)
[2017-06-22] MEDS: Multivitamin Vitamin B Complex (Nephro-Vite) Tab PO SCH (08:31)
[2017-06-22] MEDS: Pantoprazole 20 mg EC Tab PO SCH (08:31)
[2017-06-22 08:32] VITALS: BP 164/93; PULSE 75
[2017-06-22 08:42] VITALS: TEMP 98.4
== END 2017-06-22 14:41 | disposition home health service (06) | DRG 56 ==
PROVIDERS: ADMIT Family Medicine Geriatric Medicine; ATTEND Family Medicine Geriatric Medicine
PROC: F07Z9FZ Gait Training/Functional Ambulation Treatment using Assistive, Adaptive, Supportive or Protective Equipment (ICD-10-PCS; 2017-06-04)
PROC: F08Z4FZ Home Management Treatment using Assistive, Adaptive, Supportive or Protective Equipment (ICD-10-PCS; 2017-06-04)
PROC: F07M6FZ Therapeutic Exercise Treatment of Musculoskeletal System - Whole Body using Assistive, Adaptive, Supportive or Protective Equipment (ICD-10-PCS; 2017-06-04)
PROC: 5A1D60Z (ICD-10-PCS; principal; 2017-06-16)
DX: I69.351 Hemiplegia and hemiparesis following cerebral infarction affecting right dominant side (principal); N18.6 End stage renal disease; E11.22 Type 2 diabetes mellitus with diabetic chronic kidney disease; I12.0 Hypertensive chronic kidney disease with stage 5 chronic kidney disease or end stage renal disease; I48.91 Unspecified atrial fibrillation; E11.51 Type 2 diabetes mellitus with diabetic peripheral angiopathy without gangrene; E78.5 Hyperlipidemia, unspecified; R40.0 Somnolence; E66.9 Obesity, unspecified; E78.00 Pure hypercholesterolemia, unspecified; G47.33 Obstructive sleep apnea (adult) (pediatric); H54.41 Blindness, right eye, normal vision left eye; Z86.73 Personal history of transient ischemic attack (TIA), and cerebral infarction without residual deficits; Z87.891 Personal history of nicotine dependence; Z99.2 Dependence on renal dialysis; D64.9 Anemia, unspecified; R45.1 Restlessness and agitation; Z79.84 Long term (current) use of oral hypoglycemic drugs; Z68.33 Body mass index [BMI] 33.0-33.9, adult; Z89.411 Acquired absence of right great toe

== ENCOUNTER 2017-08-30 22:56 | Inpatient (IN) | payer MEDICARE, OTHER ==
[2017-08-30 22:57] VITALS: BMI 33.9
[2017-08-30] MEDS ORDERED: Labetalol 5 mg/ml Inj 20ML IVP STA (23:20)
--- NOTE | 2017-08-30 23:53 | ED PDOC ---
HPI: SOB/CHF/COPD Time Seen by Provider: 08/30/17 23:00 Chief Complaint (Nursing): Shortness Of Breath Chief Complaint (Provider): Shortness of Breath History Per: Patient History/Exam Limitations: no limitations Onset/Duration Of Symptoms: Days (x1) Current Symptoms Are (Timing): Still Present Associated Symptoms: Heart Racing. denies: Fever, Chest Pain, Ankle/Leg Swelling, Tingling In Hands Or Face Additional Complaint(s): 62 year old male presents to ED with complaints of SOB x1 day and has a past medical history of HTN, DM, and end stage renal disease. Patient notes that he is on Thursday//Thursday dialysis and missed his treatment yesterday. (+ ) dry cough, (-) chest pain, fever, leg swelling, headache, weakness, numbness, and all other complaints. PCP: [facility]ical Repair Technician: Dr. Gonzales Past Medical History Reviewed: Historical Data, Nursing Documentation, Vital Signs Vital Signs: Last Vital Signs Temp 98.3 F 08/31/17 02:00 Pulse 75 08/31/17 04:49 Resp 19 08/31/17 04:00 BP 172/88 H 08/31/17 04:49 Pulse Ox 99 08/31/17 04:00 - Medical History PMH: Anemia, Diabetes, HTN, Hypercholesterolemia, Hyperlipidemia, End Stage Renal Disease, Chronic Kidney Disease (ESRD), TIA Denies: Arthritis, Cardia Arrhythmia, CHF, COPD, HIV, Hypothyroidism, Rheumatoid Arthritis - Surgical History Surgical History: No Surg Hx - Family History Family History: States: No Known Family Hx - Social History Current smoker - smoking cessation education provided: No Ex-Smoker (has not smoked in the last 12 months): No Alcohol: None Drugs: Denies - Home Medications Home Medications: Ambulatory Orders Medication Instructions Recorded Insulin Lispro [Humalog (Insulin See Protocol SQ ACHS 06/03/17 Lispro)] Sevelamer Carbonate [Renvela] 2.4 gm PO TID 06/03/17 Aspirin 325 mg PO DAILY #30 tab 06/22/17 Brimonidine 0.2% [Alphagan 0.2% 1 drop OU Q12 #1 06/22/17 Opht] Latanoprost 0.005% Opht [Xalatan 1 drop OU HS #1 07/24/17 Opht] Minoxidil 2.5 mg PO DAILY #30 tab 06/22/17 Valsartan [Diovan] 320 mg PO DAILY #30 06/22/17 amLODIPine [Norvasc] 10 mg PO DAILY #30 tab 06/22/17 cloNIDine [Catapres] 0.2 mg PO Q12 #30 tab 06/22/17 hydrALAZINE [Apresoline] 25 mg PO Q8@0600,1400,2200 #30 tab 06/22/17 hydroCHLOROthiazide [Microzide] 50 mg PO DAILY #30 tab 06/22/17 - Allergies Allergies/Adverse Reactions: Allergies Allergy/AdvReac Type Severity Reaction Status Date / Time No Known Allergies Allergy Verified 05/27/17 10:00 Curb-65 Severity Score - CURB-65 Severity Score Confusion: No Respiratory Rate greater than/equal to 30: No Systolic BP <90 or Diastolic BP less than/equal 60mmHg: No Age >64: No Curb-65 Score: 0 Percentage 30-day mortality: 0.6% Wells Criteria for PE - Wells Criteria for Pulmonary Embolism Clinical Signs and Symptoms of DVT: No Heart Rate >100: No Hemoptysis: No Malignancy w/treatment within 6 months, or palliative: No Total Score: 0 Review of Systems ROS Statement: Except As Marked, All Systems Reviewed And Found Negative Constitutional: Negative for: Fever Cardiovascular: Negative for: Chest Pain Respiratory: Positive for: Cough (dry), Shortness of Breath Musculoskeletal: Negative for: Other ((-) leg swelling) Neurological: Negative for: Weakness, Numbness, Headache Physical Exam - Reviewed Nursing Documentation Reviewed: Yes Vital Signs Reviewed: Yes - Physical Exam Appears: Positive for: Non-toxic, No Acute Distress. Negative for: Well, Uncomfortable Head Exam: Positive for: ATRAUMATIC Skin: Positive for: Normal Color, Warm, Dry Eye Exam: Positive for: Normal appearance, EOMI, PERRL ENT: Positive for: Normal ENT Inspection Neck: Positive for: Normal, Painless ROM, Supple Cardiovascular/Chest: Positive for: Regular Rate, Rhythm, Tachycardia. Negative for: Murmur Respiratory: Positive for: Normal Breath Sounds, Other ((+) mild tachypnea) Gastrointestinal/Abdominal: Positive for: Normal Exam, Soft. Negative for: Tenderness Back: Positive for: Normal Inspection Extremity: Positive for: Normal ROM. Negative for: Deformity Neurologic/Psych: Positive for: Alert, Oriented. Negative for: Motor/Sensory Deficits - Laboratory Results Result Diagrams: 08/31/17 04:45 08/31/17 04:45 - ECG ECG Rhythm: Positive for: Normal QRS, Sinus Rhythm, 1st Degree Heart Block (1st degree AV block), Nonspecific Changes (nonspecific T wave changes in inferior leads) Rate: 94 O2 Sat by Pulse Oximetry: 95 (RA) Pulse Ox Interpretation: Normal - Critical Care Total Time (In Min): 60 Medical Decision Making Medical Decision Makin Initial impression: SOB and HTN DDx: volume overload, CHF, rule out ACS, hypertensive emergency Initial plan: * EKG * Labs * Trop I * PT/PTT * CXRR * Calcium Gluonate 1000mg IVP * Nitroglycerin 0.4mg SL * Trandate 20mg IVP * Re-evaluation [address] Ballesteros. Recommends dialysis in the morning. Discussed with family resident for admission. Spoke to Dr. Tolbert for ICU. Scribe Attestation: Documented by Marissa Jefferson acting as a scribe for Enoch Myers MD. Scribe Attestation: All medical record entries made by the Scribe were at my direction and personally dictated by me. I have reviewed the chart and agree that the record accurately reflects my personal performance of the history, physical exam, medical decision making, and the department course for this patient. I have also personally directed, reviewed, and agree with the discharge instructions and disposition. Disposition - Clinical Impression Clinical Impression: Fluid overload, Hypertension - Patient ED Disposition Is Patient to be Admitted: Yes Discussed With DrJose Enrique: Jose Corado Doctor Will See Patient In The: ED Counseled Patient/Family Regarding: Studies Performed, Diagnosis - Disposition Disposition Time: 00:50 Condition: GUARDED - Pt Status Changed To: Hospital Disposition Of: Inpatient - Admit Certification Admit to Inpatient:: After my assessment, the patient will require hospitalization for at least two midnights. This is because of the severity of symptoms shown, intensity of services needed, and/or the medical risk in this patient being treated as an outpatient. - POA Present On Arrival: Poor Glycemic Control
[2017-08-31 00:06] LABS: BASO # 0.1 K/uL (0.0-0.2); EOS # 0.5 K/uL (0.0-0.7); EOS % 4.4 % (0.0-4.0); HEMATOCRIT 36.2 % (35.0-51.0); LYMPH # 0.9 K/uL (1.0-4.3); LYMPH % 8.9 % (20.0-40.0); MEAN CELL VOLUME 89.4 fl (80.0-94.0); MEAN CORPUSCULAR HEMOGLOBIN 28.8 pg (27.0-31.0); MEAN CORPUSCULAR HGB CONC 32.2 g/dL (33.0-37.0); MEAN PLATELET VOLUME 8.4 fl (7.2-11.7); MONO # 0.8 K/uL (0.0-0.8); MONO % 7.6 % (0.0-10.0); NEUT % 78.1 % (50.0-75.0); NRBC % 0.1 % (0.0-0.0); PLATELET COUNT 224 K/uL (130-400); RED CELL DISTRIBUTION WIDTH 17.1 % (11.5-14.5); WHITE BLOOD COUNT 10.3 K/uL (4.8-10.8)
[2017-08-31 00:22] LABS: PARTIAL THROMBOPLASTIN TIME 32.1 Seconds (25.6-37.1)
[2017-08-31 00:26] LABS: TROPONIN I 0.073 ng/mL (0.00-0.120)
[2017-08-31 00:28] LABS: CALCIUM 9.5 mg/dL (8.4-10.2)
[2017-08-31 00:31] LABS: POTASSIUM 5.4 MMOL/L (3.6-5.0)
[2017-08-31] MEDS ORDERED: Nitroglycerin 50mg in D5W 50 MG/250 ML BOTTLE IV ONE ×4 (00:49→02:24)
[2017-08-31] MEDS ORDERED: Insulin Regular 100 units/ml IV STA (00:56)
[2017-08-31] MEDS ORDERED: Dextrose 50% SYRINGE Inj (50 ml) IVP ONE (00:57)
[2017-08-31] MEDS ORDERED: Albuterol 0.083% Inhal Sol (2.5 mg/3 mL) UD INH STA (00:57)
[2017-08-31] MEDS ORDERED: Sod Polystyrene Sulf 15 gm/60 ml Oral Susp PO ONE (01:06)
[2017-08-31] MEDS ORDERED: Sod Polystyrene Sulf 15 gm/60 ml Oral Susp ONE (01:24)
[2017-08-31 01:25] LABS: EOSINOPHIL 5 % (0-7); NEUTROPHIL 80 % (42-75); TOTAL CELLS COUNTED 100
[2017-08-31] MEDS: Nitroglycerin 50mg in D5W 50 MG/250 ML BOTTLE IV ONE ×2 (02:00→16:09)
--- NOTE | 2017-08-31 02:12 | CP.PCM.HP ---
History of Present Illness - History of Present Illness History of Present Illness: 62 yo , m, PMhx/o HTN, DM, ESRD on HD (TThS) x 8 years, hyperlipidemia, CVA presents to ED c/o SOB started yesterday night 7 pm while he was sitting at home associated with dry cough started yesterday afternoon. Patient states that he missed dialysis on Thursday and he did not take his usual medications because he was outside from home visiting a friend. He denies chest pain, fever, nasal congestion, rhinorrhea, nausea, vomiting, diarrhea, abdominal pain, sick contact. reports good appetite PMD: [facility] and Dr Gonzales PMHx: HTN, DM, ESRD on HD (TThS), hyperlipidemia, CVA Allergies: NKDA Meds: Aspirin 325 , Minoxidil 2.5, Valsartan 320 mg po daily, Sevelamir 2.4 mg , Hctz 50 mg daily, Hydralazine 25 mg Q 8 hours, Clonidine 0.2 mg Q 12h, Amlodipine 10 mg PO daily. PsurgHx: left foot surgery, right great toe amputation. L arm fistula PShx: History of tobacco abuse (2-3 cig/day x3 years, quit 2 year ago) ETOH denies, rect drugs denies ED Course VS: normal except BP:168/98 HR: 94 O2sat 95 RR:16 resp/min PE: Diminished breath sound B/L lung bases. no rhonchi, wheezing, rales LAbs: BUN/Cr 72/16.4 Anion Gap 28 K5.4 Imaging: CXR no acute changes compared with prior ekg: HR: 94 QS V1-V3 old changes (septal infart)?, first degree AV block Meds: nitroglycerin sl, Albuterol neb, labetalol 20 mg iv , Ca gluconate, insulin 5 unit D 50, Nitroglycerin drip Present on Admission - Present on Admission Any Indicators Present on Admission: No History of DVT/PE: No History of Uncontrolled Diabetes: No Urinary Catheter: No Decubitus Ulcer Present: No Review of Systems - Cardiovascular Cardiovascular: absent: Chest Pain - Respiratory Respiratory: Dyspnea. absent: Wheezing Past Patient History - Infectious Disease Hx of Infectious Diseases: None - Past Medical History & Family History Past Medical History?: Yes - Past Social History Alcohol: None Drugs: Denies - CARDIAC Hx Cardia Arrhythmia: No Hx Congestive Heart Failure: No Hx Hypercholesterolemia: Yes Hx Hypertension: Yes - PULMONARY Hx Chronic Obstructive Pulmonary Disease (COPD): No - NEUROLOGICAL Hx Transient Ischemic Attacks (TIA): Yes - HEENT Hx HEENT Problems: No Hx Blind: Yes (right eye) - RENAL Hx Chronic Kidney Disease: Yes (ESRD) - ENDOCRINE/METABOLIC Hx Hypothyroidism: No - HEMATOLOGICAL/ONCOLOGICAL Hx Anemia: Yes Hx Human Immunodeficiency Virus (HIV): No - INTEGUMENTARY Hx Dermatological Problems: No - MUSCULOSKELETAL/RHEUMATOLOGICAL Hx Arthritis: No Hx Rheumatoid Arthritis: No - GASTROINTESTINAL Hx Gastrointestinal Disorders: No - GENITOURINARY/GYNECOLOGICAL Hx Genitourinary Disorders: Yes (ESRD,CKD) - PSYCHIATRIC Hx Psychophysiologic Disorder: No Hx Substance Use: No - SURGICAL HISTORY 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)) Other/Comment: LEFT ANKLE SX - ANESTHESIA Hx Anesthesia: Yes Hx Anesthesia Reactions: No Hx Malignant Hyperthermia: No Meds Allergies/Adverse Reactions: Allergies Allergy/AdvReac Type Severity Reaction Status Date / Time No Known Allergies Allergy Verified 05/27/17 10:00 Physical Exam - Constitutional Appears: Non-toxic, No Acute Distress - Head Exam Head Exam: ATRAUMATIC, NORMOCEPHALIC - Eye Exam Eye Exam: Normal appearance - Neck Exam Neck exam: Positive for: Full Rom - Respiratory Exam Respiratory Exam: Decreased Breath Sounds. absent: Rales, Rhonchi, Wheezes, Respiratory Distress Additional comments: B/L air entry diminished lung bases - Cardiovascular Exam Cardiovascular Exam: REGULAR RHYTHM, +S1, +S2 - GI/Abdominal Exam GI & Abdominal Exam: Normal Bowel Sounds, Soft. absent: Tenderness - Extremities Exam Extremities exam: Positive for: normal inspection. Negative for: calf tenderness - Neurological Exam Neurological exam: Alert, Oriented x3 - Psychiatric Exam Psychiatric exam: Normal Mood - Skin Skin Exam: Intact Results - Vital Signs Recent Vital Signs: Last Vital Signs Temp 98.1 F 08/30/17 23:10 Pulse 73 08/31/17 01:44 Resp 16 08/31/17 01:44 BP 205/97 H 08/31/17 01:44 Pulse Ox 100 08/31/17 01:36 - Labs Result Diagrams: 08/31/17 00:03 08/31/17 00:03 Labs: Laboratory Results - last 24 hr 08/31/17 08/31/17 08/31/17 00:03 00:03 00:03 WBC 10.3 RBC 4.05 L Hgb 11.7 L D Hct 36.2 MCV 89.4 D MCH 28.8 MCHC 32.2 L RDW 17.1 H Plt Count 224 MPV 8.4 Neut % (Auto) 78.1 H Lymph % (Auto) 8.9 L [place] % (Auto) 7.6 Eos % (Auto) 4.4 H Baso % (Auto) 1.0 Neut # 8.0 H Lymph # 0.9 L [place] # 0.8 Eos # 0.5 Baso # 0.1 Neutrophils % (Manual) 80 H Band Neutrophils % 1 Lymphocytes % (Manual) 8 L Monocytes % (Manual) 6 Eosinophils % (Manual) 5 Platelet Estimate Normal Hypochromasia (manual) Slight Anisocytosis (manual) Slight Macrocytosis (manual) Slight PT 11.7 INR 1.1 APTT 32.1 Sodium 145 Potassium 5.4 H Chloride 99 Carbon Dioxide 23 Anion Gap 28 H BUN 72 H Creatinine 16.4 H* D Est GFR ( Amer) 4 Est GFR (Non-Af Amer) 3 Random Glucose 126 H Calcium 9.5 Troponin I 0.0730 Assessment & Plan - Assessment and Plan (Free Text) Plan: Assessment/Plan 62 yo , m, PMhx/o HTN, DM, ESRD on HD (TThS), hyperlipidemia, CVA admitted for SOB and Hypertensive Urgency. Patient missed dialysis on thursday and has not been compliance with meds for 1 day 1) Shortness of breath possible secondary to metabolic acidosis (uremia) VS CHF -CXR no acute changes compared with prior CXR -afebrile, no leukocytosis -Duoneb Q 6h -f/u Echo, probnp, troponin x2 2) Hypertensive Urgency no compliance with medications yesterday BP on admission 168/98 but trending up 196/103 s/p labetalol, nitroglycerin sl -Nitroglycerin drip -Admit ICU -c/w clonidine, HCTz -Hold Valsartan for hyperkalemia 3)CKD stage 5 ESRD on hemodialysis TTHSAT patient missed sat dialysis -Bun/cr 72/16.4 -Nephorologist consulted by ED attending -Patient for hemodialysis tomorrow. 4) Hyperkalemia -secondary to ESRD -k 5.4 -s/p Ca Gluconate, albuterol, insulin, D50 5) DM -controlled blood sugar 126mg/dl -patient not taking med. diet controlled -hgba1c 6.1 05/27/17 6) DVT prophylaxis Heparin sc 5000 BID
[2017-08-31] MEDS ORDERED: Albuterol-Ipratrop 3 mg / 0.5 (3 ml) UD INH PRN (02:48)
--- NOTE | 2017-08-31 04:09 | CP.PCM.CON ---
History of Present Illness - History of Present Illness History of Present Illness: Attending: Shady Post MD Family Services Manager: Dr. Gonzales Reason for Consult: Critical care Management Chief Complaint: SOB The patient was seen and examined in the ED HPI: 62 years old male with hx of DM, HTN, ESTD on HD TTS, noncompliant with medication, missed his last Dialysis session 2 days ago, comes with worsening SOB. No fever, cough, chest pain, nausea, vomits. No headaches nor dizziness. He feels tachycardic. PMH: Anemia,DM II; HTN, HLD; End Stage Renal Disease on Hemodialysis; TIA; Hemorrhagic CVA; PSH: Left arm dialysis fistula; Left foot surgery; Right toe amputation SH: Former smoker; Alcohol Use Socially; Unemployed FH: States: No Known Family Hx Review of Systems - Constitutional Constitutional: Fatigue. absent: Anorexia, Chills, Fever, Headache - EENT Eyes: Requires Corrective Lenses. absent: Diplopia, Floaters, Photophobia, Sees Flashes Ears: absent: Decreased Hearing, Ear Discharge, Tinnitus Nose/Mouth/Throat: absent: Epistaxis, Nasal Congestion, Nasal Discharge, Sinus Pain, Sinus Pressure - Cardiovascular Cardiovascular: Dyspnea, Pedal Edema. absent: Chest Pain, Orthopnea - Respiratory Respiratory: Dyspnea. absent: Wheezing, Stridor - Gastrointestinal Gastrointestinal: absent: Abdominal Pain, Constipation, Diarrhea, Nausea - Genitourinary Genitourinary: absent: Dysuria, Flank Pain, Hematuria, Urinary Frequency - Musculoskeletal Musculoskeletal: Arthralgias, Myalgias. absent: Back Pain - Integumentary Integumentary: absent: Pruritus, Rash - Neurological Neurological: absent: Confusion, Focal Weakness, Headaches, Memory Loss - Psychiatric Psychiatric: absent: Anxiety, Depression, Panic Attacks - Endocrine Endocrine: Polydipsia. absent: Palpitations, Polyphagia, Polyuria - Hematologic/Lymphatic Hematologic: Easy Bleeding, Easy Bruising Past Patient History - Infectious Disease Hx of Infectious Diseases: None - Past Medical History & Family History Past Medical History?: Yes - Past Social History Smoking Status: Former Smoker Chewing Tobacco Use: No Cigar Use: No Alcohol: Social Drugs: Denies - CARDIAC Hx Cardia Arrhythmia: No Hx Congestive Heart Failure: No Hx Hypercholesterolemia: Yes Hx Hypertension: Yes - PULMONARY Hx Chronic Obstructive Pulmonary Disease (COPD): No - NEUROLOGICAL Hx Transient Ischemic Attacks (TIA): Yes - HEENT Hx HEENT Problems: No Hx Blind: Yes (right eye) - RENAL Hx Chronic Kidney Disease: Yes (ESRD) - ENDOCRINE/METABOLIC Hx Hypothyroidism: No - HEMATOLOGICAL/ONCOLOGICAL Hx Anemia: Yes Hx Human Immunodeficiency Virus (HIV): No - INTEGUMENTARY Hx Dermatological Problems: No - MUSCULOSKELETAL/RHEUMATOLOGICAL Hx Arthritis: No Hx Rheumatoid Arthritis: No - GASTROINTESTINAL Hx Gastrointestinal Disorders: No - GENITOURINARY/GYNECOLOGICAL Hx Genitourinary Disorders: Yes (ESRD,CKD) - PSYCHIATRIC Hx Psychophysiologic Disorder: No Hx Substance Use: No - SURGICAL HISTORY 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)) Other/Comment: LEFT ANKLE SX - ANESTHESIA Hx Anesthesia: Yes Hx Anesthesia Reactions: No Hx Malignant Hyperthermia: No Meds Allergies/Adverse Reactions: Allergies Allergy/AdvReac Type Severity Reaction Status Date / Time No Known Allergies Allergy Verified 05/27/17 10:00 - Medications Medications: Current Medications Albuterol/Ipratropium (Duoneb 3 Mg/0.5 Mg (3 Ml) Ud) 3 ml INH RQ4 PRN PRN Reason: Shortness of Breath Aspirin (Aspirin) 325 mg PO DAILY [facility] Clonidine HCl (Catapres) 0.2 mg PO Q12 [facility] Last Admin: 08/31/17 03:43 Dose: 0.2 mg Heparin Sodium (Porcine) (Heparin) 5,000 units SC Q12 MELINA PRN Reason: Protocol Hydrochlorothiazide (Microzide) 50 mg PO DAILY [facility] Nitroglycerin/Dextrose (Nitroglycerin 50 Mg/250 Ml D5w) 50 mg in 250 mls @ 4.5 mls/hr IV .Q24H ONE; 15 MCG/MIN PRN Reason: Protocol Stop: 09/01/17 02:23 Last Titration: 08/31/17 04:00 Dose: 100 mcg/min, 30 mls/hr Physical Exam - Constitutional Appears: In Acute Distress - Head Exam Head Exam: ATRAUMATIC, NORMAL INSPECTION, NORMOCEPHALIC - Eye Exam Eye Exam: EOMI, Normal appearance Pupil Exam: NORMAL ACCOMODATION, PERRL - ENT Exam ENT Exam: Mucous Membranes Moist, Normal External Ear Exam - Neck Exam Neck exam: Positive for: Meningismus - Respiratory Exam Respiratory Exam: absent: Rhonchi, Wheezes Additional comments: Inspisratory rales diffuse in both lung go. - Cardiovascular Exam Cardiovascular Exam: REGULAR RHYTHM, RRR, +S1, +S2. absent: JVD - GI/Abdominal Exam Additional comments: Obese, soft, non-tender, no viceromegales - Rectal Exam Rectal Exam: Deferred - Extremities Exam Extremities exam: Positive for: full ROM. Negative for: calf tenderness, joint swelling, pedal edema - Back Exam Back exam: NORMAL INSPECTION. absent: CVA tenderness (L), CVA tenderness (R) - Neurological Exam Neurological exam: Alert, CN II-XII Intact, Oriented x3, Reflexes Normal - Psychiatric Exam Psychiatric exam: Normal Affect, Normal Mood - Skin Skin Exam: Dry, Normal Color, Warm Results - Vital Signs Recent Vital Signs: Last Vital Signs Temp 98.3 F 08/31/17 02:00 Pulse 77 08/31/17 03:43 Resp 14 08/31/17 03:00 BP 196/92 H 08/31/17 03:43 Pulse Ox 99 08/31/17 03:00 - Labs Result Diagrams: 08/31/17 00:03 08/31/17 00:03 Labs: Laboratory Results - last 24 hr 08/31/17 08/31/17 08/31/17 00:03 00:03 00:03 WBC 10.3 RBC 4.05 L Hgb 11.7 L D Hct 36.2 MCV 89.4 D MCH 28.8 MCHC 32.2 L RDW 17.1 H Plt Count 224 MPV 8.4 Neut % (Auto) 78.1 H Lymph % (Auto) 8.9 L [place] % (Auto) 7.6 Eos % (Auto) 4.4 H Baso % (Auto) 1.0 Neut # 8.0 H Lymph # 0.9 L [place] # 0.8 Eos # 0.5 Baso # 0.1 Neutrophils % (Manual) 80 H Band Neutrophils % 1 Lymphocytes % (Manual) 8 L Monocytes % (Manual) 6 Eosinophils % (Manual) 5 Platelet Estimate Normal Hypochromasia (manual) Slight Anisocytosis (manual) Slight Macrocytosis (manual) Slight PT 11.7 INR 1.1 APTT 32.1 Sodium 145 Potassium 5.4 H Chloride 99 Carbon Dioxide 23 Anion Gap 28 H BUN 72 H Creatinine 16.4 H* D Est GFR ( Amer) 4 Est GFR (Non-Af Amer) 3 Random Glucose 126 H Calcium 9.5 Troponin I 0.0730 - Imaging and Cardiology Chest x-ray Status: Image reviewed by me Additional comment: Interstitial infiltrate at the right base Pulmonary cephalization Assessment & Plan - Assessment and Plan (Free Text) Assessment: #. Volume overload #. Hypertensive Emergency #. Hyperkalemia #. ESRD on HD #. Chronic Anemia #. DM II Plan: 62 years old male with hx of DM, HTN, ESTD on HD TTS, noncompliant with medication, missed his last Dialysis session 2 days ago, comes with worsening SOB. No fever, cough, chest pain, nausea, vomits. No headaches nor dizziness. He feels tachycardic. #. Volume overload with pulmonary congestion and SOB caused by non compliance with Hemodialysis - Consult Dr Gonzales nephrology - Dialysis today, then TTS - Social service consult - Follow ProBNP/Troponin/ECHO if not done within the past 12 months #. Hypertensive Emergency: Patient did not take his antihypertensive medication the on the day of admission - Started on IV Nitroglycerine - Restart Diovan(losartan will be given) - Minoxidil - Norvasc - Clonidine - Hydralazine - HCTZ #. Hyperkalemia - Patient received in ED: Calcium Gluconate; Insulin with Dextrose; Kayexalate - For Dialysis - follow Electrolytes #. ESRD -Nephrology on consult - Hemodylasis on TTS #. Chronic Kidney disease Anemia - Nephrology following - Follow HB #. DM II - Diabetic Diet -Insulin Lispro sliding scale according to Accucheck #. DVT Prophylaxis with Heparin #. Code Status: Full - Date & Time Date: 08/31/17 Time: 04:04
[2017-08-31] MEDS ORDERED: Patient's Own Med (Valsartan [Diovan] 320 MG) PO SCH (04:20)
[2017-08-31 05:14] LABS: HEMATOCRIT 33.5 % (35.0-51.0); MEAN CELL VOLUME 89.3 fl (80.0-94.0); MEAN CORPUSCULAR HGB CONC 32.5 g/dL (33.0-37.0); RED CELL DISTRIBUTION WIDTH 16.8 % (11.5-14.5); WHITE BLOOD COUNT 9.9 K/uL (4.8-10.8)
[2017-08-31 05:26] LABS: ALB/GLOB RATIO 1.6 (1.0-2.1); BILIRUBIN,TOTAL 0.6 mg/dl (0.2-1.3); CALCIUM 9.5 mg/dL (8.4-10.2); MAGNESIUM 2.3 MG/DL (1.6-2.3); PHOSPHOROUS 6.6 mg/dl (2.5-4.5); POTASSIUM 5.7 MMOL/L (3.6-5.0); TOTAL PROTEIN 6.9 G/DL (6.3-8.2)
[2017-08-31] MEDS ORDERED: Influenza Vaccine 18yr & older 0.5 ML/45 MCG SYR IM ONE (06:21)
[2017-08-31] MEDS: Insulin Lispro (humaLOG) 100 Units/ml Inj SC SCH ×4 (07:21→21:05)
[2017-08-31] MEDS: Brimonidine 0.2% 50 DROP/5 ML BOTTLE OU SCH ×2 (08:31→21:22)
--- NOTE | 2017-08-31 08:46 | CP.PCM.CON ---
History of Present Illness - History of Present Illness History of Present Illness: Patient is a 62 years old known to me with end stage renal disease on maintenance hemodialysis TTS. Patient miss dialysis Thursday and he is known to be noncompliance with dialysis and with medications Patient was admitted in the recent past for uncontrolled hypertension And multiple admissions related to foot ulcer and surgery and related to dialysis among other things. And the history from the record as follow(62 yo , m , PMhx/o HTN, DM, ESRD on HD (TThS) x 8 years, hyperlipidemia, CVA presents to ED c/o SOB started yesterday night 7 pm while he was sitting at home associated with dry cough started yesterday afternoon. Patient states that he missed dialysis on Thursday and he did not take his usual medications because he was outside from home visiting a friend. He denies chest pain, fever,nasal congestion, rhinorrhea, nausea, vomiting, diarrhea, abdominal pain, sick contact. reports good appetite PMD: [facility] and Dr Gonzales PMHx: HTN, DM, ESRD on HD (TThS), hyperlipidemia, CVA Allergies: NKDA Meds: Aspirin 325 , Minoxidil 2.5, Valsartan 320 mg po daily, Sevelamir 2.4 mg , Hctz 50 mg daily, Hydralazine 25 mg Q 8 hours, Clonidine 0.2 mg Q 12h, Amlodipine 10 mg PO daily. PsurgHx: left foot surgery, right great toe amputation. L arm fistula PShx: History of tobacco abuse (2-3 cig/day x3 years, quit 2 year ago) ETOH denies, rect drugs denies Review of Systems - Constitutional Constitutional: As Per HPI - EENT Eyes: As Per HPI - Cardiovascular Cardiovascular: Dyspnea. absent: Chest Pain - Respiratory Respiratory: Cough, Dyspnea. absent: Hemoptysis - Gastrointestinal Gastrointestinal: absent: Abdominal Pain - Genitourinary Genitourinary: Nocturia - Musculoskeletal Musculoskeletal: Abnormal Gait - Integumentary Integumentary: As Per HPI - Neurological Neurological: As Per HPI - Psychiatric Psychiatric: As Per HPI Past Patient History - Infectious Disease Hx of Infectious Diseases: None - Past Medical History & Family History Past Medical History?: Yes - Past Social History Alcohol: None Drugs: Denies - CARDIAC Hx Cardia Arrhythmia: No Hx Congestive Heart Failure: No Hx Hypercholesterolemia: Yes Hx Hypertension: Yes - PULMONARY Hx Chronic Obstructive Pulmonary Disease (COPD): No - NEUROLOGICAL Hx Transient Ischemic Attacks (TIA): Yes - HEENT Hx HEENT Problems: No Hx Blind: Yes (right eye) - RENAL Hx Chronic Kidney Disease: Yes (ESRD) - ENDOCRINE/METABOLIC Hx Hypothyroidism: No - HEMATOLOGICAL/ONCOLOGICAL Hx Anemia: Yes Hx Human Immunodeficiency Virus (HIV): No - INTEGUMENTARY Hx Dermatological Problems: No - MUSCULOSKELETAL/RHEUMATOLOGICAL Hx Arthritis: No Hx Rheumatoid Arthritis: No - GASTROINTESTINAL Hx Gastrointestinal Disorders: No - GENITOURINARY/GYNECOLOGICAL Hx Genitourinary Disorders: Yes (ESRD,CKD) - PSYCHIATRIC Hx Psychophysiologic Disorder: No Hx Substance Use: No - SURGICAL HISTORY 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)) Other/Comment: LEFT ANKLE SX - ANESTHESIA Hx Anesthesia: Yes Hx Anesthesia Reactions: No Hx Malignant Hyperthermia: No Meds Allergies/Adverse Reactions: Allergies Allergy/AdvReac Type Severity Reaction Status Date / Time No Known Allergies Allergy Verified 05/27/17 10:00 - Medications Medications: Current Medications Albuterol/Ipratropium (Duoneb 3 Mg/0.5 Mg (3 Ml) Ud) 3 ml INH RQ4 PRN PRN Reason: Shortness of Breath Amlodipine Besylate (Norvasc) 10 mg PO DAILY [facility] Last Admin: 08/31/17 08:35 Dose: 10 mg Aspirin (Aspirin) 325 mg PO DAILY [facility] Last Admin: 08/31/17 08:32 Dose: 325 mg Brimonidine Tartrate (Alphagan 0.2% Opht) 1 drop OU Q12 [facility] Last Admin: 08/31/17 08:31 Dose: 1 drop Clonidine HCl (Catapres) 0.2 mg PO Q12 [facility] Last Admin: 08/31/17 08:33 Dose: 0.2 mg Heparin Sodium (Porcine) (Heparin) 5,000 units SC Q12 [facility] PRN Reason: Protocol Last Admin: 08/31/17 08:34 Dose: 5,000 units Hydralazine HCl (Apresoline) 25 mg PO Q8@0600,1400,2200 [facility] Last Admin: 08/31/17 06:19 Dose: 25 mg Hydrochlorothiazide (Hydrodiuril) 50 mg PO DAILY [facility] Last Admin: 08/31/17 08:34 Dose: 50 mg Nitroglycerin/Dextrose (Nitroglycerin 50 Mg/250 Ml D5w) 50 mg in 250 mls @ 4.5 mls/hr IV .Q24H ONE; 15 MCG/MIN PRN Reason: Protocol Stop: 09/01/17 02:23 Last Titration: 08/31/17 04:35 Dose: 90 mcg/min, 27 mls/hr Insulin Human Lispro (Humalog) 0 units SC ACHS [facility] PRN Reason: Protocol Last Admin: 08/31/17 07:21 Dose: Not Given Latanoprost (Xalatan Opht) 1 drop OU HS [facility] Losartan Potassium (Cozaar) 100 mg PO DAILY [facility] Last Admin: 08/31/17 04:49 Dose: 100 mg Minoxidil (Minoxidil) 2.5 mg PO DAILY [facility] Last Admin: 08/31/17 04:49 Dose: 2.5 mg Sevelamer HCl (Renagel) 2,400 mg PO TID [facility] Last Admin: 08/31/17 08:35 Dose: 2,400 mg Physical Exam - Constitutional Appears: No Acute Distress - ENT Exam ENT Exam: Mucous Membranes Moist - Respiratory Exam Respiratory Exam: Rhonchi. absent: Chest Wall Tenderness - Cardiovascular Exam Cardiovascular Exam: absent: JVD, Rubs - GI/Abdominal Exam GI & Abdominal Exam: Normal Bowel Sounds - Extremities Exam Extremities exam: Negative for: calf tenderness - Back Exam Back exam: absent: CVA tenderness (L), CVA tenderness (R) - Neurological Exam Neurological exam: Alert Results - Vital Signs Recent Vital Signs: Last Vital Signs Temp 98.2 F 08/31/17 08:00 Pulse 81 08/31/17 08:35 Resp 15 08/31/17 08:00 BP 187/90 H 08/31/17 08:35 Pulse Ox 97 08/31/17 08:00 - Labs Result Diagrams: 08/31/17 04:45 08/31/17 04:45 Labs: Laboratory Results - last 24 hr 08/31/17 08/31/17 08/31/17 00:03 00:03 00:03 WBC 10.3 RBC 4.05 L Hgb 11.7 L D Hct 36.2 MCV 89.4 D MCH 28.8 MCHC 32.2 L RDW 17.1 H Plt Count 224 MPV 8.4 Neut % (Auto) 78.1 H Lymph % (Auto) 8.9 L Reagan % (Auto) 7.6 Eos % (Auto) 4.4 H Baso % (Auto) 1.0 Neut # 8.0 H Lymph # 0.9 L Reagan # 0.8 Eos # 0.5 Baso # 0.1 Neutrophils % (Manual) 80 H Band Neutrophils % 1 Lymphocytes % (Manual) 8 L Monocytes % (Manual) 6 Eosinophils % (Manual) 5 Platelet Estimate Normal Hypochromasia (manual) Slight Anisocytosis (manual) Slight Macrocytosis (manual) Slight PT 11.7 INR 1.1 APTT 32.1 Sodium 145 Potassium 5.4 H Chloride 99 Carbon Dioxide 23 Anion Gap 28 H BUN 72 H Creatinine 16.4 H* D Est GFR ( Amer) 4 Est GFR (Non-Af Amer) 3 POC Glucose (mg/dL) Random Glucose 126 H Calcium 9.5 Phosphorus Magnesium Total Bilirubin AST ALT Alkaline Phosphatase Troponin I 0.0730 NT-Pro-B Natriuret Pep Total Protein Albumin Globulin Albumin/Globulin Ratio 08/31/17 08/31/17 08/31/17 01:05 04:45 04:45 WBC 9.9 RBC 3.76 L Hgb 10.9 L Hct 33.5 L MCV 89.3 MCH 29.0 MCHC 32.5 L RDW 16.8 H Plt Count 202 MPV Neut % (Auto) Lymph % (Auto) Reagan % (Auto) Eos % (Auto) Baso % (Auto) Neut # Lymph # Reagan # Eos # Baso # Neutrophils % (Manual) Band Neutrophils % Lymphocytes % (Manual) Monocytes % (Manual) Eosinophils % (Manual) Platelet Estimate Hypochromasia (manual) Anisocytosis (manual) Macrocytosis (manual) PT INR APTT Sodium 148 Potassium 5.7 H Chloride 102 Carbon Dioxide 24 Anion Gap 28 H BUN 72 H Creatinine 17.6 H* Est GFR ( Amer) 3 Est GFR (Non-Af Amer) 3 POC Glucose (mg/dL) 141 H Random Glucose 110 Calcium 9.5 Phosphorus 6.6 H Magnesium 2.3 Total Bilirubin 0.6 AST 27 ALT 38 Alkaline Phosphatase 111 Troponin I NT-Pro-B Natriuret Pep 24169 H Total Protein 6.9 Albumin 4.2 Globulin 2.6 Albumin/Globulin Ratio 1.6 08/31/17 05:44 WBC RBC Hgb Hct MCV MCH MCHC RDW Plt Count MPV Neut % (Auto) Lymph % (Auto) Reagan % (Auto) Eos % (Auto) Baso % (Auto) Neut # Lymph # Reagan # Eos # Baso # Neutrophils % (Manual) Band Neutrophils % Lymphocytes % (Manual) Monocytes % (Manual) Eosinophils % (Manual) Platelet Estimate Hypochromasia (manual) Anisocytosis (manual) Macrocytosis (manual) PT INR APTT Sodium Potassium Chloride Carbon Dioxide Anion Gap BUN Creatinine Est GFR ( Amer) Est GFR (Non-Af Amer) POC Glucose (mg/dL) 89 Random Glucose Calcium Phosphorus Magnesium Total Bilirubin AST ALT Alkaline Phosphatase Troponin I NT-Pro-B Natriuret Pep Total Protein Albumin Globulin Albumin/Globulin Ratio Assessment & Plan (1) Fluid overload Status: Acute (2) Hypertension Status: Chronic (3) CVA (cerebral vascular accident) Status: Acute (4) Chronic kidney disease requiring chronic dialysis Assessment and Plan: Patient with end stage renal disease admitted with high blood pressure not taking medication missing dialysis past Thursday and hyperkalemia. Hemodialysis called in to be done as soon as possible order in place consent was taken Ultrafiltration about 3 kg as tolerated Potassium bath 2 mEq Bicarbonate 34 And continue his antihypertensive medication except no need for hydrochlorothiazide please discontinue Status: Acute
[2017-08-31] MEDS ORDERED: SEVELAMER CARBONATE 2.4 GM PO SCH (09:00)
--- NOTE | 2017-08-31 09:56 | CP.PCM.PN ---
Subjective - Date & Time of Evaluation Date of Evaluation: 08/31/17 Time of Evaluation: 09:56 - Subjective Subjective: pt seen and examined at bedside this morning. No acute events overnight. Afebrile. BP at bedside approx 160s/90s as per ICU monitoring. Pt denies any new complaints. Mild SOB, improving. Denies any headaches, changes in vision, CP /Palpitations, N/V/D/C, new onset numbness/tingling/weakness. Objective - Vital Signs/Intake and Output Vital Signs (last 24 hours): Temp Pulse Resp BP Pulse Ox 98.2 F 79 15 163/91 H 97 08/31/17 08:00 08/31/17 09:00 08/31/17 09:00 08/31/17 09:00 08/31/17 09:00 Intake and Output: 08/31/17 08/31/17 06:59 18:59 Intake Total 0 Balance 0 - Medications Medications: Current Medications Albuterol/Ipratropium (Duoneb 3 Mg/0.5 Mg (3 Ml) Ud) 3 ml INH RQ4 PRN PRN Reason: Shortness of Breath Amlodipine Besylate (Norvasc) 10 mg PO DAILY [facility] Last Admin: 08/31/17 08:35 Dose: 10 mg Aspirin (Aspirin) 325 mg PO DAILY [facility] Last Admin: 08/31/17 08:32 Dose: 325 mg Brimonidine Tartrate (Alphagan 0.2% Opht) 1 drop OU Q12 [facility] Last Admin: 08/31/17 08:31 Dose: 1 drop Clonidine HCl (Catapres) 0.2 mg PO Q12 [facility] Last Admin: 08/31/17 08:33 Dose: 0.2 mg Heparin Sodium (Porcine) (Heparin) 5,000 units SC Q12 [facility] PRN Reason: Protocol Last Admin: 08/31/17 08:34 Dose: 5,000 units Hydralazine HCl (Apresoline) 25 mg PO Q8@0600,1400,2200 [facility] Last Admin: 08/31/17 06:19 Dose: 25 mg Nitroglycerin/Dextrose (Nitroglycerin 50 Mg/250 Ml D5w) 50 mg in 250 mls @ 4.5 mls/hr IV .Q24H ONE; 15 MCG/MIN PRN Reason: Protocol Stop: 09/01/17 02:23 Last Titration: 10/02/17 04:35 Dose: 90 mcg/min, 27 mls/hr Insulin Human Lispro (Humalog) 0 units SC ACHS [facility] PRN Reason: Protocol Last Admin: 08/31/17 07:21 Dose: Not Given Latanoprost (Xalatan Opht) 1 drop OU HS [facility] Losartan Potassium (Cozaar) 100 mg PO DAILY [facility] Last Admin: 08/31/17 04:49 Dose: 100 mg Minoxidil (Minoxidil) 2.5 mg PO DAILY [facility] Last Admin: 08/31/17 04:49 Dose: 2.5 mg Sevelamer HCl (Renagel) 2,400 mg PO TID [facility] Last Admin: 08/31/17 08:35 Dose: 2,400 mg - Labs Labs: 08/31/17 04:45 08/31/17 04:45 PT 11.7 Seconds (9.8-13.1) 08/31/17 00:03 INR 1.1 (0.9-1.2) 08/31/17 00:03 APTT 32.1 Seconds (25.6-37.1) 08/31/17 00:03 - Constitutional Appears: Non-toxic, No Acute Distress - Head Exam Head Exam: ATRAUMATIC - Eye Exam Eye Exam: Conjunctival injection, EOMI, PERRL. absent: Scleral icterus - ENT Exam ENT Exam: Mucous Membranes Moist - Respiratory Exam Respiratory Exam: NORMAL BREATHING PATTERN. absent: Accessory Muscle Use, Decreased Breath Sounds, Rales, Rhonchi, Wheezes, Stridor Additional comments: transmitted UR sounds. - Cardiovascular Exam Cardiovascular Exam: REGULAR RHYTHM, RRR, +S1, +S2. absent: Tachycardia, Clicks , Gallop, JVD, Rubs, Murmur - GI/Abdominal Exam GI & Abdominal Exam: Soft, Normal Bowel Sounds. absent: Tenderness - Extremities Exam Extremities Exam: Full ROM, Normal Capillary Refill, Normal Inspection. absent : Calf Tenderness, Pedal Edema, Tenderness - Neurological Exam Neurological Exam: Alert, Awake, CN II-XII Intact, Oriented x3 Neuro motor strength exam: Left Upper Extremity: 4, Right Upper Extremity: 4, Left Lower Extremity: 4, Right Lower Extremity: 4 - Psychiatric Exam Psychiatric exam: Normal Affect, Normal Mood - Skin Skin Exam: Dry, Normal Color, Warm Assessment and Plan - Assessment and Plan (Free Text) Assessment: 62 yo , m, PMhx/o HTN, DM, ESRD on HD (TThS), hyperlipidemia, CVA admitted for SOB and Hypertensive Urgency. Patient missed dialysis on thursday and has not been compliance with meds for 1 day Plan: 1) Shortness of breath possible secondary to metabolic acidosis (uremia) VS CHF -CXR:persistent cardiomegaly, mild pulmonary venous congestion, no acute findings -afebrile, WBC WNL -Duoneb Q 6h -f/u Echo report -f/u serial BMP/PBNP after dialysis 2) Hypertensive Urgency no compliance with medications yesterday BP on admission 168/98 but trended up 196/103 -Nitroglycerin drip -c/w clonidine -HCTZ discontinued as per Nephro Recommendations -Hold Valsartan for hyperkalemia 3) CKD stage 5 ESRD -on hemodialysis TTHSAT -patient missed sat dialysis -Bun/cr 72/16.4 -Patient for hemodialysis today, will f/u BMP after 4) Hyperkalemia -secondary to ESRD -k 5.4 -s/p Ca Gluconate, albuterol, insulin, D50 5) Pre-Diabetes -blood sugar 141-126mg/dl -patient not taking med. diet controlled -hgba1c 6.1 05/27/17, will continue monitor BS with accuchecks BID 6) DVT prophylaxis Heparin sc 5000 BID
--- NOTE | 2017-08-31 10:51 | RAD ---
HISTORY: SOB COMPARISON: 05/27/2017 FINDINGS: LUNGS: The lungs are well inflated. There is mild pulmonary venous congestion. No lobar pneumonia. PLEURA: No significant pleural effusion identified, no pneumothorax apparent. CARDIOVASCULAR: There is persistent moderate cardiomegaly. OSSEOUS STRUCTURES: No significant abnormalities. VISUALIZED UPPER ABDOMEN: Normal. OTHER FINDINGS: There is stable position of a left subclavian endovascular stent. IMPRESSION: Persistent cardiomegaly and mild pulmonary venous congestion. No acute findings.
[2017-08-31] MEDS: Latanoprost 0.005% Opht SOUTION OU SCH (21:04)
[2017-09-01 05:19] LABS: HEMATOCRIT 36.1 % (35.0-51.0); MEAN CELL VOLUME 89.2 fl (80.0-94.0); MEAN CORPUSCULAR HEMOGLOBIN 29.1 pg (27.0-31.0); MEAN CORPUSCULAR HGB CONC 32.7 g/dL (33.0-37.0); WHITE BLOOD COUNT 9.6 K/uL (4.8-10.8)
[2017-09-01 05:29] LABS: ALB/GLOB RATIO 1.5 (1.0-2.1); BILIRUBIN,TOTAL 0.8 mg/dl (0.2-1.3); CALCIUM 9.1 mg/dL (8.4-10.2); TOTAL PROTEIN 6.8 G/DL (6.3-8.2)
[2017-09-01 05:43] LABS: POTASSIUM 5.1 MMOL/L (3.6-5.0)
[2017-09-01] MEDS: Insulin Lispro (humaLOG) 100 Units/ml Inj SC SCH ×4 (06:35→21:36)
--- NOTE | 2017-09-01 07:37 | PQF GENQUE ---
This form is a permanent part of the medical record 09/01/17 Dr. Flex Grant, 1) Documentation of SOB possible 2* to metabolic acidosis (uremia) vs CHF. After workup please clarify which diagnoses are ruled in or ruled out. 2) If CHF is ruled in please clarify the Type and Acuity. ER: Fluid Overload, HTN Renal: Fluid Overload with high BP Hospitalist/ICU: Fluid Overload, Hypertensive emergency Admitted with SOB. BP 209/106. Missed hemodialysis and his medications. CXR: Mild pulmonary venous congestion. Pro BNP 50,700. Treated with Nitroglycerin drip and hemodialysis. Clarification of your documentation is requested to better reflect the severity of illness and intensity of treatment of your patient. Indicators present [] Specify: [] [] Specify: [] [] Specify: [] [] Specify: [] Location in the medical record that reflects the above clinical findings: [] Treatment Provided: [] PHYSICIAN'S RESPONSE Based on your medical judgment of the clinical indicators outlined above please clarify the following: [] Practitioner response [] If unable to determine, please check the box, sign and date. Present On Admission (POA) Indicator: [] Present at the time of admission [] Not present at the time of admission [] Clinically Undetermined In responding to this query, please exercise your independent professional judgment. The fact that a question is asked does not imply that any particular answer is desired or expected. Thank you for your clarification on this documentation. If you have any questions please call:extension [phone] * Thank you, Tia August RN [facility]
[2017-09-01] MEDS: Brimonidine 0.2% 50 DROP/5 ML BOTTLE OU SCH ×2 (08:03→21:30)
--- NOTE | 2017-09-01 08:38 | CP.PCM.PN ---
Subjective - Date & Time of Evaluation Date of Evaluation: 09/01/17 Time of Evaluation: 08:31 - Subjective Subjective: pt seen examined at bedside this morning. s/p dialysis yesterday. Labs and vitals overnight reviewed. No acute events overnight. Afebrile. No new complaints. Pt sitting up, comfortably, NAD. Reports feeling better overall. Reports appetite has returned. SOB improved. Satting 100% on 2L NC. Denies headaches, fever/chills, vision changes, CP/SOB/Palpitations, N/V/D/C, urinary symptoms, new onset numbness/tingling, weakness. Objective - Vital Signs/Intake and Output Vital Signs (last 24 hours): Temp Pulse Resp BP Pulse Ox 98.4 F 66 15 144/92 H 100 09/01/17 06:00 09/01/17 08:05 09/01/17 06:00 09/01/17 08:05 09/01/17 06:00 - Medications Medications: Current Medications Albuterol/Ipratropium (Duoneb 3 Mg/0.5 Mg (3 Ml) Ud) 3 ml INH RQ4 PRN PRN Reason: Shortness of Breath Amlodipine Besylate (Norvasc) 10 mg PO DAILY [facility] Last Admin: 09/01/17 08:05 Dose: 10 mg Aspirin (Aspirin) 325 mg PO DAILY [facility] Last Admin: 09/01/17 08:06 Dose: 325 mg Brimonidine Tartrate (Alphagan 0.2% Opht) 1 drop OU Q12 [facility] Last Admin: 09/01/17 08:03 Dose: 1 drop Clonidine HCl (Catapres) 0.2 mg PO Q12 [facility] Last Admin: 09/01/17 08:04 Dose: 0.2 mg Heparin Sodium (Porcine) (Heparin) 5,000 units SC Q12 [facility] PRN Reason: Protocol Last Admin: 09/01/17 08:04 Dose: 5,000 units Hydralazine HCl (Apresoline) 25 mg PO Q8@0600,1400,2200 [facility] Last Admin: 09/01/17 05:11 Dose: 25 mg Insulin Human Lispro (Humalog) 0 units SC ACHS [facility] PRN Reason: Protocol Last Admin: 09/01/17 06:35 Dose: Not Given Latanoprost (Xalatan Opht) 1 drop OU HS [facility] Last Admin: 08/31/17 21:04 Dose: 1 drop Losartan Potassium (Cozaar) 100 mg PO DAILY [facility] Last Admin: 09/01/17 08:04 Dose: 100 mg Minoxidil (Minoxidil) 2.5 mg PO DAILY [facility] Last Admin: 09/01/17 08:05 Dose: 2.5 mg Sevelamer HCl (Renagel) 2,400 mg PO TID [facility] Last Admin: 09/01/17 08:05 Dose: 2,400 mg - Labs Labs: 09/01/17 04:20 09/01/17 04:20 PT 11.7 Seconds (9.8-13.1) 08/31/17 00:03 INR 1.1 (0.9-1.2) 08/31/17 00:03 APTT 32.1 Seconds (25.6-37.1) 08/31/17 00:03 - Constitutional Appears: Non-toxic, No Acute Distress - Head Exam Head Exam: ATRAUMATIC - Eye Exam Eye Exam: EOMI. absent: Conjunctival injection, Scleral icterus Pupil Exam: PERRL - ENT Exam ENT Exam: Mucous Membranes Moist - Neck Exam Neck Exam: Full ROM - Respiratory Exam Respiratory Exam: Clear to Ausculation Bilateral, NORMAL BREATHING PATTERN. absent: Decreased Breath Sounds, Rales, Rhonchi, Wheezes Additional comments: good air entry b/l, some transmitted upper airway sounds at lung apices - Cardiovascular Exam Cardiovascular Exam: REGULAR RHYTHM, RRR, +S1, +S2. absent: Gallop, JVD, Rubs, Murmur - GI/Abdominal Exam GI & Abdominal Exam: Soft, Normal Bowel Sounds. absent: Tenderness - Extremities Exam Extremities Exam: Normal Inspection. absent: Calf Tenderness, Pedal Edema, Tenderness - Back Exam Back Exam: NORMAL INSPECTION - Neurological Exam Neurological Exam: Alert, Awake, CN II-XII Intact, Oriented x3 Neuro motor strength exam: Left Upper Extremity: 4, Right Upper Extremity: 4, Left Lower Extremity: 4, Right Lower Extremity: 4 - Psychiatric Exam Psychiatric exam: Normal Affect, Normal Mood - Skin Skin Exam: Dry, Normal Color, Warm Assessment and Plan (1) Fluid overload Assessment & Plan: secondary to ESRD and missing dialysis SOB resolved, lungs clear on examination, no pedal edema appreciated pt for second dialysis tx this morning. Status: Acute (2) CHF (congestive heart failure) Assessment & Plan: ECHO on 08/31 shows: normal sized left ventricle, moderate concentric LVH, LVEF of 40-45%, anerysmal apex, Grade-I abnormal relaxation. Mild tricuspid regurg and mild pulmonary HTN, mitral regurg is mild. P-BNP on admission: 51703, repeat ordered cardiology consult with Dr. Garvey for evaluation and possible treatment appreciated Status: Suspected (3) ESRD (end stage renal disease) Assessment & Plan: BUN/Cr: improved to 37/11.3 currently being followed by Nephro Dr. Gonzales s/p dialysis on 08/31, pt to have dialysis again today will f/u CMP after dialysis Status: Chronic (4) Hypertensive urgency Assessment & Plan: secondary to combination of medication noncompliance/fluid overload due to missing dialysis BP on admission 168/98, better control now, BP this morning 130/74 -Nitroglycerin drip discontinued -c/w clonidine 0.2mg -c/w minoxidil 2.5mg QD -HCTZ discontinued as per Nephro Recommendations -Hold Valsartan for hyperkalemia Status: Acute (5) Hyperkalemia Assessment & Plan: secondary to ESRD HCTZ/Losartan held will discuss recommendations about ARB and Hyperkalemia with Nephro K+ tending downwards, 5.1 today monitor CMP and tele monitoring Status: Acute (6) Pre-diabetes Assessment & Plan: HbA1C: 5.8 low carb diet will continue to monitor accuchecks BID Status: Chronic (7) Prophylactic measure Assessment & Plan: aspirin 325mg BID SCDs Status: Acute
--- NOTE | 2017-09-01 09:35 | CP.PCM.PN ---
Subjective - Date & Time of Evaluation Date of Evaluation: 09/01/17 Time of Evaluation: 09:33 - Subjective Subjective: Patient sitting up in bed Vital signs stable More awake Less shortness of breath Objective - Vital Signs/Intake and Output Vital Signs (last 24 hours): Temp Pulse Resp BP Pulse Ox 98.1 F 66 15 144/92 H 100 09/01/17 08:00 09/01/17 08:05 09/01/17 08:00 09/01/17 08:05 09/01/17 08:00 - Medications Medications: Current Medications Albuterol/Ipratropium (Duoneb 3 Mg/0.5 Mg (3 Ml) Ud) 3 ml INH RQ4 PRN PRN Reason: Shortness of Breath Amlodipine Besylate (Norvasc) 10 mg PO DAILY [facility] Last Admin: 09/01/17 08:05 Dose: 10 mg Aspirin (Aspirin) 325 mg PO DAILY [facility] Last Admin: 09/01/17 08:06 Dose: 325 mg Brimonidine Tartrate (Alphagan 0.2% Opht) 1 drop OU Q12 [facility] Last Admin: 09/01/17 08:03 Dose: 1 drop Clonidine HCl (Catapres) 0.2 mg PO Q12 [facility] Last Admin: 09/01/17 08:04 Dose: 0.2 mg Heparin Sodium (Porcine) (Heparin) 5,000 units SC Q12 [facility] PRN Reason: Protocol Last Admin: 09/01/17 08:04 Dose: 5,000 units Hydralazine HCl (Apresoline) 25 mg PO Q8@0600,1400,2200 [facility] Last Admin: 09/01/17 05:11 Dose: 25 mg Insulin Human Lispro (Humalog) 0 units SC ACHS [facility] PRN Reason: Protocol Last Admin: 09/01/17 06:35 Dose: Not Given Latanoprost (Xalatan Opht) 1 drop OU HS [facility] Last Admin: 08/31/17 21:04 Dose: 1 drop Losartan Potassium (Cozaar) 100 mg PO DAILY [facility] Last Admin: 09/01/17 08:04 Dose: 100 mg Minoxidil (Minoxidil) 2.5 mg PO DAILY [facility] Last Admin: 09/01/17 08:05 Dose: 2.5 mg Sevelamer HCl (Renagel) 2,400 mg PO TID [facility] Last Admin: 09/01/17 08:05 Dose: 2,400 mg - Labs Labs: 09/01/17 04:20 09/01/17 04:20 PT 11.7 Seconds (9.8-13.1) 08/31/17 00:03 INR 1.1 (0.9-1.2) 08/31/17 00:03 APTT 32.1 Seconds (25.6-37.1) 08/31/17 00:03 - Constitutional Appears: No Acute Distress - ENT Exam ENT Exam: Mucous Membranes Moist - Respiratory Exam Respiratory Exam: NORMAL BREATHING PATTERN. absent: Chest Wall Tenderness - GI/Abdominal Exam GI & Abdominal Exam: absent: Guarding - Extremities Exam Extremities Exam: absent: Calf Tenderness - Back Exam Back Exam: absent: CVA tenderness (L), CVA tenderness (R) - Neurological Exam Neurological Exam: Alert Assessment and Plan (1) Fluid overload Status: Acute (2) Hypertension Status: Chronic (3) CVA (cerebral vascular accident) Status: Acute (4) Chronic kidney disease requiring chronic dialysis Assessment & Plan: Patient admitted with very high blood pressure homeless his dialysis Thursday and noncompliance with the medication Blood pressure better controlled right now Lab reviewed serum creatinine over 11 Patient scheduled for hemodialysis shortly today Sodium bath 138 Ultrafiltration 2500 mL Continue on antihypertensive medication Counseling for compliance Status: Acute
--- NOTE | 2017-09-01 09:42 | CARD ---
APPROVED REPORT EXAM: Two-dimensional and M-mode echocardiogram with Doppler and color Doppler. Other Information Quality : FairRhythm : NSR Technically limited study due to patient uncooperative INDICATION Dyspnea 2D DIMENSIONS Left Atrium (2D)4.11 (1.6-4.0cm)IVSd1.55 (0.7-1.1cm) Aortic Root (2D)3.68 (2.0-3.7cm)LVDd5.36 (3.9-5.9cm) LVOT Diameter1.85 (1.8-2.4cm)PWd0.89 (0.7-1.1cm) IVSs1.69 (0.8-1.2cm)LVDs4.26 (2.5-4.0cm) FS (%) 20.5 %PWs1.75 (0.8-1.2cm) M-Mode DIMENSIONS Left Atrium (MM)5.37 (2.5-4.0cm)IVSd0.96 (0.7-1.1cm) Aortic Root3.86 (2.2-3.7cm)LVDd7.94 (4.0-5.6cm) Aortic Cusp Exc.0.96 (1.5-2.0cm)PWd1.18 (0.7-1.1cm) IVSs1.62 cmFS (%) 16 % LVDs6.65 (2.0-3.8cm)PWs1.65 cm Aortic Valve AoV Peak Yvdbnlvw499.7cm/sAoV VTI32.9cmAO Peak GR.10mmHg LVOT Peak Rhcolkwa736.0cm/sLVOT VTI27.78cmAO Mean GR.6mmHg TERRI (VMAX)1.35hl5RGX (VTI)1.27cm2 Mitral Valve MV E Udvsnhso88.0cm/sMV E Peak Gr.72mmHgMV DECEL [id number] MV A Xpehfazk19.8cm/sMV PIB07vpD/A ratio1.0 MVA (PHT)4.11cm2 TDI Lateral E' Peak V7.90cm/sMedial E' Peak V6.84cm/sE/Lateral E'11.0 E/Medial E'12.7 Pulmonary Valve PV Peak Qfebswyq61.3cm/s Tricuspid Valve TR Peak Jutbdlru413sa/sRAP LWFUAJXP07shDrYZ Peak Gr.33mmHg [id number] LEFT VENTRICLE The left ventricle is normal size. There is moderate concentric left ventricular hypertrophy. The systolic function is moderately impaired. The Ejection Fraction is 40-45%. Aneurysmal Medon Transmitral Doppler flow pattern is Grade I-abnormal relaxation pattern. RIGHT VENTRICLE The right ventricle is normal size. There is normal right ventricular wall thickness. The right ventricular systolic function is normal. ATRIA The left atrium size is normal. The right atrium size is normal. AORTIC VALVE The aortic valve is moderately sclerotic. No aortic regurgitation is present. There is trace valvular aortic stenosis. MITRAL VALVE The mitral valve is moderately thickened. There is no mitral valve stenosis. Mitral regurgitation is mild. TRICUSPID VALVE The tricuspid valve is normal in structure There is mild tricuspid regurgitation. There is mild pulmonary hypertension. PULMONIC VALVE The pulmonary valve is normal in structure and function. There is no pulmonic valvular regurgitation. GREAT VESSELS The aortic root displays moderate to severe sclerocalcific changes of the aortic root. The IVC is normal in size and collapses >50% with inspiration. PERICARDIAL EFFUSION There is a small loculated anterior pericardial effusion. <Conclusion> The left ventricle is normal size. There is moderate concentric left ventricular hypertrophy. The systolic function is moderately impaired. The Ejection Fraction is 40-45%. Aneurysmal Medon Transmitral Doppler flow pattern is Grade I-abnormal relaxation pattern. There is mild tricuspid regurgitation. There is mild pulmonary hypertension. Mitral regurgitation is mild.
--- NOTE | 2017-09-01 09:43 | CARD ---
APPROVED REPORT EKG Measurement Heart [id number] <Conclusion> Sinus rhythm with 1st degree AV block Septal infarct, age undetermined T wave abnormality, consider inferior ischemia Abnormal ECG
--- NOTE | 2017-09-01 13:05 | CP.PCM.CON ---
History of Present Illness - History of Present Illness History of Present Illness: this 62-year-old man, hypertensive and a diabetic on hemodialysis for approximately 7 years came to the emergency room because of volume overload having missed a dialysis session and forgotten to take his medications. He gives history of smoking in the remote past. There is no prior history of having suffered a myocardial infarction. The patient denies any episode of chest pain. He had developed dyspnea after missing his dialysis session. Physical examination shows an elderly man in was able to lie virtually flat in bed and breathe comfortably having undergone hemodialysis. His heart rate was 76 bpm and regular and his blood pressure is 140/74 mmHg. His jugular venous pressure was not elevated there was no pedal edema. His pedal pulses were not palpable. A dialysis shunt was evident on his left upper extremity. The chest was mildly emphysematous. The apex was not palpable. First and second heart sounds were normal and distant. There was no S3 gallop and there were no rales. His abdomen was soft his liver and spleen were not palpable. His electrocardiogram showed sinus rhythm with absence of R waves from V1 to V3 , a pattern seen on his electrocardiograms as far back as 2014 as well. There were marked ST-T abnormalities on electrocardiogram taken in the emergency room. His troponin levels were normal. His lab data was noted. The echocardiographic images were suggestive of possibly apical aneurysm, though endocardial surface was not well visualized and the patient needs an echo contrast to fully evaluate the possibility of an apical aneurysm. Review of his echocardiogram from 2014 also shows a poorly visualized endocardial surface though a clear evidence of apical aneurysm is not present. The impression at this time he is hypertension with diabetes mellitus and chronic renal failure on hemodialysis of more than 6-7 years. Diffuse vascular disease with a history of cerebrovascular accident. I will arrange an echocardiogram with contrast to evaluate his left ventricular systolic function and left ventricular wall motion pattern. Past Patient History - Infectious Disease Hx of Infectious Diseases: None - Past Medical History & Family History Past Medical History?: Yes - Past Social History Alcohol: None Drugs: Denies - CARDIAC Hx Cardia Arrhythmia: No Hx Congestive Heart Failure: No Hx Hypercholesterolemia: Yes Hx Hypertension: Yes - PULMONARY Hx Chronic Obstructive Pulmonary Disease (COPD): No - NEUROLOGICAL Hx Transient Ischemic Attacks (TIA): Yes - HEENT Hx HEENT Problems: No Hx Blind: Yes (right eye) - RENAL Hx Chronic Kidney Disease: Yes (ESRD) - ENDOCRINE/METABOLIC Hx Hypothyroidism: No - HEMATOLOGICAL/ONCOLOGICAL Hx Anemia: Yes Hx Human Immunodeficiency Virus (HIV): No - INTEGUMENTARY Hx Dermatological Problems: No - MUSCULOSKELETAL/RHEUMATOLOGICAL Hx Arthritis: No Hx Rheumatoid Arthritis: No - GASTROINTESTINAL Hx Gastrointestinal Disorders: No - GENITOURINARY/GYNECOLOGICAL Hx Genitourinary Disorders: Yes (ESRD,CKD) - PSYCHIATRIC Hx Psychophysiologic Disorder: No Hx Substance Use: No - SURGICAL HISTORY 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)) Other/Comment: LEFT ANKLE SX - ANESTHESIA Hx Anesthesia: Yes Hx Anesthesia Reactions: No Hx Malignant Hyperthermia: No Meds Allergies/Adverse Reactions: Allergies Allergy/AdvReac Type Severity Reaction Status Date / Time No Known Allergies Allergy Verified 05/27/17 10:00 - Medications Medications: Current Medications Albuterol/Ipratropium (Duoneb 3 Mg/0.5 Mg (3 Ml) Ud) 3 ml INH RQ4 PRN PRN Reason: Shortness of Breath Amlodipine Besylate (Norvasc) 10 mg PO DAILY [facility] Last Admin: 09/01/17 08:05 Dose: 10 mg Aspirin (Aspirin) 325 mg PO DAILY [facility] Last Admin: 09/01/17 08:06 Dose: 325 mg Brimonidine Tartrate (Alphagan 0.2% Opht) 1 drop OU Q12 [facility] Last Admin: 09/01/17 08:03 Dose: 1 drop Clonidine HCl (Catapres) 0.2 mg PO Q12 [facility] Last Admin: 09/01/17 08:04 Dose: 0.2 mg Heparin Sodium (Porcine) (Heparin) 5,000 units SC Q12 [facility] PRN Reason: Protocol Last Admin: 09/01/17 08:04 Dose: 5,000 units Hydralazine HCl (Apresoline) 25 mg PO Q8@0600,1400,2200 [facility] Last Admin: 09/01/17 05:11 Dose: 25 mg Insulin Human Lispro (Humalog) 0 units SC ACHS [facility] PRN Reason: Protocol Last Admin: 09/01/17 12:17 Dose: 2 units Latanoprost (Xalatan Opht) 1 drop OU HS [facility] Last Admin: 08/31/17 21:04 Dose: 1 drop Minoxidil (Minoxidil) 2.5 mg PO DAILY [facility] Last Admin: 09/01/17 08:05 Dose: 2.5 mg Sevelamer HCl (Renagel) 2,400 mg PO TID [facility] Last Admin: 09/01/17 12:17 Dose: 2,400 mg Results - Vital Signs Recent Vital Signs: Last Vital Signs Temp 98.2 F 09/01/17 12:00 Pulse 70 09/01/17 12:00 Resp 13 09/01/17 12:00 BP 138/81 09/01/17 12:00 Pulse Ox 100 09/01/17 12:00 - Labs Result Diagrams: 09/01/17 04:20 09/01/17 04:20 Labs: Laboratory Results - last 24 hr 08/31/17 08/31/17 09/01/17 16:32 20:52 04:20 WBC 9.6 RBC 4.05 L Hgb 11.8 L Hct 36.1 MCV 89.2 MCH 29.1 MCHC 32.7 L RDW 18.0 H Plt Count 170 Sodium Potassium Chloride Carbon Dioxide Anion Gap BUN Creatinine Est GFR ( Amer) Est GFR (Non-Af Amer) POC Glucose (mg/dL) 99 75 Random Glucose Calcium Total Bilirubin AST ALT Alkaline Phosphatase NT-Pro-B Natriuret Pep Total Protein Albumin Globulin Albumin/Globulin Ratio 09/01/17 09/01/17 09/01/17 04:20 04:30 04:44 WBC RBC Hgb Hct MCV MCH MCHC RDW Plt Count Sodium 142 Potassium 5.1 H Chloride 96 L Carbon Dioxide 29 Anion Gap 22 H BUN 37 H Creatinine 11.3 H* D Est GFR ( Amer) 6 Est GFR (Non-Af Amer) 5 POC Glucose (mg/dL) 119 H Random Glucose 120 H Calcium 9.1 Total Bilirubin 0.8 AST 17 D ALT 33 Alkaline Phosphatase 79 NT-Pro-B Natriuret Pep 04973 H Total Protein 6.8 Albumin 4.1 Globulin 2.7 Albumin/Globulin Ratio 1.5 09/01/17 11:41 WBC RBC Hgb Hct MCV MCH MCHC RDW Plt Count Sodium Potassium Chloride Carbon Dioxide Anion Gap BUN Creatinine Est GFR ( Amer) Est GFR (Non-Af Amer) POC Glucose (mg/dL) 201 H Random Glucose Calcium Total Bilirubin AST ALT Alkaline Phosphatase NT-Pro-B Natriuret Pep Total Protein Albumin Globulin Albumin/Globulin Ratio
[2017-09-01] MEDS ORDERED: Perflutren Lipid Microsphere 1.5 ML SUS IV ONE (15:05)
--- NOTE | 2017-09-01 16:22 | CARD ---
APPROVED REPORT EXAM: LIMITED Two-dimensional echocardiogram with contrast. Other Information Quality : GoodRhythm : NSR INDICATION LV Function:SystolicDiastolic Echo Enhancing Agent Indication: LV Aneursym Agent/Amount Used: Definity Mitral Valve E/A ratio0.0 TDI E/Lateral E'0.0E/Medial E'0.0 LEFT VENTRICLE The left ventricle is normal size. There is moderate concentric left ventricular hypertrophy. The left ventricular ejection fraction is within the normal range.in contrast to Yesterday's study Mild apical hypokinesis Transmitral Doppler flow pattern is Grade I-abnormal relaxation pattern. No left ventricle thrombus noted on this study. RIGHT VENTRICLE The right ventricle is normal size. There is normal right ventricular wall thickness. The right ventricular systolic function is normal. ATRIA The left atrium size is normal. The right atrium size is normal. AORTIC VALVE The aortic valve is normal in structure and function. No aortic regurgitation is present. There is no aortic valvular stenosis. MITRAL VALVE The mitral valve is normal in structure and function. There is no mitral valve stenosis. Mitral regurgitation is mild. TRICUSPID VALVE The tricuspid valve is normal in structure There is mild pulmonary hypertension. PULMONIC VALVE The pulmonary valve is normal in structure and function. There is no pulmonic valvular regurgitation. GREAT VESSELS The aortic root is normal in size. The IVC is normal in size and collapses >50% with inspiration. PERICARDIAL EFFUSION The pericardium appears normal. <Conclusion> There is moderate concentric left ventricular hypertrophy. The left ventricular ejection fraction is within the normal range.in contrast to Yesterday's noncontrast study Mild apical hypokinesis Transmitral Doppler flow pattern is Grade I-abnormal relaxation pattern. No left ventricle thrombus noted on this study.
[2017-09-01] MEDS: Latanoprost 0.005% Opht SOUTION OU SCH (21:30)
--- NOTE | 2017-09-02 06:43 | PN ---
DATE: 09/01/2017 LOCATION: Patient in ICU bed #435. TIME SPENT: 35 minutes. SUBJECTIVE: The patient is seen and examined at the bedside. Events since admission reviewed. Past medical, surgical, and social history noted. Overnight status post emergent hemodialysis. On nitro drip, blood pressure improved, less short of breath. Telemetry, sinus rhythm. This morning, alert, awake, follows commands appropriate. Denies headache. No shortness of breath at rest. No chest pain or palpitation. No abdominal pain. PHYSICAL EXAMINATION: VITAL SIGNS: Temperature 97.9, heart rate 64 to 79, blood pressure 128/72 to 125/74, respiratory rate 18, saturating 99% on oxygen 2 L nasal cannula. Intake 250, output 0, positive balance 250. Status post ultrafiltration/hemodialysis yesterday. Weight 189 pounds. HEAD, EYES, EARS, NOSE, THROAT: Pupils are reactive. Conjunctivae pink. Sclerae white. Extraocular muscles intact. NECK: Supple. No jugular venous distension. HEART: Rhythm regular. CHEST: Bilateral breath sounds. Scattered rhonchi at bases. ABDOMEN: Bowel sounds present, soft. EXTREMITIES: Scar from the previous surgery on the left midfoot, status post right great toe amputation. Left arm fistula. CURRENT MEDICATIONS: DuoNeb 3 mL via nebulizer q.4 p.r.n., amlodipine 10 mg daily, aspirin 325 mg p.o. daily, Catapres 0.2 mg p.o. q.12, heparin 5000 units subcu q.12, hydralazine 25 mg p.o. q.8 hours, Accu-Chek with regular insulin coverage, Xalatan ophthalmic 1 drop OU h.s., minoxidil 2.5 mg p.o. daily, Renagel 2400 mg p.o. three times daily. LABORATORY DATA: SMA-7; sodium 142, potassium 5.1, chloride 96, CO2 29, blood urea nitrogen 37, creatinine 11.3, glucose random 119, hemoglobin A1c pending, calcium 9.1, total bilirubin 0.8. AST 17, ALT 33, alkaline phosphatase 79, ProBNP 53,500. PT 11.7, INR 1.1, and PTT 32.1. Microbiology; blood culture, no growth reported. Echocardiogram, official report pending. Chest x-ray from 08/30/2017, persistent cardiomegaly, mild pulmonary venous congestion. IMPRESSION: 1. Cardiac, accelerated hypertension secondary to noncompliance with the medications and missed dialysis, now controlled with intravenous nitroglycerin drip. Continue current blood pressure medications. 2. Pulmonary, stable, no distress noted. 3. Neurologic, no evidence of acute cerebral vasospasm. 4. Hematology, anemia from chronic disease secondary to chronic kidney disease. 5. Acute on chronic renal failure, on hemodialysis, noncompliant with the dialysis. The patient was counseled regarding the risks and benefits of compliance to dialysis as prescribed by [facility] consult. 6. Endocrine, maintain blood sugar less than 180 mg. 7. Infectious Disease, no acute issues noted; however, status post left foot surgery and amputation right great toe. No evidence of ongoing infection noted. Continue deep vein thrombosis prophylaxis. Out of bed to chair as tolerated. The patient may be transferred to telemetry floor after the dialysis is completed. David Meza MD
[2017-09-02] MEDS: Insulin Lispro (humaLOG) 100 Units/ml Inj SC SCH ×2 (06:46→14:23)
--- NOTE | 2017-09-02 09:26 | CP.PCM.PN ---
Subjective - Date & Time of Evaluation Date of Evaluation: 09/02/17 Time of Evaluation: 09:26 - Subjective Subjective: Pt seen and examined at bedside. pt s/p dialysis on 08/31/2017. He was scheduled to receive a second round of dialysis yesterday evening but refused because he "would rather sleep" and it was late. He is agreeable to receive dialysis treatment today. There were no overnight events. The pt has no complaints; Afebrile, he denies SOB/CP/palpitations, chills, N/V/D/C, abdominal pain or headaches, acute changes in vision, hearing, or appetite. numbness or tingling. Objective - Vital Signs/Intake and Output Vital Signs (last 24 hours): Temp Pulse Resp BP Pulse Ox 97.6 F 60 18 145/66 95 09/02/17 08:00 09/02/17 08:00 09/02/17 08:00 09/02/17 08:00 09/02/17 08:00 - Medications Medications: Current Medications Albuterol/Ipratropium (Duoneb 3 Mg/0.5 Mg (3 Ml) Ud) 3 ml INH RQ4 PRN PRN Reason: Shortness of Breath Amlodipine Besylate (Norvasc) 10 mg PO DAILY [facility] Last Admin: 09/01/17 08:05 Dose: 10 mg Aspirin (Aspirin) 325 mg PO DAILY [facility] Last Admin: 09/01/17 08:06 Dose: 325 mg Brimonidine Tartrate (Alphagan 0.2% Opht) 1 drop OU Q12 [facility] Last Admin: 09/01/17 21:30 Dose: 1 drop Clonidine HCl (Catapres) 0.2 mg PO Q12 [facility] Last Admin: 09/01/17 21:29 Dose: 0.2 mg Heparin Sodium (Porcine) (Heparin) 5,000 units SC Q12 [facility] PRN Reason: Protocol Last Admin: 09/01/17 21:28 Dose: 5,000 units Hydralazine HCl (Apresoline) 25 mg PO Q8@0600,1400,2200 [facility] Last Admin: 09/02/17 05:58 Dose: 25 mg Insulin Human Lispro (Humalog) 0 units SC ACHS [facility] PRN Reason: Protocol Last Admin: 09/02/17 06:46 Dose: Not Given Latanoprost (Xalatan Opht) 1 drop OU HS [facility] Last Admin: 09/01/17 21:30 Dose: 1 drop Minoxidil (Minoxidil) 2.5 mg PO DAILY [facility] Last Admin: 09/01/17 08:05 Dose: 2.5 mg Sevelamer HCl (Renagel) 2,400 mg PO TID [facility] Last Admin: 09/01/17 18:00 Dose: 2,400 mg - Labs Labs: 09/01/17 04:20 09/01/17 04:20 PT 11.7 Seconds (9.8-13.1) 08/31/17 00:03 INR 1.1 (0.9-1.2) 08/31/17 00:03 APTT 32.1 Seconds (25.6-37.1) 08/31/17 00:03 - Constitutional Appears: Non-toxic, No Acute Distress - Head Exam Head Exam: ATRAUMATIC - Eye Exam Eye Exam: EOMI. absent: Scleral icterus Pupil Exam: PERRL - ENT Exam ENT Exam: Mucous Membranes Moist - Neck Exam Neck Exam: Full ROM - Respiratory Exam Respiratory Exam: Clear to Ausculation Bilateral, NORMAL BREATHING PATTERN. absent: Accessory Muscle Use, Chest Wall Tenderness, Rales, Rhonchi, Wheezes - Cardiovascular Exam Cardiovascular Exam: REGULAR RHYTHM, RRR, +S1, +S2. absent: JVD, Rubs - GI/Abdominal Exam GI & Abdominal Exam: Soft, Normal Bowel Sounds. absent: Distended, Firm, Guarding, Rigid, Tenderness - Extremities Exam Extremities Exam: Normal Inspection. absent: Calf Tenderness, Pedal Edema Additional comments: LUE: functioning AV fistula - Neurological Exam Neurological Exam: Alert, Awake, Oriented x3 Assessment and Plan (1) Fluid overload Assessment & Plan: -secondary to ESRD and missing dialysis. -SOB resolved, lungs are clear, no pedal edema. -Second dialysis treatment today Status: Acute (2) CHF (congestive heart failure) Assessment & Plan: Acute systolic HF. ECHO on 08/31 shows: normal sized left ventricle, moderate concentric LVH, LVEF of 40-45%, anerysmal apex, Grade-I abnormal relaxation. Mild tricuspid regurg and mild pulmonary HTN, mitral regurg is mild. P-BNP on admission: 40809, repeat: [address] Garvey, repeat ECHO w contrast: no anerysnm of depressed LV Function. Status: Suspected (3) ESRD (end stage renal disease) Assessment & Plan: BUN/Cr: improved to 37/11.3 currently being followed by Nephro Dr. Gonzales s/p dialysis on 08/31, pt to have dialysis again today will f/u CMP after dialysis Status: Chronic (4) Hypertensive urgency Assessment & Plan: secondary to combination of medication noncompliance/fluid overload due to missing dialysis BP on admission 168/98, better control now, BP this morning 127/71 -Nitroglycerin drip discontinued -c/w clonidine 0.2mg -c/w minoxidil 2.5mg QD -HCTZ discontinued as per Nephro Recommendations -Hold Valsartan for hyperkalemia Status: Acute (5) Hyperkalemia Assessment & Plan: secondary to ESRD HCTZ/Losartan held will discuss recommendations about ARB and Hyperkalemia with Nephro K+ tending downwards, 5.1, monitor CMP and tele monitoring Status: Acute (6) Pre-diabetes Assessment & Plan: diet controlled HbA1C: 5.8 Status: Chronic (7) Prophylactic measure Assessment & Plan: aspirin 325mg BID SCDs Status: Acute
--- NOTE | 2017-09-02 09:49 | CP.PCM.PN ---
Subjective - Date & Time of Evaluation Date of Evaluation: 09/02/17 Time of Evaluation: 09:00 - Subjective Subjective: Clinically unchanged Telemetry shows occ brief periods of A Fib (as during echo study yesterday) No overt volume overload once HD was restarted. Echo with contrast does not show apical aneurysm or depressed LV function. Objective - Vital Signs/Intake and Output Vital Signs (last 24 hours): Temp Pulse Resp BP Pulse Ox 97.6 F 60 18 145/66 95 09/02/17 08:00 09/02/17 08:00 09/02/17 08:00 09/02/17 08:00 09/02/17 08:00 - Medications Medications: Current Medications Albuterol/Ipratropium (Duoneb 3 Mg/0.5 Mg (3 Ml) Ud) 3 ml INH RQ4 PRN PRN Reason: Shortness of Breath Amlodipine Besylate (Norvasc) 10 mg PO DAILY [facility] Last Admin: 09/01/17 08:05 Dose: 10 mg Aspirin (Aspirin) 325 mg PO DAILY [facility] Last Admin: 09/01/17 08:06 Dose: 325 mg Brimonidine Tartrate (Alphagan 0.2% Opht) 1 drop OU Q12 [facility] Last Admin: 09/01/17 21:30 Dose: 1 drop Clonidine HCl (Catapres) 0.2 mg PO Q12 [facility] Last Admin: 09/01/17 21:29 Dose: 0.2 mg Heparin Sodium (Porcine) (Heparin) 5,000 units SC Q12 [facility] PRN Reason: Protocol Last Admin: 09/01/17 21:28 Dose: 5,000 units Hydralazine HCl (Apresoline) 25 mg PO Q8@0600,1400,2200 [facility] Last Admin: 09/02/17 05:58 Dose: 25 mg Insulin Human Lispro (Humalog) 0 units SC ACHS [facility] PRN Reason: Protocol Last Admin: 09/02/17 06:46 Dose: Not Given Latanoprost (Xalatan Opht) 1 drop OU HS [facility] Last Admin: 09/01/17 21:30 Dose: 1 drop Minoxidil (Minoxidil) 2.5 mg PO DAILY [facility] Last Admin: 09/01/17 08:05 Dose: 2.5 mg Sevelamer HCl (Renagel) 2,400 mg PO TID [facility] Last Admin: 09/01/17 18:00 Dose: 2,400 mg - Labs Labs: 09/01/17 04:20 09/01/17 04:20 PT 11.7 Seconds (9.8-13.1) 08/31/17 00:03 INR 1.1 (0.9-1.2) 08/31/17 00:03 APTT 32.1 Seconds (25.6-37.1) 08/31/17 00:03
[2017-09-02] MEDS: Brimonidine 0.2% 50 DROP/5 ML BOTTLE OU SCH (10:25)
--- NOTE | 2017-09-02 11:48 | CP.PCM.PN ---
Subjective - Date & Time of Evaluation Date of Evaluation: 09/02/17 Time of Evaluation: 11:47 - Subjective Subjective: He was seen on hemodialysis now Patient refused hemodialysis yesterday Vital signs stable Patient is awake and conscious And no shortness of breath Objective - Vital Signs/Intake and Output Vital Signs (last 24 hours): Temp Pulse Resp BP Pulse Ox 97.6 F 60 18 145/66 95 09/02/17 08:00 09/02/17 08:00 09/02/17 08:00 09/02/17 08:00 09/02/17 08:00 - Medications Medications: Current Medications Albuterol/Ipratropium (Duoneb 3 Mg/0.5 Mg (3 Ml) Ud) 3 ml INH RQ4 PRN PRN Reason: Shortness of Breath Amlodipine Besylate (Norvasc) 10 mg PO DAILY [facility] Last Admin: 09/02/17 10:15 Dose: Not Given Aspirin (Aspirin) 325 mg PO DAILY [facility] Last Admin: 09/02/17 10:30 Dose: 325 mg Atorvastatin Calcium (Lipitor) 40 mg PO DAILY [facility] Brimonidine Tartrate (Alphagan 0.2% Opht) 1 drop OU Q12 [facility] Last Admin: 09/02/17 10:25 Dose: 1 drop Clonidine HCl (Catapres) 0.2 mg PO Q12 [facility] Last Admin: 09/02/17 10:15 Dose: Not Given Heparin Sodium (Porcine) (Heparin) 5,000 units SC Q12 [facility] PRN Reason: Protocol Last Admin: 09/02/17 10:37 Dose: Not Given Hydralazine HCl (Apresoline) 25 mg PO Q8@0600,1400,2200 [facility] Last Admin: 09/02/17 05:58 Dose: 25 mg Insulin Human Lispro (Humalog) 0 units SC ACHS [facility] PRN Reason: Protocol Last Admin: 09/02/17 06:46 Dose: Not Given Latanoprost (Xalatan Opht) 1 drop OU HS [facility] Last Admin: 09/01/17 21:30 Dose: 1 drop Minoxidil (Minoxidil) 2.5 mg PO DAILY [facility] Last Admin: 09/02/17 10:15 Dose: Not Given Sevelamer HCl (Renagel) 2,400 mg PO TID [facility] Last Admin: 09/02/17 10:25 Dose: 2,400 mg - Labs Labs: 09/01/17 04:20 09/01/17 04:20 PT 11.7 Seconds (9.8-13.1) 08/31/17 00:03 INR 1.1 (0.9-1.2) 08/31/17 00:03 APTT 32.1 Seconds (25.6-37.1) 08/31/17 00:03 - Constitutional Appears: No Acute Distress - ENT Exam ENT Exam: Mucous Membranes Moist - Respiratory Exam Respiratory Exam: NORMAL BREATHING PATTERN. absent: Chest Wall Tenderness - Cardiovascular Exam Cardiovascular Exam: absent: JVD, Rubs - GI/Abdominal Exam GI & Abdominal Exam: Soft, Normal Bowel Sounds - Extremities Exam Extremities Exam: absent: Calf Tenderness - Back Exam Back Exam: absent: CVA tenderness (L), CVA tenderness (R) - Neurological Exam Neurological Exam: Alert Assessment and Plan (1) Fluid overload Status: Acute (2) Hypertension Status: Chronic (3) CVA (cerebral vascular accident) Status: Acute (4) Chronic kidney disease requiring chronic dialysis Status: Acute
[2017-09-02 14:50] LABS: CALCIUM 9.1 mg/dL (8.4-10.2); POTASSIUM 4.2 MMOL/L (3.6-5.0)
--- NOTE | 2017-09-02 15:20 | CP.PCM.DIS ---
Provider - Provider Date of Admission: 08/31/17 00:52 Attending physician: Sejal Vásquez MD Time Spent in preparation of Discharge (in minutes): 35 Diagnosis - Discharge Diagnosis (1) Fluid overload Status: Acute (2) CHF (congestive heart failure) Status: Suspected (3) ESRD (end stage renal disease) Status: Chronic Priority: Medium (4) Hypertensive urgency Status: Acute (5) Hyperkalemia Status: Acute Hospital Course - Lab Results Lab Results: Micro Results 08/31/17 09:49 Naris MRSA Culture (Admit) - Final MRSA NOT DETECTED Most Recent Lab Values WBC 9.6 K/uL (4.8-10.8) 09/01/17 04:20 RBC 4.05 Mil/uL (4.40-5.90) L 09/01/17 04:20 Hgb 11.8 g/dL (12.0-18.0) L 09/01/17 04:20 Hct 36.1 % (35.0-51.0) 09/01/17 04:20 MCV 89.2 fl (80.0-94.0) 09/01/17 04:20 MCH 29.1 pg (27.0-31.0) 09/01/17 04:20 MCHC 32.7 g/dL (33.0-37.0) L 09/01/17 04:20 RDW 18.0 % (11.5-14.5) H 09/01/17 04:20 Plt Count 170 K/uL (130-400) 09/01/17 04:20 MPV 8.4 fl (7.2-11.7) 08/31/17 00:03 Neut % (Auto) 78.1 % (50.0-75.0) H 08/31/17 00:03 Lymph % (Auto) 8.9 % (20.0-40.0) L 08/31/17 00:03 Mineral % (Auto) 7.6 % (0.0-10.0) 08/31/17 00:03 Eos % (Auto) 4.4 % (0.0-4.0) H 08/31/17 00:03 Baso % (Auto) 1.0 % (0.0-2.0) 08/31/17 00:03 Neut # 8.0 K/uL (1.8-7.0) H 08/31/17 00:03 Lymph # 0.9 K/uL (1.0-4.3) L 08/31/17 00:03 Mineral # 0.8 K/uL (0.0-0.8) 08/31/17 00:03 Eos # 0.5 K/uL (0.0-0.7) 08/31/17 00:03 Baso # 0.1 K/uL (0.0-0.2) 08/31/17 00:03 Neutrophils % (Manual) 80 % (42-75) H 08/31/17 00:03 Band Neutrophils % 1 % (0-2) 08/31/17 00:03 Lymphocytes % (Manual) 8 % (20-50) L 08/31/17 00:03 Monocytes % (Manual) 6 % (0-10) 08/31/17 00:03 Eosinophils % (Manual) 5 % (0-7) 08/31/17 00:03 Platelet Estimate Normal (NORMAL) 08/31/17 00:03 Hypochromasia (manual) Slight 08/31/17 00:03 Anisocytosis (manual) Slight 08/31/17 00:03 Macrocytosis (manual) Slight 08/31/17 00:03 PT 11.7 Seconds (9.8-13.1) 08/31/17 00:03 INR 1.1 (0.9-1.2) 08/31/17 00:03 APTT 32.1 Seconds (25.6-37.1) 08/31/17 00:03 Sodium 142 mmol/l (132-148) 09/02/17 14:05 Potassium 4.2 MMOL/L (3.6-5.0) 09/02/17 14:05 Chloride 96 mmol/L (98-107) L 09/02/17 14:05 Carbon Dioxide 32 mmol/L (22-30) H 09/02/17 14:05 Anion Gap 18 (10-20) 09/02/17 14:05 BUN 23 mg/dl (9-20) H 09/02/17 14:05 Creatinine 7.5 mg/dL (0.8-1.5) H* 09/02/17 14:05 Est GFR ( Amer) 9 09/02/17 14:05 Est GFR (Non-Af Amer) 7 09/02/17 14:05 POC Glucose (mg/dL) 105 mg/dL (65-110) 09/02/17 05:28 Random Glucose 133 mg/dL (75-110) H 09/02/17 14:05 Hemoglobin A1c 5.8 % (4.2-6.5) 08/31/17 04:45 Calcium 9.1 mg/dL (8.4-10.2) 09/02/17 14:05 Phosphorus 6.6 mg/dl (2.5-4.5) H 08/31/17 04:45 Magnesium 2.3 MG/DL (1.6-2.3) 08/31/17 04:45 Total Bilirubin 0.8 mg/dl (0.2-1.3) 09/01/17 04:20 AST 17 U/L (17-59) D 09/01/17 04:20 ALT 33 U/L (21-72) 09/01/17 04:20 Alkaline Phosphatase 79 U/L (38-126) 09/01/17 04:20 Troponin I 0.0820 ng/mL (0.00-0.120) 08/31/17 07:35 NT-Pro-B Natriuret Pep 41051 pg/ml (0-900) H 09/01/17 04:30 Total Protein 6.8 G/DL (6.3-8.2) 09/01/17 04:20 Albumin 4.1 g/dL (3.5-5.0) 09/01/17 04:20 Globulin 2.7 gm/dL (2.2-3.9) 09/01/17 04:20 Albumin/Globulin Ratio 1.5 (1.0-2.1) 09/01/17 04:20 - Hospital Course Hospital Course: pt was admitted for hypertensive urgency secondary to fluid overload due to ESRD after missing dialysis and being noncompliant with medications. Pt was dialyzed twice, labs improved, BP was under control. Seen by nephro and cardio. After an uneventful hospital stay, pt was discharged in stable condition. Meds changed: stopped HCTZ stopped Valsartan meds stopped secondary to pts persistent hyperkalemia and noncompliance with dialysis. Discharge Exam - Head Exam Head Exam: ATRAUMATIC - Eye Exam Eye Exam: EOMI Pupil Exam: PERRL Additional comments: right eye blindness unchanged since admission - Respiratory Exam Respiratory Exam: Clear to PA & Lateral, NORMAL BREATHING PATTERN, UNREMARKABLE. absent: Accessory Muscle Use, Rales, Rhonchi, Wheezes - Cardiovascular Exam Cardiovascular Exam: REGULAR RHYTHM, RRR, Rubs, +S1, +S2. absent: Tachycardia, Gallop, JVD, Systolic Murmur - GI/Abdominal Exam GI & Abdominal Exam: Normal Bowel Sounds, Soft, Unremarkable. absent: Tenderness - Extremities Exam Extremities exam: normal capillary refill, normal inspection - Neurological Exam Neurological exam: Alert, Oriented x3, Reflexes Normal - Psychiatric Exam Psychiatric exam: Normal Affect, Normal Mood - Skin Skin Exam: Dry, Intact, Normal Color, Warm Discharge Plan - Follow Up Plan Condition: STABLE Disposition: HOME/ ROUTINE Instructions: Hypertension (DC), Hypertension (GEN) Additional Instructions: follow up with Dr. Iris Gonzales to resume dialysis as scheduled follow up with [facility] for hospital discharge follow up Referrals: William Gravey MD [Staff Provider] - Alan Gonzales MD [Staff Provider] -
[2017-09-02 15:45] VITALS: BP 151/75; PULSE 75; RESP 20; TEMP 97.9; O2SAT 96
== END 2017-09-02 16:30 | disposition home or self-care (01) | DRG 640 ==
LOC: H.ER 22:56 → H.ERHOLD 08-31 00:52 → H.ICU/CCU 08-31 02:00 → H.TEL 09-01 13:42
PROVIDERS: ADMIT Family Medicine Geriatric Medicine; ATTEND Family Medicine Geriatric Medicine
PROC: 3E0234Z Introduction of Serum, Toxoid and Vaccine into Muscle, Percutaneous Approach (ICD-10-PCS; principal; 2017-08-31)
PROC: 5A1D70Z Performance of Urinary Filtration, Intermittent, Less than 6 Hours Per Day (ICD-10-PCS; 2017-08-31)
DX: E87.79 Other fluid overload (principal); N18.6 End stage renal disease; I50.21 Acute systolic (congestive) heart failure; N17.9 Acute kidney failure, unspecified; E11.22 Type 2 diabetes mellitus with diabetic chronic kidney disease; I13.2 Hypertensive heart and chronic kidney disease with heart failure and with stage 5 chronic kidney disease, or end stage renal disease; E87.5 Hyperkalemia; E78.5 Hyperlipidemia, unspecified; Z91.14 Patient's other noncompliance with medication regimen; Z91.15 Patient's noncompliance with renal dialysis; Z99.2 Dependence on renal dialysis; E78.00 Pure hypercholesterolemia, unspecified; Z86.73 Personal history of transient ischemic attack (TIA), and cerebral infarction without residual deficits; D63.1 Anemia in chronic kidney disease; Z23 Encounter for immunization; Z89.411 Acquired absence of right great toe; I16.0 Hypertensive urgency; H54.61 Unqualified visual loss, right eye, normal vision left eye

== ENCOUNTER 2017-12-07 17:21 | Observation (INO) | payer MEDICARE, OTHER ==
[2017-12-07 17:21] VITALS: BMI 33.9
--- NOTE | 2017-12-07 18:42 | ED PDOC ---
HPI: SOB/CHF/COPD Time Seen by Provider: 12/07/17 17:29 Chief Complaint (Nursing): Shortness Of Breath Chief Complaint (Provider): Shortness of breath History Per: Patient History/Exam Limitations: no limitations Onset/Duration Of Symptoms: Days (x2), Worse Since (onset) Current Symptoms Are (Timing): Still Present Associated Symptoms: denies: Fever, Chest Pain, Productive Cough, Other ( rhinorrhea) Additional Complaint(s): Lon Lafleur is a 62 year old male, with a past medical history of diabetes, hypertension, hypercholesterolemia, anemia, end stage renal disease, and chronic kidney disease, who was brought to the emergency department by EMS for worsening shortness of breath onset for x2 days. Patient states he feels unable to get any air. He reports similar episodes in the past, and family says he has had fluid in his lungs in the past. Patient is on hemodialysis Thursday, , and Thursday. He has been compliant with last hemodialysis on Thursday. He denies any chest pain, leg swelling, cough, fever, or rhinorrhea. No further medical complaints. PMD: Family practice clinic Past Medical History Reviewed: Historical Data, Nursing Documentation, Vital Signs Vital Signs: Last Vital Signs Temp 98.7 F 12/08/17 08:08 Pulse 79 12/08/17 09:00 Resp 18 12/08/17 08:08 BP 143/72 12/08/17 09:00 Pulse Ox 95 12/08/17 08:08 - Medical History PMH: Anemia, Diabetes, HTN, Hypercholesterolemia, Hyperlipidemia, End Stage Renal Disease, Chronic Kidney Disease (ESRD), TIA Denies: Arthritis, Cardia Arrhythmia, CHF, COPD, HIV, Hypothyroidism, Rheumatoid Arthritis - Surgical History Surgical History: No Surg Hx - Family History Family History: States: Unknown Family Hx - Home Medications Home Medications: Ambulatory Orders Medication Instructions Recorded Insulin Lispro [Humalog (Insulin See Protocol SQ ACHS 06/03/17 Lispro)] Sevelamer Carbonate [Renvela] 2.4 gm PO TID 06/03/17 Aspirin 325 mg PO DAILY #30 tab 06/22/17 Brimonidine 0.2% [Alphagan 0.2% 1 drop OU Q12 #1 06/22/17 Opht] Latanoprost 0.005% Opht [Xalatan 1 drop OU HS #1 06/22/17 Opht] Minoxidil 2.5 mg PO DAILY #30 tab 06/22/17 Valsartan [Diovan] 320 mg PO DAILY #30 06/22/17 amLODIPine [Norvasc] 10 mg PO DAILY #30 tab 06/22/17 cloNIDine [Catapres] 0.2 mg PO Q12 #30 tab 06/22/17 hydrALAZINE [Apresoline] 25 mg PO Q8@0600,1400,2200 #30 tab 06/22/17 hydroCHLOROthiazide [Microzide] 50 mg PO DAILY #30 tab 06/22/17 Atorvastatin [Lipitor] 10 mg PO DIN #30 tab 12/08/17 Sevelamer [Renagel] 2,400 mg PO TID tab 12/08/17 Valsartan [Diovan] 320 mg PO DAILY tab 12/08/17 - Allergies Allergies/Adverse Reactions: Allergies Allergy/AdvReac Type Severity Reaction Status Date / Time No Known Allergies Allergy Verified 12/07/17 19:58 Review of Systems ROS Statement: Except As Marked, All Systems Reviewed And Found Negative Constitutional: Negative for: Fever ENT: Negative for: Nose Discharge Cardiovascular: Negative for: Chest Pain, Other (leg swelling) Respiratory: Positive for: Shortness of Breath. Negative for: Cough Physical Exam - Reviewed Nursing Documentation Reviewed: Yes Vital Signs Reviewed: Yes - Physical Exam Appears: Positive for: In Acute Distress (respiratory) Head Exam: Positive for: ATRAUMATIC, NORMOCEPHALIC Skin: Positive for: Warm, Dry Eye Exam: Positive for: EOMI, PERRL ENT: Negative for: Pharyngeal Erythema, Tonsillar Exudate Neck: Positive for: Painless ROM, Supple Cardiovascular/Chest: Positive for: Regular Rate, Rhythm, Chest Non Tender. Negative for: Murmur Respiratory: Positive for: Accessory Muscle Use, Respiratory Distress. Negative for: Rales, Rhonchi, Wheezing Gastrointestinal/Abdominal: Positive for: Soft. Negative for: Tenderness Back: Positive for: Normal Inspection. Negative for: Decreased ROM Extremity: Positive for: Normal ROM. Negative for: Pedal Edema Lymphatic: Negative for: Adenopathy Neurologic/Psych: Positive for: Alert, Oriented - Laboratory Results Result Diagrams: 12/08/17 04:25 12/08/17 04:25 - ECG O2 Sat by Pulse Oximetry: 88 (RA) Pulse Ox Interpretation: Abnormal (improved with 4L NC) - Radiology X-Ray Interpretation: Other (increased congestion perihilar areas c/w previous) Medical Decision Making Medical Decision Making: Initial Impression: shortness of breath. Differential includes but not limited to fluid overload, CHF, anemia, PNA, pleural effusion Initial Plan: --Type and screen --EKG --B-type Natriuretic peptide --Comp Metabolic Panel --Magnesium --Phosphorus --Troponin I --CBC w/ differential --PTT --PT --Chest portable [RAD] --Blood culture --Influenza A B --reevaluation Labs demonstrate elevated BUN/CR/Ag/probnp. CXR with congestion. Pt with shortness of breath persistent, reports symptoms similar to when he had to have emergent dialysis for fluid overload at last hospital admission. KETTY Gonzales. Pt to have stat dialysis tonight. KETTY LOPEZ resident. Scribe Attestation: Documented by Hayden Martinez, acting as a scribe for Jessie Dominguez MD Provider Scribe Attestation: All medical record entries made by the Scribe were at my direction and personally dictated by me. I have reviewed the chart and agree that the record accurately reflects my personal performance of the history, physical exam, medical decision making, and the department course for this patient. I have also personally directed, reviewed, and agree with the discharge instructions and disposition. Disposition - Clinical Impression Clinical Impression: ESRD (end stage renal disease), Fluid overload Counseled Patient/Family Regarding: Studies Performed, Diagnosis - Disposition Disposition Time: 19:30 Condition: GUARDED - Pt Status Changed To: Hospital Disposition Of: Observation - POA Present On Arrival: None
[2017-12-07 18:51] LABS: BASO # 0.1 K/uL (0.0-0.2); BASO % 1.2 % (0.0-2.0); EOS # 0.4 K/uL (0.0-0.7); EOS % 3.9 % (0.0-4.0); HEMOGLOBIN 9.6 g/dL (12.0-18.0); LYMPH # 1.2 K/uL (1.0-4.3); LYMPH % 12.3 % (20.0-40.0); MEAN CELL VOLUME 88.1 fl (80.0-94.0); MEAN CORPUSCULAR HEMOGLOBIN 28.6 pg (27.0-31.0); MEAN CORPUSCULAR HGB CONC 32.5 g/dL (33.0-37.0); MEAN PLATELET VOLUME 8.8 fl (7.2-11.7); MONO # 0.8 K/uL (0.0-0.8); NEUT # 6.9 K/uL (1.8-7.0); NEUT % 73.6 % (50.0-75.0); RBC 3.37 Mil/uL (4.40-5.90); RED CELL DISTRIBUTION WIDTH 18.2 % (11.5-14.5); WHITE BLOOD COUNT 9.4 K/uL (4.8-10.8)
[2017-12-07 18:56] LABS: INR 1.1 (0.9-1.2); PARTIAL THROMBOPLASTIN TIME 30.5 Seconds (25.6-37.1); PROTHROMBIN TIME 11.7 Seconds (9.8-13.1)
[2017-12-07 19:06] LABS: ALB/GLOB RATIO 1.4 (1.0-2.1); ALBUMIN 4.4 g/dL (3.5-5.0); CALCIUM 10.5 mg/dL (8.4-10.2); MAGNESIUM 2.3 MG/DL (1.6-2.3)
[2017-12-07 19:32] LABS: TROPONIN I 0.102 ng/mL (0.00-0.120)
--- NOTE | 2017-12-07 20:30 | CP.PCM.HP ---
History of Present Illness - History of Present Illness History of Present Illness: CC: SOB HPI: 62 y/o man w/ pmh of HTN, ESRD on HD TThS, DM2, HLD, and CVA presents to ED for SOB. Patient reports SOB started 2 days ago but worsened this afternoon while at rest at home. Patient took no medications and denies any alleviating/ aggravating factors. Patient had hemodialysis this past Thursday w/ no issue. Left arm fistula access for HD. Patient denies headaches, dizziness, chest pain , abdominal pain, nausea, vomiting, diarrhea, dysuria, or fever. ED course: vitals: 98.1 F, 81 bpm, 177/79 mm Hg, resp 18, O2 100% 2L NC -CBC: 9.4>9.6/29.7<234 -Type and screen: O positive -antibody: neg -B-type Natriuretic peptide: 04630 -Comp Metabolic Panel: 141/4.9, 95/29, 55/13.8, glucose 117, AST 31, ALT 35, alk phos 110 -Magnesium: 2.3 -Phosphorus: 4.5 -Troponin I: 0.1020 -PTT: 30.5 -PT: 11.7 -INR: 1.1 -Blood culture: pending -Influenza A B: pending -Chest portable [RAD]: (preliminary) cardiomegaly, pulmonary venous congestion, minimal pleural effusion -EKG: NSR, no ST elevation/depression, no widened QRS or MT, no T wave inversion PMD: [facility] and Dr. Gonzales for nephro PMHx: HTN, DM2, ESRD on HD (TThS), hyperlipidemia, CVA Allergies: NKDA Meds: Aspirin 325 , Minoxidil 2.5, Valsartan 320 mg po daily, Sevelamir 2.4 mg , Hctz 50 mg daily, Hydralazine 25 mg Q 8 hours, Clonidine 0.2 mg Q 12h, Amlodipine 10 mg PO daily. PsurgHx: left foot surgery, right great toe amputation. L arm fistula Fam: non-contributory SOC: History of tobacco abuse (2-3 cig/day x3 years, quit 2 year ago), denies alcohol and illegal drugs Present on Admission - Present on Admission Any Indicators Present on Admission: No History of DVT/PE: No History of Uncontrolled Diabetes: No Urinary Catheter: No Decubitus Ulcer Present: No Review of Systems - Review of Systems All systems: reviewed and no additional remarkable complaints except - Constitutional Constitutional: absent: Chills, Fever, Headache, Weakness - EENT Eyes: absent: Change in Vision - Cardiovascular Cardiovascular: Dyspnea. absent: Chest Pain, Edema, Leg Edema, Palpitations, Pedal Edema - Respiratory Respiratory: Dyspnea. absent: Wheezing - Gastrointestinal Gastrointestinal: absent: Abdominal Pain, Diarrhea, Nausea, Vomiting - Genitourinary Genitourinary: absent: Dysuria - Integumentary Integumentary: absent: Rash - Neurological Neurological: absent: Dizziness, Headaches Past Patient History - Infectious Disease Hx of Infectious Diseases: None - Past Medical History & Family History Past Medical History?: Yes - Past Social History Smoking Status: Former Smoker - CARDIAC Hx Cardia Arrhythmia: No Hx Congestive Heart Failure: No Hx Hypercholesterolemia: Yes Hx Hypertension: Yes - PULMONARY Hx Chronic Obstructive Pulmonary Disease (COPD): No - NEUROLOGICAL Hx Transient Ischemic Attacks (TIA): Yes - HEENT Hx HEENT Problems: No Hx Blind: Yes (right eye) - RENAL Hx Chronic Kidney Disease: Yes (ESRD) - ENDOCRINE/METABOLIC Hx Hypothyroidism: No - HEMATOLOGICAL/ONCOLOGICAL Hx Anemia: Yes Hx Human Immunodeficiency Virus (HIV): No - INTEGUMENTARY Hx Dermatological Problems: No - MUSCULOSKELETAL/RHEUMATOLOGICAL Hx Arthritis: No Hx Rheumatoid Arthritis: No - GASTROINTESTINAL Hx Gastrointestinal Disorders: No - GENITOURINARY/GYNECOLOGICAL Hx Genitourinary Disorders: Yes (ESRD,CKD) - PSYCHIATRIC Hx Psychophysiologic Disorder: No Hx Substance Use: No - SURGICAL HISTORY 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)) Other/Comment: LEFT ANKLE SX - ANESTHESIA Hx Anesthesia: Yes Hx Anesthesia Reactions: No Hx Malignant Hyperthermia: No Meds Allergies/Adverse Reactions: Allergies Allergy/AdvReac Type Severity Reaction Status Date / Time No Known Allergies Allergy Verified 12/07/17 19:58 Physical Exam - Constitutional Appears: Non-toxic, No Acute Distress - Head Exam Head Exam: ATRAUMATIC, NORMAL INSPECTION, NORMOCEPHALIC - Eye Exam Eye Exam: Normal appearance Pupil Exam: NORMAL ACCOMODATION - ENT Exam ENT Exam: Normal Exam - Neck Exam Neck exam: Positive for: Full Rom. Negative for: Tenderness - Respiratory Exam Respiratory Exam: Decreased Breath Sounds, Clear to Auscultation Bilateral. absent: Chest Wall Tenderness, Prolonged Expiratory Phase, Rales, Rhonchi, Wheezes - Cardiovascular Exam Cardiovascular Exam: REGULAR RHYTHM. absent: Tachycardia - GI/Abdominal Exam GI & Abdominal Exam: Normal Bowel Sounds, Soft. absent: Distended, Tenderness - Extremities Exam Extremities exam: Positive for: normal inspection. Negative for: calf tenderness, pedal edema, tenderness - Neurological Exam Neurological exam: Alert, Oriented x3 - Skin Skin Exam: Dry, Intact, Normal Color, Warm Results - Vital Signs Recent Vital Signs: Last Vital Signs Temp 97.9 F 12/07/17 19:55 Pulse 76 12/07/17 19:55 Resp 18 12/07/17 19:55 BP 166/85 H 12/07/17 19:55 Pulse Ox 99 12/07/17 19:55 - Labs Result Diagrams: 12/07/17 18:43 12/08/17 04:25 Labs: Laboratory Results - last 24 hr 12/07/17 12/07/17 12/07/17 17:38 18:00 18:36 WBC RBC Hgb Hct MCV MCH MCHC RDW Plt Count MPV Neut % (Auto) Lymph % (Auto) [place] % (Auto) Eos % (Auto) Baso % (Auto) Neut # Lymph # Hoke # Eos # Baso # PT INR APTT Sodium 141 Potassium 4.9 Chloride 95 L Carbon Dioxide 29 Anion Gap 22 H BUN 55 H Creatinine 13.8 H* Est GFR ( Amer) 4 Est GFR (Non-Af Amer) 4 POC Glucose (mg/dL) 133 H Random Glucose 117 H Calcium 10.5 H Phosphorus 4.5 Magnesium 2.3 Total Bilirubin 1.0 AST 31 ALT 35 Alkaline Phosphatase 110 Troponin I 0.1020 NT-Pro-B Natriuret Pep 59954 H Total Protein 7.6 Albumin 4.4 Globulin 3.2 Albumin/Globulin Ratio 1.4 Influenza Typ A,B (EIA) Blood Type O POSITIVE Antibody Screen Negative BBK History Checked Patient has bt 12/07/17 12/07/17 12/07/17 18:36 18:36 18:43 WBC 9.4 RBC 3.37 L Hgb 9.6 L D Hct 29.7 L MCV 88.1 MCH 28.6 MCHC 32.5 L RDW 18.2 H Plt Count 234 MPV 8.8 Neut % (Auto) 73.6 Lymph % (Auto) 12.3 L [place] % (Auto) 9.0 Eos % (Auto) 3.9 Baso % (Auto) 1.2 Neut # 6.9 Lymph # 1.2 Hoke # 0.8 Eos # 0.4 Baso # 0.1 PT 11.7 INR 1.1 APTT 30.5 Sodium Potassium Chloride Carbon Dioxide Anion Gap BUN Creatinine Est GFR ( Amer) Est GFR (Non-Af Amer) POC Glucose (mg/dL) Random Glucose Calcium Phosphorus Magnesium Total Bilirubin AST ALT Alkaline Phosphatase Troponin I NT-Pro-B Natriuret Pep Total Protein Albumin Globulin Albumin/Globulin Ratio Influenza Typ A,B (EIA) Negative for flu a/b Blood Type Antibody Screen BBK History Checked Assessment & Plan - Assessment and Plan (Free Text) Assessment: 62 y/o man w/ pmh of HTN, ESRD on HD TThS, DM2, HLD, and CVA presents to ED for SOB Plan: Shortness of breath - possibly 2/2 due to fluid overload from preserved EF heart failure - last echo 09/01/2017: moderate concentric LVH, LVEF WNL, mild apical hypokinesis - CXR 12/07/2017: (preliminary) cardiomegaly, pulmonary venous congestion, minimal pleural effusion - afebrile, no leukocytosis - Duoneb Q6h prn - Saturating 100% NC 2L CKD stage 5 ESRD - on hemodialysis , , S - patient had scheduled HD on Thursday12/05/2017 - Bun/cr 55/13.8 - Nephorologist, Dr. Gonzales, consulted by ED attending - Patient for stat emergency hemodialysis tonight - f/u CBC and BMP Hypertensive - BP on presentation 177/ 79 mm Hg, currently 166/85 mm Hg - on norvasc 10 mg Po daily, clonidine 0.2 mg PO Q12h, hydralazine 25 mg PO Q8h , HCTZ 50 mg PO daily, minoxidil 2.5 mg PO daily, and valsartan 320 mg PO daily - continue home meds NIDDM2 - controlled - blood sugar 117mg/dl - patient not taking med. diet controlled - hgba1c 5.8 08/31/2017 - accucheck ACHS - insulin correction scale - hypoglycemic protocol Prophylactic measure - Heparin sc 5000 BID
[2017-12-07] MEDS ORDERED: Albuterol-Ipratrop 3 mg / 0.5 (3 ml) UD INH PRN (20:51)
[2017-12-07] MEDS ORDERED: Albuterol-Ipratrop 3 mg / 0.5 (3 ml) UD ONE (21:19)
[2017-12-07] MEDS ORDERED: Glucagon Recombinant 1 mg Inj IM PRN (21:51)
[2017-12-07] MEDS ORDERED: Dextrose 50% SYRINGE Inj (50 ml) IV PRN (21:51)
[2017-12-07] MEDS ORDERED: Latanoprost 0.005% Opht SOUTION OU SCH (22:00)
[2017-12-07] MEDS: Insulin Lispro (humaLOG) 100 Units/ml Inj SC SCH (22:45)
[2017-12-08 05:10] VITALS: RESP 18
[2017-12-08 05:43] LABS: CALCIUM 9.6 mg/dL (8.4-10.2)
[2017-12-08 05:48] LABS: HEMOGLOBIN 9.5 g/dL (12.0-18.0); MEAN CELL VOLUME 88.5 fl (80.0-94.0); MEAN CORPUSCULAR HEMOGLOBIN 28.8 pg (27.0-31.0); MEAN CORPUSCULAR HGB CONC 32.5 g/dL (33.0-37.0); RBC 3.3 Mil/uL (4.40-5.90); WHITE BLOOD COUNT 7.6 K/uL (4.8-10.8)
[2017-12-08] MEDS: Insulin Lispro (humaLOG) 100 Units/ml Inj SC SCH ×2 (06:45→12:00)
--- NOTE | 2017-12-08 07:11 | CP.PCM.CON ---
History of Present Illness - History of Present Illness History of Present Illness: Patient is a 62 years of age presented to the emergency room complaining of shortness of breath difficulty breathing. Patient known to me with end-stage renal disease on dialysis is supposed to go for dialysis at this morning as outpatient however he came last night with shortness of breath he could not wait. Patient has history of multiple admission in the past related to hypertension and many other medical problem including noncompliance with the fluid and the medication. PMHx: HTN, DM2, ESRD on HD (TThS), hyperlipidemia, CVA Allergies: NKDA Meds: Aspirin 325 , Minoxidil 2.5, Valsartan 320 mg po daily, Sevelamir 2.4 mg , Hctz 50 mg daily, Hydralazine 25 mg Q 8 hours, Clonidine 0.2 mg Q 12h, Amlodipine 10 mg PO daily. PsurgHx: left foot surgery, right great toe amputation. L arm fistula Fam: non-contributory SOC: History of tobacco abuse (2-3 cig/day x3 years, quit 2 year ago), denies alcohol and illegal drugs Review of Systems - Constitutional Constitutional: absent: Chills - EENT Eyes: As Per HPI Nose/Mouth/Throat: absent: Epistaxis - Cardiovascular Cardiovascular: absent: Acrocyanosis - Respiratory Respiratory: Cough, Dyspnea, Chest Congestion. absent: Hemoptysis - Gastrointestinal Gastrointestinal: absent: Abdominal Pain, Coffee Ground Emesis, Melena - Integumentary Integumentary: As Per HPI. absent: Acne, Alopecia - Neurological Neurological: absent: Confusion, Dizziness, Numbness - Psychiatric Psychiatric: absent: Confusion, Depression - Endocrine Endocrine: absent: Change in Body Appearance - Hematologic/Lymphatic Hematologic: absent: Easy Bleeding Past Patient History - Infectious Disease Hx of Infectious Diseases: None - Past Medical History & Family History Past Medical History?: Yes - Past Social History Smoking Status: Former Smoker - CARDIAC Hx Cardia Arrhythmia: No Hx Congestive Heart Failure: No Hx Hypercholesterolemia: Yes Hx Hypertension: Yes - PULMONARY Hx Chronic Obstructive Pulmonary Disease (COPD): No - NEUROLOGICAL Hx Transient Ischemic Attacks (TIA): Yes - HEENT Hx HEENT Problems: No Hx Blind: Yes (right eye) - RENAL Hx Chronic Kidney Disease: Yes (ESRD) - ENDOCRINE/METABOLIC Hx Hypothyroidism: No - HEMATOLOGICAL/ONCOLOGICAL Hx Anemia: Yes Hx Human Immunodeficiency Virus (HIV): No - INTEGUMENTARY Hx Dermatological Problems: No - MUSCULOSKELETAL/RHEUMATOLOGICAL Hx Arthritis: No Hx Rheumatoid Arthritis: No - GASTROINTESTINAL Hx Gastrointestinal Disorders: No - GENITOURINARY/GYNECOLOGICAL Hx Genitourinary Disorders: Yes (ESRD,CKD) - PSYCHIATRIC Hx Psychophysiologic Disorder: No Hx Substance Use: No - SURGICAL HISTORY 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)) Other/Comment: LEFT ANKLE SX - ANESTHESIA Hx Anesthesia: Yes Hx Anesthesia Reactions: No Hx Malignant Hyperthermia: No Meds Allergies/Adverse Reactions: Allergies Allergy/AdvReac Type Severity Reaction Status Date / Time No Known Allergies Allergy Verified 12/07/17 19:58 - Medications Medications: Current Medications Acetaminophen (Tylenol 325mg Tab) 650 mg PO Q6 PRN PRN Reason: Pain, Mild (1-3) Acetaminophen (Tylenol 325mg Tab) 650 mg PO Q6 PRN PRN Reason: Fever >100.4 F Albuterol/Ipratropium (Duoneb 3 Mg/0.5 Mg (3 Ml) Ud) 3 ml INH RQ6 PRN PRN Reason: Shortness of Breath Last Admin: 12/07/17 21:19 Dose: 3 ml Amlodipine Besylate (Norvasc) 10 mg PO DAILY [facility] Aspirin (Aspirin) 325 mg PO DAILY [facility] Brimonidine Tartrate (Alphagan 0.2% Opht) 1 drop OU Q12 [facility] Clonidine HCl (Catapres) 0.2 mg PO Q12 [facility] Last Admin: 12/07/17 22:41 Dose: 0.2 mg Dextrose (Dextrose 50% Inj) 0 ml IV STAT PRN; Protocol PRN Reason: Hypoglycemia Protocol Dextrose (Glutose 15) 0 gm PO ONCE PRN; Protocol PRN Reason: Hypoglycemia Protocol Glucagon (Glucagen Diagnostic Kit) 0 mg IM STAT PRN; Protocol PRN Reason: Hypoglycemia Protocol Heparin Sodium (Porcine) (Heparin) 5,000 units SC Q12 [facility]ELINA PRN Reason: Protocol Last Admin: 12/07/17 21:10 Dose: 5,000 units Hydralazine HCl (Apresoline) 25 mg PO Q8@0600,1400,2200 [facility] Last Admin: 12/08/17 06:02 Dose: 25 mg Hydrochlorothiazide (Hydrodiuril) 50 mg PO DAILY [facility] Insulin Human Lispro (Humalog) 0 units SC ACHS MELINA PRN Reason: Protocol Last Admin: 12/08/17 06:45 Dose: Not Given Latanoprost (Xalatan Opht) 1 drop OU HS [facility]ELINA Last Admin: 12/07/17 22:43 Dose: 1 drop Minoxidil (Minoxidil) 2.5 mg PO DAILY [facility] Sevelamer HCl (Renagel) 2,400 mg PO TID MELINA Valsartan (Diovan) 320 mg PO DAILY [facility] Physical Exam - Constitutional Appears: No Acute Distress - ENT Exam ENT Exam: Mucous Membranes Moist - Neck Exam Neck exam: Negative for: Lymphadenopathy - Respiratory Exam Respiratory Exam: Rhonchi. absent: Chest Wall Tenderness - Cardiovascular Exam Cardiovascular Exam: absent: JVD, Rubs - GI/Abdominal Exam GI & Abdominal Exam: Normal Bowel Sounds - Extremities Exam Extremities exam: Negative for: calf tenderness - Back Exam Back exam: absent: CVA tenderness (L), CVA tenderness (R) - Neurological Exam Neurological exam: Alert - Psychiatric Exam Psychiatric exam: Normal Affect Results - Vital Signs Recent Vital Signs: Last Vital Signs Temp 98.9 F 12/08/17 05:09 Pulse 83 12/08/17 06:02 Resp 18 12/08/17 05:09 BP 150/83 12/08/17 06:02 Pulse Ox 96 12/08/17 05:09 - Labs Result Diagrams: 12/08/17 04:25 12/08/17 04:25 Labs: Laboratory Results - last 24 hr 12/07/17 12/07/17 12/07/17 17:38 18:00 18:36 WBC RBC Hgb Hct MCV MCH MCHC RDW Plt Count MPV Neut % (Auto) Lymph % (Auto) [place] % (Auto) Eos % (Auto) Baso % (Auto) Neut # Lymph # [place] # Eos # Baso # PT INR APTT Sodium 141 Potassium 4.9 Chloride 95 L Carbon Dioxide 29 Anion Gap 22 H BUN 55 H Creatinine 13.8 H* Est GFR ( Amer) 4 Est GFR (Non-Af Amer) 4 POC Glucose (mg/dL) 133 H Random Glucose 117 H Calcium 10.5 H Phosphorus 4.5 Magnesium 2.3 Total Bilirubin 1.0 AST 31 ALT 35 Alkaline Phosphatase 110 Troponin I 0.1020 NT-Pro-B Natriuret Pep 14775 H Total Protein 7.6 Albumin 4.4 Globulin 3.2 Albumin/Globulin Ratio 1.4 Influenza Typ A,B (EIA) Blood Type O POSITIVE Antibody Screen Negative BBK History Checked Patient has bt 12/07/17 12/07/17 12/07/17 18:36 18:36 18:43 WBC 9.4 RBC 3.37 L Hgb 9.6 L D Hct 29.7 L MCV 88.1 MCH 28.6 MCHC 32.5 L RDW 18.2 H Plt Count 234 MPV 8.8 Neut % (Auto) 73.6 Lymph % (Auto) 12.3 L [place] % (Auto) 9.0 Eos % (Auto) 3.9 Baso % (Auto) 1.2 Neut # 6.9 Lymph # 1.2 [place] # 0.8 Eos # 0.4 Baso # 0.1 PT 11.7 INR 1.1 APTT 30.5 Sodium Potassium Chloride Carbon Dioxide Anion Gap BUN Creatinine Est GFR ( Amer) Est GFR (Non-Af Amer) POC Glucose (mg/dL) Random Glucose Calcium Phosphorus Magnesium Total Bilirubin AST ALT Alkaline Phosphatase Troponin I NT-Pro-B Natriuret Pep Total Protein Albumin Globulin Albumin/Globulin Ratio Influenza Typ A,B (EIA) Negative for flu a/b Blood Type Antibody Screen BBK History Checked 12/07/17 12/08/17 12/08/17 21:53 04:25 04:25 WBC 7.6 RBC 3.30 L Hgb 9.5 L Hct 29.2 L MCV 88.5 MCH 28.8 MCHC 32.5 L RDW 18.0 H Plt Count 237 MPV Neut % (Auto) Lymph % (Auto) [place] % (Auto) Eos % (Auto) Baso % (Auto) Neut # Lymph # [place] # Eos # Baso # PT INR APTT Sodium 139 Potassium 4.1 Chloride 97 L Carbon Dioxide 28 Anion Gap 18 BUN 25 H Creatinine 8.0 H* D Est GFR ( Amer) 8 Est GFR (Non-Af Amer) 7 POC Glucose (mg/dL) 101 Random Glucose 116 H Calcium 9.6 Phosphorus Magnesium Total Bilirubin AST ALT Alkaline Phosphatase Troponin I NT-Pro-B Natriuret Pep Total Protein Albumin Globulin Albumin/Globulin Ratio Influenza Typ A,B (EIA) Blood Type Antibody Screen BBK History Checked Assessment & Plan (1) Anemia in chronic kidney disease, on chronic dialysis Status: Acute (2) CVA (cerebral vascular accident) Status: Acute (3) ESRD (end stage renal disease) Assessment and Plan: Patient with end stage renal disease on maintenance hemodialysis TTS presented to the emergency room last night was volume overload shortness of breath require emergency hemodialysis completed early this morning and well about 3000 mL of fluid. Patient is feeling much better this morning. Other medical problem patient has high blood pressure continue antihypertensive medication. Patient has history of secondary hyperparathyroidism and his receiving calcitriol as outpatient. Patient has history of hyperphosphatemia his receiving binders History of anemia related to chronic kidney disease patient receiving EPO. Status: Acute
[2017-12-08 08:08] VITALS: TEMP 98.7
--- NOTE | 2017-12-08 08:18 | CARD ---
APPROVED REPORT EKG Measurement Heart [id number] <Conclusion> Normal sinus rhythm Possible septal infarct, age undetermined Abnormal ECG
[2017-12-08] MEDS ORDERED: Patient's Own Med (Valsartan [Diovan] 320 MG) PO SCH (09:00)
[2017-12-08] MEDS ORDERED: SEVELAMER CARBONATE 2.4 GM PO SCH (09:00)
[2017-12-08] MEDS ORDERED: Brimonidine 0.2% 50 DROP/5 ML BOTTLE OU SCH (09:00)
--- NOTE | 2017-12-08 10:35 | CP.PCM.DIS ---
Provider - Provider Date of Admission: 12/07/17 19:38 Attending physician: Sejal Vásquez MD Time Spent in preparation of Discharge (in minutes): 20 Hospital Course - Lab Results Lab Results: Most Recent Lab Values WBC 7.6 K/uL (4.8-10.8) 12/08/17 04:25 RBC 3.30 Mil/uL (4.40-5.90) L 12/08/17 04:25 Hgb 9.5 g/dL (12.0-18.0) L 12/08/17 04:25 Hct 29.2 % (35.0-51.0) L 12/08/17 04:25 MCV 88.5 fl (80.0-94.0) 12/08/17 04:25 MCH 28.8 pg (27.0-31.0) 12/08/17 04:25 MCHC 32.5 g/dL (33.0-37.0) L 12/08/17 04:25 RDW 18.0 % (11.5-14.5) H 12/08/17 04:25 Plt Count 237 K/uL (130-400) 12/08/17 04:25 MPV 8.8 fl (7.2-11.7) 12/07/17 18:43 Neut % (Auto) 73.6 % (50.0-75.0) 12/07/17 18:43 Lymph % (Auto) 12.3 % (20.0-40.0) L 12/07/17 18:43 [place] % (Auto) 9.0 % (0.0-10.0) 12/07/17 18:43 Eos % (Auto) 3.9 % (0.0-4.0) 12/07/17 18:43 Baso % (Auto) 1.2 % (0.0-2.0) 12/07/17 18:43 Neut # 6.9 K/uL (1.8-7.0) 12/07/17 18:43 Lymph # 1.2 K/uL (1.0-4.3) 12/07/17 18:43 [place] # 0.8 K/uL (0.0-0.8) 12/07/17 18:43 Eos # 0.4 K/uL (0.0-0.7) 12/07/17 18:43 Baso # 0.1 K/uL (0.0-0.2) 12/07/17 18:43 PT 11.7 Seconds (9.8-13.1) 12/07/17 18:36 INR 1.1 (0.9-1.2) 12/07/17 18:36 APTT 30.5 Seconds (25.6-37.1) 12/07/17 18:36 Sodium 139 mmol/l (132-148) 12/08/17 04:25 Potassium 4.1 MMOL/L (3.6-5.0) 12/08/17 04:25 Chloride 97 mmol/L (98-107) L 12/08/17 04:25 Carbon Dioxide 28 mmol/L (22-30) 12/08/17 04:25 Anion Gap 18 (10-20) 12/08/17 04:25 BUN 25 mg/dl (9-20) H 12/08/17 04:25 Creatinine 8.0 mg/dl (0.8-1.5) H* D 12/08/17 04:25 Est GFR ( Amer) 8 12/08/17 04:25 Est GFR (Non-Af Amer) 7 12/08/17 04:25 POC Glucose (mg/dL) 101 mg/dL (65-110) 12/07/17 21:53 Random Glucose 116 mg/dL (75-110) H 12/08/17 04:25 Calcium 9.6 mg/dL (8.4-10.2) 12/08/17 04:25 Phosphorus 4.5 mg/dl (2.5-4.5) 12/07/17 18:36 Magnesium 2.3 MG/DL (1.6-2.3) 12/07/17 18:36 Total Bilirubin 1.0 mg/dl (0.2-1.3) 12/07/17 18:36 AST 31 U/L (17-59) 12/07/17 18:36 ALT 35 U/L (21-72) 12/07/17 18:36 Alkaline Phosphatase 110 U/L (38-126) 12/07/17 18:36 Troponin I 0.1020 ng/mL (0.00-0.120) 12/07/17 18:36 NT-Pro-B Natriuret Pep 96089 pg/ml (0-900) H 12/07/17 18:36 Total Protein 7.6 G/DL (6.3-8.2) 12/07/17 18:36 Albumin 4.4 g/dL (3.5-5.0) 12/07/17 18:36 Globulin 3.2 gm/dL (2.2-3.9) 12/07/17 18:36 Albumin/Globulin Ratio 1.4 (1.0-2.1) 12/07/17 18:36 Influenza Typ A,B (EIA) Negative for flu a/b (NEGATIVE) 12/07/17 18:36 Blood Type O POSITIVE 12/07/17 18:00 Antibody Screen Negative 12/07/17 18:00 BBK History Checked Patient has bt 12/07/17 18:00 - Hospital Course Hospital Course: 62 y/o man w/ pmh of HTN, ESRD on HD TThS, DM2, HLD, and CVA presents to ED for SOB w/o associated symptoms. Last HD thursday. Emergency HD done. patient asymptomatic,cleared by detective and intelligence analyst, BUN/Cr back to base line GFR/Cr 25/8. f/ u [facility] 12/09/17 10: [address] Gray. 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 Rx Lipitor 10 mg daily Diagnosis 1) Shortness of breath - secondary to overload fluid -resolved 2) CKD stage 5 ESRD -improved - on hemodialysis T, , S - patient had scheduled HD on Thursday12/05/2017 - Bun/cr back to baseline 25/8 3) HTN -controlled -c/w home medications 4)NIDDM2 - controlled - blood sugar 117mg/dl - patient not taking med. diet controlled - hgba1c 5.8 08/31/2017 Discharge Exam - Head Exam Head Exam: ATRAUMATIC, NORMAL INSPECTION, NORMOCEPHALIC - Eye Exam Eye Exam: Normal appearance - ENT Exam ENT Exam: Normal Exam - Respiratory Exam Respiratory Exam: Clear to PA & Lateral. absent: Rales, Rhonchi, Wheezes - Cardiovascular Exam Cardiovascular Exam: REGULAR RHYTHM - GI/Abdominal Exam GI & Abdominal Exam: Normal Bowel Sounds. absent: Guarding, Rebound - Extremities Exam Extremities exam: normal inspection - Neurological Exam Neurological exam: Alert, Oriented x3 - Psychiatric Exam Psychiatric exam: Normal Affect, Normal Mood - Skin Skin Exam: Intact Discharge Plan - Discharge Medications Prescriptions: Atorvastatin [Lipitor] 10 mg PO DIN #30 tab - Follow Up Plan Condition: GUARDED Disposition: HOME/ ROUTINE Additional Instructions: Follow up [facility] 12/09/17 Dr Marina Mclaughlin 10: 40 AM Referrals: Alan Gonzales MD [Staff Provider] - William Garvey MD [Staff Provider] -
--- NOTE | 2017-12-08 11:03 | RAD ---
HISTORY: sob hypoxia COMPARISON: Chest radiograph dated 08/31/2017. FINDINGS: LUNGS: Prominence of the pulmonary vasculature may be secondary to AP technique and/or pulmonary vascular congestion. No focal consolidation. PLEURA: No significant pleural effusion identified, no pneumothorax apparent. CARDIOVASCULAR: Atherosclerotic aortic calcifications. Cardiomediastinal silhouette stably enlarged. OSSEOUS STRUCTURES: Unchanged. VISUALIZED UPPER ABDOMEN: Normal. OTHER FINDINGS: Left axillary vascular stent redemonstrated. IMPRESSION: Prominence of the pulmonary vasculature may be secondary to AP technique and/or pulmonary vascular congestion. No focal consolidation or pleural effusion.
[2017-12-08 11:19] VITALS: PULSE 79
--- NOTE | 2017-12-08 12:01 | RAD ---
PROCEDURE: CHEST RADIOGRAPH, 1 VIEW HISTORY: SOB COMPARISON: Chest radiograph dated 12/07/2017. FINDINGS: LUNGS: Prominence of the pulmonary vasculature may be secondary to AP technique and/or pulmonary vascular congestion. No focal consolidation. PLEURA: No pneumothorax or pleural fluid seen. CARDIOVASCULAR: Atherosclerotic aortic calcifications. Cardiomediastinal silhouette stably enlarged unchanged. OSSEOUS STRUCTURES: Unchanged. VISUALIZED UPPER ABDOMEN: Normal. OTHER FINDINGS: Left axillary vascular stent redemonstrated. IMPRESSION: Prominence of the pulmonary vasculature may be secondary to AP technique and/or pulmonary vascular congestion. No focal consolidation or pleural effusion.
[2017-12-08 13:20] VITALS: BP 143/72
[2017-12-08 14:20] VITALS: O2SAT 88
== END 2017-12-08 14:51 | disposition home or self-care (01) ==
LOC: H.ER 17:21 → H.ERHOLD 19:38 → H.TEL 21:41
PROVIDERS: ADMIT Family Medicine Geriatric Medicine; ATTEND Family Medicine Geriatric Medicine
DX: E87.70 Fluid overload, unspecified (principal); D63.1 Anemia in chronic kidney disease; E11.22 Type 2 diabetes mellitus with diabetic chronic kidney disease; E78.00 Pure hypercholesterolemia, unspecified; E78.5 Hyperlipidemia, unspecified; I12.0 Hypertensive chronic kidney disease with stage 5 chronic kidney disease or end stage renal disease; N18.6 End stage renal disease; N25.81 Secondary hyperparathyroidism of renal origin; Z86.73 Personal history of transient ischemic attack (TIA), and cerebral infarction without residual deficits; Z87.891 Personal history of nicotine dependence; Z99.2 Dependence on renal dialysis
CPT/HCPCS: 36415; 71045; 80048; 80053; 82948; 83735; 83880; 84100; 84484; 85025; 85027; 85610; 85730; 86850; 86900; 87040; 87804; 93005; 96372; 99283; G0378; J1644

== ENCOUNTER 2017-12-21 17:17 | Inpatient (IN) | payer MEDICARE, OTHER ==
[2017-12-21] MEDS ORDERED: Albuterol-Ipratrop 3 mg / 0.5 (3 ml) UD INH STA (17:43)
[2017-12-21] MEDS ORDERED: Albuterol-Ipratrop 3 mg / 0.5 (3 ml) UD IH STA (17:43)
[2017-12-21] MEDS ORDERED: Albuterol-Ipratrop 3 mg / 0.5 (3 ml) UD ONE (17:49)
--- NOTE | 2017-12-21 17:51 | ED PDOC ---
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 Pt reports being in his usual state of health when he gradually developed SOB. He denies any inciting events or possible triggers. He reports he feels like he has lots of fluid in his throat and his chest. He reports he is complaint with his medication regime. Reports he completed dialysis on Thursday. Next dialysis is scheduled tomorrow. He denies any fever/chills, cough, headaches, changes in vision, CP/ Palpitations, left arm/jaw pain, N/V/D/C, numbness/tingling. (Micky Mahoney ) Supervising Attending Note <Micky Mahoney - Last Filed: 12/21/17 18:56> - Supervising Attending Note The Documented history was done by the: Physician Radiology Receptionist The documented physical exam was done by the: Physician Radiology Receptionist The documented procedures were done by the: Physician Radiology Receptionist - Attestation: I have personally seen and examined this patient.: Yes I have fully participated in the care of the patient.: Yes <Jc Rodriguez - Last Filed: 12/21/17 19:20> - Notes: Notes:: Dyspnea (Jc Rodriguez) Past Medical History - Medical History PMH: Anemia, Diabetes, HTN, Hypercholesterolemia, Hyperlipidemia, End Stage Renal Disease, Chronic Kidney Disease (ESRD), TIA Denies: Arthritis, Cardia Arrhythmia, CHF, COPD, HIV, Hypothyroidism, Rheumatoid Arthritis - Family History Family History: States: Unknown Family Hx <Micky Mahoney - Last Filed: 12/21/17 18:56> <Jc Rodriguez - Last Filed: 12/21/17 19:20> Vital Signs: Last Vital Signs Temp 98.0 F 12/21/17 17:18 Pulse 52 L 12/21/17 17:18 Resp 20 12/21/17 17:18 BP 170/93 H 12/21/17 17:18 Pulse Ox 94 L 12/21/17 18:58 - Home Medications Home Medications: Ambulatory Orders Medication Instructions Recorded Aspirin 325 mg PO DAILY #30 tab 06/22/17 Brimonidine 0.2% [Alphagan 0.2% 1 drop OU Q12 #1 06/22/17 Opht] Latanoprost 0.005% Opht [Xalatan 1 drop OU HS #1 06/22/17 Opht] Minoxidil 2.5 mg PO DAILY #30 tab 06/22/17 amLODIPine [Norvasc] 10 mg PO DAILY #30 tab 06/22/17 cloNIDine [Catapres] 0.2 mg PO Q12 #30 tab 06/22/17 hydrALAZINE [Apresoline] 25 mg PO Q8@0600,1400,2200 #30 tab 06/22/17 hydroCHLOROthiazide [Microzide] 50 mg PO DAILY #30 tab 06/22/17 Atorvastatin [Lipitor] 10 mg PO DIN #30 tab 12/08/17 Sevelamer [Renagel] 2,400 mg PO TID tab 12/08/17 Valsartan [Diovan] 320 mg PO DAILY 12/21/17 - Allergies Allergies/Adverse Reactions: Allergies Allergy/AdvReac Type Severity Reaction Status Date / Time No Known Allergies Allergy Verified 12/07/17 19:58 Review of Systems ROS Statement: Except As Marked, All Systems Reviewed And Found Negative <Micky Mahoney - Last Filed: 12/21/17 18:56> Physical Exam - Reviewed Nursing Documentation Reviewed: Yes Vital Signs Reviewed: Yes - Physical Exam Appears: Positive for: Non-toxic, No Acute Distress, Uncomfortable Head Exam: Positive for: ATRAUMATIC Skin: Positive for: Warm, Dry Eye Exam: Positive for: EOMI, PERRL. Negative for: Conjunctival injection, Scleral icterus ENT: Positive for: Pharynx Is (clear ). Negative for: Sinus Pain/Drainage, Pharyngeal Erythema, Tonsillar Exudate, Tonsillar Swelling Neck: Positive for: Painless ROM, Supple Cardiovascular/Chest: Positive for: Regular Rate, Rhythm, Chest Non Tender, Bradycardia. Negative for: JVD, Tachycardia Respiratory: Positive for: Decreased Breath Sounds, Rales (bibasilar rales ), Wheezing (scattered exp wheezes ). Negative for: Accessory Muscle Use, Crackles , Rhonchi, Respiratory Distress Pulses-Radial (L): 2+ Pulses-Radial (R): 2+ Gastrointestinal/Abdominal: Positive for: Normal Exam, Soft, Tenderness Lymphatic: Negative for: Adenopathy Neurologic/Psych: Positive for: Alert, advertising solicitor II-XII, Oriented. Negative for: Motor/Sensory Deficits, Aphasia <Micky Mahoney - Last Filed: 12/21/17 18:56> - Physical Exam Cardiovascular/Chest: Positive for: Regular Rate, Rhythm Respiratory: Positive for: Wheezing <Jc Rodriguez - Last Filed: 12/21/17 19:20> - Laboratory Results Result Diagrams: 12/21/17 18:03 12/21/17 18:03 - ECG O2 Sat by Pulse Oximetry: 94 <Micky Mahoney - Last Filed: 12/21/17 18:56> - Laboratory Results Result Diagrams: 12/21/17 18:03 12/21/17 18:03 - ECG Pulse Ox Interpretation: Abnormal - Radiology X-Ray: Read By Radiologist X-Ray Interpretation: Infiltrates <Jc Rodriguez - Last Filed: 12/21/17 19:20> - Progress ED Course And Treament: CBC CMP Troponin Pro-bnp coags -pt declined to have blood drawn for blood cultures and VBG EKG CXR: new right lower lobe and perihilar infiltrates Duo-nebs x3 solumedrol 125mg ceftriaxone 1gm IV azithromycin 500mg IV pt to admitted for pneumonia. Discussed case with admitting resident Dr. Villegas. (Micky Mahoney) 191: Stable. Noncompliant in ER. Will not allow vbg, blood cx. Not able to meet sepsis criteria eval. Will admit. [facility] resident aware and will admit. ( Jc Rodriguez) Disposition - Patient ED Disposition Is Patient to be Admitted: Yes - Disposition Disposition Time: 18:57 - Pt Status Changed To: Hospital Disposition Of: Inpatient - Admit Certification Admit to Inpatient:: After my assessment, the patient will require hospitalization for at least two midnights. This is because of the severity of symptoms shown, intensity of services needed, and/or the medical risk in this patient being treated as an outpatient. - POA Present On Arrival: None <Micky Mahoney - Last Filed: 12/21/17 18:56> - Patient ED Disposition Is Patient to be Admitted: Yes Counseled Patient/Family Regarding: Studies Performed, Diagnosis - Pt Status Changed To: Hospital Disposition Of: Inpatient - Admit Certification Admit to Inpatient:: After my assessment, the patient will require hospitalization for at least two midnights. This is because of the severity of symptoms shown, intensity of services needed, and/or the medical risk in this patient being treated as an outpatient. - POA Present On Arrival: None <Jc Rodriguez - Last Filed: 12/21/17 19:20> - Clinical Impression Clinical Impression: Pneumonia - Disposition Condition: FAIR Forms: [employer] (Serbian)
--- NOTE | 2017-12-21 18:14 | RAD ---
HISTORY: Dyspnea. COMPARISON: 12/08/2017 FINDINGS: LUNGS: Multifocal infiltrates or pulmonary edema identified. Most prominent findings are perihilar on the left and right lower lobe distribution. PLEURA: No significant pleural effusion identified, no pneumothorax apparent. CARDIOVASCULAR: Normal. OSSEOUS STRUCTURES: No significant abnormalities. VISUALIZED UPPER ABDOMEN: Normal. OTHER FINDINGS: Subclavian stent identified on the left IMPRESSION: New right lower lobe and left perihilar infiltrates. Infectious/inflammatory etiologies are likely. Asymmetrical pulmonary edema less so.
[2017-12-21 18:16] LABS: BASO # 0.1 K/uL (0.0-0.2); EOS # 0.4 K/uL (0.0-0.7); EOS % 4.5 % (0.0-4.0); HEMOGLOBIN 9.3 g/dL (12.0-18.0); LYMPH % 10.6 % (20.0-40.0); MEAN CELL VOLUME 87.9 fl (80.0-94.0); MEAN CORPUSCULAR HEMOGLOBIN 28.7 pg (27.0-31.0); MEAN CORPUSCULAR HGB CONC 32.6 g/dL (33.0-37.0); MEAN PLATELET VOLUME 7.9 fl (7.2-11.7); MONO # 0.7 K/uL (0.0-0.8); MONO % 7.4 % (0.0-10.0); NEUT # 7.3 K/uL (1.8-7.0); NEUT % 76.5 % (50.0-75.0); RBC 3.23 Mil/uL (4.40-5.90); RED CELL DISTRIBUTION WIDTH 17.8 % (11.5-14.5); WHITE BLOOD COUNT 9.6 K/uL (4.8-10.8)
[2017-12-21] MEDS ORDERED: cefTRIAXone (Rocephin) 1 gm Inj IV ONE (18:20)
[2017-12-21 18:23] LABS: PROTHROMBIN TIME 11.5 Seconds (9.8-13.1)
[2017-12-21 18:24] LABS: PARTIAL THROMBOPLASTIN TIME 32.2 Seconds (25.6-37.1)
[2017-12-21 18:44] LABS: TROPONIN I 0.103 ng/mL (0.00-0.120)
[2017-12-21] MEDS ORDERED: Azithromycin 500 MG IV IVPB ONE (18:50)
[2017-12-21 19:07] LABS: ALB/GLOB RATIO 1.3 (1.0-2.1); ALBUMIN 4.2 g/dL (3.5-5.0); CALCIUM 10.2 mg/dL (8.4-10.2)
[2017-12-21 19:52] LABS: VENOUS BLOOD GAS BASE EXCESS 8.6 mmol/L (0.0-2.0); VENOUS BLOOD GAS PCO2 49 mmHg (40-60); VENOUS BLOOD GAS PO2 30 mm/Hg (30-55); VENOUS BLOOD PH 7.45 (7.32-7.43)
--- NOTE | 2017-12-21 20:59 | CP.PCM.HP ---
History of Present Illness - History of Present Illness History of Present Illness: PMD: NHC Hx taken from patient and previous records. Full code 62 y/o M with PMHx of NIDDM, HTN and ESRD on HD TTS presented to ED c/o SOB at rest. Patient states that every time too much fluid accumulates inside his body he becomes SOB. Denies CP, palpitations, cough, fever, dizziness, headache , LE edema, diarrhea, or dysuria. Admits chronic low urine output. Last HD as per patient was on Thursday12/19/17 as scheduled. Patient was admitted 1 night to our hosp 2 weeks ago with similar symptoms. Patient speaking in full sentences, tolerates decubitus. As per patient he is compliant with home meds. ED course: VS HR 52, BP 170/93, O2sat 94L room air Labs: CBC, Hgb 9,3, WBC WNL, slight left shift CMP: BUN/Creat: 55/12.9, Na 142, K 5.2(Hemolized), Glucose 150 ProBNP: 28015 Lactate, Flu and coags all WNL. EKG: Lack of R waves V1-V3 and unifocal PVCs, no acute ischemic changes(Pending report) CXR: New infiltrates B/L infectious/inflammatory, less likely pulm edema(Please see full report) Treatment: Ceftriaxone 1 g and Zithromax 500mg IV once Solumedrol 125 mg IV once Duonebs x2 Present on Admission - Present on Admission Any Indicators Present on Admission: No Review of Systems - Review of Systems All systems: reviewed and no additional remarkable complaints except - Cardiovascular Cardiovascular: Dyspnea on Exertion, Orthopnea (Mild(1-2 pillows)) - Respiratory Respiratory: Dyspnea Past Patient History - Infectious Disease Hx of Infectious Diseases: None - Past Medical History & Family History Past Medical History?: Yes - Past Social History Smoking Status: Former Smoker - CARDIAC Hx Cardia Arrhythmia: No Hx Congestive Heart Failure: Yes Hx Hypercholesterolemia: Yes Hx Hypertension: Yes Hx Peripheral Edema: No - PULMONARY Hx Chronic Obstructive Pulmonary Disease (COPD): No - NEUROLOGICAL Hx Transient Ischemic Attacks (TIA): Yes - HEENT Hx HEENT Problems: No Hx Blind: Yes (right eye) - RENAL Hx Chronic Kidney Disease: Yes (ESRD) Hx Dialysis: Yes (HD on TTS) - ENDOCRINE/METABOLIC Hx Hypothyroidism: No - HEMATOLOGICAL/ONCOLOGICAL Hx Anemia: Yes Hx Human Immunodeficiency Virus (HIV): No - INTEGUMENTARY Hx Dermatological Problems: No - MUSCULOSKELETAL/RHEUMATOLOGICAL Hx Arthritis: No Hx Rheumatoid Arthritis: No - GASTROINTESTINAL Hx Gastrointestinal Disorders: No - GENITOURINARY/GYNECOLOGICAL Hx Genitourinary Disorders: Yes (ESRD,CKD) - PSYCHIATRIC Hx Psychophysiologic Disorder: No Hx Substance Use: No - SURGICAL HISTORY 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)) Other/Comment: LEFT ANKLE SX - ANESTHESIA Hx Anesthesia: Yes Hx Anesthesia Reactions: No Hx Malignant Hyperthermia: No Meds Allergies/Adverse Reactions: Allergies Allergy/AdvReac Type Severity Reaction Status Date / Time No Known Allergies Allergy Verified 12/07/17 19:58 Physical Exam - Constitutional Appears: Non-toxic Additional comments: Obese - Eye Exam Eye Exam: EOMI - ENT Exam ENT Exam: Mucous Membranes Moist - Neck Exam Neck exam: Positive for: Full Rom Additional comments: +JVD - Respiratory Exam Respiratory Exam: Rales (scant BB), NORMAL BREATHING PATTERN. absent: Wheezes, Respiratory Distress - Cardiovascular Exam Cardiovascular Exam: Irregular Rhythm, +S1, +S2. absent: Gallop, Systolic Murmur - GI/Abdominal Exam GI & Abdominal Exam: Normal Bowel Sounds, Soft. absent: Distended, Guarding, Rebound, Tenderness - Extremities Exam Extremities exam: Positive for: pedal pulses present. Negative for: calf tenderness, pedal edema Additional comments: Big toe amputation - Back Exam Back exam: absent: CVA tenderness (L), CVA tenderness (R) - Neurological Exam Neurological exam: Alert, Oriented x3 - Psychiatric Exam Psychiatric exam: Normal Affect, Normal Mood - Skin Skin Exam: Normal Color, Warm Results - Vital Signs Recent Vital Signs: Last Vital Signs Temp 98.0 F 12/21/17 17:18 Pulse 52 L 12/21/17 17:18 Resp 18 12/21/17 17:40 BP 170/93 H 12/21/17 17:18 Pulse Ox 94 L 12/21/17 18:58 - Labs Result Diagrams: 12/21/17 18:03 12/21/17 18:03 Labs: Laboratory Results - last 24 hr 12/21/17 12/21/17 12/21/17 18:03 18:03 18:03 WBC 9.6 RBC 3.23 L Hgb 9.3 L Hct 28.4 L MCV 87.9 MCH 28.7 MCHC 32.6 L RDW 17.8 H Plt Count 190 MPV 7.9 Neut % (Auto) 76.5 H Lymph % (Auto) 10.6 L [place] % (Auto) 7.4 Eos % (Auto) 4.5 H Baso % (Auto) 1.0 Neut # 7.3 H Lymph # 1.0 [place] # 0.7 Eos # 0.4 Baso # 0.1 PT 11.5 INR 1.0 APTT 32.2 pO2 VBG pH VBG pCO2 VBG HCO3 VBG Total CO2 VBG O2 Sat (Calc) VBG Base Excess VBG Potassium Glucose Lactate FiO2 Sodium 142 Potassium 5.2 H Chloride 97 L Carbon Dioxide 31 H Anion Gap 19 BUN 55 H Creatinine 12.9 H* D Est GFR ( Amer) 5 Est GFR (Non-Af Amer) 4 Random Glucose 150 H Calcium 10.2 Total Bilirubin 0.9 AST 32 ALT 28 Alkaline Phosphatase 112 Troponin I 0.1030 NT-Pro-B Natriuret Pep 68268 H Total Protein 7.3 Albumin 4.2 Globulin 3.1 Albumin/Globulin Ratio 1.3 Venous Blood Potassium Influenza Typ A,B (EIA) 12/21/17 12/21/17 19:19 19:46 WBC RBC Hgb Hct MCV MCH MCHC RDW Plt Count MPV Neut % (Auto) Lymph % (Auto) [place] % (Auto) Eos % (Auto) Baso % (Auto) Neut # Lymph # [place] # Eos # Baso # PT INR APTT pO2 30 VBG pH 7.45 H VBG pCO2 49 VBG HCO3 30.7 VBG Total CO2 35.6 H VBG O2 Sat (Calc) 73.2 H VBG Base Excess 8.6 H VBG Potassium 4.5 Glucose 155 H Lactate 1.0 FiO2 21.0 Sodium 140.0 Potassium Chloride 102.0 Carbon Dioxide Anion Gap BUN Creatinine Est GFR ( Amer) Est GFR (Non-Af Amer) Random Glucose Calcium Total Bilirubin AST ALT Alkaline Phosphatase Troponin I NT-Pro-B Natriuret Pep Total Protein Albumin Globulin Albumin/Globulin Ratio Venous Blood Potassium 4.5 Influenza Typ A,B (EIA) Negative for flu a/b Assessment & Plan - Assessment and Plan (Free Text) Assessment: 62 y/o M with PMHx of ESRD, HTN and NIDDM admitted for SOB Shortness of breath -Acute on chronic - Poss 2/2 due to fluid overload vs infectious etiology - ProBnp 73905(on ESRD patient) - JVD - last echo 09/01/2017: moderate concentric LVH, LVEF WNL, mild apical hypokinesis - CXR: Infiltrates suggesting infectious/inflammatory process less likely pulm edema(Please see full report) - afebrile, no leukocytosis, no cough or CP, PulseOx WNL - Similar presentation and lab values to previous admission 2 weeks ago - S/P Duonebs x2, Solumedrol 125 mg IV and Ceftriaxone/Azithromycin IV at ED - Lasix 80 mg IV once - Will hold abx for now and will discuss with inpatient team AM - Duonebs PRN - F/U Procalcitonin level CKD stage 5 ESRD - on hemodialysis T, , S - Decreased urine output - Bun/cr 55/12.9 (Creatinine at the time of DC 12/08/17)=8 - Nephorology consult (Dr. Gonzales) - f/u CBC and BMP AM - Renal Diet with sodium restriction. HTN Chronic, uncontrolled - BP 170/ 93 mm Hg - c/w home meds - Monitor Chronic Anemia - Poss chronic disease anemia - Hgb 9s - Stable NIDDM type 2 - Controlled, chronic - blood sugar 150mg/dl - hgba1c 5.8 08/31/2017 - accuchecks every morning - hypoglycemic protocol Prophylactic measures - Heparin 5000 units sq q12h
[2017-12-21] MEDS ORDERED: Dextrose 50% SYRINGE Inj (50 ml) IV PRN (21:01)
[2017-12-21] MEDS ORDERED: Glucagon Recombinant 1 mg Inj IM PRN (21:01)
[2017-12-21] MEDS ORDERED: Albuterol-Ipratrop 3 mg / 0.5 (3 ml) UD INH PRN (21:32)
[2017-12-21] MEDS: Latanoprost 0.005% Opht SOUTION OU SCH (23:55)
[2017-12-21] MEDS: Brimonidine 0.2% 50 DROP/5 ML BOTTLE OU SCH (23:58)
[2017-12-22 04:29] VITALS: BMI 31.9
--- NOTE | 2017-12-22 08:27 | CP.PCM.PN ---
Subjective - Date & Time of Evaluation Date of Evaluation: 12/22/17 Time of Evaluation: 08:00 - Subjective Subjective: Family Medicine 62 year old male patient PMHx ESRD on HD (/Thu), NIDDM, HTN, CHF seen and evaluated at bedside this AM. HPI obtained with the assistance of [employer] dehydrating press operator (Bakari #[id number]). No acute events overnight. Reports slight improvement with SOB from O2. Patient states he feels like "there is still too much fluid inside my body." Patient admits that these events of SOB at rest are occurring more frequently and is "tired of living this way." Reports whenever these episodes occur, they are typically resolved after dialysis. No complaints with fistula in left arm. States he is in the process of getting evaluated for a kidney transplant, and had an appointment scheduled at [place] tomorrow for initial evaluation. Denies headaches, dizziness, chest pain, abdominal pain , nausea, vomiting, diarrhea, dysuria, or fever. Objective - Vital Signs/Intake and Output Vital Signs (last 24 hours): Temp Pulse Resp BP Pulse Ox 97.9 F 79 18 156/82 H 95 12/22/17 07:54 12/22/17 07:54 12/22/17 07:54 12/22/17 07:54 12/22/17 07:54 - Medications Medications: Current Medications Albuterol/Ipratropium (Duoneb 3 Mg/0.5 Mg (3 Ml) Ud) 3 ml INH RQ6 PRN PRN Reason: Shortness of Breath Amlodipine Besylate (Norvasc) 10 mg PO DAILY [facility] Aspirin (Aspirin) 325 mg PO DAILY [facility] Atorvastatin Calcium (Lipitor) 10 mg PO DIN [facility] Brimonidine Tartrate (Alphagan 0.2% Opht) 1 drop OU Q12 [facility] Last Admin: 12/21/17 23:58 Dose: 1 drop Clonidine HCl (Catapres) 0.2 mg PO Q12 [facility] Last Admin: 12/21/17 23:57 Dose: 0.2 mg Dextrose (Dextrose 50% Inj) 0 ml IV STAT PRN; Protocol PRN Reason: Hypoglycemia Protocol Dextrose (Glutose 15) 0 gm PO ONCE PRN; Protocol PRN Reason: Hypoglycemia Protocol Glucagon (Glucagen Diagnostic Kit) 0 mg IM STAT PRN; Protocol PRN Reason: Hypoglycemia Protocol Heparin Sodium (Porcine) (Heparin) 5,000 units SC Q12 [facility] PRN Reason: Protocol Last Admin: 12/21/17 23:56 Dose: 5,000 units Hydralazine HCl (Apresoline) 25 mg PO Q8@0600,1400,2200 [facility] Last Admin: 12/22/17 05:52 Dose: 25 mg Hydrochlorothiazide (Hydrodiuril) 50 mg PO DAILY [facility] Levofloxacin/Dextrose (Levaquin 750mg) 750 mg in 150 mls @ 100 mls/hr IVPB DAILY [facility] PRN Reason: Protocol Latanoprost (Xalatan Opht) 1 drop OU HS [facility] Last Admin: 12/21/17 23:55 Dose: 1 drop Sevelamer HCl (Renagel) 2,400 mg PO TID [facility] Valsartan (Diovan) 320 mg PO DAILY [facility] - Labs Labs: 12/21/17 18:03 12/21/17 18:03 PT 11.5 Seconds (9.8-13.1) 12/21/17 18:03 INR 1.0 (0.9-1.2) 12/21/17 18:03 APTT 32.2 Seconds (25.6-37.1) 12/21/17 18:03 - Constitutional Appears: Non-toxic, No Acute Distress - Head Exam Head Exam: ATRAUMATIC, NORMAL INSPECTION, NORMOCEPHALIC - Eye Exam Eye Exam: EOMI Pupil Exam: NORMAL ACCOMODATION, PERRL - ENT Exam ENT Exam: Mucous Membranes Moist, Normal Exam - Neck Exam Neck Exam: Full ROM, Normal Inspection. absent: Tenderness Additional comments: +JVD - Respiratory Exam Respiratory Exam: Accessory Muscle Use, Decreased Breath Sounds. absent: Respiratory Distress - Cardiovascular Exam Cardiovascular Exam: REGULAR RHYTHM, +S1, +S2 - GI/Abdominal Exam GI & Abdominal Exam: Soft, Normal Bowel Sounds. absent: Tenderness - Extremities Exam Extremities Exam: absent: Calf Tenderness, Pedal Edema, Tenderness Additional comments: Audible thrill LUE fistula Palpable pedal pulses b/l Right hallux amputation - Neurological Exam Neurological Exam: Alert, Awake, Oriented x3 - Psychiatric Exam Psychiatric exam: Normal Affect, Normal Mood - Skin Skin Exam: Dry, Intact, Normal Color, Warm Assessment and Plan - Assessment and Plan (Free Text) Assessment: 62 y/o M with PMHx of ESRD on HD (/Jojo/Sat), HTN and NIDDM admitted for SOB (1) Shortness of breath -Acute on chronic -Secondary to fluid overload vs. infectious etiology -Previous ECHO (09/01/17): Moderate concentric LVH; LV EF WNL; mild apical hypokinesis -CXR (12/21/17): New right lower lobe and left perihilar infiltrates. Infectious/ inflammatory etiologies are likely. Asymmetrical pulmonary edema less so. -Previous CXR (12/08/17): Prominence of the pulmonary vasculature may be secondary to AP technique and/or pulmonary vascular congestion. No focal consolidation or pleural effusion. -f/u Chest CT, to be taken after dialysis -Afebrile, absent leukocytosis (WBC 9.6), denies cough/chest pain/palpitations, O2 sat borderline normal -ProBNP = 04104 (ESRD patient) -Negative for Influenza -JVD present -Similar presentation and lab values to previous admission 2 weeks ago -Start Levaquin 750mg IV QD -Duonebs PRN -F/U Procalcitonin (2) CKD Stage 5 ESRD -Nephrology consulted, Dr. Gonzales -On hemodyalisis /Jojo/Sat - plan for HD today -Decreased urine output -BUN/Cr (12/21/17) = 55/12.9 (Cr upon DC on 12/08/17 = 8) -Patient refusing CBC, BMP -Renal diet with sodium restriction (3) HTN -Chronic, uncontrolled -BP 156/82 this AM -Continue with home meds -Continue to monitor (4) Chronic Anemia -Likely anemia due to chronic disease -Hgb 9.3 -Stable (5) NIDDM -Chronic, controlled -A1c (10.2.17) = 5.8 -Accuchecks ACHS -Hypoglycemic protocol (6) DVT Prophylaxis -Heparin 5000U SC Q12
--- NOTE | 2017-12-22 08:37 | CP.PCM.CON ---
Past Patient History - Infectious Disease Hx of Infectious Diseases: None - Past Medical History & Family History Past Medical History?: Yes - Past Social History Smoking Status: Former Smoker - CARDIAC Hx Cardia Arrhythmia: No Hx Congestive Heart Failure: Yes Hx Hypercholesterolemia: Yes Hx Hypertension: Yes Hx Peripheral Edema: No - PULMONARY Hx Chronic Obstructive Pulmonary Disease (COPD): No - NEUROLOGICAL Hx Transient Ischemic Attacks (TIA): Yes - HEENT Hx HEENT Problems: No Hx Blind: Yes (right eye) - RENAL Hx Chronic Kidney Disease: Yes (ESRD) Hx Dialysis: Yes (HD on TTS) Type of Dialysis Access: left AV fistula Date of Last Dialysis Treatment: 12/19/17 - ENDOCRINE/METABOLIC Hx Diabetes Mellitus Type 2: Yes Hx Hypothyroidism: No - HEMATOLOGICAL/ONCOLOGICAL Hx Anemia: Yes Hx Human Immunodeficiency Virus (HIV): No - INTEGUMENTARY Hx Dermatological Problems: No - MUSCULOSKELETAL/RHEUMATOLOGICAL Hx Falls: Yes - GASTROINTESTINAL Hx Gastrointestinal Disorders: No - GENITOURINARY/GYNECOLOGICAL Hx Genitourinary Disorders: Yes (ESRD,CKD) - PSYCHIATRIC Hx Substance Use: No - SURGICAL HISTORY 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)) Other/Comment: LEFT ANKLE SX - ANESTHESIA Hx Anesthesia: Yes Hx Anesthesia Reactions: No Hx Malignant Hyperthermia: No Meds Allergies/Adverse Reactions: Allergies Allergy/AdvReac Type Severity Reaction Status Date / Time No Known Allergies Allergy Verified 12/07/17 19:58 - Medications Medications: Current Medications Albuterol/Ipratropium (Duoneb 3 Mg/0.5 Mg (3 Ml) Ud) 3 ml INH RQ6 PRN PRN Reason: Shortness of Breath Amlodipine Besylate (Norvasc) 10 mg PO DAILY [facility] Aspirin (Aspirin) 325 mg PO DAILY [facility] Atorvastatin Calcium (Lipitor) 10 mg PO DIN [facility] Brimonidine Tartrate (Alphagan 0.2% Opht) 1 drop OU Q12 [facility] Last Admin: 12/21/17 23:58 Dose: 1 drop Clonidine HCl (Catapres) 0.2 mg PO Q12 [facility] Last Admin: 12/21/17 23:57 Dose: 0.2 mg Dextrose (Dextrose 50% Inj) 0 ml IV STAT PRN; Protocol PRN Reason: Hypoglycemia Protocol Dextrose (Glutose 15) 0 gm PO ONCE PRN; Protocol PRN Reason: Hypoglycemia Protocol Glucagon (Glucagen Diagnostic Kit) 0 mg IM STAT PRN; Protocol PRN Reason: Hypoglycemia Protocol Heparin Sodium (Porcine) (Heparin) 5,000 units SC Q12 [facility] PRN Reason: Protocol Last Admin: 12/21/17 23:56 Dose: 5,000 units Hydralazine HCl (Apresoline) 25 mg PO Q8@0600,1400,2200 [facility] Last Admin: 12/22/17 05:52 Dose: 25 mg Hydrochlorothiazide (Hydrodiuril) 50 mg PO DAILY [facility] Levofloxacin/Dextrose (Levaquin 750mg) 750 mg in 150 mls @ 100 mls/hr IVPB DAILY [facility] PRN Reason: Protocol Latanoprost (Xalatan Opht) 1 drop OU HS [facility] Last Admin: 12/21/17 23:55 Dose: 1 drop Sevelamer HCl (Renagel) 2,400 mg PO TID [facility] Valsartan (Diovan) 320 mg PO DAILY [facility] Results - Vital Signs Recent Vital Signs: Last Vital Signs Temp 97.9 F 12/22/17 07:54 Pulse 79 12/22/17 07:54 Resp 18 12/22/17 07:54 BP 156/82 H 12/22/17 07:54 Pulse Ox 95 12/22/17 07:54 - Labs Result Diagrams: 12/22/17 14:45 12/22/17 14:45 Labs: Laboratory Results - last 24 hr 12/21/17 12/21/17 12/21/17 18:03 18:03 18:03 WBC 9.6 RBC 3.23 L Hgb 9.3 L Hct 28.4 L MCV 87.9 MCH 28.7 MCHC 32.6 L RDW 17.8 H Plt Count 190 MPV 7.9 Neut % (Auto) 76.5 H Lymph % (Auto) 10.6 L [place] % (Auto) 7.4 Eos % (Auto) 4.5 H Baso % (Auto) 1.0 Neut # 7.3 H Lymph # 1.0 [place] # 0.7 Eos # 0.4 Baso # 0.1 PT 11.5 INR 1.0 APTT 32.2 pO2 VBG pH VBG pCO2 VBG HCO3 VBG Total CO2 VBG O2 Sat (Calc) VBG Base Excess VBG Potassium Glucose Lactate FiO2 Sodium 142 Potassium 5.2 H Chloride 97 L Carbon Dioxide 31 H Anion Gap 19 BUN 55 H Creatinine 12.9 H* D Est GFR ( Amer) 5 Est GFR (Non-Af Amer) 4 POC Glucose (mg/dL) Random Glucose 150 H Calcium 10.2 Total Bilirubin 0.9 AST 32 ALT 28 Alkaline Phosphatase 112 Troponin I 0.1030 NT-Pro-B Natriuret Pep 18378 H Total Protein 7.3 Albumin 4.2 Globulin 3.1 Albumin/Globulin Ratio 1.3 Venous Blood Potassium Influenza Typ A,B (EIA) 12/21/17 12/21/17 12/22/17 19:19 19:46 00:00 WBC RBC Hgb Hct MCV MCH MCHC RDW Plt Count MPV Neut % (Auto) Lymph % (Auto) [place] % (Auto) Eos % (Auto) Baso % (Auto) Neut # Lymph # [place] # Eos # Baso # PT INR APTT pO2 30 VBG pH 7.45 H VBG pCO2 49 VBG HCO3 30.7 VBG Total CO2 35.6 H VBG O2 Sat (Calc) 73.2 H VBG Base Excess 8.6 H VBG Potassium 4.5 Glucose 155 H Lactate 1.0 FiO2 21.0 Sodium 140.0 Potassium Chloride 102.0 Carbon Dioxide Anion Gap BUN Creatinine Est GFR ( Amer) Est GFR (Non-Af Amer) POC Glucose (mg/dL) 228 H Random Glucose Calcium Total Bilirubin AST ALT Alkaline Phosphatase Troponin I NT-Pro-B Natriuret Pep Total Protein Albumin Globulin Albumin/Globulin Ratio Venous Blood Potassium 4.5 Influenza Typ A,B (EIA) Negative for flu a/b 12/22/17 06:12 WBC RBC Hgb Hct MCV MCH MCHC RDW Plt Count MPV Neut % (Auto) Lymph % (Auto) [place] % (Auto) Eos % (Auto) Baso % (Auto) Neut # Lymph # [place] # Eos # Baso # PT INR APTT pO2 VBG pH VBG pCO2 VBG HCO3 VBG Total CO2 VBG O2 Sat (Calc) VBG Base Excess VBG Potassium Glucose Lactate FiO2 Sodium Potassium Chloride Carbon Dioxide Anion Gap BUN Creatinine Est GFR ( Amer) Est GFR (Non-Af Amer) POC Glucose (mg/dL) 183 H Random Glucose Calcium Total Bilirubin AST ALT Alkaline Phosphatase Troponin I NT-Pro-B Natriuret Pep Total Protein Albumin Globulin Albumin/Globulin Ratio Venous Blood Potassium Influenza Typ A,B (EIA)
[2017-12-22] MEDS ORDERED: levoFLOXacin 750 mg in D5W 750 MG/150 ML BAG IVPB SCH (09:00)
[2017-12-22] MEDS: Brimonidine 0.2% 50 DROP/5 ML BOTTLE OU SCH ×2 (09:28→21:57)
[2017-12-22 14:51] LABS: BASO % 0.1 % (0.0-2.0); HEMOGLOBIN 8.3 g/dL (12.0-18.0); LYMPH # 0.6 K/uL (1.0-4.3); LYMPH % 5.7 % (20.0-40.0); MEAN CELL VOLUME 88.2 fl (80.0-94.0); MEAN CORPUSCULAR HEMOGLOBIN 28.4 pg (27.0-31.0); MEAN CORPUSCULAR HGB CONC 32.2 g/dL (33.0-37.0); MEAN PLATELET VOLUME 8.5 fl (7.2-11.7); MONO # 0.4 K/uL (0.0-0.8); MONO % 4.2 % (0.0-10.0); NEUT # 9.6 K/uL (1.8-7.0); NRBC % 0.1 % (0.0-0.0); PLATELET COUNT 169 K/uL (130-400); RBC 2.92 Mil/uL (4.40-5.90); RED CELL DISTRIBUTION WIDTH 18.7 % (11.5-14.5); WHITE BLOOD COUNT 10.7 K/uL (4.8-10.8)
[2017-12-22 15:36] LABS: CALCIUM 9.8 mg/dL (8.4-10.2)
--- NOTE | 2017-12-22 16:34 | CP.PCM.CON ---
History of Present Illness - History of Present Illness History of Present Illness: RENAL CONSULT 62 y/o M with PMHx of ESRD TTS, DM, HTN, Anemia presented to ER w/ SOB at rest. He complains of excess fluid. NIDDM, HTN and ESRD on HD TTS presented to ED c/o SOB at rest. He endorses SOB at rest.He denies cp. He denies fever or chills. He endorses dry cough at time. He is compliant w/ medications and he has been compliant w/ his hd treatments. A full detailed ROS is negative except as above pmh: ESRD, DM, HTN famhx: + htn sochx: denies any ivdu, smoke, etoh Past Patient History - Infectious Disease Hx of Infectious Diseases: None - Past Medical History & Family History Past Medical History?: Yes - Past Social History Smoking Status: Former Smoker - CARDIAC Hx Cardia Arrhythmia: No Hx Congestive Heart Failure: Yes Hx Hypercholesterolemia: Yes Hx Hypertension: Yes Hx Peripheral Edema: No - PULMONARY Hx Chronic Obstructive Pulmonary Disease (COPD): No - NEUROLOGICAL Hx Transient Ischemic Attacks (TIA): Yes - HEENT Hx HEENT Problems: No Hx Blind: Yes (right eye) - RENAL Hx Chronic Kidney Disease: Yes (ESRD) Hx Dialysis: Yes (HD on TTS) Type of Dialysis Access: left AV fistula Date of Last Dialysis Treatment: 12/19/17 - ENDOCRINE/METABOLIC Hx Diabetes Mellitus Type 2: Yes Hx Hypothyroidism: No - HEMATOLOGICAL/ONCOLOGICAL Hx Anemia: Yes Hx Human Immunodeficiency Virus (HIV): No - INTEGUMENTARY Hx Dermatological Problems: No - MUSCULOSKELETAL/RHEUMATOLOGICAL Hx Falls: Yes - GASTROINTESTINAL Hx Gastrointestinal Disorders: No - GENITOURINARY/GYNECOLOGICAL Hx Genitourinary Disorders: Yes (ESRD,CKD) - PSYCHIATRIC Hx Substance Use: No - SURGICAL HISTORY 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)) Other/Comment: LEFT ANKLE SX - ANESTHESIA Hx Anesthesia: Yes Hx Anesthesia Reactions: No Hx Malignant Hyperthermia: No Meds Allergies/Adverse Reactions: Allergies Allergy/AdvReac Type Severity Reaction Status Date / Time No Known Allergies Allergy Verified 12/07/17 19:58 - Medications Medications: Current Medications Albuterol/Ipratropium (Duoneb 3 Mg/0.5 Mg (3 Ml) Ud) 3 ml INH RQ6 PRN PRN Reason: Shortness of Breath Amlodipine Besylate (Norvasc) 10 mg PO DAILY [facility] Aspirin (Aspirin) 325 mg PO DAILY [facility] Last Admin: 12/22/17 09:33 Dose: 325 mg Atorvastatin Calcium (Lipitor) 10 mg PO DIN [facility] Brimonidine Tartrate (Alphagan 0.2% Opht) 1 drop OU Q12 [facility] Last Admin: 12/22/17 09:28 Dose: 1 drop Clonidine HCl (Catapres) 0.2 mg PO Q12 [facility] Last Admin: 12/22/17 09:29 Dose: Not Given Dextrose (Dextrose 50% Inj) 0 ml IV STAT PRN; Protocol PRN Reason: Hypoglycemia Protocol Dextrose (Glutose 15) 0 gm PO ONCE PRN; Protocol PRN Reason: Hypoglycemia Protocol Glucagon (Glucagen Diagnostic Kit) 0 mg IM STAT PRN; Protocol PRN Reason: Hypoglycemia Protocol Heparin Sodium (Porcine) (Heparin) 5,000 units SC Q12 [facility] PRN Reason: Protocol Last Admin: 12/22/17 09:29 Dose: 5,000 units Hydralazine HCl (Apresoline) 25 mg PO Q8@0600,1400,2200 [facility] Last Admin: 12/22/17 13:15 Dose: Not Given Hydrochlorothiazide (Hydrodiuril) 50 mg PO DAILY [facility] Levofloxacin/Dextrose (Levaquin 750mg) 750 mg in 150 mls @ 100 mls/hr IVPB DAILY [facility] PRN Reason: Protocol Last Admin: 12/22/17 09:34 Dose: 100 mls/hr Latanoprost (Xalatan Opht) 1 drop OU HS [facility] Last Admin: 12/21/17 23:55 Dose: 1 drop Sevelamer HCl (Renagel) 2,400 mg PO TID [facility] Last Admin: 12/22/17 09:30 Dose: 2,400 mg Valsartan (Diovan) 320 mg PO DAILY [facility] Physical Exam - Head Exam Head Exam: ATRAUMATIC - Eye Exam Eye Exam: Normal appearance - ENT Exam ENT Exam: Mucous Membranes Moist - Neck Exam Neck exam: Positive for: Normal Inspection - Respiratory Exam Respiratory Exam: Clear to Auscultation Bilateral, NORMAL BREATHING PATTERN - Cardiovascular Exam Cardiovascular Exam: +S1, +S2 - GI/Abdominal Exam GI & Abdominal Exam: Normal Bowel Sounds - Extremities Exam Additional comments: no edema - Neurological Exam Neurological exam: Alert, Oriented x3 - Psychiatric Exam Psychiatric exam: Normal Affect, Normal Mood - Skin Skin Exam: Normal Color Results - Vital Signs Recent Vital Signs: Last Vital Signs Temp 98.4 F 12/22/17 15:54 Pulse 74 12/22/17 15:54 Resp 19 12/22/17 15:54 BP 150/84 12/22/17 15:54 Pulse Ox 98 12/22/17 15:54 - Labs Result Diagrams: 12/22/17 14:45 12/22/17 14:45 Labs: Laboratory Results - last 24 hr 12/21/17 12/21/17 12/21/17 18:03 18:03 18:03 WBC 9.6 RBC 3.23 L Hgb 9.3 L Hct 28.4 L MCV 87.9 MCH 28.7 MCHC 32.6 L RDW 17.8 H Plt Count 190 MPV 7.9 Neut % (Auto) 76.5 H Lymph % (Auto) 10.6 L [place] % (Auto) 7.4 Eos % (Auto) 4.5 H Baso % (Auto) 1.0 Neut # 7.3 H Lymph # 1.0 [place] # 0.7 Eos # 0.4 Baso # 0.1 PT 11.5 INR 1.0 APTT 32.2 pO2 VBG pH VBG pCO2 VBG HCO3 VBG Total CO2 VBG O2 Sat (Calc) VBG Base Excess VBG Potassium Glucose Lactate FiO2 Sodium 142 Potassium 5.2 H Chloride 97 L Carbon Dioxide 31 H Anion Gap 19 BUN 55 H Creatinine 12.9 H* D Est GFR ( Amer) 5 Est GFR (Non-Af Amer) 4 POC Glucose (mg/dL) Random Glucose 150 H Calcium 10.2 Phosphorus Total Bilirubin 0.9 AST 32 ALT 28 Alkaline Phosphatase 112 Troponin I 0.1030 NT-Pro-B Natriuret Pep 44209 H Total Protein 7.3 Albumin 4.2 Globulin 3.1 Albumin/Globulin Ratio 1.3 Venous Blood Potassium Influenza Typ A,B (EIA) 12/21/17 12/21/17 12/22/17 19:19 19:46 00:00 WBC RBC Hgb Hct MCV MCH MCHC RDW Plt Count MPV Neut % (Auto) Lymph % (Auto) [place] % (Auto) Eos % (Auto) Baso % (Auto) Neut # Lymph # [place] # Eos # Baso # PT INR APTT pO2 30 VBG pH 7.45 H VBG pCO2 49 VBG HCO3 30.7 VBG Total CO2 35.6 H VBG O2 Sat (Calc) 73.2 H VBG Base Excess 8.6 H VBG Potassium 4.5 Glucose 155 H Lactate 1.0 FiO2 21.0 Sodium 140.0 Potassium Chloride 102.0 Carbon Dioxide Anion Gap BUN Creatinine Est GFR ( Amer) Est GFR (Non-Af Amer) POC Glucose (mg/dL) 228 H Random Glucose Calcium Phosphorus Total Bilirubin AST ALT Alkaline Phosphatase Troponin I NT-Pro-B Natriuret Pep Total Protein Albumin Globulin Albumin/Globulin Ratio Venous Blood Potassium 4.5 Influenza Typ A,B (EIA) Negative for flu a/b 12/22/17 12/22/17 12/22/17 06:12 10:26 14:45 WBC 10.7 RBC 2.92 L Hgb 8.3 L Hct 25.8 L MCV 88.2 MCH 28.4 MCHC 32.2 L RDW 18.7 H Plt Count 169 MPV 8.5 Neut % (Auto) 90.0 H Lymph % (Auto) 5.7 L [place] % (Auto) 4.2 Eos % (Auto) 0.0 Baso % (Auto) 0.1 Neut # 9.6 H Lymph # 0.6 L [place] # 0.4 Eos # 0.0 Baso # 0.0 PT INR APTT pO2 VBG pH VBG pCO2 VBG HCO3 VBG Total CO2 VBG O2 Sat (Calc) VBG Base Excess VBG Potassium Glucose Lactate FiO2 Sodium Potassium Chloride Carbon Dioxide Anion Gap BUN Creatinine Est GFR ( Amer) Est GFR (Non-Af Amer) POC Glucose (mg/dL) 183 H 253 H Random Glucose Calcium Phosphorus Total Bilirubin AST ALT Alkaline Phosphatase Troponin I NT-Pro-B Natriuret Pep Total Protein Albumin Globulin Albumin/Globulin Ratio Venous Blood Potassium Influenza Typ A,B (EIA) 12/22/17 14:45 WBC RBC Hgb Hct MCV MCH MCHC RDW Plt Count MPV Neut % (Auto) Lymph % (Auto) [place] % (Auto) Eos % (Auto) Baso % (Auto) Neut # Lymph # [place] # Eos # Baso # PT INR APTT pO2 VBG pH VBG pCO2 VBG HCO3 VBG Total CO2 VBG O2 Sat (Calc) VBG Base Excess VBG Potassium Glucose Lactate FiO2 Sodium 139 Potassium 5.0 Chloride 99 Carbon Dioxide 22 Anion Gap 23 H BUN 69 H Creatinine 15.1 H* Est GFR ( Amer) 4 Est GFR (Non-Af Amer) 3 POC Glucose (mg/dL) Random Glucose 168 H Calcium 9.8 Phosphorus 4.5 Total Bilirubin AST ALT Alkaline Phosphatase Troponin I NT-Pro-B Natriuret Pep Total Protein Albumin Globulin Albumin/Globulin Ratio Venous Blood Potassium Influenza Typ A,B (EIA) Assessment & Plan - Assessment and Plan (Free Text) Assessment: ESRD/ Anemia/ Secondary hyperparathyroid/ CHF / Hyperkalemia plan: HD today uf goal 2-3 kg K should resolve post hd bp reasonably controlled - recc d/c hctz, can trial metoprolol for bp in addition to above meds phos controlled on binders start nephrocap will resume epo, monitor h and h
[2017-12-22 17:18] LABS: LYMPHOCYTE 6 % (20-50); MONOCYTE 3 % (0-10); NEUTROPHIL 91 % (42-75); PLATELET ESTIMATE NORMAL (NORMAL); TOTAL CELLS COUNTED 100
[2017-12-22 17:19] LABS: ANISOCYTOSIS SLIGHT; HYPOCHROMIC SLIGHT; OVALOCYTES SLIGHT; POIKILOCYTOSIS SLIGHT; SCHISTOCYTES SLIGHT
[2017-12-22 21:14] LABS: HEPATITIS B SURFACE AG Negative (NEGATIVE)
[2017-12-22 21:32] LABS: HEPATITIS C ANTIBODY NEGATIVE (NEGATIVE)
--- NOTE | 2017-12-22 21:47 | CT ---
EXAM: CT Chest Without Intravenous Contrast EXAM DATE/TIME: 12/22/2017 6:47 PM CLINICAL HISTORY: 62 years old, male; Signs and symptoms; Other: SOB, chronic infiltrates; Patient HX: Sent patient HX. ; Additional info: SOB, chronic infiltrates; endstage renal disease on dialysis TECHNIQUE: Axial computed tomography images of the chest without intravenous contrast. All CT scans at this facility use one or more dose reduction techniques, viz.: automated exposure control; ma/kV adjustment per patient size (including targeted exams where dose is matched to indication; i.e. head); or iterative reconstruction technique. Coronal and sagittal reformatted images were created and reviewed. COMPARISON: CT - ANGIO CHEST PE PROTOCOL 2015-08-03 15:36 FINDINGS: Artifacts: Motion artifact degrades image quality. Lungs and pleural spaces: Trachea and main bronchi are patent. There are bilateral pleural effusions. There is airspace disease at the lung bases. There is subsegmental atelectasis in the left upper lobe. There is minimal subsegmental atelectasis in the right lower lobe. Heart and vasculature: The heart is mildly enlarged. There are coronary artery calcium occasions. Aorta is normal in caliber. There is mild prominence of main pulmonary artery 3.2 cm in diameter.There are vascular calcifications. There is a left subclavian stent area and Mediastinum: There are mildly prominent middle mediastinal nodes.Alyssa are not optimally evaluated without contrast material. The esophagus is unremarkable. Thyroid: Thyroid is only partially imaged. Bones/joints: There are degenerative changes in the osseus structures. Soft tissues: unremarkable Upper abdomen: There are no acute abnormalities in the visualized portion of the abdomen. Kidneys are atrophic. IMPRESSION: Cardiomegaly and atherosclerotic disease, left subclavian stent; bilateral pleural effusions with basilar airspace disease Additional nonemergent findings as described above.
[2017-12-22] MEDS: Latanoprost 0.005% Opht SOUTION OU SCH (22:00)
--- NOTE | 2017-12-23 00:58 | CP.PCM.PCO ---
Addendum Addendum: 12/23/17 00:55 Patient was evaluated by me after HD at 18:50. Stable, states SOB improved. He requested to be DC home but patient needs special transportation and arrangements. Also his left shift deviation worsened compared to admission and BCx results are pending. Still afebrile. CT chest pending. Discussed with day team and patient. For poss discharge AM. 12/23/17 00:59
--- NOTE | 2017-12-23 06:58 | CP.PCM.DIS ---
Provider - Provider Date of Admission: 12/21/17 19:00 Attending physician: Sejal Vásquez MD Primary care physician: [facility] Consults: Nephro - Dr. Mary Gonzales Time Spent in preparation of Discharge (in minutes): 30 Hospital Course - Lab Results Lab Results: Micro Results 12/21/17 19:44 Blood-Venous Blood Culture - Preliminary NO GROWTH AFTER 24 HOURS Most Recent Lab Values WBC 10.7 K/uL (4.8-10.8) 12/22/17 14:45 RBC 2.92 Mil/uL (4.40-5.90) L 12/22/17 14:45 Hgb 8.3 g/dL (12.0-18.0) L 12/22/17 14:45 Hct 25.8 % (35.0-51.0) L 12/22/17 14:45 MCV 88.2 fl (80.0-94.0) 12/22/17 14:45 MCH 28.4 pg (27.0-31.0) 12/22/17 14:45 MCHC 32.2 g/dL (33.0-37.0) L 12/22/17 14:45 RDW 18.7 % (11.5-14.5) H 12/22/17 14:45 Plt Count 169 K/uL (130-400) 12/22/17 14:45 MPV 8.5 fl (7.2-11.7) 12/22/17 14:45 Neut % (Auto) 90.0 % (50.0-75.0) H 12/22/17 14:45 Lymph % (Auto) 5.7 % (20.0-40.0) L 12/22/17 14:45 [place] % (Auto) 4.2 % (0.0-10.0) 12/22/17 14:45 Eos % (Auto) 0.0 % (0.0-4.0) 12/22/17 14:45 Baso % (Auto) 0.1 % (0.0-2.0) 12/22/17 14:45 Neut # 9.6 K/uL (1.8-7.0) H 12/22/17 14:45 Lymph # 0.6 K/uL (1.0-4.3) L 12/22/17 14:45 [place] # 0.4 K/uL (0.0-0.8) 12/22/17 14:45 Eos # 0.0 K/uL (0.0-0.7) 12/22/17 14:45 Baso # 0.0 K/uL (0.0-0.2) 12/22/17 14:45 Neutrophils % (Manual) 91 % (42-75) H 12/22/17 14:45 Lymphocytes % (Manual) 6 % (20-50) L 12/22/17 14:45 Monocytes % (Manual) 3 % (0-10) 12/22/17 14:45 Platelet Estimate Normal (NORMAL) 12/22/17 14:45 Hypochromasia (manual) Slight 12/22/17 14:45 Poikilocytosis (manual Slight 12/22/17 14:45 Anisocytosis (manual) Slight 12/22/17 14:45 Ovalocytes Slight 12/22/17 14:45 Schistocytes Slight 12/22/17 14:45 PT 11.5 Seconds (9.8-13.1) 12/21/17 18:03 INR 1.0 (0.9-1.2) 12/21/17 18:03 APTT 32.2 Seconds (25.6-37.1) 12/21/17 18:03 pO2 30 mm/Hg (30-55) 12/21/17 19:46 VBG pH 7.45 (7.32-7.43) H 12/21/17 19:46 VBG pCO2 49 mmHg (40-60) 12/21/17 19:46 VBG HCO3 30.7 mmol/L 12/21/17 19:46 VBG Total CO2 35.6 mmol/L (22-28) H 12/21/17 19:46 VBG O2 Sat (Calc) 73.2 % (40-65) H 12/21/17 19:46 VBG Base Excess 8.6 mmol/L (0.0-2.0) H 12/21/17 19:46 VBG Potassium 4.5 mmol/L (3.6-5.2) 12/21/17 19:46 Sodium 140.0 mmol/L (132-148) 12/21/17 19:46 Chloride 102.0 mmol/L (98-107) 12/21/17 19:46 Glucose 155 mg/dL (75-110) H 12/21/17 19:46 Lactate 1.0 mmol/L (0.7-2.1) 12/21/17 19:46 FiO2 21.0 % 12/21/17 19:46 Sodium 139 mmol/l (132-148) 12/22/17 14:45 Potassium 5.0 MMOL/L (3.6-5.0) 12/22/17 14:45 Chloride 99 mmol/L (98-107) 12/22/17 14:45 Carbon Dioxide 22 mmol/L (22-30) 12/22/17 14:45 Anion Gap 23 (10-20) H 12/22/17 14:45 BUN 69 mg/dl (9-20) H 12/22/17 14:45 Creatinine 15.1 mg/dl (0.8-1.5) H* 12/22/17 14:45 Est GFR ( Amer) 4 12/22/17 14:45 Est GFR (Non-Af Amer) 3 12/22/17 14:45 POC Glucose (mg/dL) 99 mg/dL (65-110) 12/23/17 05:32 Random Glucose 168 mg/dL (75-110) H 12/22/17 14:45 Calcium 9.8 mg/dL (8.4-10.2) 12/22/17 14:45 Phosphorus 4.5 mg/dl (2.5-4.5) 12/22/17 14:45 Total Bilirubin 0.9 mg/dl (0.2-1.3) 12/21/17 18:03 AST 32 U/L (17-59) 12/21/17 18:03 ALT 28 U/L (21-72) 12/21/17 18:03 Alkaline Phosphatase 112 U/L (38-126) 12/21/17 18:03 Troponin I 0.1030 ng/mL (0.00-0.120) 12/21/17 18:03 NT-Pro-B Natriuret Pep 17067 pg/ml (0-900) H 12/21/17 18:03 Total Protein 7.3 G/DL (6.3-8.2) 12/21/17 18:03 Albumin 4.2 g/dL (3.5-5.0) 12/21/17 18:03 Globulin 3.1 gm/dL (2.2-3.9) 12/21/17 18:03 Albumin/Globulin Ratio 1.3 (1.0-2.1) 12/21/17 18:03 Procalcitonin 0.50 NG/ML (0.19-0.49) H 12/22/17 14:45 Venous Blood Potassium 4.5 mmol/L (3.6-5.2) 12/21/17 19:46 Hep Bs Antigen Negative (NEGATIVE) 12/22/17 14:45 Hep Bs Antibody Positive (NEGATIVE) 12/22/17 14:45 Hepatitis C Antibody Negative (NEGATIVE) 12/22/17 14:45 Influenza Typ A,B (EIA) Negative for flu a/b (NEGATIVE) 12/21/17 19:19 - Hospital Course Hospital Course: 62 year old male PMHx HTN, ESRD on HD (/Thu/Thu), NIDDM, HLD, and CVA presents to [facility] ED for SOB at rest. Last HD per patient was on Thursday, , as scheduled. Patient was previously admitted approximately 2 weeks ago with similar symptoms. CXR revealed new right lower lobe and left perihilar infiltrates, infectious/inflammatory etiologies are likely. 1 dose of Levaquin 750mg IV given during hospital stay. HD was done on schedule yesterday (Thursday , 12/22/17). Chest CT obtained s/p dialysis revealed cardiomegaly and atherosclerotic disease and biltaeral pleural effusions with basilar airspace disease. Patient refused to get follow up blood draw in order to evaluate BUN/ Cr s/p HD. Patient will be discharged in stable condition. 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 FU [facility] next week 12/30/17 @ 9:[address] Gary. At this follow-up visit, plan to discuss solutions in regard to recurrent fluid overload. Also will consider adjusting dosage for Aspirin (possibly decrease from 325mg PO to 81mg PO QD). Will need to refer to cardiology for multiple arrhythmias noted on hospital stay ; patient refused cardiology workup while in house. Nephro recommendations appreciated: discontinue HCTZ. Patient will be d/c home with Levaquin 500mg PO QOD x7days. Discharge Exam - Head Exam Head Exam: ATRAUMATIC, NORMAL INSPECTION, NORMOCEPHALIC - Eye Exam Eye Exam: EOMI Pupil Exam: NORMAL ACCOMODATION, PERRL - ENT Exam ENT Exam: Mucous Membranes Moist, Normal Exam - Neck Exam Neck exam: Full Rom, Normal Inspection Additional comments: +JVD - Respiratory Exam Respiratory Exam: Decreased Breath Sounds. absent: Respiratory Distress - Cardiovascular Exam Cardiovascular Exam: REGULAR RHYTHM, +S1, +S2 - GI/Abdominal Exam GI & Abdominal Exam: Normal Bowel Sounds, Soft, Unremarkable. absent: Tenderness - Extremities Exam Additional comments: Audible thrill LUE fistula Palpable pedal pulses b/l Right hallux amputation - Back Exam Back exam: FULL ROM, NORMAL INSPECTION. absent: paraspinal tenderness, tenderness, vertebral tenderness - Neurological Exam Neurological exam: Alert, Oriented x3 - Psychiatric Exam Psychiatric exam: Normal Affect, Normal Mood - Skin Skin Exam: Dry, Intact, Normal Color, Warm Discharge Plan - Discharge Medications Prescriptions: amLODIPine [Norvasc] 10 mg PO DAILY #30 tab Aspirin 325 mg PO DAILY #30 tab Atorvastatin [Lipitor] 10 mg PO DIN #30 tab Brimonidine 0.2% [Alphagan 0.2% Opht] 1 drop OU Q12 #1 bottle cloNIDine [Catapres] 0.2 mg PO Q12 #30 tab hydrALAZINE [Apresoline] 25 mg PO Q8@0600,1400,2200 #30 tab Latanoprost 0.005% Opht [Xalatan Opht] 1 drop OU HS #1 bottle Levofloxacin [Levaquin] 500 mg PO QOTHERDAY #3 tablet Minoxidil 2.5 mg PO DAILY #30 tab Sevelamer [Renagel] 2,400 mg PO TID #30 tab Valsartan [Diovan] 320 mg PO DAILY #30 tab - Follow Up Plan Condition: STABLE Disposition: HOME/ ROUTINE Patient education suggested?: Yes Instructions: Chronic Kidney Disease (DC), Renal Failure Diet (DC), Hypertension (DC), Pneumonia (DC) Additional Instructions: Follow up [facility] with Dr. Gary 12/30/17 @ 9:30AM. Please arrive 30 minutes prior to scheduled appointment. Referrals: [facility] [place] [Outside] Renzo Gonzales MD [Staff Provider] - 1 Week (Follow up with Dr. Gonzales within 1 week of discharge.)
[2017-12-23] MEDS: Brimonidine 0.2% 50 DROP/5 ML BOTTLE OU SCH (09:22)
--- NOTE | 2017-12-23 11:01 | CARD ---
APPROVED REPORT EKG Measurement Heart [id number] <Conclusion> Sinus rhythm with premature atrial complexes Anteroseptal infarct, age undetermined Abnormal ECG
--- NOTE | 2017-12-23 11:25 | CARD ---
APPROVED REPORT EKG Measurement Heart [id number] <Conclusion> Sinus rhythm with sinus arrhythmia with occasional premature ventricular complexes Septal infarct, age undetermined Abnormal ECG
--- NOTE | 2017-12-23 12:17 | PQF GENQUE ---
Dr. Vásquez, Please specify the type and acuity of heart failure in your progress notes: verus history of CHF and not a chronic condition. 1. TYPE: Combined systolic and diastolic Heart failure with reduced ejection fraction and diastolic dysfunction Diastolic HFpEF Systolic HFrEF Left heart failure Right heart failure Right heart failure due to left heart failure High Output failure End stage heart failure Other (please specify) Clinically unable to determine Unknown 2. ACUITY: Acute Chronic Acute on chronic Other (please specify) Clinically unable to determine Unknown H and P: Hx. CHF: Yes admitted for SOB ; Shortness of breath -Acute on chronic - Poss 2/2 due to fluid overload vs infectious etiology - ProBnp [id number](on ESRD patient) - JVD - last echo 09/01/2017: moderate concentric LVH, LVEF WNL, mild apical hypokinesis - CXR: Infiltrates suggesting infectious/inflammatory process less likely pulm edema(Please see full report) - afebrile, no leukocytosis, no cough or CP, PulseOx WNL - Similar presentation and lab values to previous admission 2 weeks ago - S/P Duonebs x2, Solumedrol 125 mg IV and Ceftriaxone/Azithromycin IV at ED - Lasix 80 mg IV once - Will hold abx for now and will discuss with inpatient team AM - [place] PRN - F/U Procalcitonin level 12/22 : Renal consult: Assessment: ESRD/ Anemia/ Secondary hyperparathyroid/ CHF / Hyperkalemia Plan: HD today uf goal 2-3 kg K should resolve post hd bp reasonably controlled - recc d/c hctz, can trial metoprolol for bp in addition to above meds phos controlled on binders start nephrocap will resume epo, monitor h and h IV Lasix ordered This form is a permanent part of the medical record Clarification of your documentation is requested to better reflect the severity of illness and intensity of treatment of your patient. Indicators present [] Specify: [] [] Specify: [] [] Specify: [] [] Specify: [] Location in the medical record that reflects the above clinical findings: [] Treatment Provided: [] PHYSICIAN'S RESPONSE fluid overload Based on your medical judgment of the clinical indicators outlined above please clarify the following: [] Practitioner response [] If unable to determine, please check the box, sign and date. Present On Admission (POA) Indicator: [] Present at the time of admission [] Not present at the time of admission [] Clinically Undetermined In responding to this query, please exercise your independent professional judgment. The fact that a question is asked does not imply that any particular answer is desired or expected. Thank you for your clarification on this documentation. If you have any questions please call. * Thank you, Maria Eugenia Martinez RN ext. #[phone] MTDD
[2017-12-23 12:18] VITALS: RESP 20; TEMP 97.9; O2SAT 96
--- NOTE | 2017-12-23 12:39 | PQF GENQUE ---
, 1. Please clarify the medical condition necessitating this admission:Principal Diagnosis(es) 2. Is Fluid Overload ruled in or ruled out? 12/22: Attending progress note; for SOB (1) Shortness of breath -Acute on chronic -Secondary to fluid overload vs. infectious etiology -Previous ECHO (09/01/17): Moderate concentric LVH; LV EF WNL; mild apical hypokinesis -CXR (12/21/17): New right lower lobe and left perihilar infiltrates. Infectious/ inflammatory etiologies are likely. Asymmetrical pulmonary edema less so. -Previous CXR (12/08/17): Prominence of the pulmonary vasculature may be secondary to AP technique and/or pulmonary vascular congestion. No focal consolidation or pleural effusion. -f/u Chest CT, to be taken after dialysis -Afebrile, absent leukocytosis (WBC 9.6), denies cough/chest pain/palpitations, O2 sat borderline normal -ProBNP = 24045 (ESRD patient) -Negative for Influenza -JVD present -Similar presentation and lab values to previous admission 2 weeks ago -Start Levaquin 750mg IV QD -Duonebs PRN -F/U Procalcitonin 12/22: Renal consult: Assessment: ESRD/ Anemia/ Secondary hyperparathyroid/ CHF / Hyperkalemia D/C Summary in draft: presents to [facility] ED for SOB at rest. Last HD per patient was on 12/19/17, as scheduled. Patient was previously admitted approximately 2 weeks ago with similar symptoms. CXR revealed new right lower lobe and left perihilar infiltrates, infectious/inflammatory etiologies are likely. 1 dose of Levaquin 750mg IV given during hospital stay. HD was done on schedule yesterday (12/22/17). Chest CT obtained s/p dialysis revealed cardiomegaly and atherosclerotic disease and biltaeral pleural effusions with basilar airspace disease. Patient refused to get follow up blood draw in order to evaluate BUN/Cr s/p HD. Patient will be discharged in stable condition. 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 FU [facility] next week Thursday, 12/30 @ 9:[address] Gary. At this follow-up visit, plan to discuss solutions in regard to recurrent fluid overload. This form is a permanent part of the medical record Clarification of your documentation is requested to better reflect the severity of illness and intensity of treatment of your patient. Indicators present [] Specify: [] [] Specify: [] [] Specify: [] [] Specify: [] Location in the medical record that reflects the above clinical findings: [] Treatment Provided: [] PHYSICIAN'S RESPONSE Fluid Overload Based on your medical judgment of the clinical indicators outlined above please clarify the following: [] Practitioner response [] If unable to determine, please check the box, sign and date. Present On Admission (POA) Indicator: [] Present at the time of admission [] Not present at the time of admission [] Clinically Undetermined In responding to this query, please exercise your independent professional judgment. The fact that a question is asked does not imply that any particular answer is desired or expected. Thank you for your clarification on this documentation. If you have any questions please call. * Thank you, Maria Eugenia Martinez RN ext. #[phone] MTDD
--- NOTE | 2017-12-23 14:24 | CP.PCM.PCO ---
Physician Communication Note - Physician Communication Note Physician Communication Note: Martha Silvestre Addendum Addendum: 12/23/17 14:08 CC: Paged for asymptomatic HR: 42-48 S: Patient denies SOB, dizziness, chest pain, or palpitations. He is declining evaluation by a casing finisher and stuffer for the above noted arrhythmia stating "I'm tired and they are always finding something". He was informed and understands that he may develop a fatal arrhythmia leading to and still declines further evaluation. O: 36.6- 65- 143/75- 20- 96% A/P: 62M with known cardiovascular disease and diabetes declining further inpatient evaluation by cardiology for asymptomatic arrhythmia noted on telemetry. - Risks discussed with patient - ER precautions provided (chest pain, sweating, SOB, palpitations) - d/w Dr Vásquez as well as nursing
[2017-12-23 14:31] VITALS: BP 140/70; PULSE 56
[2017-12-24] MEDS ORDERED: EPOETIN ALFA 10,000 UNIT/ML ML SC SCH (09:00)
== END 2017-12-23 15:20 | disposition home or self-care (01) | DRG 640 ==
LOC: H.ER 17:17 → H.ERHOLD 19:00 → H.TEL 12-22 03:55
PROVIDERS: ADMIT Family Medicine Geriatric Medicine; ATTEND Family Medicine Geriatric Medicine
DX: E87.70 Fluid overload, unspecified (principal); N18.6 End stage renal disease; I13.2 Hypertensive heart and chronic kidney disease with heart failure and with stage 5 chronic kidney disease, or end stage renal disease; J18.9 Pneumonia, unspecified organism; E11.22 Type 2 diabetes mellitus with diabetic chronic kidney disease; I50.9 Heart failure, unspecified; N25.81 Secondary hyperparathyroidism of renal origin; D63.8 Anemia in other chronic diseases classified elsewhere; E87.5 Hyperkalemia; E78.00 Pure hypercholesterolemia, unspecified; E78.5 Hyperlipidemia, unspecified; Z99.2 Dependence on renal dialysis; Z86.73 Personal history of transient ischemic attack (TIA), and cerebral infarction without residual deficits; Z87.891 Personal history of nicotine dependence; Z89.411 Acquired absence of right great toe

== ENCOUNTER 2018-01-09 09:11 | Observation (INO) | payer MEDICARE, OTHER ==
[2018-01-09 09:25] VITALS: BMI 28.7
--- NOTE | 2018-01-09 09:38 | ED PDOC ---
HPI: Chest Pain Time Seen by Provider: 01/09/18 09:24 Chief Complaint (Nursing): Chest Pain History Per: Patient, Manager Green (in demand [phone]) History/Exam Limitations: no limitations Onset/Duration Of Symptoms: Gradual (today) Current Symptoms Are (Timing): Gone Now Severity: Mild Quality: Dull, Pressure Associated Symptoms: denies: Nausea, Dyspnea, Diaphoresis, Syncope Modifying Factors: None Exacerbating Factors: None Additional History Per: Patient Past Medical History Reviewed: Historical Data, Nursing Documentation, Vital Signs Vital Signs: Last Vital Signs Temp 98 F 01/09/18 09:26 Pulse 83 01/09/18 09:26 Resp 18 01/09/18 09:26 BP 135/69 01/09/18 09:26 Pulse Ox 97 01/09/18 09:39 - Medical History PMH: Anemia, CHF, Diabetes, HTN, Hypercholesterolemia, Hyperlipidemia, End Stage Renal Disease (on dialysis Tue, Jojo, Sat.), Chronic Kidney Disease (ESRD) , TIA Denies: Peripheral Edema - Family History Family History: States: Unknown Family Hx - Living Arrangements Living Arrangements: With Family - Social History Current smoker - smoking cessation education provided: No - Immunization History Hx Tetanus Toxoid Vaccination: No Hx Influenza Vaccination: Yes Hx Pneumococcal Vaccination: No - Home Medications Home Medications: Ambulatory Orders Medication Instructions Recorded Aspirin 325 mg PO DAILY #30 tab 12/23/17 Atorvastatin [Lipitor] 10 mg PO DIN #30 tab 12/23/17 Brimonidine 0.2% [Alphagan 0.2% 1 drop OU Q12 #1 bottle 12/23/17 Opht] Latanoprost 0.005% Opht [Xalatan 1 drop OU HS #1 bottle 12/23/17 Opht] Sevelamer [Renagel] 2,400 mg PO TID #30 tab 12/23/17 Valsartan [Diovan] 320 mg PO DAILY #30 tab 12/23/17 amLODIPine [Norvasc] 10 mg PO DAILY #30 tab 12/23/17 amLODIPine [Norvasc] 10 mg PO DAILY 12/28/17 Vitamin B Complex/Vit C/Folic 1 tab PO 0800 30 Days tab 12/29/17 [Nephro-Ava] - Allergies Allergies/Adverse Reactions: Allergies Allergy/AdvReac Type Severity Reaction Status Date / Time No Known Allergies Allergy Verified 01/09/18 09:26 Review of Systems ROS Statement: Except As Marked, All Systems Reviewed And Found Negative Constitutional: Negative for: Fever, Chills Cardiovascular: Positive for: Chest Pain. Negative for: Palpitations Respiratory: Negative for: Cough, Shortness of Breath Gastrointestinal: Negative for: Nausea, Vomiting, Abdominal Pain Musculoskeletal: Negative for: Neck Pain Skin: Negative for: Rash Neurological: Negative for: Weakness, Numbness Physical Exam - Reviewed Nursing Documentation Reviewed: Yes Vital Signs Reviewed: Yes - Physical Exam Appears: Positive for: Uncomfortable Head Exam: Positive for: ATRAUMATIC, NORMAL INSPECTION, NORMOCEPHALIC Eye Exam: Positive for: Normal appearance, EOMI, PERRL Neck: Positive for: Normal, Painless ROM, Supple Cardiovascular/Chest: Positive for: Regular Rate, Rhythm, Chest Non Tender. Negative for: Edema, Gallop, Murmur, Bradycardia, Tachycardia Respiratory: Positive for: Normal Breath Sounds. Negative for: Decreased Breath Sounds, Accessory Muscle Use, Crackles, Rales, Rhonchi, Stridor, Wheezing , Respiratory Distress Gastrointestinal/Abdominal: Positive for: Normal Exam, Bowel Sounds, Soft. Negative for: Tenderness Back: Positive for: Normal Inspection. Negative for: L CVA Tenderness, R CVA Tenderness Extremity: Positive for: Normal ROM, Other (left av fistula). Negative for: Calf Tenderness, Deformity, Swelling Neurologic/Psych: Positive for: Alert, nematologist II-XII, Oriented. Negative for: Motor/Sensory Deficits - Laboratory Results Result Diagrams: 01/09/18 09:50 01/09/18 09:50 - ECG ECG: Positive for: Interpreted By Ca ECG Rhythm: Positive for: Normal QRS, Normal ST Segment, Sinus Rhythm, Premature Ventricular Contraction (occ). Negative for: ST/T Changes Interpretation Of Abn EKG: rate of 84, no change 12/23/2017 O2 Sat by Pulse Oximetry: 97 Pulse Ox Interpretation: Normal - Radiology X-Ray: Interpreted by Me X-Ray Interpretation: Other (mild pvc no infiltate no change since prev) Disposition - Clinical Impression Clinical Impression: Acute chest pain - Patient ED Disposition Is Patient to be Admitted: No Counseled Patient/Family Regarding: Studies Performed, Diagnosis, Need For Followup - Disposition Disposition Time: 10:30 Condition: GOOD - Pt Status Changed To: Hospital Disposition Of: Observation - POA Present On Arrival: None
[2018-01-09 10:01] LABS: BASO # 0.1 K/uL (0.0-0.2); EOS # 0.3 K/uL (0.0-0.7); EOS % 6.3 % (0.0-4.0); HEMOGLOBIN 9.7 g/dL (12.0-18.0); LYMPH % 18.3 % (20.0-40.0); MEAN CELL VOLUME 89.9 fl (80.0-94.0); MEAN CORPUSCULAR HEMOGLOBIN 30.1 pg (27.0-31.0); MEAN CORPUSCULAR HGB CONC 33.4 g/dL (33.0-37.0); MEAN PLATELET VOLUME 8.1 fl (7.2-11.7); MONO # 0.8 K/uL (0.0-0.8); MONO % 15.4 % (0.0-10.0); NEUT # 3.3 K/uL (1.8-7.0); NRBC % 0.2 % (0.0-0.0); RBC 3.24 Mil/uL (4.40-5.90); RED CELL DISTRIBUTION WIDTH 19.4 % (11.5-14.5); WHITE BLOOD COUNT 5.5 K/uL (4.8-10.8)
[2018-01-09 10:17] LABS: ALB/GLOB RATIO 1.4 (1.0-2.1); ALBUMIN 4.2 g/dL (3.5-5.0); CALCIUM 9.5 mg/dL (8.4-10.2)
[2018-01-09 10:23] LABS: TROPONIN I 0.075 ng/mL (0.00-0.120)
[2018-01-09 10:38] LABS: PARTIAL THROMBOPLASTIN TIME 33.1 Seconds (25.6-37.1); PROTHROMBIN TIME 11.6 Seconds (9.8-13.1)
--- NOTE | 2018-01-09 12:01 | CP.PCM.HP ---
<Juvenal Joseph - Last Filed: 01/09/18 11:16> History of Present Illness - History of Present Illness History of Present Illness: CC: chest pain HPI: The patient is a 62 year old man w/ pmh of HTN, ESRD on dialysis (Thursday/ /Thursday), CVA, and NIDDM2 sent from dialysis to the ED for chest pain. The patient reports the chest pain started this morning prior to dialysis , left-sided, non-radiating, dull in nature, and not affected by respiration. The patient had dialysis this morning as scheduled and completed but still had chest pain. Patient was given sublingual nitro upon arriving to ED w/ relief but pain returned in about 2 hours. The patient denies headaches, dizziness, SOB, abdominal pain, nausea, vomiting, diarrhea, dysuria, or fever. ED course: vitals: 98.0 F, 83 beats/min, 135/69 mm Hg, resp 18, O2 97% RA CBC: 5.5>9.7/29.1<185 CMP: 142/3.8, 97/32, 19/5.3, glucose 86, AST 35, troponin: 0.0750 proBNP: 55865 magnesium: 2.0 lipase: 451 PT: 11.6 INR: 1.0 PTT: 33.1 EKG: sinus rhythm, 1st degree AV block, PVCs, prolonged QTc, CXR: (preliminary) improved from previous study, costophrenic angle blunting bilaterally PMD: [facility] PMH: HTN, ESRD on dialysis (Thursday//Thursday), CVA, and NIDDM2 allergies: NKDA meds: see med list PSH: left foot surgery, right great toe amputation. L arm fistula Fam: non-contributory SOC: History of tobacco abuse (2-3 cig/day x3 years, quit 2 year ago), denies alcohol and illegal drugs ROS: 12 points assessed and negative unless otherwise reported in HPI Present on Admission - Present on Admission Any Indicators Present on Admission: No History of DVT/PE: No History of Uncontrolled Diabetes: No Urinary Catheter: No Decubitus Ulcer Present: No Review of Systems - Review of Systems All systems: reviewed and no additional remarkable complaints except - Constitutional Constitutional: absent: Chills, Fever - EENT Eyes: absent: Change in Vision - Cardiovascular Cardiovascular: As Per HPI, Chest Pain. absent: Pain Radiating to Arm/Neck/Jaw , Pedal Edema, Radiating Pain - Respiratory Respiratory: absent: Dyspnea, Wheezing - Gastrointestinal Gastrointestinal: absent: Abdominal Pain, Diarrhea, Nausea, Vomiting - Genitourinary Genitourinary: absent: Dysuria - Integumentary Integumentary: absent: Rash - Neurological Neurological: absent: Dizziness, Headaches Past Patient History - Infectious Disease Hx of Infectious Diseases: None - Past Medical History & Family History Past Medical History?: Yes - Past Social History Smoking Status: Former Smoker - CARDIAC Hx Congestive Heart Failure: Yes Hx Hypercholesterolemia: Yes Hx Hypertension: Yes Hx Peripheral Edema: No - NEUROLOGICAL Hx Transient Ischemic Attacks (TIA): Yes - HEENT Hx HEENT Problems: Yes Hx Blind: Yes - RENAL Hx Chronic Kidney Disease: Yes (ESRD) - ENDOCRINE/METABOLIC Hx Endocrine Disorders: Yes Hx Diabetes Mellitus Type 2: Yes - HEMATOLOGICAL/ONCOLOGICAL Hx Anemia: Yes - INTEGUMENTARY Hx Dermatological Problems: No - MUSCULOSKELETAL/RHEUMATOLOGICAL Hx Musculoskeletal Disorders: Yes Hx Falls: Yes - GASTROINTESTINAL Hx Gastrointestinal Disorders: No - GENITOURINARY/GYNECOLOGICAL Hx Genitourinary Disorders: Yes (ESRD,CKD) - PSYCHIATRIC Hx Psychophysiologic Disorder: No Hx Substance Use: No - SURGICAL HISTORY Hx Surgeries: Yes 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)) Other/Comment: LEFT ANKLE SX - ANESTHESIA Hx Anesthesia: Yes Hx Anesthesia Reactions: No Hx Malignant Hyperthermia: No Meds Allergies/Adverse Reactions: Allergies Allergy/AdvReac Type Severity Reaction Status Date / Time No Known Allergies Allergy Verified 01/09/18 09:26 Physical Exam - Constitutional Appears: No Acute Distress - Head Exam Head Exam: ATRAUMATIC, NORMAL INSPECTION, NORMOCEPHALIC - Eye Exam Eye Exam: Normal appearance - ENT Exam ENT Exam: Mucous Membranes Moist - Neck Exam Neck exam: Positive for: Full Rom. Negative for: Tenderness - Respiratory Exam Respiratory Exam: Clear to Auscultation Bilateral. absent: Decreased Breath Sounds, Rales, Rhonchi, Wheezes, Respiratory Distress - Cardiovascular Exam Cardiovascular Exam: REGULAR RHYTHM. absent: Tachycardia - GI/Abdominal Exam GI & Abdominal Exam: Normal Bowel Sounds, Soft. absent: Distended, Tenderness - Extremities Exam Extremities exam: Positive for: normal inspection. Negative for: calf tenderness, pedal edema, tenderness - Neurological Exam Neurological exam: Alert, Oriented x3 - Skin Skin Exam: Dry, Intact, Normal Color, Warm Results - Vital Signs Recent Vital Signs: Last Vital Signs Temp 98 F 01/09/18 09:26 Pulse 83 01/09/18 09:26 Resp 18 01/09/18 09:26 BP 135/69 01/09/18 09:26 Pulse Ox 97 01/09/18 11:04 - Labs Result Diagrams: 01/09/18 09:50 01/09/18 09:50 Labs: Laboratory Results - last 24 hr 01/09/18 01/09/18 01/09/18 09:50 09:50 09:50 WBC 5.5 RBC 3.24 L Hgb 9.7 L Hct 29.1 L MCV 89.9 MCH 30.1 MCHC 33.4 RDW 19.4 H Plt Count 185 MPV 8.1 Neut % (Auto) 59.0 Lymph % (Auto) 18.3 L Lynn % (Auto) 15.4 H Eos % (Auto) 6.3 H Baso % (Auto) 1.0 Neut # (Auto) 3.3 Lymph # (Auto) 1.0 Lynn # (Auto) 0.8 Eos # (Auto) 0.3 Baso # (Auto) 0.1 PT 11.6 INR 1.0 APTT 33.1 Sodium 142 Potassium 3.8 Chloride 97 L Carbon Dioxide 32 H Anion Gap 17 BUN 19 Creatinine 5.3 H Est GFR ( Amer) 13 Est GFR (Non-Af Amer) 11 Random Glucose 86 Calcium 9.5 Magnesium 2.0 Total Bilirubin 0.9 AST 35 ALT 34 Alkaline Phosphatase 119 Troponin I 0.0750 NT-Pro-B Natriuret Pep 31192 H Total Protein 7.1 Albumin 4.2 Globulin 2.9 Albumin/Globulin Ratio 1.4 Lipase 451 H Assessment & Plan - Assessment and Plan (Free Text) Assessment: The patient is a 62 year old man w/ pmh of HTN, ESRD on dialysis (Thursday/ /Thursday), CVA, and NIDDM2 sent from dialysis to the ED for chest pain. Plan: Chest pain - secondary to acute CHF exacerbation vs. r/o ACS - patient continues to report chest pain - given x1 sublingual nitro in ED - troponin: 0.0750 - proBNP: 58998 - magnesium: 2.0 - EKG: sinus rhythm, 1st degree AV block, PVCs, prolonged QTc, - CXR: (preliminary) improved from previous study, costophrenic angle blunting bilaterally - admit to Tele - f/u troponins - f/u serial EKG HTN - currently controlled - s/p hemodialysis - on amlodipine 10 mg PO daily and valsartan 320 mg PO daily - c/w home meds ESRD - on dialysis (Thursday//Thursday) - follows Dr. Gonzales - completed HD today - has functioning left A/V fistula - BUN/Cr: 19/5.3 Chronic Anemia - chronic anemia most likely 2/2 ESRD - Stable NIDDM2 - patient's last HbA1c 5.8% (08/31/2017); was 7.1% (10/08/2016) - diet controlled - accuchecks - insulin lispro - hypoglycemic protocol Diet - heart healthy, moderate consistent carbohydrate, renal, 2 gram sodium Prophylactic measures - DVT: 5000 units SC BID - GI: PPI <Jana Sinha - Last Filed: 01/10/18 08:38> Results - Vital Signs Recent Vital Signs: Last Vital Signs Temp 97.4 F L 01/10/18 08:22 Pulse 85 01/10/18 08:22 Resp 18 01/10/18 08:22 BP 181/82 H 01/10/18 08:22 Pulse Ox 100 01/10/18 08:22 - Labs Result Diagrams: 01/09/18 09:50 01/09/18 09:50 Labs: Laboratory Results - last 24 hr 01/09/18 01/09/18 01/09/18 09:44 09:50 09:50 WBC 5.5 RBC 3.24 L Hgb 9.7 L Hct 29.1 L MCV 89.9 MCH 30.1 MCHC 33.4 RDW 19.4 H Plt Count 185 MPV 8.1 Neut % (Auto) 59.0 Lymph % (Auto) 18.3 L Lynn % (Auto) 15.4 H Eos % (Auto) 6.3 H Baso % (Auto) 1.0 Neut # (Auto) 3.3 Lymph # (Auto) 1.0 Lynn # (Auto) 0.8 Eos # (Auto) 0.3 Baso # (Auto) 0.1 PT INR APTT Sodium 142 Potassium 3.8 Chloride 97 L Carbon Dioxide 32 H Anion Gap 17 BUN 19 Creatinine 5.3 H Est GFR ( Amer) 13 Est GFR (Non-Af Amer) 11 POC Glucose (mg/dL) 85 Random Glucose 86 Calcium 9.5 Magnesium 2.0 Total Bilirubin 0.9 AST 35 ALT 34 Alkaline Phosphatase 119 Troponin I 0.0750 NT-Pro-B Natriuret Pep 02801 H Total Protein 7.1 Albumin 4.2 Globulin 2.9 Albumin/Globulin Ratio 1.4 Lipase 451 H 01/09/18 01/09/18 01/09/18 09:50 16:31 21:12 WBC RBC Hgb Hct MCV MCH MCHC RDW Plt Count MPV Neut % (Auto) Lymph % (Auto) Lynn % (Auto) Eos % (Auto) Baso % (Auto) Neut # (Auto) Lymph # (Auto) Lynn # (Auto) Eos # (Auto) Baso # (Auto) PT 11.6 INR 1.0 APTT 33.1 Sodium Potassium Chloride Carbon Dioxide Anion Gap BUN Creatinine Est GFR ( Amer) Est GFR (Non-Af Amer) POC Glucose (mg/dL) 114 H Random Glucose Calcium Magnesium Total Bilirubin AST ALT Alkaline Phosphatase Troponin I 0.0620 NT-Pro-B Natriuret Pep Total Protein Albumin Globulin Albumin/Globulin Ratio Lipase 01/10/18 06:00 WBC RBC Hgb Hct MCV MCH MCHC RDW Plt Count MPV Neut % (Auto) Lymph % (Auto) Lynn % (Auto) Eos % (Auto) Baso % (Auto) Neut # (Auto) Lymph # (Auto) Lynn # (Auto) Eos # (Auto) Baso # (Auto) PT INR APTT Sodium Potassium Chloride Carbon Dioxide Anion Gap BUN Creatinine Est GFR ( Amer) Est GFR (Non-Af Amer) POC Glucose (mg/dL) 83 Random Glucose Calcium Magnesium Total Bilirubin AST ALT Alkaline Phosphatase Troponin I NT-Pro-B Natriuret Pep Total Protein Albumin Globulin Albumin/Globulin Ratio Lipase Attending/Attestation - Attestation I have personally seen and examined this patient.: Yes I have fully participated in the care of the patient.: Yes I have reviewed all pertinent clinical information: Yes Notes (Text): 01/10/18 08:36 ATTESTATION ATTENDING NOTE PATIENT SEEN AND EXAMINED. CASE DISCUSSED WITH RESIDENT. ELEV BNP ASSOCIATED WITH CHRONIC FLUID OVERLOAD - END STATE RENAL DISEASE. DID COMPLETE HEMODIAYLSIS EARLIER TODAY. AT TIME OF ED EVALUATION PATIENT WITH CLEAR LUNGS. ADMITTED TO OBS FOR FURTHER EVALUATION AND TREATMENT OF CHEST PAIN.
--- NOTE | 2018-01-09 12:27 | RAD ---
PROCEDURE: CHEST RADIOGRAPH, 1 VIEW HISTORY: cp COMPARISON: Comparison chest dated 12/21/2017 FINDINGS: LUNGS: Previously noted diffuse bilateral infiltrates- vascular congestive changes improved. There appears to be some mild residual bilateral lower lobe atelectatic changes left greater than right PLEURA: No pneumothorax or pleural fluid seen. CARDIOVASCULAR: Heart remains enlarged. Re- demonstrated are endovascular stents left subclavian region. OSSEOUS STRUCTURES: No significant abnormalities. VISUALIZED UPPER ABDOMEN: Normal. OTHER FINDINGS: None. IMPRESSION: Previously noted diffuse bilateral infiltrates- vascular congestive changes improved. There appears to be some mild residual bilateral lower lobe atelectatic changes left greater than right
[2018-01-09] MEDS ORDERED: Dextrose 50% SYRINGE Inj (50 ml) IV PRN (12:33)
[2018-01-09] MEDS ORDERED: Glucagon Recombinant 1 mg Inj IM PRN (12:33)
[2018-01-09] MEDS: Insulin Lispro (humaLOG) 100 Units/ml Inj SC SCH ×2 (16:32→22:33)
[2018-01-09] MEDS ORDERED: Latanoprost 0.005% Opht SOUTION OU SCH (22:00)
[2018-01-09] MEDS: Brimonidine 0.2% 50 DROP/5 ML BOTTLE OU SCH (22:35)
[2018-01-10 05:42] VITALS: RESP 18
[2018-01-10] MEDS ORDERED: Multivitamin Vitamin B Complex (Nephro-Vite) Tab PO SCH (08:00)
[2018-01-10] MEDS ORDERED: Pantoprazole 20 mg EC Tab PO SCH (09:00)
[2018-01-10] MEDS: Brimonidine 0.2% 50 DROP/5 ML BOTTLE OU SCH (09:20)
[2018-01-10] MEDS: Insulin Lispro (humaLOG) 100 Units/ml Inj SC SCH ×2 (09:20→11:30)
--- NOTE | 2018-01-10 10:48 | CP.PCM.DIS ---
<Guillaume Valencia - Last Filed: 01/10/18 10:37> Provider - Provider Date of Admission: 01/09/18 10:41 Attending physician: Jana Sinha MD Time Spent in preparation of Discharge (in minutes): 25 Hospital Course - Lab Results Lab Results: Most Recent Lab Values WBC 5.5 K/uL (4.8-10.8) 01/09/18 09:50 RBC 3.24 Mil/uL (4.40-5.90) L 01/09/18 09:50 Hgb 9.7 g/dL (12.0-18.0) L 01/09/18 09:50 Hct 29.1 % (35.0-51.0) L 01/09/18 09:50 MCV 89.9 fl (80.0-94.0) 01/09/18 09:50 MCH 30.1 pg (27.0-31.0) 01/09/18 09:50 MCHC 33.4 g/dL (33.0-37.0) 01/09/18 09:50 RDW 19.4 % (11.5-14.5) H 01/09/18 09:50 Plt Count 185 K/uL (130-400) 01/09/18 09:50 MPV 8.1 fl (7.2-11.7) 01/09/18 09:50 Neut % (Auto) 59.0 % (50.0-75.0) 01/09/18 09:50 Lymph % (Auto) 18.3 % (20.0-40.0) L 01/09/18 09:50 Bonner % (Auto) 15.4 % (0.0-10.0) H 01/09/18 09:50 Eos % (Auto) 6.3 % (0.0-4.0) H 01/09/18 09:50 Baso % (Auto) 1.0 % (0.0-2.0) 01/09/18 09:50 Neut # (Auto) 3.3 K/uL (1.8-7.0) 01/09/18 09:50 Lymph # (Auto) 1.0 K/uL (1.0-4.3) 01/09/18 09:50 Bonner # (Auto) 0.8 K/uL (0.0-0.8) 01/09/18 09:50 Eos # (Auto) 0.3 K/uL (0.0-0.7) 01/09/18 09:50 Baso # (Auto) 0.1 K/uL (0.0-0.2) 01/09/18 09:50 PT 11.6 Seconds (9.8-13.1) 01/09/18 09:50 INR 1.0 (0.9-1.2) 01/09/18 09:50 APTT 33.1 Seconds (25.6-37.1) 01/09/18 09:50 Sodium 142 mmol/l (132-148) 01/09/18 09:50 Potassium 3.8 MMOL/L (3.6-5.0) 01/09/18 09:50 Chloride 97 mmol/L (98-107) L 01/09/18 09:50 Carbon Dioxide 32 mmol/L (22-30) H 01/09/18 09:50 Anion Gap 17 (10-20) 01/09/18 09:50 BUN 19 mg/dl (9-20) 01/09/18 09:50 Creatinine 5.3 mg/dl (0.8-1.5) H 01/09/18 09:50 Est GFR ( Amer) 13 01/09/18 09:50 Est GFR (Non-Af Amer) 11 01/09/18 09:50 POC Glucose (mg/dL) 83 mg/dL (65-110) 01/10/18 06:00 Random Glucose 86 mg/dL (75-110) 01/09/18 09:50 Calcium 9.5 mg/dL (8.4-10.2) 01/09/18 09:50 Magnesium 2.0 MG/DL (1.6-2.3) 01/09/18 09:50 Total Bilirubin 0.9 mg/dl (0.2-1.3) 01/09/18 09:50 AST 35 U/L (17-59) 01/09/18 09:50 ALT 34 U/L (21-72) 01/09/18 09:50 Alkaline Phosphatase 119 U/L (38-126) 01/09/18 09:50 Troponin I 0.0620 ng/mL (0.00-0.120) 01/09/18 21:12 NT-Pro-B Natriuret Pep 24269 pg/ml (0-900) H 01/09/18 09:50 Total Protein 7.1 G/DL (6.3-8.2) 01/09/18 09:50 Albumin 4.2 g/dL (3.5-5.0) 01/09/18 09:50 Globulin 2.9 gm/dL (2.2-3.9) 01/09/18 09:50 Albumin/Globulin Ratio 1.4 (1.0-2.1) 01/09/18 09:50 Lipase 451 U/L (23-300) H 01/09/18 09:50 - Hospital Course Hospital Course: The patient is a 62 year old man w/ pmh of HTN, ESRD on dialysis (Thursday/ /Thursday), CVA, and NIDDM2 sent from dialysis to the ED for chest pain. Chest pain has resolved. ACS r/o. Continue with home meds. Pt to follow up in clinic with Dr. Valencia on . Discharge Exam - Head Exam Head Exam: ATRAUMATIC, NORMAL INSPECTION, NORMOCEPHALIC Discharge Plan - Discharge Medications Prescriptions: amLODIPine [Norvasc] 10 mg PO DAILY #30 tab amLODIPine [Norvasc] 10 mg PO DAILY #30 tab Aspirin 325 mg PO DAILY #30 tab Atorvastatin [Lipitor] 10 mg PO DIN #30 tab Brimonidine 0.2% [Alphagan 0.2% Opht] 1 drop OU Q12 #1 bottle Latanoprost 0.005% Opht [Xalatan Opht] 1 drop OU HS #1 bottle Pantoprazole [Protonix EC Tab] 20 mg PO DAILY #30 ect Sevelamer [Renagel] 2,400 mg PO TID #30 tab Valsartan [Diovan] 320 mg PO DAILY #30 tab Vitamin B Complex/Vit C/Folic [Nephro-Ava] 1 tab PO 0800 30 Days tab - Follow Up Plan Condition: GOOD Disposition: HOME/ ROUTINE Instructions: Chest Pain (DC) Additional Instructions: Hemodialysis Thursday, and Thursday, No blood pressure and venipuncture on the left arm. Renal with moderate carbohydrate diet. Needs assistance with all daily activities. Referrals: Alan Gonzales MD [Staff Provider] - <Jana Sinha - Last Filed: 01/11/18 10:08> Provider - Provider Date of Admission: 01/09/18 10:41 Attending physician: Jana Sinha MD Primary care physician: ATTENDING NOTE ATTESTATION PATIENT SEEN AND EXAMINED. CASE DISCUSSED WITH RESIDENT. AGREE WITH FINDINGS AND PLAN. Hospital Course - Lab Results Lab Results: Most Recent Lab Values WBC 5.5 K/uL (4.8-10.8) 01/09/18 09:50 RBC 3.24 Mil/uL (4.40-5.90) L 01/09/18 09:50 Hgb 9.7 g/dL (12.0-18.0) L 01/09/18 09:50 Hct 29.1 % (35.0-51.0) L 01/09/18 09:50 MCV 89.9 fl (80.0-94.0) 01/09/18 09:50 MCH 30.1 pg (27.0-31.0) 01/09/18 09:50 MCHC 33.4 g/dL (33.0-37.0) 01/09/18 09:50 RDW 19.4 % (11.5-14.5) H 01/09/18 09:50 Plt Count 185 K/uL (130-400) 01/09/18 09:50 MPV 8.1 fl (7.2-11.7) 01/09/18 09:50 Neut % (Auto) 59.0 % (50.0-75.0) 01/09/18 09:50 Lymph % (Auto) 18.3 % (20.0-40.0) L 01/09/18 09:50 Bonner % (Auto) 15.4 % (0.0-10.0) H 01/09/18 09:50 Eos % (Auto) 6.3 % (0.0-4.0) H 01/09/18 09:50 Baso % (Auto) 1.0 % (0.0-2.0) 01/09/18 09:50 Neut # (Auto) 3.3 K/uL (1.8-7.0) 01/09/18 09:50 Lymph # (Auto) 1.0 K/uL (1.0-4.3) 01/09/18 09:50 Bonner # (Auto) 0.8 K/uL (0.0-0.8) 01/09/18 09:50 Eos # (Auto) 0.3 K/uL (0.0-0.7) 01/09/18 09:50 Baso # (Auto) 0.1 K/uL (0.0-0.2) 01/09/18 09:50 PT 11.6 Seconds (9.8-13.1) 01/09/18 09:50 INR 1.0 (0.9-1.2) 01/09/18 09:50 APTT 33.1 Seconds (25.6-37.1) 01/09/18 09:50 Sodium 142 mmol/l (132-148) 01/09/18 09:50 Potassium 3.8 MMOL/L (3.6-5.0) 01/09/18 09:50 Chloride 97 mmol/L (98-107) L 01/09/18 09:50 Carbon Dioxide 32 mmol/L (22-30) H 01/09/18 09:50 Anion Gap 17 (10-20) 01/09/18 09:50 BUN 19 mg/dl (9-20) 01/09/18 09:50 Creatinine 5.3 mg/dl (0.8-1.5) H 01/09/18 09:50 Est GFR ( Amer) 13 01/09/18 09:50 Est GFR (Non-Af Amer) 11 01/09/18 09:50 POC Glucose (mg/dL) 131 mg/dL (65-110) H 01/10/18 11:25 Random Glucose 86 mg/dL (75-110) 01/09/18 09:50 Calcium 9.5 mg/dL (8.4-10.2) 01/09/18 09:50 Magnesium 2.0 MG/DL (1.6-2.3) 01/09/18 09:50 Total Bilirubin 0.9 mg/dl (0.2-1.3) 01/09/18 09:50 AST 35 U/L (17-59) 01/09/18 09:50 ALT 34 U/L (21-72) 01/09/18 09:50 Alkaline Phosphatase 119 U/L (38-126) 01/09/18 09:50 Troponin I 0.0620 ng/mL (0.00-0.120) 01/09/18 21:12 NT-Pro-B Natriuret Pep 47432 pg/ml (0-900) H 01/09/18 09:50 Total Protein 7.1 G/DL (6.3-8.2) 01/09/18 09:50 Albumin 4.2 g/dL (3.5-5.0) 01/09/18 09:50 Globulin 2.9 gm/dL (2.2-3.9) 01/09/18 09:50 Albumin/Globulin Ratio 1.4 (1.0-2.1) 01/09/18 09:50 Lipase 451 U/L (23-300) H 01/09/18 09:50
--- NOTE | 2018-01-10 10:49 | CARD ---
APPROVED REPORT EKG Measurement Heart [id number] <Conclusion> Sinus rhythm with marked sinus arrhythmia Left axis deviation Anteroseptal infarct, age undetermined Abnormal ECG
--- NOTE | 2018-01-10 10:53 | CARD ---
APPROVED REPORT EKG Measurement Heart [id number] <Conclusion> Sinus rhythm PVC's Left axis deviation Anteroseptal infarct, age undetermined T wave abnormality, consider lateral ischemia Prolonged QT Abnormal ECG
[2018-01-10 12:16] VITALS: BP 165/81; PULSE 76; TEMP 98.3; O2SAT 98
== END 2018-01-10 16:25 | disposition home or self-care (01) ==
LOC: H.ER 09:11 → H.ERHOLD 10:41 → H.TEL 21:45
PROVIDERS: ADMIT Emergency Medicine; ATTEND Emergency Medicine
DX: R07.9 Chest pain, unspecified (principal); E11.22 Type 2 diabetes mellitus with diabetic chronic kidney disease; E78.00 Pure hypercholesterolemia, unspecified; E78.5 Hyperlipidemia, unspecified; I13.2 Hypertensive heart and chronic kidney disease with heart failure and with stage 5 chronic kidney disease, or end stage renal disease; I50.9 Heart failure, unspecified; N18.6 End stage renal disease; Z86.73 Personal history of transient ischemic attack (TIA), and cerebral infarction without residual deficits; Z99.2 Dependence on renal dialysis; Z89.411 Acquired absence of right great toe; Z87.891 Personal history of nicotine dependence; D64.9 Anemia, unspecified
CPT/HCPCS: 71045; 80053; 82948; 83690; 83735; 83880; 84484; 85025; 85610; 85730; 93005; 99283; G0378; J1644

== ENCOUNTER 2018-10-22 21:26 | Observation (INO) | payer MEDICARE, OTHER ==
[2018-10-22 21:26] VITALS: BMI 28.7
--- NOTE | 2018-10-22 22:39 | ED PDOC ---
HPI: SOB/CHF/COPD Time Seen by Provider: 10/22/18 21:41 Chief Complaint (Nursing): Shortness Of Breath Chief Complaint (Provider): shortness of breath History Per: Patient Onset/Duration Of Symptoms: Hrs (1/2), Sudden Onset Associated Symptoms: Light-headedness. denies: Fever, Chills, Sweating, Chest Pain, Bloody Cough, Ankle/Leg Swelling, Dizziness Additional Complaint(s): Took evening medication at home with no improvement. Pt reports he has normal dialysis for 3 hours PMD [facility]? Nephrology: Gonzales Past Medical History Reviewed: Historical Data, Nursing Documentation, Vital Signs Vital Signs: Last Vital Signs Temp 98 F 10/22/18 21:41 Pulse 82 10/22/18 21:41 Resp 24 10/22/18 21:41 BP 187/89 H 10/22/18 21:41 Pulse Ox 98 10/22/18 21:41 - Medical History PMH: Anemia, CHF, Diabetes, HTN, Hypercholesterolemia, Hyperlipidemia, Hypothyroidism, End Stage Renal Disease (on dialysis Tue, Jojo, Sat.), Chronic Kidney Disease (ESRD), TIA Denies: Peripheral Edema - Surgical History Other surgeries: LEFT arm AV shunt - Family History Family History: States: Unknown Family Hx - Immunization History Hx Tetanus Toxoid Vaccination: No Hx Influenza Vaccination: Yes Hx Pneumococcal Vaccination: No - Home Medications Home Medications: Ambulatory Orders Medication Instructions Recorded RX: Brimonidine 0.2% [Alphagan 1 drop OU Q12 #1 bottle 01/10/18 0.2% Opht] RX: Latanoprost 0.005% Opht 1 drop OU HS #1 bottle 01/10/18 [Xalatan Opht] RX: Aspirin [Aspirin EC] 325 mg PO DAILY 10/23/18 RX: Atorvastatin [Lipitor] 40 mg PO HS 10/23/18 RX: Calcitriol 0.25 mcg PO QOTHERDAY 10/23/18 RX: Clonidine HCl [Catapres] 0.2 mg PO Q12 10/23/18 RX: Gabapentin [Neurontin] 100 mg PO HS 10/23/18 RX: Sennosides [Senna] 8.6 mg PO HS 10/23/18 RX: Valsartan 320 mg PO DAILY 10/23/18 RX: Vitamin B Complex/Vit C/Folic 1 tab PO DAILY 10/23/18 [Nephro-Ava] RX: amLODIPine [Norvasc] 10 mg PO DAILY 10/23/18 RX: hydrALAZINE [Apresoline] 25 mg PO TID 10/23/18 RX: hydroCHLOROthiazide 50 mg PO DAILY 10/23/18 [Hydrodiuril] - Allergies Allergies/Adverse Reactions: Allergies Allergy/AdvReac Type Severity Reaction Status Date / Time No Known Allergies Allergy Verified 10/22/18 21:41 Review of Systems ROS Statement: Except As Marked, All Systems Reviewed And Found Negative (and as per HPI) Cardiovascular: Positive for: Light Headedness. Negative for: Chest Pain, Edema Respiratory: Positive for: Shortness of Breath. Negative for: Cough Physical Exam - Reviewed Nursing Documentation Reviewed: Yes Vital Signs Reviewed: Yes - Physical Exam Appears: Positive for: Non-toxic, No Acute Distress Head Exam: Positive for: ATRAUMATIC, NORMOCEPHALIC Skin: Positive for: Warm, Dry Eye Exam: Positive for: EOMI, Other (bilateral blindess RIGHT worse than LEFT) ENT: Negative for: Pharyngeal Erythema, Tonsillar Exudate Neck: Positive for: Painless ROM, Supple Cardiovascular/Chest: Positive for: Regular Rate, Rhythm. Negative for: Murmur Respiratory: Positive for: Normal Breath Sounds. Negative for: Accessory Muscle Use, Respiratory Distress Gastrointestinal/Abdominal: Positive for: Soft. Negative for: Tenderness Back: Positive for: Normal Inspection. Negative for: Decreased ROM Extremity: Positive for: Normal ROM. Negative for: Deformity Lymphatic: Negative for: Adenopathy Neurologic/Psych: Positive for: Alert. Negative for: Motor/Sensory Deficits - Laboratory Results Result Diagrams: 10/22/18 22:46 10/22/18 22:46 - ECG ECG: Positive for: Interpreted By Il ECG Rhythm: Positive for: Sinus Rhythm, Right Bundle Branch Block, Nonspecific Changes. Negative for: ST/T Changes Rate: 81 O2 Sat by Pulse Oximetry: 98 Pulse Ox Interpretation: Normal - Radiology X-Ray: Interpreted by Il X-Ray Interpretation: Other (RIGHT pleural effusion) Disposition - Clinical Impression Clinical Impression: ESRD (end stage renal disease), Pleural effusion Discussed With : Riley Tolbert Doctor Will See Patient In The: ED Counseled Patient/Family Regarding: Studies Performed, Diagnosis - Disposition Disposition Time: 23:00 Condition: FAIR - Pt Status Changed To: Hospital Disposition Of: Observation - POA Present On Arrival: None
[2018-10-22 22:50] LABS: BASO # 0.1 K/uL (0.0-0.2); BASO % 1.3 % (0.0-2.0); EOS # 0.5 K/uL (0.0-0.7); EOS % 7.1 % (0.0-4.0); HEMOGLOBIN 10.4 g/dL (12.0-18.0); LYMPH # 0.8 K/uL (1.0-4.3); LYMPH % 11.1 % (20.0-40.0); MEAN CELL VOLUME 85.8 fl (80.0-94.0); MEAN CORPUSCULAR HEMOGLOBIN 28.6 pg (27.0-31.0); MEAN CORPUSCULAR HGB CONC 33.3 g/dL (33.0-37.0); MEAN PLATELET VOLUME 8.4 fl (7.2-11.7); MONO # 0.6 K/uL (0.0-0.8); MONO % 8.2 % (0.0-10.0); NEUT # 5.3 K/uL (1.8-7.0); NEUT % 72.3 % (50.0-75.0); NRBC % 0.1 % (0.0-0.0); RBC 3.65 Mil/uL (4.40-5.90); WHITE BLOOD COUNT 7.3 K/uL (4.8-10.8)
[2018-10-22 22:55] LABS: INR 1.1; PROTHROMBIN TIME 12.1 Seconds (9.8-13.1)
[2018-10-22 22:58] LABS: PARTIAL THROMBOPLASTIN TIME 36.6 Seconds (25.6-37.1)
[2018-10-22 23:13] LABS: TROPONIN I 0.076 ng/mL (0.00-0.120)
[2018-10-22 23:16] LABS: ALB/GLOB RATIO 1.4 (1.0-2.1); ALBUMIN 4.2 g/dL (3.5-5.0); CALCIUM 8.8 mg/dL (8.4-10.2)
--- NOTE | 2018-10-22 23:40 | CP.PCM.HP ---
History of Present Illness - History of Present Illness History of Present Illness: PCP: Clinic [facility]uration Diver: Dr Gonzales Chief complaint: Shortness of Breath The patient was seen and examined in the ED. No family members present. HPI: This hx was obtained from the patient and after review of the medical records. This is a 63 years old male with hx of DM II, HTN, ESRD on hemodialysis, the last being on one day ago. He comes to the ED with Sudden unset of SOB at rest. No chest pain, palpitation, Nausea, vomits,abdominal pain nor diarrhea.No urinary symptoms nor edemas. He took his home medications but had no improvement. PMH: Anemia, CHF with preserved EF, DM II not on antidiabetic medication, HTN, HLD Hypothyroidism, ESRD (on dialysis Tue, Jojo, Sat.),, TIA PSH: LEFT arm AV shunt SH: No Alcohol. Former Smoker; No IVDA FH: States: No known family hx Medications: Reviewed Present on Admission - Present on Admission Any Indicators Present on Admission: No History of DVT/PE: No History of Uncontrolled Diabetes: No Urinary Catheter: No Decubitus Ulcer Present: No Review of Systems - Constitutional Constitutional: Headache. absent: Fever - EENT Eyes: Requires Corrective Lenses. absent: Blurred Vision Ears: absent: Decreased Hearing, Tinnitus Nose/Mouth/Throat: absent: Epistaxis, Nasal Congestion, Sinus Pain, Sinus Pressure - Cardiovascular Cardiovascular: Dyspnea on Exertion, Lightheadedness. absent: Chest Pain, Edema, Palpitations - Respiratory Respiratory: Cough, Dyspnea. absent: Wheezing, Stridor - Gastrointestinal Gastrointestinal: absent: Diarrhea, Early Satiety, Nausea, Vomiting - Genitourinary Genitourinary: absent: Dysuria, Flank Pain, Hematuria - Musculoskeletal Musculoskeletal: Myalgias. absent: Arthralgias, Joint Swelling - Integumentary Integumentary: absent: Pruritus, Rash, Skin Ulcer, Sores, Striae, Swelling - Neurological Neurological: Headaches. absent: Confusion, Dizziness, Focal Weakness, Weakness - Psychiatric Psychiatric: absent: Anxiety, Depression, Panic Attacks - Endocrine Endocrine: absent: Palpitations, Polydipsia, Polyphagia, Polyuria - Hematologic/Lymphatic Hematologic: absent: Easy Bleeding, Easy Bruising Past Patient History - Infectious Disease Hx of Infectious Diseases: None - Past Medical History & Family History Past Medical History?: Yes - Past Social History Smoking Status: Former Smoker Chewing Tobacco Use: No Cigar Use: No Alcohol: None Drugs: Denies - CARDIAC Hx Congestive Heart Failure: Yes Hx Hypercholesterolemia: Yes Hx Hypertension: Yes Hx Peripheral Edema: No - NEUROLOGICAL Hx Transient Ischemic Attacks (TIA): Yes - HEENT Hx HEENT Problems: Yes Hx Blind: Yes Hx Glaucoma: Yes - RENAL Hx Chronic Kidney Disease: Yes (ESRD) - ENDOCRINE/METABOLIC Hx Hypothyroidism: Yes - HEMATOLOGICAL/ONCOLOGICAL Hx Anemia: Yes - INTEGUMENTARY Hx Dermatological Problems: No - MUSCULOSKELETAL/RHEUMATOLOGICAL Hx Musculoskeletal Disorders: Yes Hx Falls: Yes - GASTROINTESTINAL Hx Gastrointestinal Disorders: No - GENITOURINARY/GYNECOLOGICAL Hx Genitourinary Disorders: Yes (ESRD,CKD) - PSYCHIATRIC Hx Substance Use: No - SURGICAL HISTORY Hx Surgeries: Yes 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)) Hx Eye Surgery: Yes (as per patient) Other/Comment: LEFT ANKLE SX - ANESTHESIA Hx Anesthesia: Yes Hx Anesthesia Reactions: No Hx Malignant Hyperthermia: No Meds Allergies/Adverse Reactions: Allergies Allergy/AdvReac Type Severity Reaction Status Date / Time No Known Allergies Allergy Verified 10/22/18 21:41 Physical Exam - Constitutional Additional comments: Moderate respirate distress - Head Exam Head Exam: ATRAUMATIC, NORMAL INSPECTION, NORMOCEPHALIC - Eye Exam Eye Exam: EOMI Pupil Exam: NORMAL ACCOMODATION, PERRL - ENT Exam ENT Exam: Mucous Membranes Moist, Normal Exam, Normal External Ear Exam - Neck Exam Neck exam: Positive for: Full Rom, Normal Inspection. Negative for: Lymphadenopathy, Meningismus - Respiratory Exam Additional comments: decreased breath sounds at the right lung base with inspiratory rales - Cardiovascular Exam Cardiovascular Exam: RRR, +S1, +S2. absent: Gallop - GI/Abdominal Exam GI & Abdominal Exam: absent: Mass, Organomegaly Additional comments: Full, Soft, positive bowel sounds - Rectal Exam Rectal Exam: Deferred - Extremities Exam Extremities exam: Positive for: full ROM, normal inspection. Negative for: calf tenderness, pedal edema - Back Exam Back exam: NORMAL INSPECTION. absent: CVA tenderness (L), CVA tenderness (R) - Neurological Exam Neurological exam: Alert, CN II-XII Intact, Oriented x3, Reflexes Normal - Psychiatric Exam Psychiatric exam: Normal Affect, Normal Mood - Skin Skin Exam: Dry, Normal Color, Warm Results - Vital Signs Recent Vital Signs: Last Vital Signs Temp 98 F 10/22/18 21:41 Pulse 82 10/22/18 21:41 Resp 24 10/22/18 21:41 BP 187/89 H 10/22/18 21:41 Pulse Ox 98 10/22/18 22:42 - Labs Result Diagrams: 10/22/18 22:46 10/22/18 22:46 Labs: Laboratory Results - last 24 hr 10/22/18 10/22/18 10/22/18 22:46 22:46 22:46 WBC 7.3 RBC 3.65 L Hgb 10.4 L Hct 31.3 L MCV 85.8 D MCH 28.6 MCHC 33.3 RDW 18.0 H Plt Count 176 MPV 8.4 Neut % (Auto) 72.3 Lymph % (Auto) 11.1 L Gordon % (Auto) 8.2 Eos % (Auto) 7.1 H Baso % (Auto) 1.3 Neut # (Auto) 5.3 Lymph # (Auto) 0.8 L Gordon # (Auto) 0.6 Eos # (Auto) 0.5 Baso # (Auto) 0.1 PT 12.1 INR 1.1 APTT 36.6 Sodium 137 Potassium 4.7 Chloride 97 L Carbon Dioxide 25 Anion Gap 20 BUN 53 H Creatinine 10.9 H* D Est GFR ( Amer) 6 Est GFR (Non-Af Amer) 5 Random Glucose 127 H Calcium 8.8 Phosphorus 4.9 H Magnesium 2.1 Total Bilirubin 0.7 AST 30 ALT 53 Alkaline Phosphatase 102 Troponin I 0.0760 Total Protein 7.3 Albumin 4.2 Globulin 3.1 Albumin/Globulin Ratio 1.4 - Imaging and Cardiology Chest x-ray Status: Image reviewed by me Additional comment: Cardiomegaly Right pleural effusion with right lung congestioncongestion Assessment & Plan - Assessment and Plan (Free Text) Assessment: #: Acute respiratory distress with volume overload #. ESRD on Hmodialysis T #.Uncontrolled HTN #. Anemia of chronic #. DM II Plan: 63 years old male with hx of DM II, HTN, ESRD on hemodialysis, the last being on one day ago. He comes to the ED with Sudden unset of SOB at rest. No chest p ain, palpitation, Nausea, vomits,abdominal pain nor diarrhea.No urinary symptoms nor edemas. He took his home medications but had no improvement. #: Acute respiratory distress with volume overload - Consult Nephrology Dr Gonzales for Dialysis - Give Lasix 120mg V stat dose - O2 at 3 litrs/min #. ESRD on Hmodialysis - Dialysis on S #.Uncontrolled HTN - Hydralazine - valsartan - Norvasc #. Anemia of Chronic Renal disease - follow Hb #. DM II - Lispro sliding scale according to accucheck #. DVT Prophylaxis with Heparin - folow HbA1c #. Code Status: Full - Date & Time Date: 10/22/18 Time: 23:40
[2018-10-23] MEDS ORDERED: Multivitamin Vitamin B Complex (Nephro-Vite) Tab PO SCH ×2 (08:00→09:00)
[2018-10-23] MEDS: Insulin Lispro (humaLOG) 100 Units/ml Inj SC SCH ×2 (08:28→12:37)
[2018-10-23] MEDS ORDERED: Aspirin 325 mg EC Tablets PO SCH (09:00)
[2018-10-23] MEDS ORDERED: Brimonidine 0.2% 50 DROP/5 ML BOTTLE OU SCH (09:00)
[2018-10-23] MEDS ORDERED: Pantoprazole 20 mg EC Tab PO SCH (09:00)
--- NOTE | 2018-10-23 09:32 | RAD ---
Date of service: 10/22/2018 HISTORY: Shortness of breath COMPARISON: Comparison chest 01/09/2018. FINDINGS: LUNGS: Mild central pulmonary venous congestive changes felt present. Right lower lobe atelectasis and or infiltrate and right-sided effusion. Suspect mild left basilar atelectasis.. PLEURA: As above. Pneumothorax apparent. CARDIOVASCULAR: .Aortic atherosclerotic calcification present. Cardiomegaly.. In situ left subclavian endovascular stent unchanged OSSEOUS STRUCTURES: No significant abnormalities. VISUALIZED UPPER ABDOMEN: Normal. OTHER FINDINGS: None. IMPRESSION: Mild central pulmonary venous congestive changes felt present. Right lower lobe atelectasis and or infiltrate and right-sided effusion. Suspect mild left basilar atelectasis..
--- NOTE | 2018-10-23 10:42 | CP.PCM.PN ---
Subjective - Date & Time of Evaluation Date of Evaluation: 10/23/18 Objective - Vital Signs/Intake and Output Vital Signs (last 24 hours): Temp Pulse Resp BP Pulse Ox 98.6 F 81 25 H 182/92 H 96 10/23/18 08:24 18 08:31 10/23/18 08:24 10/23/18 08:31 10/23/18 08:24 - Medications Medications: Current Medications Amlodipine Besylate (Norvasc) 10 mg PO DAILY [facility] Last Admin: 10/23/18 08:30 Dose: 10 mg Aspirin (Ecotrin) 325 mg PO DAILY [facility] Last Admin: 10/23/18 08:37 Dose: 325 mg Atorvastatin Calcium (Lipitor) 40 mg PO HS [facility] Brimonidine Tartrate (Alphagan 0.2% Opht) 1 drop OU Q12 [facility] Last Admin: 10/23/18 08:38 Dose: 1 drop Heparin Sodium (Porcine) (Heparin) 5,000 units SC Q8 [facility]; Protocol Last Admin: 10/23/18 09:07 Dose: Not Given Hydralazine HCl (Apresoline) 25 mg PO TID [facility] Last Admin: 10/23/18 08:31 Dose: 25 mg Hydrochlorothiazide (Hydrodiuril) 50 mg PO DAILY [facility] Last Admin: 10/23/18 09:06 Dose: 50 mg Insulin Human Lispro (Humalog) 0 units SC ACHS [facility]; Protocol Last Admin: 10/23/18 08:28 Dose: Not Given Latanoprost (Xalatan Opht) 1 drop OU HS [facility] Losartan Potassium (Cozaar) 100 mg PO DAILY [facility] Pantoprazole Sodium (Protonix Ec Tab) 20 mg PO DAILY [facility] Last Admin: 10/23/18 08:32 Dose: 20 mg Sennosides (Senokot Tab) 8.6 mg PO HS [facility] Sevelamer HCl (Renagel) 2,400 mg PO TID [facility] Last Admin: 10/23/18 08:31 Dose: 2,400 mg Vitamin B Complex/Vit C/Folic Acid (Nephro-Ava) 1 tab PO 0800 [facility] Last Admin: 10/23/18 08:30 Dose: 1 tab - Labs Labs: 10/22/18 22:46 10/22/18 22:46 PT 12.1 Seconds (9.8-13.1) 10/22/18 22:46 INR 1.1 10/22/18 22:46 APTT 36.6 Seconds (25.6-37.1) 10/22/18 22:46
--- NOTE | 2018-10-23 13:48 | CP.PCM.DIS ---
Provider - Provider Date of Admission: 10/22/18 23:35 Attending physician: Riley Tolbert Primary care physician: [facility]? Dr. Gonzales- [place] Time Spent in preparation of Discharge (in minutes): 30 Diagnosis - Discharge Diagnosis (1) Chest pain Status: Resolved (2) Fluid overload Status: Resolved Comment: s/p 120 mg IV lasix (3) Hypertension Status: Chronic (4) ESRD (end stage renal disease) Status: Chronic Hospital Course - Lab Results Lab Results: Most Recent Lab Values WBC 7.3 K/uL (4.8-10.8) 10/22/18 22:46 RBC 3.65 Mil/uL (4.40-5.90) L 10/22/18 22:46 Hgb 10.4 g/dL (12.0-18.0) L 10/22/18 22:46 Hct 31.3 % (35.0-51.0) L 10/22/18 22:46 MCV 85.8 fl (80.0-94.0) D 10/22/18 22:46 MCH 28.6 pg (27.0-31.0) 10/22/18 22:46 MCHC 33.3 g/dL (33.0-37.0) 10/22/18 22:46 RDW 18.0 % (11.5-14.5) H 10/22/18 22:46 Plt Count 176 K/uL (130-400) 10/22/18 22:46 MPV 8.4 fl (7.2-11.7) 10/22/18 22:46 Neut % (Auto) 72.3 % (50.0-75.0) 10/22/18 22:46 Lymph % (Auto) 11.1 % (20.0-40.0) L 10/22/18 22:46 [place] % (Auto) 8.2 % (0.0-10.0) 10/22/18 22:46 Eos % (Auto) 7.1 % (0.0-4.0) H 10/22/18 22:46 Baso % (Auto) 1.3 % (0.0-2.0) 10/22/18 22:46 Neut # (Auto) 5.3 K/uL (1.8-7.0) 10/22/18 22:46 Lymph # (Auto) 0.8 K/uL (1.0-4.3) L 10/22/18 22:46 [place] # (Auto) 0.6 K/uL (0.0-0.8) 10/22/18 22:46 Eos # (Auto) 0.5 K/uL (0.0-0.7) 10/22/18 22:46 Baso # (Auto) 0.1 K/uL (0.0-0.2) 10/22/18 22:46 PT 12.1 Seconds (9.8-13.1) 10/22/18 22:46 INR 1.1 10/22/18 22:46 APTT 36.6 Seconds (25.6-37.1) 10/22/18 22:46 Sodium 137 mmol/l (132-148) 10/22/18 22:46 Potassium 4.7 MMOL/L (3.6-5.0) 10/22/18 22:46 Chloride 97 mmol/L (98-107) L 10/22/18 22:46 Carbon Dioxide 25 mmol/L (22-30) 10/22/18 22:46 Anion Gap 20 (10-20) 10/22/18 22:46 BUN 53 mg/dl (9-20) H 10/22/18 22:46 Creatinine 10.9 mg/dl (0.8-1.5) H* D 10/22/18 22:46 Est GFR ( Amer) 6 10/22/18 22:46 Est GFR (Non-Af Amer) 5 10/22/18 22:46 POC Glucose (mg/dL) 75 mg/dL (65-110) 10/23/18 12:32 Random Glucose 127 mg/dL (75-110) H 10/22/18 22:46 Calcium 8.8 mg/dL (8.4-10.2) 10/22/18 22:46 Phosphorus 4.9 mg/dl (2.5-4.5) H 10/22/18 22:46 Magnesium 2.1 MG/DL (1.6-2.3) 10/22/18 22:46 Total Bilirubin 0.7 mg/dl (0.2-1.3) 10/22/18 22:46 AST 30 U/L (17-59) 10/22/18 22:46 ALT 53 U/L (21-72) 10/22/18 22:46 Alkaline Phosphatase 102 U/L (38-126) 10/22/18 22:46 Troponin I 0.0760 ng/mL (0.00-0.120) 10/22/18 22:46 NT-Pro-B Natriuret Pep 129372 pg/ml (0-900) H 10/23/18 06:57 Total Protein 7.3 G/DL (6.3-8.2) 10/22/18 22:46 Albumin 4.2 g/dL (3.5-5.0) 10/22/18 22:46 Globulin 3.1 gm/dL (2.2-3.9) 10/22/18 22:46 Albumin/Globulin Ratio 1.4 (1.0-2.1) 10/22/18 22:46 - Hospital Course Hospital Course: 63 yo male with hx DM II, HTN, ESRD on hemodialysis (TThSa). Pt seen this morning, states he came to ED becase he had one episode of a sharp sensation at the level of nipple near axillary line. As per ED note and HPI, he complained originally of shortness of breath at rest, but when examined today he states he came in for this sensation of discomfort at his side. CXR showed pulmonary hypertension, and possible atelectasis vs pleural effusion. Since fluid overload was suspected, he was diuresed with lasix 120 mg dose. He has remained afebrile with stable vitals in the ED since arrival. This morning, he denied cough, shortness of breath, pain since arrival to ED, issues voiding/stooling, nausea, vomiting. He missed his HD appointment this morning, as his usual time is 4:30 am. Called pt's dialysis center, [facility], and they were ready to accept patient as a walk- in for his dialysis today. Arrangements made to transport patient to his dialysis center via [employer]. Discharge Exam - Head Exam Head Exam: ATRAUMATIC, NORMAL INSPECTION, NORMOCEPHALIC - Eye Exam Eye Exam: Normal appearance - ENT Exam ENT Exam: Mucous Membranes Moist - Respiratory Exam Respiratory Exam: Clear to PA & Lateral, NORMAL BREATHING PATTERN. absent: Wheezes, Respiratory Distress - Cardiovascular Exam Cardiovascular Exam: REGULAR RHYTHM, +S1, +S2 - GI/Abdominal Exam GI & Abdominal Exam: Normal Bowel Sounds, Soft. absent: Tenderness Additional comments: large soft abdomen - Extremities Exam Additional comments: no calf tenderness, no edema - Back Exam Back exam: NORMAL INSPECTION - Neurological Exam Neurological exam: Alert, Oriented x3 - Psychiatric Exam Psychiatric exam: Normal Affect - Skin Skin Exam: Dry, Warm Discharge Plan - Follow Up Plan Condition: GOOD Disposition: HOME/ ROUTINE Instructions: High Blood Pressure (DC) Referrals: [facility] [Provider Group] Alan Gonzales MD [Staff Provider] -
[2018-10-23 15:16] VITALS: BP 151/87; RESP 19; TEMP 98.3
--- NOTE | 2018-10-23 16:31 | CP.PCM.PN ---
Subjective - Date & Time of Evaluation Date of Evaluation: 10/23/18 Time of Evaluation: 16:30 - Subjective Subjective: renal nte patient seen in er will dialyse today consent taken final disposition per er Objective - Vital Signs/Intake and Output Vital Signs (last 24 hours): Temp Pulse Resp BP Pulse Ox 98.3 F 86 19 151/87 H 96 10/23/18 15:01 10/23/18 15:01 10/23/18 15:01 10/23/18 15:01 10/23/18 15:01 - Labs Labs: 10/22/18 22:46 10/22/18 22:46 PT 12.1 Seconds (9.8-13.1) 10/22/18 22:46 INR 1.1 10/22/18 22:46 APTT 36.6 Seconds (25.6-37.1) 10/22/18 22:46
--- NOTE | 2018-10-23 18:13 | CARD ---
APPROVED REPORT Date of service: 10/22/2018 EKG Measurement Heart [id number] <Conclusion> Normal sinus rhythm Septal infarct, age undetermined Prolonged QT Abnormal ECG
[2018-10-23] MEDS ORDERED: Latanoprost 0.005% Opht SOUTION OU SCH (22:00)
[2018-10-25 15:03] VITALS: PULSE 81; O2SAT 98
== END 2018-10-23 15:00 | disposition home or self-care (01) ==
LOC: H.ER 21:26 → H.ERHOLD 23:35 → INTOOBSV 23:35
PROVIDERS: ADMIT Internal Medicine; ATTEND Internal Medicine
DX: E87.70 Fluid overload, unspecified (principal); I13.2 Hypertensive heart and chronic kidney disease with heart failure and with stage 5 chronic kidney disease, or end stage renal disease; I50.32 Chronic diastolic (congestive) heart failure; N18.6 End stage renal disease; Z99.2 Dependence on renal dialysis; D63.1 Anemia in chronic kidney disease; E11.22 Type 2 diabetes mellitus with diabetic chronic kidney disease; E78.00 Pure hypercholesterolemia, unspecified; E78.5 Hyperlipidemia, unspecified; E03.9 Hypothyroidism, unspecified; Z86.73 Personal history of transient ischemic attack (TIA), and cerebral infarction without residual deficits; Z87.891 Personal history of nicotine dependence; Z79.82 Long term (current) use of aspirin; H40.9 Unspecified glaucoma; H54.7 Unspecified visual loss; I27.20 Pulmonary hypertension, unspecified; R06.03 Acute respiratory distress
CPT/HCPCS: 36600; 71045; 80053; 82803; 82948; 83036; 83735; 83880; 84100; 84484; 85025; 85610; 85730; 93005; 96372; 96374; 99285; G0378; J1644; J1940

== ENCOUNTER 2018-11-03 10:22 | Emergency (ER) | payer MEDICARE, OTHER ==
[2018-11-03 10:22] VITALS: BMI 28.7
--- NOTE | 2018-11-03 11:53 | ED PDOC ---
HPI: SOB/CHF/COPD Time Seen by Provider: 11/03/18 10:28 Chief Complaint (Nursing): Shortness Of Breath Chief Complaint (Provider): Shortness Of Breath History Per: Patient History/Exam Limitations: no limitations Onset/Duration Of Symptoms: Days (x1) Current Symptoms Are (Timing): Still Present Additional Complaint(s): 63 year old male, with a PMHx of HTN, diabetes, and CKD with hemodialysis, presenting for evaluation of shortness of breath onset this morning. Patient reports feeling short of breath this morning and calling an ambulance. Patient states he was put on O2 en route and feels better upon arrival. Patient denies any current shortness of breath, chest pain, nausea, vomiting, headache, and dizziness. Patient reports his last dialysis was yesterday and states it was uneventful. Patient reports he has dialysis scheduled for tomorrow and 11/06/2018. Past Medical History Reviewed: Historical Data, Nursing Documentation, Vital Signs Vital Signs: Last Vital Signs Temp Pulse Resp 18 11/03/18 11:46 BP Pulse Ox 100 11/03/18 11:46 - Medical History PMH: Anemia, CHF, Diabetes, HTN, Hypercholesterolemia, Hyperlipidemia, Hypothyroidism, End Stage Renal Disease (on dialysis Tue, [place], Sat.), Chronic Kidney Disease (ESRD), TIA Denies: Peripheral Edema - Family History Family History: States: Unknown Family Hx - Immunization History Hx Tetanus Toxoid Vaccination: No Hx Influenza Vaccination: Yes Hx Pneumococcal Vaccination: No - Home Medications Home Medications: Ambulatory Orders Medication Instructions Recorded Brimonidine 0.2% [Alphagan 0.2% 1 drop OU Q12 #1 bottle 01/10/18 Opht] Latanoprost 0.005% Opht [Xalatan 1 drop OU HS #1 bottle 01/10/18 Opht] Aspirin [Aspirin EC] 325 mg PO DAILY 10/23/18 Atorvastatin [Lipitor] 40 mg PO HS 10/23/18 Calcitriol 0.25 mcg PO QOTHERDAY 10/23/18 Clonidine HCl [Catapres] 0.2 mg PO Q12 10/23/18 Gabapentin [Neurontin] 100 mg PO HS 10/23/18 Sennosides [Senna] 8.6 mg PO HS 10/23/18 Valsartan 320 mg PO DAILY 10/23/18 Vitamin B Complex/Vit C/Folic 1 tab PO DAILY 10/23/18 [Nephro-Ava] amLODIPine [Norvasc] 10 mg PO DAILY 10/23/18 hydrALAZINE [Apresoline] 25 mg PO TID 10/23/18 hydroCHLOROthiazide [Hydrodiuril] 50 mg PO DAILY 10/23/18 - Allergies Allergies/Adverse Reactions: Allergies Allergy/AdvReac Type Severity Reaction Status Date / Time No Known Allergies Allergy Verified 10/22/18 21:41 Review of Systems ROS Statement: Except As Marked, All Systems Reviewed And Found Negative Cardiovascular: Negative for: Chest Pain Respiratory: Positive for: Shortness of Breath (resolved) Gastrointestinal: Negative for: Nausea, Vomiting Neurological: Negative for: Headache, Dizziness Physical Exam - Reviewed Nursing Documentation Reviewed: Yes Vital Signs Reviewed: Yes - Physical Exam Appears: Positive for: Well, Non-toxic, No Acute Distress Head Exam: Positive for: ATRAUMATIC, NORMAL INSPECTION, NORMOCEPHALIC Skin: Positive for: Normal Color, Warm, Dry. Negative for: Rash Eye Exam: Positive for: EOMI, Normal appearance, PERRL ENT: Positive for: Normal ENT Inspection Neck: Positive for: Normal, Painless ROM, Supple Cardiovascular/Chest: Positive for: Regular Rate, Rhythm. Negative for: Murmur Respiratory: Positive for: Normal Breath Sounds. Negative for: Respiratory Distress Gastrointestinal/Abdominal: Positive for: Normal Exam, Soft. Negative for: Tenderness Back: Positive for: Normal Inspection. Negative for: L CVA Tenderness, R CVA Tenderness, Vertebral Tenderness Extremity: Positive for: Normal ROM. Negative for: Pedal Edema, Deformity Neurologic/Psych: Positive for: Alert, Oriented (x3). Negative for: Motor/Sensory Deficits - Laboratory Results Result Diagrams: 11/03/18 11:56 11/03/18 11:56 - ECG O2 Sat by Pulse Oximetry: 100 (RA) Pulse Ox Interpretation: Normal Medical Decision Making Medical Decision Makin Impression: shortness of breath - resolved; r/o acute pathology Plan: -EKG -BMP -BNP -CBC -CXR -Reevaluation Scribe Attestation: Documented by Angel Camacho, acting as a scribe for Tori Roman MD. Provider Scribe Attestation: All medical record entries made by the Scribe were at my direction and persona lly dictated by me. I have reviewed the chart and agree that the record accurately reflects my personal performance of the history, physical exam, medical decision making, and the department course for this patient. I have also personally directed, reviewed, and agree with the discharge instructions and disposition. 1245p - case d/w Dr. Gonzales. patient to be transferred to [facility] for additional dialysis today. Patient informed and is okay with this plan. Disposition - Clinical Impression Clinical Impression: Shortness of breath, Pleural effusion - Patient ED Disposition Is Patient to be Admitted: No Doctor Will See Patient In The: Office Counseled Patient/Family Regarding: Diagnosis - Disposition Disposition: Other Institution Disposition Time: 13:00 Condition: GOOD Instructions: Shortness of Breath (Dyspnea) Forms: [employer] (Danish) Print Language: OCCITAN - POA Present On Arrival: None
[2018-11-03 12:10] LABS: BASO # 0.1 K/uL (0.0-0.2); BASO % 0.9 % (0.0-2.0); EOS # 0.3 K/uL (0.0-0.7); EOS % 5.8 % (0.0-4.0); LYMPH # 0.9 K/uL (1.0-4.3); LYMPH % 16.1 % (20.0-40.0); MEAN CELL VOLUME 88.6 fl (80.0-94.0); MEAN CORPUSCULAR HEMOGLOBIN 28.6 pg (27.0-31.0); MEAN CORPUSCULAR HGB CONC 32.3 g/dL (33.0-37.0); MEAN PLATELET VOLUME 8.3 fl (7.2-11.7); MONO # 0.5 K/uL (0.0-0.8); MONO % 9.8 % (0.0-10.0); NEUT # 3.8 K/uL (1.8-7.0); NEUT % 67.4 % (50.0-75.0); NRBC % 0.2 % (0.0-0.0); RBC 3.51 Mil/uL (4.40-5.90); WHITE BLOOD COUNT 5.6 K/uL (4.8-10.8)
[2018-11-03 12:40] LABS: CALCIUM 9.4 mg/dL (8.4-10.2)
--- NOTE | 2018-11-03 12:53 | RAD ---
Date of service: 11/03/2018 PROCEDURE: CHEST RADIOGRAPH, 1 VIEW HISTORY: shortness of breath COMPARISON: None available. FINDINGS: LUNGS: 10/22/2018 right basal opacity compatible with compressive atelectasis with right pleural effusion noted and similar. Concomitant right basal infiltrate not excluded. Interval increased fluid in the minor fissure suggested. The vague opacity bordering the left lateral heart border is as before. PLEURA: Right pleural effusion similar. No pneumothorax noted. CARDIOVASCULAR: There is presence of aortic atherosclerotic calcification on x-ray. Cardiomegaly-similar. Pulmonary venous congestion similar to increased. Left subclavian vascular stent-similar OSSEOUS STRUCTURES: Thoracic spondylosis. Bilateral shoulder arthrosis. VISUALIZED UPPER ABDOMEN: Atherosclerotic splenic artery vascular calcifications present. OTHER FINDINGS: None. IMPRESSION: Interval increased fluid right minor fissure. Right basal atelectasis (with or without infiltrate) with right pleural effusion-. The pleural effusion is similar to perhaps slightly increased. Cardiomegaly-similar. Pulmonary venous congestion slightly increased since prior exam Congestive heart failure inferred.
[2018-11-03 13:12] VITALS: RESP 16; TEMP 97.7
--- NOTE | 2018-11-03 19:32 | CARD ---
APPROVED REPORT Date of service: 11/03/2018 EKG Measurement Heart [id number] <Conclusion> Sinus rhythm with marked sinus arrhythmia with 1st degree AV block Left axis deviation Anteroseptal infarct, age undetermined T wave abnormality, consider lateral ischemia Abnormal ECG
[2018-11-03 19:45] VITALS: BP 144/78; PULSE 70; O2SAT 99
== END 2018-11-03 19:45 | disposition home or self-care (01) ==
LOC: H.ER 10:22
DX: R06.02 Shortness of breath (principal); J91.8 Pleural effusion in other conditions classified elsewhere; E11.22 Type 2 diabetes mellitus with diabetic chronic kidney disease; E78.00 Pure hypercholesterolemia, unspecified; I13.2 Hypertensive heart and chronic kidney disease with heart failure and with stage 5 chronic kidney disease, or end stage renal disease; Z86.73 Personal history of transient ischemic attack (TIA), and cerebral infarction without residual deficits; Z99.2 Dependence on renal dialysis; I50.9 Heart failure, unspecified; E03.9 Hypothyroidism, unspecified

== ENCOUNTER 2018-11-15 14:37 | Emergency (ER) | payer MEDICARE, OTHER ==
[2018-11-15 14:37] VITALS: BMI 28.7
--- NOTE | 2018-11-15 16:22 | ED PDOC ---
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 He goes to dialysis Thursday, and Thursday. Patient refuses to elaborate any further. Denies fever and cough. PMD: Dr. Boss (Dialysis center) Past Medical History Reviewed: Historical Data, Nursing Documentation, Vital Signs Vital Signs: Last Vital Signs Temp 98 F 11/15/18 14:46 Pulse 71 11/15/18 14:46 Resp 24 11/15/18 14:46 BP 169/84 H 11/15/18 14:46 Pulse Ox 100 11/15/18 14:46 - Medical History PMH: Anemia, CHF, Diabetes, HTN, Hypercholesterolemia, Hyperlipidemia, Hypothyroidism, End Stage Renal Disease (on dialysis Thu, Thu, Thu.), Chronic Kidney Disease (ESRD), TIA Denies: Peripheral Edema - Surgical History Other surgeries: foot surgery - Family History Family History: States: Unknown Family Hx - Social History Current smoker - smoking cessation education provided: No Alcohol: None Drugs: Denies - Immunization History Hx Tetanus Toxoid Vaccination: No Hx Influenza Vaccination: Yes Hx Pneumococcal Vaccination: No - Home Medications Home Medications: Ambulatory Orders Medication Instructions Recorded RX: Brimonidine 0.2% [Alphagan 1 drop OU Q12 #1 bottle 01/10/18 0.2% Opht] RX: Latanoprost 0.005% Opht 1 drop OU HS #1 bottle 01/10/18 [Xalatan Opht] RX: Aspirin [Aspirin EC] 325 mg PO DAILY 10/23/18 RX: Atorvastatin [Lipitor] 40 mg PO HS 10/23/18 RX: Calcitriol 0.25 mcg PO QOTHERDAY 10/23/18 RX: Clonidine HCl [Catapres] 0.2 mg PO Q12 10/23/18 RX: Gabapentin [Neurontin] 100 mg PO HS 10/23/18 RX: Sennosides [Senna] 8.6 mg PO HS 10/23/18 RX: Valsartan 320 mg PO DAILY 10/23/18 RX: Vitamin B Complex/Vit C/Folic 1 tab PO DAILY 10/23/18 [Nephro-Ava] RX: amLODIPine [Norvasc] 10 mg PO DAILY 10/23/18 RX: hydrALAZINE [Apresoline] 25 mg PO TID 10/23/18 RX: hydroCHLOROthiazide 50 mg PO DAILY 10/23/18 [Hydrodiuril] - Allergies Allergies/Adverse Reactions: Allergies Allergy/AdvReac Type Severity Reaction Status Date / Time No Known Allergies Allergy Verified 11/15/18 14:46 Review of Systems ROS Statement: Except As Marked, All Systems Reviewed And Found Negative Constitutional: Negative for: Fever Cardiovascular: Negative for: Chest Pain Respiratory: Positive for: Shortness of Breath. Negative for: Cough Physical Exam - Reviewed Nursing Documentation Reviewed: Yes Vital Signs Reviewed: Yes - Physical Exam Appears: Positive for: No Acute Distress Head Exam: Positive for: ATRAUMATIC, NORMAL INSPECTION, NORMOCEPHALIC Skin: Positive for: Normal Color, Warm, Dry Eye Exam: Positive for: EOMI, Normal appearance, PERRL ENT: Positive for: Normal ENT Inspection Neck: Positive for: Normal, Painless ROM, Supple Cardiovascular/Chest: Positive for: Regular Rate, Rhythm. Negative for: Murmur Respiratory: Positive for: Rhonchi (slight rhonchi bilaterally). Negative for: Wheezing, Respiratory Distress Gastrointestinal/Abdominal: Positive for: Normal Exam, Soft. Negative for: Tenderness Extremity: Positive for: Normal ROM (upper and lower extremities). Negative for: Deformity Neurologic/Psych: Positive for: Alert, Oriented. Negative for: Motor/Sensory Deficits - Laboratory Results Result Diagrams: 11/15/18 17:38 11/15/18 17:38 - ECG O2 Sat by Pulse Oximetry: 100 (RA) Pulse Ox Interpretation: Normal Medical Decision Making Medical Decision Makin:00 Impression: shortness of breath Initial Plan: --Patient is on oxygen because he requested O2 through a nasal cannula even though his Oxygen saturation is 100%. 1815 --Called Dr. Gonzales pts renal doc who reviewed labs and follow up with patient in his scheduled appointment tomorrow for dialysis.airway intact, no sob. no chest pain. awake and alert. pt resting in no distress throughout ER stay. potassium is normal. --Patient requires no further treatment at this time and is stable for discharge. pt agreeable. Scribe Attestation: Documented by Gaby Blanco, acting as a scribe for Trish De Leon MD Provider Scribe Attestation: All medical record entries made by the Scribe were at my direction and personally dictated by me. I have reviewed the chart and agree that the record accurately reflects my personal performance of the history, physical exam, medical decision making, and the department course for this patient. I have also personally directed, reviewed, and agree with the discharge instructions and disposition. Disposition - Clinical Impression Clinical Impression: ESRD (end stage renal disease) - Patient ED Disposition Is Patient to be Admitted: No Counseled Patient/Family Regarding: Studies Performed, Diagnosis, Need For Followup - Disposition Disposition: Routine/Home Disposition Time: 18:45 Condition: IMPROVED Additional Instructions: follow up for dialysis tomorrow with Dr Gonzales return to the ED with any worsening or concerning symptoms Instructions: Kidney Failure (DC) Forms: [employer] (Malagasy)
[2018-11-15 18:00] LABS: BASO # 0.1 K/uL (0.0-0.2); BASO % 1.1 % (0.0-2.0); EOS # 0.3 K/uL (0.0-0.7); HEMOGLOBIN 9.1 g/dL (12.0-18.0); LYMPH # 0.9 K/uL (1.0-4.3); LYMPH % 15.6 % (20.0-40.0); MEAN CELL VOLUME 89.2 fl (80.0-94.0); MEAN CORPUSCULAR HEMOGLOBIN 29.1 pg (27.0-31.0); MEAN CORPUSCULAR HGB CONC 32.7 g/dL (33.0-37.0); MONO # 0.6 K/uL (0.0-0.8); NEUT # 3.8 K/uL (1.8-7.0); NEUT % 67.3 % (50.0-75.0); RBC 3.13 Mil/uL (4.40-5.90); RED CELL DISTRIBUTION WIDTH 19.4 % (11.5-14.5); WHITE BLOOD COUNT 5.7 K/uL (4.8-10.8)
--- NOTE | 2018-11-15 18:11 | RAD ---
Date of service: 11/15/2018 HISTORY: sob COMPARISON: 11/03/2018 TECHNIQUE: Chest PA and lateral FINDINGS: LUNGS: Right pleural effusion is once again identified. There is however some minimal decrease in fluid within the minor fissure. There appears to be the suggestion of mild improvement in aeration with slight decrease in vascular congestion. PLEURA: See above. CARDIOVASCULAR: Mild aortic atherosclerotic calcification present. Enlarged heart. No left effusion. OSSEOUS STRUCTURES: Unchanged VISUALIZED UPPER ABDOMEN: Normal. OTHER FINDINGS: None. IMPRESSION: Mild improvement in aeration with decreased vascular congestion although persistent right effusion atelectasis remain.
[2018-11-15 18:15] LABS: ALB/GLOB RATIO 1.2 (1.0-2.1); ALBUMIN 3.7 g/dL (3.5-5.0); CALCIUM 9.6 mg/dL (8.4-10.2)
[2018-11-15 19:12] VITALS: TEMP 98.1
[2018-11-15 21:05] VITALS: BP 134/72; PULSE 78; RESP 16
--- NOTE | 2018-11-18 11:57 | CARD ---
APPROVED REPORT Date of service: 11/15/2018 EKG Measurement Heart [id number] <Conclusion> Sinus rhythm with marked sinus arrhythmia with 1st degree AV block Low voltage QRS Septal infarct, age undetermined Abnormal ECG
[2018-11-19 00:13] VITALS: O2SAT 100
== END 2018-11-15 20:55 | disposition home or self-care (01) ==
LOC: H.ER 14:37
DX: N18.6 End stage renal disease (principal); E11.22 Type 2 diabetes mellitus with diabetic chronic kidney disease; I13.2 Hypertensive heart and chronic kidney disease with heart failure and with stage 5 chronic kidney disease, or end stage renal disease; J44.9 Chronic obstructive pulmonary disease, unspecified; Z86.73 Personal history of transient ischemic attack (TIA), and cerebral infarction without residual deficits; Z99.2 Dependence on renal dialysis

== ENCOUNTER 2018-12-01 22:34 | Emergency (ER) | payer MEDICARE, OTHER ==
[2018-12-01 22:35] VITALS: BMI 28.7
--- NOTE | 2018-12-01 23:46 | ED PDOC ---
HPI: SOB/CHF/COPD Time Seen by Provider: 12/01/18 22:52 Chief Complaint (Nursing): Shortness Of Breath Chief Complaint (Provider): Shortness Of Breath History Per: Patient History/Exam Limitations: no limitations Onset/Duration Of Symptoms: Hrs (x 4) Current Symptoms Are (Timing): Still Present Associated Symptoms: denies: Fever, Chest Pain Additional Complaint(s): 63 year old male with a history of CHF, TIA, ESRD, CVA and hypertension is brought in by EMS complaining of shortness of breath for 4 hours. He goes to dialysis Thursday, and Thursday. Denies fever, chest pain and cough. PMD: none provided - Risk Factors PE Risk Factors: Pos: Previous DVT, CHF Past Medical History Reviewed: Historical Data, Nursing Documentation, Vital Signs Vital Signs: Last Vital Signs Temp 97.7 F 12/01/18 22:42 Pulse 85 12/01/18 22:42 Resp 16 12/01/18 22:42 BP 140/87 12/01/18 22:42 Pulse Ox 100 12/01/18 22:42 - Medical History PMH: Anemia, CHF, Diabetes, HTN, Hypercholesterolemia, Hyperlipidemia, Hypothyroidism, End Stage Renal Disease (on dialysis Thu, Thu, Thu.), Chronic Kidney Disease (ESRD), TIA Denies: Peripheral Edema - Surgical History Surgical History: No Surg Hx - Family History Family History: States: Unknown Family Hx - Immunization History Hx Tetanus Toxoid Vaccination: No Hx Influenza Vaccination: Yes Hx Pneumococcal Vaccination: No - Home Medications Home Medications: Ambulatory Orders Medication Instructions Recorded Brimonidine 0.2% [Alphagan 0.2% 1 drop OU Q12 #1 bottle 01/10/18 Opht] Latanoprost 0.005% Opht [Xalatan 1 drop OU HS #1 bottle 01/10/18 Opht] Aspirin [Aspirin EC] 325 mg PO DAILY 10/23/18 Atorvastatin [Lipitor] 40 mg PO HS 10/23/18 Calcitriol 0.25 mcg PO QOTHERDAY 10/23/18 Clonidine HCl [Catapres] 0.2 mg PO Q12 10/23/18 Gabapentin [Neurontin] 100 mg PO HS 10/23/18 Sennosides [Senna] 8.6 mg PO HS 10/23/18 Valsartan 320 mg PO DAILY 10/23/18 Vitamin B Complex/Vit C/Folic 1 tab PO DAILY 10/23/18 [Nephro-Ava] amLODIPine [Norvasc] 10 mg PO DAILY 10/23/18 hydrALAZINE [Apresoline] 25 mg PO TID 10/23/18 hydroCHLOROthiazide [Hydrodiuril] 50 mg PO DAILY 10/23/18 - Allergies Allergies/Adverse Reactions: Allergies Allergy/AdvReac Type Severity Reaction Status Date / Time No Known Allergies Allergy Verified 11/15/18 14:46 Review of Systems ROS Statement: Except As Marked, All Systems Reviewed And Found Negative Constitutional: Negative for: Fever Cardiovascular: Negative for: Chest Pain Respiratory: Positive for: Shortness of Breath. Negative for: Cough Neurological: Negative for: Dizziness Physical Exam - Reviewed Nursing Documentation Reviewed: Yes Vital Signs Reviewed: Yes - Physical Exam Appears: Positive for: Non-toxic, No Acute Distress (Patient is able to speak full sentences) Head Exam: Positive for: ATRAUMATIC, NORMAL INSPECTION, NORMOCEPHALIC Skin: Positive for: Normal Color, Warm, Dry Eye Exam: Positive for: Normal appearance, EOMI, PERRL Neck: Positive for: Normal, Painless ROM, Supple Cardiovascular/Chest: Positive for: Regular Rate, Rhythm. Negative for: Murmur Respiratory: Positive for: Normal Breath Sounds. Negative for: Wheezing, Respiratory Distress Gastrointestinal/Abdominal: Positive for: Normal Exam, Soft. Negative for: Tenderness, Guarding Extremity: Positive for: Normal ROM (upper and lower extremities). Negative for: Deformity, Swelling Neurologic/Psych: Positive for: Alert, Oriented (x 3). Negative for: Motor/Sensory Deficits - ECG O2 Sat by Pulse Oximetry: 100 (RA) Pulse Ox Interpretation: Normal Medical Decision Making Medical Decision Makin:31 Impression: shortness of breath Initial Plan: --EKG --CMP --CBC --BNP --CXR 00:00 --Patient signed out to Dr. Benton pending labs, EKG, CXR and reevaluation. Scribe Attestation: Documented by Gaby Blanco acting as a scribe for Daphne Sow MD Provider Scribe Attestation: All medical record entries made by the Scribe were at my direction and personally dictated by me. I have reviewed the chart and agree that the record accurately reflects my personal performance of the history, physical exam, medical decision making, and the department course for this patient. I have also personally directed, reviewed, and agree with the discharge instructions and disposition. Disposition - Patient ED Disposition Is Patient to be Admitted: Transfer of Care - Disposition Disposition: Transfer of Care Disposition Time: 00:00 Forms: [employer] (Martiniquais)
[2018-12-02] MEDS ORDERED: Albuterol-Ipratrop 3 mg / 0.5 (3 ml) UD ONE (00:48)
--- NOTE | 2018-12-02 01:58 | ED PDOC ---
- ECG O2 Sat by Pulse Oximetry: 100 (RA) Pulse Ox Interpretation: Normal Medical Decision Making Medical Decision Makin:00 --Signed out to this provider by Dr. Sow pending EKG, chest x-ray and reevaluation. 02:10 --Duoneb 3 ml INH --Peak flow pre/post 03:55 --Patient refused all lab work while in the ED. He reported marked improvement with Duoneb treatment. Requested to be discharged to his dialysis treatment this morning. Dr. Valencia, resident home energy consultant, made arrangements for rapid follow up in the clinic. Diagnosis is end stage renal disease. Scribe Attestation: Documented by Gaby Blanco acting as a scribe for Bert Benton MD Provider Scribe Attestation: All medical record entries made by the Scribe were at my direction and personally dictated by me. I have reviewed the chart and agree that the record accurately reflects my personal performance of the history, physical exam, medical decision making, and the department course for this patient. I have also personally directed, reviewed, and agree with the discharge instructions and disposition. Disposition - Clinical Impression Clinical Impression: Chronic kidney disease requiring chronic dialysis - POA Present On Arrival: None - Disposition Disposition: Routine/Home Disposition Time: 03:55 Condition: IMPROVED Additional Instructions: OK CARROLL, thank you for letting us take care of you today. Your provider was Bert Benton MD and you were treated for DIFFICULTY BREATHING. The emergency medical care you received today was directed at your acute symptoms. If you were prescribed any medication, please fill it and take as directed. It may take several days for your symptoms to resolve. Return to the Emergency Department if your symptoms worsen, do not improve, or if you have any other problems. Please contact your doctor or call one of the physicians/clinics you have been referred to that are listed on the Patient Visit Information form that is includ ed in your discharge packet. Bring any paperwork you were given at discharge with you along with any medications you are taking to your follow up visit. Our treatment cannot replace ongoing medical care by a primary care provider outside of the emergency department. Thank you for allowing the [facility] team to be part of your care today. If you had an X-Ray or CT scan: A Radiologist will review the ED reading if any change in treatment is needed we will contact you. If you had a blood, urine, or wound culture: It will take several days for the results, if any change in treatment is needed we will contact you. If you had an STI test: It will take 48 hours for the results. Please call after 1 week if you have not heard back. Instructions: Chronic Kidney Disease Forms: [facility] (Greenlandic) Print Language: SOUTH SUDANESE
[2018-12-02] MEDS ORDERED: Albuterol-Ipratrop 3 mg / 0.5 (3 ml) UD INH STA (02:10)
[2018-12-02 02:41] VITALS: O2SAT 100
[2018-12-02 03:55] VITALS: RESP 20
[2018-12-02 06:05] VITALS: BP 132/85; PULSE 94; TEMP 98.2
--- NOTE | 2018-12-02 09:09 | CARD ---
APPROVED REPORT Date of service: 12/01/2018 EKG Measurement Heart [id number] <Conclusion> Normal sinus rhythm Anterior infarct, age undetermined Abnormal ECG
--- NOTE | 2018-12-02 12:29 | RAD ---
Date of service: 12/02/2018 HISTORY: SOB COMPARISON: 11/15/2018 FINDINGS: LUNGS: Residual consolidative changes right lower lobe and right middle lobe. PLEURA: Decrease in right pleural effusion. CARDIOVASCULAR: Stable cardiomegaly Atherosclerotic calcifications identified primarily aortic arch. OSSEOUS STRUCTURES: No significant abnormalities. VISUALIZED UPPER ABDOMEN: Normal. OTHER FINDINGS: None. IMPRESSION: Decrease in right lower and right middle lobe infiltrates. Improved aeration of the right lung with diminution in right pleural effusion.
== END 2018-12-02 06:05 | disposition home or self-care (01) ==
LOC: H.ER 22:34
DX: N18.6 End stage renal disease (principal); Z99.2 Dependence on renal dialysis; R06.02 Shortness of breath

== ENCOUNTER 2018-12-04 00:55 | Emergency (ER) | payer MEDICARE, OTHER ==
[2018-12-04 00:55] VITALS: BMI 28.7
--- NOTE | 2018-12-04 01:46 | ED PDOC ---
HPI: SOB/CHF/COPD Time Seen by Provider: 12/04/18 01:19 Chief Complaint (Nursing): Shortness Of Breath Chief Complaint (Provider): Shortness Of Breath History Per: Patient History/Exam Limitations: no limitations Onset/Duration Of Symptoms: Other (earlier tonight) Additional Complaint(s): 63 y/o male with history of renal disease and hypertension presents to ER for evaluation of shortness of breath onset earlier tonight. Patient is on dialysis on Thursday, and Thursday. He reports he was here 2 days ago for the same complaint and refused labs. Patient was transferred from here to his regular dialysis on after discharge. He denies any cough, nausea, vomiting or diarrhea. PMD: non provided Past Medical History Reviewed: Historical Data, Nursing Documentation, Vital Signs Vital Signs: Last Vital Signs Temp 98.4 F 12/04/18 01:11 Pulse 78 12/04/18 01:11 Resp 23 12/04/18 01:11 BP 180/87 H 12/04/18 01:11 Pulse Ox 96 12/04/18 01:11 - Medical History PMH: Anemia, CHF, Diabetes, HTN, Hypercholesterolemia, Hyperlipidemia, Hypothyroidism, End Stage Renal Disease (on dialysis Thu, Thu, Thu.), Chronic Kidney Disease (ESRD), TIA Denies: Peripheral Edema - Surgical History Surgical History: No Surg Hx - Family History Family History: States: Unknown Family Hx - Social History Current smoker - smoking cessation education provided: No Alcohol: None Drugs: Denies - Immunization History Hx Tetanus Toxoid Vaccination: No Hx Influenza Vaccination: Yes Hx Pneumococcal Vaccination: No - Home Medications Home Medications: Ambulatory Orders Medication Instructions Recorded Brimonidine 0.2% [Alphagan 0.2% 1 drop OU Q12 #1 bottle 01/10/18 Opht] Latanoprost 0.005% Opht [Xalatan 1 drop OU HS #1 bottle 01/10/18 Opht] Aspirin [Aspirin EC] 325 mg PO DAILY 10/23/18 Atorvastatin [Lipitor] 40 mg PO HS 10/23/18 Calcitriol 0.25 mcg PO QOTHERDAY 10/23/18 Clonidine HCl [Catapres] 0.2 mg PO Q12 10/23/18 Gabapentin [Neurontin] 100 mg PO HS 10/23/18 Sennosides [Senna] 8.6 mg PO HS 10/23/18 Valsartan 320 mg PO DAILY 10/23/18 Vitamin B Complex/Vit C/Folic 1 tab PO DAILY 10/23/18 [Nephro-Ava] amLODIPine [Norvasc] 10 mg PO DAILY 10/23/18 hydrALAZINE [Apresoline] 25 mg PO TID 10/23/18 hydroCHLOROthiazide [Hydrodiuril] 50 mg PO DAILY 10/23/18 - Allergies Allergies/Adverse Reactions: Allergies Allergy/AdvReac Type Severity Reaction Status Date / Time No Known Allergies Allergy Verified 11/15/18 14:46 Review of Systems ROS Statement: Except As Marked, All Systems Reviewed And Found Negative Constitutional: Negative for: Fever Respiratory: Positive for: Shortness of Breath. Negative for: Cough Gastrointestinal: Negative for: Nausea, Vomiting Physical Exam - Reviewed Nursing Documentation Reviewed: Yes Vital Signs Reviewed: Yes - Physical Exam Appears: Positive for: Non-toxic, No Acute Distress Head Exam: Positive for: ATRAUMATIC, NORMOCEPHALIC Skin: Positive for: Normal Color, Warm, Dry Neck: Positive for: Normal, Painless ROM, Supple Cardiovascular/Chest: Positive for: Regular Rate, Rhythm. Negative for: Murmur Respiratory: Positive for: Normal Breath Sounds. Negative for: Wheezing Gastrointestinal/Abdominal: Positive for: Normal Exam, Soft. Negative for: Tenderness Back: Positive for: Normal Inspection. Negative for: L CVA Tenderness, R CVA Tenderness Extremity: Positive for: Normal ROM. Negative for: Tenderness, Pedal Edema Neurologic/Psych: Positive for: Alert, Oriented (x3) - ECG O2 Sat by Pulse Oximetry: 96 (RA) Pulse Ox Interpretation: Normal Medical Decision Making Medical Decision Makin 63 y/o male presents with shortness of breath insetting unknown --Labs --CXR 0536 Patient refusing all labs. He remains comfortable in the ED and is requesting transportation to his regular dialysis center. Patient is stable for discharge. Diagnosis is on chronic renal failure. Scribe Attestation: Documented by Hannah Diaz, acting as a scribe for Bert Benton MD. Provider Scribe Attestation: All medical record entries made by the Scribe were at my direction and personally dictated by me. I have reviewed the chart and agree that the record accurately reflects my personal performance of the history, physical exam, medical decision making, and the department course for this patient. I have also personally directed, reviewed, and agree with the discharge instructions and disposition. Disposition - Clinical Impression Clinical Impression: ESRD (end stage renal disease) - Patient ED Disposition Is Patient to be Admitted: No - Disposition Disposition Time: 05:36 Condition: STABLE Instructions: End Stage Kidney Disease (DC) Forms: [facility] (Thai) Print Language: OCCITAN
[2018-12-04 06:02] VITALS: BP 159/82; PULSE 72; TEMP 97.8; O2SAT 97
[2018-12-04 07:10] VITALS: RESP 16
--- NOTE | 2018-12-04 07:55 | RAD ---
Date of service: 12/04/2018 HISTORY: SOB COMPARISON: 12/02/2018 FINDINGS: LUNGS: No active pulmonary disease. PLEURA: Right pleural effusion. CARDIOVASCULAR: No aortic atherosclerotic calcification present. Normal cardiac size. No pulmonary vascular congestion. OSSEOUS STRUCTURES: No significant abnormalities. VISUALIZED UPPER ABDOMEN: Normal. OTHER FINDINGS: None. IMPRESSION: Right pleural effusion.
--- NOTE | 2018-12-04 22:58 | CARD ---
APPROVED REPORT Date of service: 12/04/2018 EKG Measurement Heart [id number] <Conclusion> Normal sinus rhythm Low voltage QRS Septal infarct, age undetermined T wave abnormality, consider lateral ischemia Abnormal ECG
== END 2018-12-04 06:35 | disposition home or self-care (01) ==
LOC: H.ER 00:55
DX: N18.6 End stage renal disease (principal); E11.22 Type 2 diabetes mellitus with diabetic chronic kidney disease; E03.9 Hypothyroidism, unspecified; E78.00 Pure hypercholesterolemia, unspecified; Z99.2 Dependence on renal dialysis

== ENCOUNTER 2018-12-26 05:22 | Emergency (ER) | payer MEDICARE, OTHER ==
[2018-12-26 05:42] VITALS: TEMP 99; O2SAT 100
[2018-12-26] MEDS ORDERED: Morphine 4 MG/ML VIAL IVP ONE (06:04)
--- NOTE | 2018-12-26 06:51 | ED PDOC ---
HPI: Chest Pain Time Seen by Provider: 12/26/18 05:44 Chief Complaint (Nursing): Rib Injury Chief Complaint (Provider): Rib Injury History Per: Patient History/Exam Limitations: no limitations Onset/Duration Of Symptoms: Days (x1 day) Current Symptoms Are (Timing): Still Present Additional Complaint(s): Lon Lafleur is a 63 year old male with a past medical history of end stage renal disease, who presents to the emergency department complaining of right sided rib pain that started yesterday. Patient states that the pain is constant and that he has not taken any medication for it. He further denies having any difficulty breathing, fever, cough or injury. Patient goes for dialysis on Thursday, , and Thursday. He has no other complaints. PMD: cant recall Past Medical History Reviewed: Historical Data, Nursing Documentation, Vital Signs Vital Signs: Last Vital Signs Temp 99.0 F 12/26/18 05:30 Pulse 76 12/26/18 05:30 Resp 18 12/26/18 05:30 BP 148/80 12/26/18 05:30 Pulse Ox 100 12/26/18 05:30 - Medical History PMH: Anemia, CHF, Diabetes, HTN, Hypercholesterolemia, Hyperlipidemia, Hypothyro idism, End Stage Renal Disease (on dialysis Thu, Thu, Thu.), Chronic Kidney Disease (ESRD), TIA Denies: Peripheral Edema - Surgical History Surgical History: No Surg Hx - Family History Family History: States: Unknown Family Hx - Immunization History Hx Tetanus Toxoid Vaccination: No Hx Influenza Vaccination: Yes Hx Pneumococcal Vaccination: No - Home Medications Home Medications: Ambulatory Orders Medication Instructions Recorded Brimonidine 0.2% [Alphagan 0.2% 1 drop OU Q12 #1 bottle 01/10/18 Opht] Latanoprost 0.005% Opht [Xalatan 1 drop OU HS #1 bottle 01/10/18 Opht] Aspirin [Aspirin EC] 325 mg PO DAILY 10/23/18 Atorvastatin [Lipitor] 40 mg PO HS 10/23/18 Calcitriol 0.25 mcg PO QOTHERDAY 10/23/18 Clonidine HCl [Catapres] 0.2 mg PO Q12 10/23/18 Gabapentin [Neurontin] 100 mg PO HS 10/23/18 Sennosides [Senna] 8.6 mg PO HS 10/23/18 Valsartan 320 mg PO DAILY 10/23/18 amLODIPine [Norvasc] 10 mg PO DAILY 10/23/18 hydrALAZINE [Apresoline] 25 mg PO TID 10/23/18 hydroCHLOROthiazide [Hydrodiuril] 50 mg PO DAILY 10/23/18 Minoxidil 2.5 mg PO DAILY 12/05/18 Vitamin B Complex/Vit C/Folic 1 tab PO DAILY 12/05/18 [Nephro-Ava] Lidocaine 5% [Lidoderm] 1 patch TD DAILY #10 patch 12/26/18 - Allergies Allergies/Adverse Reactions: Allergies Allergy/AdvReac Type Severity Reaction Status Date / Time No Known Allergies Allergy Verified 11/15/18 14:46 AUGIE Risk Score for UA/NSTEMI - AUGIE Risk Score Age > 64: NO 3 or more CAD Risk Factors: YES Known CAD (Stenosis greater than 50%): NO Aspirin use in past 7 days: NO Severe Angina: NO EKG ST changes greater than 0.5mm: NO Positive Cardiac Marker: NO AUGIE Score: 1 Risk %: 5% Review of Systems ROS Statement: Except As Marked, All Systems Reviewed And Found Negative Constitutional: Negative for: Fever Cardiovascular: Positive for: Chest Pain (right sided rib pain) Respiratory: Negative for: Cough, Other (difficulty breathing) Physical Exam - Reviewed Nursing Documentation Reviewed: Yes Vital Signs Reviewed: Yes - Physical Exam Appears: Positive for: No Acute Distress (comfortable) Head Exam: Positive for: ATRAUMATIC, NORMOCEPHALIC Skin: Positive for: Normal Color, Warm, Dry Eye Exam: Positive for: Normal appearance, EOMI, PERRL Cardiovascular/Chest: Positive for: Regular Rate, Rhythm. Negative for: Murmur Respiratory: Positive for: Normal Breath Sounds. Negative for: Respiratory Distress Gastrointestinal/Abdominal: Positive for: Normal Exam, Soft. Negative for: Te nderness Extremity: Positive for: Other (chronic bilateral lower leg edema) Neurologic/Psych: Positive for: Alert, Oriented - Laboratory Results Result Diagrams: 12/26/18 06:17 12/26/18 06:17 - ECG O2 Sat by Pulse Oximetry: 100 (RA) Pulse Ox Interpretation: Normal Medical Decision Making Medical Decision Making: Time: 0604 Impression: Complaining of rib pain and chest pain differential diagnosis includes pleural effusion, ACS and musculoskeletal pain. Patient does have a history of pleural effusion Plan: --Ekg --Bmp --Troponin I --CBC with differential --Chest xray one view --Morphine 4 mg IVP 0700 Patient care is endorsed to Dr. Roman, pending labs. Scribe Attestation: Documented by Luis Rios, acting as a scribe for Enoch Myers MD. Provider Scribe Attestation: All medical record entries made by the Scribe were at my direction and personally dictated by me. I have reviewed the chart and agree that the record accurately reflects my personal performance of the history, physical exam, medical decision making, and the department course for this patient. I have also personally directed, reviewed, and agree with the discharge instructions and disposition. Disposition - Clinical Impression Clinical Impression: Right-sided chest wall pain - Patient ED Disposition Is Patient to be Admitted: Transfer of Care - Disposition Referrals: [facility] [place] [Outside] [facility] [Outside] Disposition: Transfer of Care Disposition Time: 07:00 Condition: STABLE Prescriptions: Lidocaine 5% [Lidoderm] 1 patch TD DAILY #10 patch Instructions: Chest Pain That Is Not Caused by the Heart (DC) Forms: [facility] (Urdu) Print Language: VENEZUEL[place] Patient Signed Over To: Tori Roman
[2018-12-26 07:10] LABS: BASO # 0.1 K/uL (0.0-0.2); EOS # 0.4 K/uL (0.0-0.7); EOS % 4.5 % (0.0-4.0); LYMPH # 0.9 K/uL (1.0-4.3); LYMPH % 10.7 % (20.0-40.0); MEAN CELL VOLUME 88.8 fl (80.0-94.0); MEAN CORPUSCULAR HEMOGLOBIN 28.7 pg (27.0-31.0); MEAN CORPUSCULAR HGB CONC 32.3 g/dL (33.0-37.0); MEAN PLATELET VOLUME 8.9 fl (7.2-11.7); MONO # 0.8 K/uL (0.0-0.8); MONO % 9.5 % (0.0-10.0); NEUT # 5.9 K/uL (1.8-7.0); NEUT % 74.3 % (50.0-75.0); RBC 3.14 Mil/uL (4.40-5.90); RED CELL DISTRIBUTION WIDTH 18.1 % (11.5-14.5); WHITE BLOOD COUNT 7.9 K/uL (4.8-10.8)
[2018-12-26 07:25] LABS: CALCIUM 9.1 mg/dL (8.4-10.2)
--- NOTE | 2018-12-26 07:28 | ED PDOC ---
- Laboratory Results Result Diagrams: 12/26/18 06:17 12/26/18 06:17 - ECG O2 Sat by Pulse Oximetry: 100 (RA) Pulse Ox Interpretation: Normal Medical Decision Making Medical Decision Making: Time: 0700 Patient care endorsed by Dr. Myers to Dr. Roman pending labs and workup. Scribe Attestation: Documented by Sultana Contreras, acting as a scribe for Tori Roman MD. Provider Scribe Attestation: All medical record entries made by the Scribe were at my direction and personally dictated by me. I have reviewed the chart and agree that the record accurately reflects my personal performance of the history, physical exam, medical decision making, and the department course for this patient. I have also personally directed, reviewed, and agree with the discharge instructions and disposition. 8.00a - Case reviewed with Dr. Goddard. Patient's effusion appears to be chronic. X-ray from today difficult to interpret due to poor inspiratory effort. Patient's only complaint is pain. He is not short of breath and is able to maintain saturation. Will discharge with lidoderm patch for local pain. Patient given instructions to return if pain is refractory or if he become short of breath before his next dialysis Disposition Doctor Will See Patient In The: Office Counseled Patient/Family Regarding: Diagnosis, Need For Followup, Rx Given - Clinical Impression Clinical Impression: Right-sided chest wall pain - POA Present On Arrival: None - Disposition Referrals: [facility] [place] [Outside] [facility] [Outside] Disposition: Routine/Home Disposition Time: 08:15 Condition: STABLE Prescriptions: Lidocaine 5% [Lidoderm] 1 patch TD DAILY #10 patch Instructions: Chest Pain That Is Not Caused by the Heart (DC) Forms: [employer] (Honduran) Print Language: POLISH
[2018-12-26 07:31] LABS: TROPONIN I 0.056 ng/mL (0.00-0.120)
[2018-12-26 08:28] VITALS: BP 159/83; PULSE 74; RESP 20
[2018-12-26] MEDS ORDERED: Lidocaine 5% Patch TD ONE (08:37)
[2018-12-26] MEDS ORDERED: Lidocaine 5% Patch TD SCH (09:00)
--- NOTE | 2018-12-26 15:04 | RAD ---
Date of service: 12/26/2018 PROCEDURE: CHEST RADIOGRAPH, 1 VIEW HISTORY: chest pain COMPARISON: Comparison is made with 12/04/2018 FINDINGS: LUNGS: Heterogeneous opacity noted at the right lower lung may represent atelectasis or pneumonia. PLEURA: Small to moderate right pleural effusion. CARDIOVASCULAR: Foci of atherosclerotic calcification noted at the aortic arch. The cardiac silhouette is enlarged. OSSEOUS STRUCTURES: No significant abnormalities. VISUALIZED UPPER ABDOMEN: Normal. OTHER FINDINGS: There is left subclavian stent in place. IMPRESSION: The right lower lung heterogeneous opacity associated with right pleural effusion. Cardiomegaly.
--- NOTE | 2018-12-26 21:39 | CARD ---
APPROVED REPORT Date of service: 12/26/2018 EKG Measurement Heart [id number] <Conclusion> Sinus rhythm with frequent premature ventricular complexes and premature atrial complexes Left axis deviation Septal infarct, age undetermined Abnormal ECG
== END 2018-12-26 08:30 | disposition home or self-care (01) ==
LOC: H.ER 05:22
DX: R07.89 Other chest pain (principal)
CPT/HCPCS: 71045; 80048; 84484; 85025; 93005; 96374; 99285; J1885; J2270

== ENCOUNTER 2019-03-03 17:04 | Emergency (ER) | payer MEDICARE, OTHER ==
[2019-03-03 17:09] VITALS: BP 197/103; PULSE 77; RESP 16; TEMP 98.5
--- NOTE | 2019-03-03 17:46 | ED PDOC ---
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 Patient states he fell asleep, woke up and accidentally tripped injuring his left AV fistula. Patient states he had dialysis today. Per EMS, patient's sister is on her way to the ED. Patient is uncooperative during history taking. He denies any other injuries or medical complaints. PMD: None provided. Past Medical History Reviewed: Historical Data, Nursing Documentation, Vital Signs Vital Signs: Last Vital Signs Temp 98.5 F 03/03/19 17:05 Pulse 77 03/03/19 17:05 Resp 16 03/03/19 17:05 BP 197/103 H 03/03/19 17:05 Pulse Ox 96 03/03/19 17:05 - Medical History PMH: Anemia, CHF, Diabetes, HTN, Hypercholesterolemia, Hyperlipidemia, Hypothyroidism, Peripheral Edema, Pneumonia, End Stage Renal Disease (HD Tue, Jojo, Sat.), Chronic Kidney Disease, TIA Denies: HIV - Surgical History Surgical History: No Surg Hx - Family History Family History: States: Unknown Family Hx - Immunization History Hx Tetanus Toxoid Vaccination: No Hx Influenza Vaccination: Yes Hx Pneumococcal Vaccination: No - Home Medications Home Medications: Ambulatory Orders Medication Instructions Recorded Brimonidine 0.2% [Alphagan 0.2% 1 drop OU Q12 #1 bottle 01/10/18 Opht] Latanoprost 0.005% Opht [Xalatan 1 drop OU HS #1 bottle 01/10/18 Opht] Aspirin [Aspirin EC] 325 mg PO DAILY 10/23/18 Atorvastatin [Lipitor] 40 mg PO HS 10/23/18 Calcitriol 0.25 mcg PO QOTHERDAY 10/23/18 Clonidine HCl [Catapres] 0.2 mg PO Q12 10/23/18 Gabapentin [Neurontin] 100 mg PO HS 10/23/18 Sennosides [Senna] 8.6 mg PO HS 10/23/18 Valsartan 320 mg PO DAILY 10/23/18 amLODIPine [Norvasc] 10 mg PO DAILY 10/23/18 hydrALAZINE [Apresoline] 25 mg PO TID 10/23/18 hydroCHLOROthiazide [Hydrodiuril] 50 mg PO DAILY 10/23/18 Minoxidil 2.5 mg PO DAILY 12/05/18 Vitamin B Complex/Vit C/Folic 1 tab PO DAILY 12/05/18 [Nephro-Ava] Lidocaine 5% [Lidoderm] 1 patch TD DAILY #10 patch 12/26/18 - Allergies Allergies/Adverse Reactions: Allergies Allergy/AdvReac Type Severity Reaction Status Date / Time No Known Allergies Allergy Verified 03/03/19 17:05 Review of Systems ROS Statement: Except As Marked, All Systems Reviewed And Found Negative Musculoskeletal: Positive for: Arm Pain (left AV fistula bleeding) Physical Exam - Reviewed Nursing Documentation Reviewed: Yes Vital Signs Reviewed: Yes - Physical Exam Appears: Positive for: No Acute Distress Head Exam: Positive for: ATRAUMATIC, NORMAL INSPECTION, NORMOCEPHALIC Skin: Positive for: Normal Color, Warm, Dry Eye Exam: Positive for: Normal appearance, EOMI, PERRL Neck: Positive for: Normal, Painless ROM, Supple Cardiovascular/Chest: Positive for: Regular Rate, Rhythm. Negative for: Murmur Respiratory: Positive for: Normal Breath Sounds. Negative for: Respiratory Distress Gastrointestinal/Abdominal: Positive for: Normal Exam, Soft. Negative for: Tenderness Back: Positive for: Normal Inspection. Negative for: L CVA Tenderness, R CVA Tenderness, Vertebral Tenderness Extremity: Positive for: Normal ROM (on all extremities), Other (oozing punctate lesion over fistula. Fistula has palpable thrill. ). Negative for: Tenderness, Deformity Neurological/Psych: Positive for: Awake, Alert, Normal Tone - ECG O2 Sat by Pulse Oximetry: 96 (RA) Pulse Ox Interpretation: Normal Medical Decision Making Medical Decision Making: Time: 17:12 Initial Impression: Will further attempt basic work up, waiting on collateral information from sister. Possibly discharge home if bleeding is controlled vs admission for active bleeding. Initial Plan: --Reevaluation 17:20 -Patient is refusing labs and requires convincing to even allow us to look at the wound. Pressure dressing placed. 17:35 -Attempted to contact sister but left voicemail. 18:05 -Patient continuing to refuse any medical treatment including blood pressure medication (states he has all medications he needs at home), no active bleeding for over 1 hr. Dressings remain dry and will arrange for transport home. Patient is AOEx3 with decisional capacity, will continue to try to get hold of family to ensure safe discharge home. 18:20 -Attempted to contact mother, went to voicemail which has not been set up. Will continue to attempt to get in contact with family. However, patient states he is able to get into his own home despite not having keys. 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 Arranged transport for patient. -This patient is choosing to leave against medical advice. The provider has personally explained to the pt that choosing to do so may result in permanent bodily harm or . The provider discussed at great length that without further evaluation and monitoring there may be unforeseen circumstances and/or deterioration causing permanent bodily harm or as a result of their choice. The pt verbalized these risks back to the physician in laymans terms. The pt is alert, oriented, and shows the mental capacity to make clear decisions regarding the pts health care at this time. The pt continues to wish to leave against medical advice. Also discussed high blood pressure and pt refusing BP medications stating he has all of his medications at home. In light of the pts decision to leave AMA, follow-up has been arranged and the pt is aware of the importance of following up as instructed. The pt has been advised that they should return to the ED immediately if they change their mind at any time, or if their condition begins to change or worsen in any way. Scribe Attestation: Documented by Hayden Martinez, acting as a scribe Cecily Grimes MD Provider Scribe Attestation: All medical record entries made by the Scribe were at my direction and personally dictated by me. I have reviewed the chart and agree that the record accurately reflects my personal performance of the history, physical exam, medical decision making, and the department course for this patient. I have also personally directed, reviewed, and agree with the discharge instructions and disposition. Disposition - Clinical Impression Clinical Impression: ESRD (end stage renal disease), Surgical arteriovenous fistula hemorrhage - Disposition Disposition: Against Medical Advice Disposition Time: 18:30 Condition: STABLE Forms: [facility] (Macanese)
[2019-03-06 19:48] VITALS: O2SAT 96
== END 2019-03-03 19:40 | disposition home or self-care (01) ==
LOC: H.ER 17:04
DX: T82.838A Hemorrhage due to vascular prosthetic devices, implants and grafts, initial encounter (principal); I13.2 Hypertensive heart and chronic kidney disease with heart failure and with stage 5 chronic kidney disease, or end stage renal disease; Y84.1 Kidney dialysis as the cause of abnormal reaction of the patient, or of later complication, without mention of misadventure at the time of the procedure; Z99.2 Dependence on renal dialysis; Z86.73 Personal history of transient ischemic attack (TIA), and cerebral infarction without residual deficits; E03.9 Hypothyroidism, unspecified; E11.22 Type 2 diabetes mellitus with diabetic chronic kidney disease; E78.00 Pure hypercholesterolemia, unspecified

== ENCOUNTER 2019-04-02 16:53 | Inpatient (IN) | payer MEDICARE, OTHER ==
--- NOTE | 2019-04-02 17:36 | ED PDOC ---
Lower Extremity Pain/Injury Time Seen by Provider: 04/02/19 17:03 Chief Complaint (Nursing): Lower Extremity Problem/Injury Chief Complaint (Provider): Right foot pain History Per: Patient History/Exam Limitations: no limitations Onset/Duration Of Symptoms: Other (x1 week) Current Symptoms Are (Timing): Still Present Additional Complaint(s): 63 y/o male presents to the ER with constant right foot pain which started a week ago, progressive since onset. Patient was seen in [facility] twice in the last week for this and has been taking Ibuprofen with no relief. Denies any acute injury. There is some swelling present but patient does not notice it because he is blind. Denies fever or chills. Patient has a history of right great toe amputation in 2014 but hasn't followed up with podiatry any further. PMD: clinic Laboratory Specialist: Dr. Gonzales Past Medical History Reviewed: Historical Data, Nursing Documentation, Vital Signs Vital Signs: Last Vital Signs Temp 98.1 F 04/02/19 16:55 Pulse 77 04/02/19 16:55 Resp 16 04/02/19 16:55 BP 137/86 04/02/19 16:55 Pulse Ox 98 04/02/19 16:55 Primary Care Provider: PARADISE VAZQUEZ - Medical History PMH: Anemia, CHF, Diabetes, HTN, Hypercholesterolemia, Hyperlipidemia, Hypothyroidism, Peripheral Edema, Pneumonia, End Stage Renal Disease (HD Tue, Jooj, Sat.), Chronic Kidney Disease, TIA Denies: HIV - Surgical History Other surgeries: Right great toe amputation - Family History Family History: States: Unknown Family Hx - Immunization History Hx Tetanus Toxoid Vaccination: No Hx Influenza Vaccination: Yes Hx Pneumococcal Vaccination: No - Home Medications Home Medications: Ambulatory Orders Medication Instructions Recorded Brimonidine 0.2% [Alphagan 0.2% 1 drop OU Q12 #1 bottle 01/10/18 Opht] Latanoprost 0.005% Opht [Xalatan 1 drop OU HS #1 bottle 01/10/18 Opht] Aspirin [Aspirin EC] 325 mg PO DAILY 10/23/18 Atorvastatin [Lipitor] 40 mg PO HS 10/23/18 Calcitriol 0.25 mcg PO QOTHERDAY 10/23/18 Gabapentin [Neurontin] 100 mg PO HS 10/23/18 Sennosides [Senna] 8.6 mg PO HS 10/23/18 amLODIPine [Norvasc] 10 mg PO DAILY 10/23/18 hydrALAZINE [Apresoline] 25 mg PO TID 10/23/18 Minoxidil 2.5 mg PO DAILY 12/05/18 Vitamin B Complex/Vit C/Folic 1 tab PO DAILY 12/05/18 [Nephro-Ava] Lidocaine 5% [Lidoderm] 1 patch TD DAILY #10 patch 12/26/18 Gabapentin 300 mg PO TID #90 solution 03/25/19 traMADol [Ultram] 50 mg PO TID PRN #15 tab 03/25/19 Gabapentin 300 mg PO TID #90 capsule 03/30/19 Acetaminophen [Tylenol 325mg tab] 650 mg PO Q6 PRN tab 04/04/19 Cilostazol [Pletal] 100 mg PO DAILY #30 tab 04/04/19 Isosorbide Mononitrate [Imdur] 60 mg PO DAILY #30 tab 04/04/19 Losartan [Cozaar] 100 mg PO DAILY #30 tab 04/04/19 Pregabalin [Lyrica] 50 mg PO TID #90 cap 04/04/19 traMADol [Ultram] 50 mg PO TID #15 tab 04/04/19 - Allergies Allergies/Adverse Reactions: Allergies Allergy/AdvReac Type Severity Reaction Status Date / Time No Known Allergies Allergy Verified 03/24/19 23:17 Review of Systems ROS Statement: Except As Marked, All Systems Reviewed And Found Negative (as per HPI) Constitutional: Negative for: Fever, Chills Respiratory: Positive for: Shortness of Breath (chronic SOB) Musculoskeletal: Positive for: Foot Pain (right foot pain and swelling) Physical Exam - Reviewed Nursing Documentation Reviewed: Yes Vital Signs Reviewed: Yes - Physical Exam Appears: Positive for: In Acute Distress (painful distress) Head Exam: Positive for: ATRAUMATIC, NORMOCEPHALIC Skin: Positive for: Warm, Dry ENT: Negative for: Pharyngeal Erythema, Tonsillar Exudate Neck: Positive for: Painless ROM, Supple Cardiovascular/Chest: Positive for: Regular Rate, Rhythm. Negative for: Murmur Respiratory: Positive for: Rhonchi. Negative for: Respiratory Distress Gastrointestinal/Abdominal: Positive for: Soft. Negative for: Tenderness Back: Positive for: Normal Inspection. Negative for: Decreased ROM Extremity: Positive for: Calf Tenderness (or right lower leg), Capillary Refill (less than 2 seconds), Other (Right lower leg: pedal edema up to the mid lower leg; exquisite tenderness to palpation of dorsum of the foot with warmth; limited plantar flexion and dorsal flexion at the ankle; strong pedal pulse; light touch intact. Left leg: wound to the anterior tibia that is 2cm ulceration, irregularly shaped, and superficial.) Lymphatic: Negative for: Adenopathy Neurological/Psych: Positive for: Awake, Alert, Symmetric/Intact Strength, Oriented - Laboratory Results Result Diagrams: 04/02/19 17:40 04/04/19 04:20 - ECG O2 Sat by Pulse Oximetry: 98 (RA) Pulse Ox Interpretation: Normal Medical Decision Making Medical Decision Making: Initial Impression: Right foot pain Differential includes but not limited to DVT, cellulitis, osteomyelitis, and ankle sprain Initial Plan: --Type and screen stat --EKG --CMP --CPK --Lact acid stat --Magnesium stat --Phosphorous stat --CBC --PTT --Prothrombing time --Morphine 2mg IV --Blood culture stat --Right foot X-ray --Lower extremities duplex US 17:32 Discussed with podiatry who will come see patient in ER. [facility]. Concern for vascular pathology. Recommends further evaluation with vascular. Pt has severe recently acute (2 weeks) onset of RIGHT foot pain, quality and course not consistent with neuropathy. 3rd visit for this pain without improvement as outpatient. Pt's comorbidities put him at risk for vascular conditions that can threaten his limb. Will hospitalize for further evaluation. KETTY Tolbert Hospitalist for [facility] and [facility] who will see him in hospital. Scribe Attestation: Documented by Abran Nye acting as a scribe for Jessie Dominguez MD. Provider Scribe Attestation: All medical record entries made by the Scribe were at my direction and per sonally dictated by me. I have reviewed the chart and agree that the record accurately reflects my personal performance of the history, physical exam, medical decision making, and the department course for this patient. I have also personally directed, reviewed, and agree with the discharge instructions and disposition. Disposition - Clinical Impression Clinical Impression: Uncontrolled hypertension, Peripheral vascular disease of foot, Intractable pain, ESRD (end stage renal disease) Counseled Patient/Family Regarding: Studies Performed, Diagnosis - Disposition Disposition Time: 20:00 Condition: FAIR - Pt Status Changed To: Hospital Disposition Of: Inpatient - Admit Certification Admit to Inpatient:: After my assessment, the patient will require hospita lization for at least two midnights. This is because of the severity of symptoms shown, intensity of services needed, and/or the medical risk in this patient being treated as an outpatient. - POA Present On Arrival: Falls Or Trauma (risk)
[2019-04-02 18:12] LABS: INR 1.2; PROTHROMBIN TIME 13.3 Seconds (9.8-13.1)
[2019-04-02 18:15] LABS: PARTIAL THROMBOPLASTIN TIME 35.6 Seconds (25.6-37.1)
[2019-04-02 18:16] LABS: ALB/GLOB RATIO 1.4 (1.0-2.1); ALBUMIN 4.1 g/dL (3.5-5.0); CALCIUM 8.7 mg/dL (8.4-10.2)
[2019-04-02 18:21] LABS: BASO % 1.1 % (0.0-2.0); EOS # 0.4 K/uL (0.0-0.7); EOS % 7.8 % (0.0-4.0); HEMOGLOBIN 10.9 g/dL (12.0-18.0); LYMPH # 0.5 K/uL (1.0-4.3); LYMPH % 11.5 % (20.0-40.0); MEAN CELL VOLUME 88.6 fl (80.0-94.0); MEAN CORPUSCULAR HEMOGLOBIN 27.6 pg (27.0-31.0); MEAN CORPUSCULAR HGB CONC 31.2 g/dL (33.0-37.0); MEAN PLATELET VOLUME 8.7 fl (7.2-11.7); MONO # 0.5 K/uL (0.0-0.8); MONO % 11.1 % (0.0-10.0); NEUT # 3.2 K/uL (1.8-7.0); NEUT % 68.5 % (50.0-75.0); RBC 3.96 Mil/uL (4.40-5.90); RED CELL DISTRIBUTION WIDTH 20.4 % (11.5-14.5); WHITE BLOOD COUNT 4.7 K/uL (4.8-10.8)
--- NOTE | 2019-04-02 20:41 | CP.PCM.HP ---
<Nina Shaw - Last Filed: 04/03/19 02:10> History of Present Illness - History of Present Illness History of Present Illness: 63 yo M with hx HTN, diabetes mellitus type 2, ESRD (HD ,), admitted due to intractable right lower extremity pain. Patient accompanied by his daughter, who aids in history. Patient states pain started abut 1 mo ago, and has gotten progressively worse; pain is from mid-calf until tips of toes, entire circumference of foot affected. He was seen at [facility] ED yesterday and about 1.5 weeks ago and discharged on gabapentin. He denies any acute injury/ trauma to extremity. Patient has a history of right great toe amputation in 2014 but hasn't followed up with podiatry any further. BP elevated in ED, 190s/80s. Underwent HD today. Denies fever/chills/shortness of breath/chest pain. PMD: Marek Atwood in [place] (used to be a patient at [facility] in [place] but has not been there since 2016) Hog Ribber: Dr. Janet Cintron hx: former smoker (patient states x1 yr), denies alcohol or drug use. Lives with his mother (age 86), a sibling, and a [id number]. Has a homemaker who comes several hours a day. Fam hx: unknown Allergies: nkda Meds: extensive list in med rec; patient unsure of his medications In ED: BP on arrival 137/86, however then 197/87, HR 74, T 98.5, RR 18, O2 sat 99 CBC: mild anemia 10.9, PLT 118 Coag INR 1.2 BMP: sig for BUN 24, Cr 6.5; normal Na, K, GFR 9 Lactic acid 1.6 Right foot Xrays ordered Blood cultures ordered Venous and arterial duplex ordered Podiatry Cardiology consult Received 0.2 mg clonidine in ED Present on Admission - Present on Admission Any Indicators Present on Admission: No Review of Systems - Review of Systems Review of Systems: as in hpi Past Patient History - Infectious Disease Hx of Infectious Diseases: None - Past Medical History & Family History Past Medical History?: Yes - Past Social History Smoking Status: Former Smoker - CARDIAC Hx Congestive Heart Failure: Yes Hx Hypercholesterolemia: Yes Hx Hypertension: Yes Hx Peripheral Edema: Yes - PULMONARY Hx Pneumonia: Yes - NEUROLOGICAL Hx Transient Ischemic Attacks (TIA): Yes - HEENT Hx HEENT Problems: Yes Hx Cataracts: Yes - RENAL Hx Chronic Kidney Disease: Yes - ENDOCRINE/METABOLIC Hx Hypothyroidism: Yes - HEMATOLOGICAL/ONCOLOGICAL Hx Anemia: Yes Hx Human Immunodeficiency Virus (HIV): No - INTEGUMENTARY Hx Dermatological Problems: No - MUSCULOSKELETAL/RHEUMATOLOGICAL Hx Musculoskeletal Disorders: Yes Other/Comment: Gangrene to right great toe - GASTROINTESTINAL Hx Gastrointestinal Disorders: No - GENITOURINARY/GYNECOLOGICAL Hx Genitourinary Disorders: Yes (ESRD,CKD) - PSYCHIATRIC Hx Psychophysiologic Disorder: No Hx Substance Use: No - SURGICAL HISTORY Hx Surgeries: Yes Hx Amputation: Yes (right great toe) Hx Eye Surgery: Yes Hx Orthopedic Surgery: Yes (left ankle) Hx Vascular Access Device: Yes (Left AV fistula) - ANESTHESIA Hx Anesthesia: Yes Hx Anesthesia Reactions: No Hx Malignant Hyperthermia: No Meds Allergies/Adverse Reactions: Allergies Allergy/AdvReac Type Severity Reaction Status Date / Time No Known Allergies Allergy Verified 03/24/19 23:17 Physical Exam - Constitutional Appears: Non-toxic, Chronically Ill - Head Exam Head Exam: ATRAUMATIC - ENT Exam ENT Exam: Mucous Membranes Moist - Neck Exam Neck exam: Positive for: Full Rom - Respiratory Exam Respiratory Exam: Clear to Auscultation Bilateral, NORMAL BREATHING PATTERN. absent: Respiratory Distress - Cardiovascular Exam Cardiovascular Exam: REGULAR RHYTHM, +S1, +S2 - GI/Abdominal Exam GI & Abdominal Exam: Normal Bowel Sounds, Soft - Extremities Exam Extremities exam: Positive for: calf tenderness, normal capillary refill, pedal edema, pedal pulses present Additional comments: RIGHT: mild swelling of calf from midcalf down; exquisite tenderness of calf from midcalf down on palpation, painful to touch; capillary refill 2 sec; pedal pulse present; sensation intact; great toe amputated LEFT: no pain on palpation, sensation intact AVF in RUE - Back Exam Back exam: NORMAL INSPECTION - Neurological Exam Neurological exam: Alert - Skin Skin Exam: Dry, Warm Results - Vital Signs Recent Vital Signs: Last Vital Signs Temp 98.5 F 04/02/19 19:51 Pulse 74 04/02/19 19:51 Resp 18 04/02/19 19:51 BP 197/87 H 04/02/19 19:51 Pulse Ox 99 04/02/19 19:51 - Labs Result Diagrams: 04/02/19 17:40 04/02/19 17:40 Labs: Laboratory Results - last 24 hr 04/02/19 04/02/19 04/02/19 17:37 17:40 17:40 WBC 4.7 L RBC 3.96 L Hgb 10.9 L Hct 35.1 MCV 88.6 MCH 27.6 MCHC 31.2 L RDW 20.4 H Plt Count 118 L D MPV 8.7 Neut % (Auto) 68.5 Lymph % (Auto) 11.5 L [place] % (Auto) 11.1 H Eos % (Auto) 7.8 H Baso % (Auto) 1.1 Neut # (Auto) 3.2 Lymph # (Auto) 0.5 L [place] # (Auto) 0.5 Eos # (Auto) 0.4 Baso # (Auto) 0.0 PT INR APTT Sodium 140 Potassium 3.9 Chloride 95 L Carbon Dioxide 31 H Anion Gap 18 BUN 24 H Creatinine 6.5 H Est GFR ( Amer) 10 Est GFR (Non-Af Amer) 9 POC Glucose (mg/dL) 155 H Random Glucose 115 H Lactic Acid Calcium 8.7 Phosphorus 3.5 Magnesium 2.0 Total Bilirubin 0.9 AST 32 ALT 31 Alkaline Phosphatase 153 H Total Creatine Kinase 131 Total Protein 6.9 Albumin 4.1 Globulin 2.8 Albumin/Globulin Ratio 1.4 Blood Type Antibody Screen BBK History Checked 04/02/19 04/02/19 04/02/19 17:40 17:40 17:57 WBC RBC Hgb Hct MCV MCH MCHC RDW Plt Count MPV Neut % (Auto) Lymph % (Auto) [place] % (Auto) Eos % (Auto) Baso % (Auto) Neut # (Auto) Lymph # (Auto) [place] # (Auto) Eos # (Auto) Baso # (Auto) PT 13.3 H INR 1.2 APTT 35.6 Sodium Potassium Chloride Carbon Dioxide Anion Gap BUN Creatinine Est GFR ( Amer) Est GFR (Non-Af Amer) POC Glucose (mg/dL) Random Glucose Lactic Acid 1.6 Calcium Phosphorus Magnesium Total Bilirubin AST ALT Alkaline Phosphatase Total Creatine Kinase Total Protein Albumin Globulin Albumin/Globulin Ratio Blood Type O POSITIVE Antibody Screen Negative BBK History Checked Patient has bt Assessment & Plan - Assessment and Plan (Free Text) Assessment: 63 yo M with hx HTN, ESRD (HD T,Th,), DM2, admitted due to intractable right lower extremity pain. Plan: Intractable Right Lower Extremity Pain - Differential includes peripheral vascular disease/ischemia, neuropathic pain - Pain control - tramadol - Foot XRays showed calcifications of vessels - US venous/arterial dopplers, results pending - CRP, ESR in am - Podiatry consult - Cardiology/vasc consult Hypertension - Uncontrolled - Resume home meds: clonidine, hctz, hydralazine, amlodipine, minoxidil, valsartan - CMP in am ESRD - HD on , , Thu; last HD Sat / Diabetes Mellitus, type 2 - Last known A1c in 09/2018 was 5.8 - No diabetic meds in med rec - Insulin sliding scale ordered; hypoglycemia protocol, accucheks ACHS Diet - Renal diet DVT prophylaxis - Heparin SC Q12 hrs' Pt seen/discussed w/ Dr. Tolbert. <Riley Tolbert - Last Filed: 04/03/19 03:00> Results - Vital Signs Recent Vital Signs: Last Vital Signs Temp 97.8 F 04/03/19 01:00 Pulse 65 04/03/19 01:00 Resp 17 04/03/19 01:00 BP 189/87 H 04/03/19 01:00 Pulse Ox 96 04/03/19 01:00 - Labs Result Diagrams: 04/02/19 17:40 04/02/19 17:40 Labs: Laboratory Results - last 24 hr 04/02/19 04/02/19 04/02/19 17:37 17:40 17:40 WBC 4.7 L RBC 3.96 L Hgb 10.9 L Hct 35.1 MCV 88.6 MCH 27.6 MCHC 31.2 L RDW 20.4 H Plt Count 118 L D MPV 8.7 Neut % (Auto) 68.5 Lymph % (Auto) 11.5 L [place] % (Auto) 11.1 H Eos % (Auto) 7.8 H Baso % (Auto) 1.1 Neut # (Auto) 3.2 Lymph # (Auto) 0.5 L [place] # (Auto) 0.5 Eos # (Auto) 0.4 Baso # (Auto) 0.0 PT INR APTT Sodium 140 Potassium 3.9 Chloride 95 L Carbon Dioxide 31 H Anion Gap 18 BUN 24 H Creatinine 6.5 H Est GFR ( Amer) 10 Est GFR (Non-Af Amer) 9 POC Glucose (mg/dL) 155 H Random Glucose 115 H Lactic Acid Calcium 8.7 Phosphorus 3.5 Magnesium 2.0 Total Bilirubin 0.9 AST 32 ALT 31 Alkaline Phosphatase 153 H Total Creatine Kinase 131 Total Protein 6.9 Albumin 4.1 Globulin 2.8 Albumin/Globulin Ratio 1.4 Blood Type Antibody Screen BBK History Checked 04/02/19 04/02/19 04/02/19 17:40 17:40 17:57 WBC RBC Hgb Hct MCV MCH MCHC RDW Plt Count MPV Neut % (Auto) Lymph % (Auto) [place] % (Auto) Eos % (Auto) Baso % (Auto) Neut # (Auto) Lymph # (Auto) [place] # (Auto) Eos # (Auto) Baso # (Auto) PT 13.3 H INR 1.2 APTT 35.6 Sodium Potassium Chloride Carbon Dioxide Anion Gap BUN Creatinine Est GFR ( Amer) Est GFR (Non-Af Amer) POC Glucose (mg/dL) Random Glucose Lactic Acid 1.6 Calcium Phosphorus Magnesium Total Bilirubin AST ALT Alkaline Phosphatase Total Creatine Kinase Total Protein Albumin Globulin Albumin/Globulin Ratio Blood Type O POSITIVE Antibody Screen Negative BBK History Checked Patient has bt Attending/Attestation - Attestation I have personally seen and examined this patient.: Yes I have fully participated in the care of the patient.: Yes I have reviewed all pertinent clinical information: Yes Notes (Text): 04/03/19 02:39 I saw, examined and discussed this patient with Dr Shaw. I agree with the assessment outlined above. This is a 63 years old male with hx of DM II and ESRD on HD, comes with painful right lower leg and foot, worse over the past week. Ultrasound showed no DVT with mild Aterosclerosis in the arteries of the legs. Consult Dr Wood senior specialist Pain management for this Intractable right foot and pain . consult Podiatry Dr Cevallos For [facility], consult with the senior specialist for possible angiogram of the lift lower extremity. ESRD on Hemodialusis. Will Consult Dr Gonzales for HD. Chronic Kidney disease on Hemodialysis; Dr Gonzales on consult Follow Hemoglobin for anemia of Chronic disease. Patient will need Procrit at dialysis. Riley Tolbert MD
[2019-04-02] MEDS: Brimonidine 0.2% 50 DROP/5 ML BOTTLE OU SCH (21:51)
[2019-04-02] MEDS: Latanoprost 0.005% Opht SOUTION OU SCH (21:51)
[2019-04-03] MEDS ORDERED: Dextrose 50% SYRINGE Inj (50 ml) IV PRN (01:46)
[2019-04-03] MEDS ORDERED: Glucagon Recombinant 1 mg Inj IM PRN (01:46)
[2019-04-03] MEDS ORDERED: HYDROmorphone 0.5 mg/0.5 ml ISec IVP ONE (03:16)
[2019-04-03] MEDS: Lidocaine 5% Patch TD SCH ×2 (04:34→09:02)
[2019-04-03] MEDS: Brimonidine 0.2% 50 DROP/5 ML BOTTLE OU SCH ×2 (08:32→21:32)
[2019-04-03] MEDS: Insulin Lispro (humaLOG) 100 Units/ml Inj SC SCH ×4 (08:39→22:00)
[2019-04-03] MEDS: Aspirin 325 mg EC Tablets PO SCH (08:39)
[2019-04-03] MEDS: Multivitamin Vitamin B Complex (Nephro-Vite) Tab PO SCH (08:40)
[2019-04-03] MEDS ORDERED: VALSARTAN 320 MG PO SCH (09:00)
[2019-04-03] MEDS ORDERED: Lidocaine 5% Patch TD SCH (09:00)
[2019-04-03] MEDS ORDERED: Cilostazol 50 mg Tab UD PO SCH (09:00)
--- NOTE | 2019-04-03 10:10 | CP.PCM.PN ---
<Isabel Arora - Last Filed: 04/03/19 10:08> Subjective - Date & Time of Evaluation Date of Evaluation: 04/03/19 Time of Evaluation: 08:10 - Subjective Subjective: Patient seen and examined at bedside. In no acute distress. Reports right lower extremity pain persists. Denies chest pain, SOB, palpitations or dizziness. Discussed plan for vascular surgery consult and medical optimization, patient agrees with plan. Objective - Vital Signs/Intake and Output Vital Signs (last 24 hours): Temp Pulse Resp BP Pulse Ox 98.4 F 62 20 190/72 H 100 04/03/19 08:17 04/03/19 08:58 04/03/19 08:17 04/03/19 08:58 04/03/19 08:17 - Medications Medications: Current Medications Acetaminophen (Tylenol 325mg Tab) 650 mg PO Q6 PRN PRN Reason: Pain, Mild (1-3) Amlodipine Besylate (Norvasc) 10 mg PO DAILY [facility] Last Admin: 04/03/19 08:41 Dose: 10 mg Aspirin (Ecotrin) 325 mg PO DAILY [facility] Last Admin: 04/03/19 08:39 Dose: 325 mg Atorvastatin Calcium (Lipitor) 40 mg PO HS [facility] Last Admin: 04/02/19 21:50 Dose: 40 mg Brimonidine Tartrate (Alphagan 0.2% Opht) 1 drop OU Q12 [facility] Last Admin: 04/03/19 08:32 Dose: 1 drop Calcitriol (Rocaltrol) 0.25 mcg PO QOTHERDAY [facility] Last Admin: 04/03/19 08:42 Dose: 0.25 mcg Cilostazol (Pletal) 100 mg PO DAILY [facility] Clonidine HCl (Catapres) 0.2 mg PO Q12 [facility] Last Admin: 04/03/19 08:58 Dose: Not Given Dextrose (Dextrose 50% Inj) 0 ml IV STAT PRN; Protocol PRN Reason: Hypoglycemia Protocol Dextrose (Glutose 15) 0 gm PO ONCE PRN; Protocol PRN Reason: Hypoglycemia Protocol Gabapentin (Neurontin) 300 mg PO TID [facility] Last Admin: 04/03/19 08:40 Dose: 300 mg Glucagon (Glucagen Diagnostic Kit) 0 mg IM STAT PRN; Protocol PRN Reason: Hypoglycemia Protocol Heparin Sodium (Porcine) (Heparin) 5,000 units SC Q12 [facility]; Protocol Last Admin: 04/03/19 09:51 Dose: 5,000 units Hydralazine HCl (Apresoline) 25 mg PO TID [facility] Last Admin: 04/03/19 08:37 Dose: 25 mg Hydralazine HCl (Apresoline) 10 mg IV Q4 PRN PRN Reason: systolic BP >170 mmHg Insulin Human Lispro (Humalog) 0 units SC ACHS [facility]; Protocol Last Admin: 04/03/19 08:39 Dose: Not Given Latanoprost (Xalatan Opht) 1 drop OU HS [facility] Last Admin: 04/02/19 21:51 Dose: 1 drop Lidocaine (Lidoderm) 1 ea TD DAILY [facility] Last Admin: 04/03/19 09:02 Dose: 1 ea Losartan Potassium (Cozaar) 100 mg PO DAILY [facility] Minoxidil (Minoxidil) 2.5 mg PO DAILY [facility] Last Admin: 04/03/19 08:40 Dose: 2.5 mg Pregabalin (Lyrica) 50 mg PO TID [facility] Last Admin: 04/03/19 09:00 Dose: 50 mg Tramadol HCl (Ultram) 50 mg PO TID PRN PRN Reason: Pain, severe (8-10) Last Admin: 04/03/19 09:01 Dose: 50 mg Vitamin B Complex/Vit C/Folic Acid (Nephro-Ava) 1 tab PO DAILY [facility] Last Admin: 04/03/19 08:40 Dose: 1 tab - Labs Labs: 04/02/19 17:40 04/02/19 17:40 PT 13.3 Seconds (9.8-13.1) H 04/02/19 17:40 INR 1.2 04/02/19 17:40 APTT 35.6 Seconds (25.6-37.1) 04/02/19 17:40 - Constitutional Appears: No Acute Distress - Head Exam Head Exam: ATRAUMATIC, NORMOCEPHALIC - ENT Exam ENT Exam: Mucous Membranes Moist - Respiratory Exam Respiratory Exam: NORMAL BREATHING PATTERN. absent: Rales, Rhonchi - Cardiovascular Exam Cardiovascular Exam: REGULAR RHYTHM - GI/Abdominal Exam GI & Abdominal Exam: Soft, Normal Bowel Sounds - Extremities Exam Extremities Exam: Tenderness (right ankle and distally; normal PT/DP pulse bilaterally; chronic venous stasis skin changes). absent: Calf Tenderness, Pedal Edema Additional comments: s/p amputation right hallux - Neurological Exam Neurological Exam: Alert, Awake, Oriented x3 - Psychiatric Exam Psychiatric exam: Normal Affect, Normal Mood - Skin Skin Exam: Dry, Normal Color, Warm Assessment and Plan - Assessment and Plan (Free Text) Assessment: 63 yr old M admitted for intractable right lower extremity pain with PMHx HTN, ESRD (HD ,,), DM2. 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 Vascular surgery on consult. Intractable Right Lower Extremity Pain -worsening/chronic, peripheral vascular disease/ischemia vs gout vs neuropathic pain -Pain control - tramadol -Foot XRays showed calcifications of vessels -US venous/arterial dopplers, results pending -CRP, ESR in am -Podiatry consult -Cardiology/vasc consult: no surgical intervention at this time, conservative tx: medically optimize with antiplatelet, d/c clonindine, add ARB, imdur hydralazine -start Cilostazol 100mg PO , d/c HCTZ (may contribute to gout) 2nd degree AV block Type 1 -asymptomatic -discontinue clonidine -continue cardiac monitor technician -optimize hypertensive medications Hypertension -chronic, Uncontrolled -continue hydralazine, amlodipine, minoxidil -discontinue HCTZ (may contribute to gout), d/c diovan (recalled), d/c clonidine (intermittent bradycardia and 2nd degree AV block on tele monitor) -start losartan 100mg PO QD; hydralazine 10mg IV Q4 PRN systolic BP> 170 mmHg -CMP in am, monitor BP ESRD -chronic, stable -BUN/Cr at baseline -HD on , , Thu; last HD Sat 5/4 Diabetes Mellitus, type 2 -Last known A1c in 09/2018 was 5.8 -No diabetic meds in med rec -Insulin sliding scale ordered; hypoglycemia protocol, accuchecks ACHS Diet -Renal diet DVT prophylaxis -Heparin 5,000 SC Q12 hrs <Carlyn York - Last Filed: 04/03/19 16:22> Objective - Vital Signs/Intake and Output Vital Signs (last 24 hours): Temp Pulse Resp BP Pulse Ox 97.4 F L 69 18 133/75 99 04/03/19 15:48 04/03/19 15:48 04/03/19 15:48 04/03/19 15:48 04/03/19 15:48 - Medications Medications: Current Medications Acetaminophen (Tylenol 325mg Tab) 650 mg PO Q6 PRN PRN Reason: Pain, Mild (1-3) Amlodipine Besylate (Norvasc) 10 mg PO DAILY [facility] Last Admin: 04/03/19 08:41 Dose: 10 mg Aspirin (Ecotrin) 325 mg PO DAILY [facility] Last Admin: 04/03/19 08:39 Dose: 325 mg Atorvastatin Calcium (Lipitor) 40 mg PO HS [facility] Last Admin: 04/02/19 21:50 Dose: 40 mg Brimonidine Tartrate (Alphagan 0.2% Opht) 1 drop OU Q12 [facility] Last Admin: 04/03/19 08:32 Dose: 1 drop Calcitriol (Rocaltrol) 0.25 mcg PO QOTHERDAY [facility] Last Admin: 04/03/19 08:42 Dose: 0.25 mcg Cilostazol (Pletal) 100 mg PO DAILY [facility] Dextrose (Dextrose 50% Inj) 0 ml IV STAT PRN; Protocol PRN Reason: Hypoglycemia Protocol Dextrose (Glutose 15) 0 gm PO ONCE PRN; Protocol PRN Reason: Hypoglycemia Protocol Gabapentin (Neurontin) 300 mg PO TID [facility] Last Admin: 04/03/19 12:19 Dose: 300 mg Glucagon (Glucagen Diagnostic Kit) 0 mg IM STAT PRN; Protocol PRN Reason: Hypoglycemia Protocol Heparin Sodium (Porcine) (Heparin) 5,000 units SC Q12 [facility]; Protocol Last Admin: 04/03/19 09:51 Dose: 5,000 units Hydralazine HCl (Apresoline) 25 mg PO TID [facility] Last Admin: 04/03/19 12:23 Dose: 25 mg Hydralazine HCl (Apresoline) 10 mg IV Q4 PRN PRN Reason: systolic BP >170 mmHg Insulin Human Lispro (Humalog) 0 units SC ACHS [facility]; Protocol Last Admin: 04/03/19 12:19 Dose: Not Given Isosorbide Mononitrate (Imdur) 60 mg PO DAILY [facility] Latanoprost (Xalatan Opht) 1 drop OU HS [facility] Last Admin: 04/02/19 21:51 Dose: 1 drop Lidocaine (Lidoderm) 1 ea TD DAILY [facility] Last Admin: 04/03/19 09:02 Dose: 1 ea Losartan Potassium (Cozaar) 100 mg PO DAILY [facility] Last Admin: 04/03/19 12:18 Dose: 100 mg Minoxidil (Minoxidil) 2.5 mg PO DAILY [facility] Last Admin: 04/03/19 08:40 Dose: 2.5 mg Pregabalin (Lyrica) 50 mg PO TID [facility] Last Admin: 04/03/19 12:22 Dose: 50 mg Tramadol HCl (Ultram) 50 mg PO TID PRN PRN Reason: Pain, severe (8-10) Last Admin: 04/03/19 09:01 Dose: 50 mg Vitamin B Complex/Vit C/Folic Acid (Nephro-Ava) 1 tab PO DAILY [facility] Last Admin: 04/03/19 08:40 Dose: 1 tab - Labs Labs: 04/02/19 17:40 04/02/19 17:40 PT 13.3 Seconds (9.8-13.1) H 04/02/19 17:40 INR 1.2 04/02/19 17:40 APTT 35.6 Seconds (25.6-37.1) 04/02/19 17:40 Attending/Attestation - Attestation I have personally seen and examined this patient.: Yes I have fully participated in the care of the patient.: Yes I have reviewed all pertinent clinical information, including history, physical exam and plan: Yes Notes (Text): Intractable RLE Pain prob due to DM Neuropathy, PVD cannot totally r/o Gout 2nd degree AV Block seen on Tele monitor Hypertensive Urgency DM type II with Neuropathy ESRD on HD - start Pletal, Gabapentin, cont ASA -Pain mgt - d/c HCTZ - may increase Uric acid, check Uric acid -Vascular consult - Dr Wood , discussed case - rec conservative mgt , no CTA for now - Dr Wood also rec to d/c Clonidine due to AV block - cont Minoxidil, Norvasc, and HYdralazine -add Imdur - change Diovan to Losartan - Hydralazine IV prn for BP greater than 170 syst - cont DM meds - Doppler US of LE - negative for DVT - Dorsalis pedis artery palpable
--- NOTE | 2019-04-03 10:20 | CP.PCM.CON ---
History of Present Illness - History of Present Illness History of Present Illness: I was asked to see patient by the medical team. Patient seen 04/03/19 607 Patient is a 63 year old ,male with HTN, ESRD on HD, DM who present with leg pain. The patient states he has bialteral leg pain but worse on the plantar surgface of the foot. He denies edema. The patient was noted to have periods of bradycardia on telemetry. Review of Systems - Constitutional Constitutional: absent: As Per HPI, Anorexia, Chills, Daytime Sleepiness, Excessive Sweating, Fatigue, Fever, Frequent Falls, Headache, Increased Appetite, Lethargy, Malaise, Night Sweats, Snoring, Sleep Apnea, Weight Gain, Weight Loss, Weakness, Other - EENT Eyes: absent: As Per HPI, Blind Spots, Blurred Vision, Change in Vision, Decreased Night Vision, Diplopia, Discharge, Dry Eye, Exophthalmos, Floaters, Irritation, Itchy Eyes, Loss of Peripheral Vision, Pain, Photophobia, Requires Corrective Lenses, Sees Flashes, Spots in Vision, Tunnel Vision, Other Visual Disturbances, Loss of Vision, Other Ears: absent: As Per HPI, Decreased Hearing, Ear Discharge, Ear Pain, Tinnitus, Abnormal Hearing, Disequilibrium, Dizziness, Other Nose/Mouth/Throat: absent: As Per HPI, Epistaxis, Nasal Congestion, Nasal Discharge, Nasal Obstruction, Nasal Trauma, Nose Pain, Post Nasal Drip, Sinus Pain, Sinus Pressure, Bleeding Gums, Change in Voice, Dental Pain, Dry Mouth, Dysphagia, Halitosis, Hoarsness, Lip Swelling, Mouth Lesions, Mouth Pain, Odynophagia, Sore Throat, Throat Swelling, Tongue Swelling, Facial Pain, Neck Pain, Neck Mass, Other - Cardiovascular Cardiovascular: Pedal Edema, Slow Heart Rate - Respiratory Respiratory: absent: As Per HPI, Cough, Dyspnea, Hemoptysis, Dyspnea on Exertion, Wheezing, Snoring, Stridor, Pain on Inspiration, Chest Congestion, Excessive Mucous Production, Change in Mucous Color, Pain with Coughing, Other - Gastrointestinal Gastrointestinal: absent: As Per HPI, Abdominal Pain, Belching, Bloating, Change in Bowel Habits, Change in Stool Character, Coffee Ground Emesis, Constipation, Cramping, Diarrhea, Dyspepsia, Dysphagia, Early Satiety, Excessive Flatus, Fecal Incontinence, Heartburn, Hematemesis, Hematochezia, Loose Stools, Melena, Nausea, Odynophagia, Temesmus, Vomiting, Other - Genitourinary Genitourinary: absent: As Per HPI, Change in Urinary Stream, Difficulty Urinating, Dysuria, Flank Pain, Hematuria, Pyuria, Nocturia, Urinary Incontinence, Urinary Frequency, Urinary Hesitance, Urinary Urgency, Voiding Freq/Small Amts, Freq UTI, Hx Renal/Bladder Calculi, Hx /Renal Surgery, Bladder Distension, Other - Musculoskeletal Musculoskeletal: Radiating Pain into Limb - Integumentary Integumentary: absent: As Per HPI, Acne, Alopecia, Bleeding Lesions, Change in Hair, Change in Nails, Change in Pigmentation, Changing Lesions, Dry Skin, Erythema, Furuncle, Hirsutism, Lesions, New Lesions, Non-Healing Lesions, Photosensitivity, Pruritus, Rash, Skin Pain, Skin Ulcer, Sores, Striae, Swelling, Unusual Bruising, Wounds, Jaundice, Other - Neurological Neurological: absent: As Per HPI, Abnormal Gait, Abnormal Hearing, Abnormal Movements, Abnormal Speech, Behavioral Changes, Burning Sensations, Confusion, Convulsions, Disequilibrium, Dizziness, Numbness, Focal Weakness, Frequent Fal ls, Headaches, Lack of Coordination, Loss of Vision, Memory Loss, Paresthesias, Radicular Pain, Restless Legs, Sensory Deficit, Syncope, Tingling, Tremor, Vertigo, Weakness, Other Visual Disturbances, Other - Psychiatric Psychiatric: absent: As Per HPI, Abnormal Sleep Pattern, Anhedonia, Anxiety, Auditory Hallucinations, Behavioral Changes, Change in Appetite, Change in Libido, Confusion, Depression, Difficulty Concentrating, Hallucinations, Homicidal Ideation, Hopelessness, Irritability, Memory Loss, Mood Swings, Panic Attacks, Paranoia, Suicidal Ideation, Visual Hallucinations, Tactile Hallucinations, Other - Endocrine Endocrine: absent: As Per HPI, Change in Body Appearance, Change in Libido, Cold Intolorance, Deepening of Voice, Excessive Sweating, Fatigue, Flushing, Heat Intolorance, Increase in Ring/Shoe/Hat Size, Palpitations, Polydipsia, Polyphagia, Polyuria, Other - Hematologic/Lymphatic Hematologic: absent: As Per HPI, Easy Bleeding, Easy Bruising, Lymphadenopathy, Other Past Patient History - Infectious Disease Hx of Infectious Diseases: None - Past Medical History & Family History Past Medical History?: Yes - Past Social History Smoking Status: Former Smoker - CARDIAC Hx Congestive Heart Failure: Yes Hx Hypercholesterolemia: Yes Hx Hypertension: Yes Hx Peripheral Edema: Yes - PULMONARY Hx Pneumonia: Yes - NEUROLOGICAL Hx Transient Ischemic Attacks (TIA): Yes - HEENT Hx HEENT Problems: Yes Hx Cataracts: Yes - RENAL Hx Chronic Kidney Disease: Yes - ENDOCRINE/METABOLIC Hx Hypothyroidism: Yes - HEMATOLOGICAL/ONCOLOGICAL Hx Anemia: Yes Hx Human Immunodeficiency Virus (HIV): No - INTEGUMENTARY Hx Dermatological Problems: No - MUSCULOSKELETAL/RHEUMATOLOGICAL Hx Musculoskeletal Disorders: Yes Other/Comment: Gangrene to right great toe - GASTROINTESTINAL Hx Gastrointestinal Disorders: No - GENITOURINARY/GYNECOLOGICAL Hx Genitourinary Disorders: Yes (ESRD,CKD) - PSYCHIATRIC Hx Psychophysiologic Disorder: No Hx Substance Use: No - SURGICAL HISTORY Hx Surgeries: Yes Hx Amputation: Yes (right great toe) Hx Eye Surgery: Yes Hx Orthopedic Surgery: Yes (left ankle) Hx Vascular Access Device: Yes (Left AV fistula) - ANESTHESIA Hx Anesthesia: Yes Hx Anesthesia Reactions: No Hx Malignant Hyperthermia: No Meds Allergies/Adverse Reactions: Allergies Allergy/AdvReac Type Severity Reaction Status Date / Time No Known Allergies Allergy Verified 03/24/19 23:17 - Medications Medications: Current Medications Acetaminophen (Tylenol 325mg Tab) 650 mg PO Q6 PRN PRN Reason: Pain, Mild (1-3) Amlodipine Besylate (Norvasc) 10 mg PO DAILY [facility] Last Admin: 04/03/19 08:41 Dose: 10 mg Aspirin (Ecotrin) 325 mg PO DAILY [facility] Last Admin: 04/03/19 08:39 Dose: 325 mg Atorvastatin Calcium (Lipitor) 40 mg PO HS [facility] Last Admin: 04/02/19 21:50 Dose: 40 mg Brimonidine Tartrate (Alphagan 0.2% Opht) 1 drop OU Q12 [facility] Last Admin: 04/03/19 08:32 Dose: 1 drop Calcitriol (Rocaltrol) 0.25 mcg PO QOTHERDAY [facility] Last Admin: 04/03/19 08:42 Dose: 0.25 mcg Cilostazol (Pletal) 100 mg PO DAILY [facility] Clonidine HCl (Catapres) 0.2 mg PO Q12 [facility] Last Admin: 04/03/19 08:58 Dose: Not Given Dextrose (Dextrose 50% Inj) 0 ml IV STAT PRN; Protocol PRN Reason: Hypoglycemia Protocol Dextrose (Glutose 15) 0 gm PO ONCE PRN; Protocol PRN Reason: Hypoglycemia Protocol Gabapentin (Neurontin) 300 mg PO TID [facility] Last Admin: 04/03/19 08:40 Dose: 300 mg Glucagon (Glucagen Diagnostic Kit) 0 mg IM STAT PRN; Protocol PRN Reason: Hypoglycemia Protocol Heparin Sodium (Porcine) (Heparin) 5,000 units SC Q12 [facility]; Protocol Last Admin: 04/03/19 09:51 Dose: 5,000 units Hydralazine HCl (Apresoline) 25 mg PO TID [facility] Last Admin: 04/03/19 08:37 Dose: 25 mg Hydralazine HCl (Apresoline) 10 mg IV Q4 PRN PRN Reason: systolic BP >170 mmHg Insulin Human Lispro (Humalog) 0 units SC ACHS [facility]; Protocol Last Admin: 04/03/19 08:39 Dose: Not Given Latanoprost (Xalatan Opht) 1 drop OU HS [facility] Last Admin: 04/02/19 21:51 Dose: 1 drop Lidocaine (Lidoderm) 1 ea TD DAILY [facility] Last Admin: 04/03/19 09:02 Dose: 1 ea Losartan Potassium (Cozaar) 100 mg PO DAILY [facility] Minoxidil (Minoxidil) 2.5 mg PO DAILY [facility] Last Admin: 04/03/19 08:40 Dose: 2.5 mg Pregabalin (Lyrica) 50 mg PO TID [facility] Last Admin: 04/03/19 09:00 Dose: 50 mg Tramadol HCl (Ultram) 50 mg PO TID PRN PRN Reason: Pain, severe (8-10) Last Admin: 04/03/19 09:01 Dose: 50 mg Vitamin B Complex/Vit C/Folic Acid (Nephro-Ava) 1 tab PO DAILY [facility] Last Admin: 04/03/19 08:40 Dose: 1 tab Physical Exam - Constitutional Appears: Non-toxic - Head Exam Head Exam: NORMAL INSPECTION - Eye Exam Eye Exam: Normal appearance - ENT Exam ENT Exam: Mucous Membranes Moist - Neck Exam Neck exam: Positive for: Full Rom, Normal Inspection. Negative for: Lymphadenopathy - Respiratory Exam Respiratory Exam: NORMAL BREATHING PATTERN - Cardiovascular Exam Cardiovascular Exam: REGULAR RHYTHM - GI/Abdominal Exam GI & Abdominal Exam: Normal Bowel Sounds, Soft - Rectal Exam Rectal Exam: Deferred - Extremities Exam Extremities exam: Positive for: pedal edema Additional comments: warm, palpable DP pulse - Back Exam Back exam: NORMAL INSPECTION - Neurological Exam Neurological exam: Alert, Oriented x3 - Psychiatric Exam Psychiatric exam: Normal Affect - Skin Skin Exam: Normal Color Results - Vital Signs Recent Vital Signs: Last Vital Signs Temp 98.4 F 04/03/19 08:17 Pulse 62 04/03/19 08:58 Resp 20 04/03/19 08:17 BP 190/72 H 04/03/19 08:58 Pulse Ox 100 04/03/19 08:17 - Labs Result Diagrams: 04/02/19 17:40 04/02/19 17:40 Labs: Laboratory Results - last 24 hr 04/02/19 04/02/19 04/02/19 17:37 17:40 17:40 WBC 4.7 L RBC 3.96 L Hgb 10.9 L Hct 35.1 MCV 88.6 MCH 27.6 MCHC 31.2 L RDW 20.4 H Plt Count 118 L D MPV 8.7 Neut % (Auto) 68.5 Lymph % (Auto) 11.5 L [place] % (Auto) 11.1 H Eos % (Auto) 7.8 H Baso % (Auto) 1.1 Neut # (Auto) 3.2 Lymph # (Auto) 0.5 L [place] # (Auto) 0.5 Eos # (Auto) 0.4 Baso # (Auto) 0.0 PT INR APTT Sodium 140 Potassium 3.9 Chloride 95 L Carbon Dioxide 31 H Anion Gap 18 BUN 24 H Creatinine 6.5 H Est GFR ( Amer) 10 Est GFR (Non-Af Amer) 9 POC Glucose (mg/dL) 155 H Random Glucose 115 H Lactic Acid Calcium 8.7 Phosphorus 3.5 Magnesium 2.0 Total Bilirubin 0.9 AST 32 ALT 31 Alkaline Phosphatase 153 H Total Creatine Kinase 131 Total Protein 6.9 Albumin 4.1 Globulin 2.8 Albumin/Globulin Ratio 1.4 Blood Type Antibody Screen BBK History Checked 04/02/19 04/02/19 04/02/19 17:40 17:40 17:57 WBC RBC Hgb Hct MCV MCH MCHC RDW Plt Count MPV Neut % (Auto) Lymph % (Auto) [place] % (Auto) Eos % (Auto) Baso % (Auto) Neut # (Auto) Lymph # (Auto) [place] # (Auto) Eos # (Auto) Baso # (Auto) PT 13.3 H INR 1.2 APTT 35.6 Sodium Potassium Chloride Carbon Dioxide Anion Gap BUN Creatinine Est GFR ( Amer) Est GFR (Non-Af Amer) POC Glucose (mg/dL) Random Glucose Lactic Acid 1.6 Calcium Phosphorus Magnesium Total Bilirubin AST ALT Alkaline Phosphatase Total Creatine Kinase Total Protein Albumin Globulin Albumin/Globulin Ratio Blood Type O POSITIVE Antibody Screen Negative BBK History Checked Patient has bt 04/03/19 05:57 WBC RBC Hgb Hct MCV MCH MCHC RDW Plt Count MPV Neut % (Auto) Lymph % (Auto) [place] % (Auto) Eos % (Auto) Baso % (Auto) Neut # (Auto) Lymph # (Auto) [place] # (Auto) Eos # (Auto) Baso # (Auto) PT INR APTT Sodium Potassium Chloride Carbon Dioxide Anion Gap BUN Creatinine Est GFR ( Amer) Est GFR (Non-Af Amer) POC Glucose (mg/dL) 105 Random Glucose Lactic Acid Calcium Phosphorus Magnesium Total Bilirubin AST ALT Alkaline Phosphatase Total Creatine Kinase Total Protein Albumin Globulin Albumin/Globulin Ratio Blood Type Antibody Screen BBK History Checked - EKG Data EKG Interpreted by: Myself Assessment & Plan (1) Peripheral vascular disease of foot Assessment and Plan: I reviewed the arterial duplex. The inflow vessels exhibit calcification with triphasoc and biphasic waveforms. The tibiperoneal vessels are patent proximal ly with calcification. The patient has flow to his foot. Recommend attempt at conservative therapy with antiplatelet therapy, cilostazol. consider treatment for neuropathic pain. Status: Acute (2) Uncontrolled hypertension Assessment and Plan: woudl d/c clonidine given Mobitz I. add ARB therapy Imdur Hydralazine Status: Acute (3) Second degree atrioventricular block, Mobitz (type) I Assessment and Plan: asymptomatic. recommend d.c clonidine Status: Acute
--- NOTE | 2019-04-03 11:47 | US ---
Date of service: 04/02/2019 PROCEDURE: Right lower extremity venous duplex Doppler. HISTORY: RLE swelling COMPARISON: Comparison made with prior study 01/30/2019. TECHNIQUE: Common femoral, superficial femoral, popliteal and posterior tibial veins were evaluated. Flow was assessed with color Doppler, compressibility, assessment of phasic flow and augmentation response. FINDINGS: COMMON FEMORAL VEIN: Unremarkable. SUPERFICIAL FEMORAL VEIN: Unremarkable. POPLITEAL VEIN: Unremarkable. POSTERIOR TIBIAL VEIN: Unremarkable. OTHER FINDINGS: None. IMPRESSION: No evidence of deep venous thrombosis in the right lower extremity.
--- NOTE | 2019-04-03 12:48 | CP.PCM.CON ---
History of Present Illness - History of Present Illness History of Present Illness: Podiatry consult - Dr. Cevallos 63M seen and evaluated in the ED for right LE pain. Patient has been to the ED 3 times in the past two weeks for the same complaints. Patient is a diabetic and was given gabapentin for neuropathy. Patient states the medicine did not help with the pain and each time the pain seems to be the same or worse when he comes into the hospital. States the pain has been there for a while and nothing helps relieve the pain. Denies n/v/f/c/sob today and has no other acute complaints. Past Patient History - Infectious Disease Hx of Infectious Diseases: None - Past Medical History & Family History Past Medical History?: Yes - Past Social History Smoking Status: Former Smoker - CARDIAC Hx Congestive Heart Failure: Yes Hx Hypercholesterolemia: Yes Hx Hypertension: Yes Hx Peripheral Edema: Yes - PULMONARY Hx Pneumonia: Yes - NEUROLOGICAL Hx Transient Ischemic Attacks (TIA): Yes - HEENT Hx HEENT Problems: Yes Hx Cataracts: Yes - RENAL Hx Chronic Kidney Disease: Yes - ENDOCRINE/METABOLIC Hx Hypothyroidism: Yes - HEMATOLOGICAL/ONCOLOGICAL Hx Anemia: Yes Hx Human Immunodeficiency Virus (HIV): No - INTEGUMENTARY Hx Dermatological Problems: No - MUSCULOSKELETAL/RHEUMATOLOGICAL Hx Musculoskeletal Disorders: Yes Other/Comment: Gangrene to right great toe - GASTROINTESTINAL Hx Gastrointestinal Disorders: No - GENITOURINARY/GYNECOLOGICAL Hx Genitourinary Disorders: Yes (ESRD,CKD) - PSYCHIATRIC Hx Psychophysiologic Disorder: No Hx Substance Use: No - SURGICAL HISTORY Hx Surgeries: Yes Hx Amputation: Yes (right great toe) Hx Eye Surgery: Yes Hx Orthopedic Surgery: Yes (left ankle) Hx Vascular Access Device: Yes (Left AV fistula) - ANESTHESIA Hx Anesthesia: Yes Hx Anesthesia Reactions: No Hx Malignant Hyperthermia: No Meds Allergies/Adverse Reactions: Allergies Allergy/AdvReac Type Severity Reaction Status Date / Time No Known Allergies Allergy Verified 03/24/19 23:17 - Medications Medications: Current Medications Acetaminophen (Tylenol 325mg Tab) 650 mg PO Q6 PRN PRN Reason: Pain, Mild (1-3) Amlodipine Besylate (Norvasc) 10 mg PO DAILY [facility] Last Admin: 04/03/19 08:41 Dose: 10 mg Aspirin (Ecotrin) 325 mg PO DAILY [facility] Last Admin: 04/03/19 08:39 Dose: 325 mg Atorvastatin Calcium (Lipitor) 40 mg PO HS [facility] Last Admin: 04/02/19 21:50 Dose: 40 mg Brimonidine Tartrate (Alphagan 0.2% Opht) 1 drop OU Q12 [facility] Last Admin: 04/03/19 08:32 Dose: 1 drop Calcitriol (Rocaltrol) 0.25 mcg PO QOTHERDAY [facility] Last Admin: 04/03/19 08:42 Dose: 0.25 mcg Cilostazol (Pletal) 100 mg PO DAILY [facility] Clonidine HCl (Catapres) 0.2 mg PO Q12 [facility] Last Admin: 04/03/19 08:58 Dose: Not Given Dextrose (Dextrose 50% Inj) 0 ml IV STAT PRN; Protocol PRN Reason: Hypoglycemia Protocol Dextrose (Glutose 15) 0 gm PO ONCE PRN; Protocol PRN Reason: Hypoglycemia Protocol Gabapentin (Neurontin) 300 mg PO TID [facility] Last Admin: 04/03/19 12:19 Dose: 300 mg Glucagon (Glucagen Diagnostic Kit) 0 mg IM STAT PRN; Protocol PRN Reason: Hypoglycemia Protocol Heparin Sodium (Porcine) (Heparin) 5,000 units SC Q12 [facility]; Protocol Last Admin: 04/03/19 09:51 Dose: 5,000 units Hydralazine HCl (Apresoline) 25 mg PO TID [facility] Last Admin: 04/03/19 12:23 Dose: 25 mg Hydralazine HCl (Apresoline) 10 mg IV Q4 PRN PRN Reason: systolic BP >170 mmHg Insulin Human Lispro (Humalog) 0 units SC ACHS [facility]; Protocol Last Admin: 04/03/19 12:19 Dose: Not Given Latanoprost (Xalatan Opht) 1 drop OU HS [facility] Last Admin: 04/02/19 21:51 Dose: 1 drop Lidocaine (Lidoderm) 1 ea TD DAILY [facility] Last Admin: 04/03/19 09:02 Dose: 1 ea Losartan Potassium (Cozaar) 100 mg PO DAILY [facility] Last Admin: 04/03/19 12:18 Dose: 100 mg Minoxidil (Minoxidil) 2.5 mg PO DAILY [facility] Last Admin: 04/03/19 08:40 Dose: 2.5 mg Pregabalin (Lyrica) 50 mg PO TID [facility] Last Admin: 04/03/19 12:22 Dose: 50 mg Tramadol HCl (Ultram) 50 mg PO TID PRN PRN Reason: Pain, severe (8-10) Last Admin: 04/03/19 09:01 Dose: 50 mg Vitamin B Complex/Vit C/Folic Acid (Nephro-Ava) 1 tab PO DAILY [facility] Last Admin: 04/03/19 08:40 Dose: 1 tab Physical Exam - Constitutional Appears: Non-toxic - Head Exam Head Exam: ATRAUMATIC - Extremities Exam Additional comments: RLE focused VASC: DP pulse palpable, PT nonpalpable; cap refill about 3 seconds to all remaining digits; pedal hair growth absent; mild edema noted DERM: no open lesions or wounds present; skin temp mildly decreased ORTHO: first ray amputation well healed; pain on palpation of foot globally, pain on ROM at the ankle and upon movement of toes, MMT unobtainable 2/2 guarding NEURO: mildly diminished - Neurological Exam Neurological exam: Alert, Oriented x3 - Psychiatric Exam Psychiatric exam: Normal Affect Results - Vital Signs Recent Vital Signs: Last Vital Signs Temp 97.7 F 04/03/19 12:24 Pulse 20 L 04/03/19 12:24 Resp 60 H 04/03/19 12:24 BP 157/78 H 04/03/19 12:24 Pulse Ox 98 04/03/19 12:24 - Labs Result Diagrams: 04/02/19 17:40 04/02/19 17:40 Labs: Laboratory Results - last 24 hr 04/02/19 04/02/19 04/02/19 17:37 17:40 17:40 WBC 4.7 L RBC 3.96 L Hgb 10.9 L Hct 35.1 MCV 88.6 MCH 27.6 MCHC 31.2 L RDW 20.4 H Plt Count 118 L D MPV 8.7 Neut % (Auto) 68.5 Lymph % (Auto) 11.[address] [place] % (Auto) 11.1 H Eos % (Auto) 7.8 H Baso % (Auto) 1.1 Neut # (Auto) 3.2 Lymph # (Auto) 0.[address] [place] # (Auto) 0.5 Eos # (Auto) 0.4 Baso # (Auto) 0.0 PT INR APTT Sodium 140 Potassium 3.9 Chloride 95 L Carbon Dioxide 31 H Anion Gap 18 BUN 24 H Creatinine 6.5 H Est GFR ( Amer) 10 Est GFR (Non-Af Amer) 9 POC Glucose (mg/dL) 155 H Random Glucose 115 H Lactic Acid Calcium 8.7 Phosphorus 3.5 Magnesium 2.0 Total Bilirubin 0.9 AST 32 ALT 31 Alkaline Phosphatase 153 H Total Creatine Kinase 131 Total Protein 6.9 Albumin 4.1 Globulin 2.8 Albumin/Globulin Ratio 1.4 Blood Type Antibody Screen BBK History Checked 04/02/19 04/02/19 04/02/19 17:40 17:40 17:57 WBC RBC Hgb Hct MCV MCH MCHC RDW Plt Count MPV Neut % (Auto) Lymph % (Auto) [place] % (Auto) Eos % (Auto) Baso % (Auto) Neut # (Auto) Lymph # (Auto) [place] # (Auto) Eos # (Auto) Baso # (Auto) PT 13.3 H INR 1.2 APTT 35.6 Sodium Potassium Chloride Carbon Dioxide Anion Gap BUN Creatinine Est GFR ( Amer) Est GFR (Non-Af Amer) POC Glucose (mg/dL) Random Glucose Lactic Acid 1.6 Calcium Phosphorus Magnesium Total Bilirubin AST ALT Alkaline Phosphatase Total Creatine Kinase Total Protein Albumin Globulin Albumin/Globulin Ratio Blood Type O POSITIVE Antibody Screen Negative BBK History Checked Patient has bt 04/03/19 04/03/19 05:57 11:23 WBC RBC Hgb Hct MCV MCH MCHC RDW Plt Count MPV Neut % (Auto) Lymph % (Auto) [place] % (Auto) Eos % (Auto) Baso % (Auto) Neut # (Auto) Lymph # (Auto) [place] # (Auto) Eos # (Auto) Baso # (Auto) PT INR APTT Sodium Potassium Chloride Carbon Dioxide Anion Gap BUN Creatinine Est GFR ( Amer) Est GFR (Non-Af Amer) POC Glucose (mg/dL) 105 114 H Random Glucose Lactic Acid Calcium Phosphorus Magnesium Total Bilirubin AST ALT Alkaline Phosphatase Total Creatine Kinase Total Protein Albumin Globulin Albumin/Globulin Ratio Blood Type Antibody Screen BBK History Checked Assessment & Plan - Assessment and Plan (Free Text) Assessment: 63M with ischemic right foot pain Plan: Patient seen and evaluated Discussed with Dr. Ban Byrne, WBC 4.7 No dressing applied Foot x-ray reviewed - no fracture or dislocation, no acute bony pathology Venous duplex US and DEWEY/PVR ordered Vascular consult No signs of infection Podiatry will continue to follow while in house Thank you for the consult - Date & Time Date: 04/03/19 Time: 12:55
--- NOTE | 2019-04-03 17:19 | RAD ---
Date of service: 04/02/2019 PROCEDURE: Right Foot Radiographs. HISTORY: Severe right foot pain COMPARISON: None. TECHNIQUE: 3 views obtained. FINDINGS: BONES: Postoperative amputation changes mid to distal right 1st metatarsal again noted. Bone margins are sharp with no evidence to suggest cortical destruction.. No evidence of acute displaced fracture nor dislocation JOINTS: Normal. SOFT TISSUES: No evidence of subcutaneous emphysema. Extensive vascular calcifications present. OTHER FINDINGS: None. IMPRESSION: Postoperative amputation changes mid-distal right 1st metatarsal again noted with sharp bone margins. No evidence of subcutaneous emphysema. No evidence of acute displaced fracture nor dislocation
[2019-04-03] MEDS: Latanoprost 0.005% Opht SOUTION OU SCH (21:31)
--- NOTE | 2019-04-03 22:06 | CARD ---
APPROVED REPORT Date of service: 04/02/2019 EKG Measurement Heart [id number] <Conclusion> Sinus bradycardia with mobitz type 1 second degree AV block Left axis deviation Septal infarct, age undetermined T wave abnormality, consider lateral ischemia Abnormal ECG
[2019-04-04] MEDS ORDERED: Lidocaine 5% Patch TD SCH (04:00)
[2019-04-04 06:47] LABS: CALCIUM 8.9 mg/dL (8.4-10.2); URIC ACID 4.9 mg/Dl (3.5-8.5)
[2019-04-04 08:21] VITALS: RESP 20; TEMP 96.1
--- NOTE | 2019-04-04 08:22 | CP.PCM.PN ---
Subjective - Date & Time of Evaluation Date of Evaluation: 04/04/19 Time of Evaluation: : - Subjective Subjective: Podiatry progress note - Dr. Cevallos 63M seen and evaluated for right LE pain. Patient reports the pain has improved since arrival to the hospital. Denies n/v/f/c/sob today and has no other acute complaints. Objective - Vital Signs/Intake and Output Vital Signs (last 24 hours): Temp Pulse Resp BP Pulse Ox 97.4 F L 69 18 134/78 95 04/04/19 04:15 04/04/19 04:15 04/04/19 04:15 04/04/19 04:15 04/04/19 04:15 - Medications Medications: Current Medications Acetaminophen (Tylenol 325mg Tab) 650 mg PO Q6 PRN PRN Reason: Pain, Mild (1-3) Amlodipine Besylate (Norvasc) 10 mg PO DAILY [facility] Last Admin: 04/03/19 08:41 Dose: 10 mg Aspirin (Ecotrin) 325 mg PO DAILY [facility] Last Admin: 04/03/19 08:39 Dose: 325 mg Atorvastatin Calcium (Lipitor) 40 mg PO HS [facility] Last Admin: 04/03/19 21:31 Dose: 40 mg Brimonidine Tartrate (Alphagan 0.2% Opht) 1 drop OU Q12 [facility] Last Admin: 04/03/19 21:32 Dose: 1 drop Calcitriol (Rocaltrol) 0.25 mcg PO QOTHERDAY [facility] Last Admin: 04/03/19 08:42 Dose: 0.25 mcg Cilostazol (Pletal) 100 mg PO DAILY [facility] Dextrose (Dextrose 50% Inj) 0 ml IV STAT PRN; Protocol PRN Reason: Hypoglycemia Protocol Dextrose (Glutose 15) 0 gm PO ONCE PRN; Protocol PRN Reason: Hypoglycemia Protocol Gabapentin (Neurontin) 300 mg PO TID [facility] Last Admin: 04/03/19 16:56 Dose: 300 mg Glucagon (Glucagen Diagnostic Kit) 0 mg IM STAT PRN; Protocol PRN Reason: Hypoglycemia Protocol Heparin Sodium (Porcine) (Heparin) 5,000 units SC Q12 [facility]; Protocol Last Admin: 04/03/19 21:36 Dose: 5,000 units Hydralazine HCl (Apresoline) 25 mg PO TID [facility] Last Admin: 04/03/19 16:53 Dose: 25 mg Hydralazine HCl (Apresoline) 10 mg IV Q4 PRN PRN Reason: systolic BP >170 mmHg Insulin Human Lispro (Humalog) 0 units SC ACHS [facility]; Protocol Last Admin: 04/03/19 22:00 Dose: Not Given Isosorbide Mononitrate (Imdur) 60 mg PO DAILY [facility] Latanoprost (Xalatan Opht) 1 drop OU HS [facility] Last Admin: 04/03/19 21:31 Dose: 1 drop Lidocaine (Lidoderm) 1 ea TD DAILY@0400 [facility] Last Admin: 04/04/19 04:08 Dose: 1 ea Losartan Potassium (Cozaar) 100 mg PO DAILY [facility] Last Admin: 04/03/19 12:18 Dose: 100 mg Minoxidil (Minoxidil) 2.5 mg PO DAILY [facility] Last Admin: 04/03/19 08:40 Dose: 2.5 mg Pregabalin (Lyrica) 50 mg PO TID [facility] Last Admin: 04/03/19 16:59 Dose: 50 mg Tramadol HCl (Ultram) 50 mg PO TID PRN PRN Reason: Pain, severe (8-10) Last Admin: 04/03/19 21:40 Dose: 50 mg Vitamin B Complex/Vit C/Folic Acid (Nephro-Ava) 1 tab PO DAILY [facility] Last Admin: 04/03/19 08:40 Dose: 1 tab - Labs Labs: 04/02/19 17:40 04/04/19 04:20 PT 13.3 Seconds (9.8-13.1) H 04/02/19 17:40 INR 1.2 04/02/19 17:40 APTT 35.6 Seconds (25.6-37.1) 04/02/19 17:40 - Constitutional Appears: Well, Non-toxic, No Acute Distress - Head Exam Head Exam: ATRAUMATIC, NORMOCEPHALIC - Extremities Exam Additional comments: VASC: DP pulse palpable, PT nonpalpable; cap refill about 3 seconds to all remaining digits; pedal hair growth absent; mild edema noted DERM: no open lesions or wounds present; skin temp mildly decreased ORTHO: first ray amputation well healed; pain on palpation of foot globally, pain on ROM at the ankle and upon movement of toes, MMT unobtainable 2/2 guarding NEURO: mildly diminished - Neurological Exam Neurological Exam: Alert, Awake, Oriented x3 - Psychiatric Exam Psychiatric exam: Normal Affect, Normal Mood Assessment and Plan - Assessment and Plan (Free Text) Assessment: 63M with ischemic right foot pain Plan: Patient seen and evaluated Discussed with Dr. Cevallos Afebrile, WBC 4.7 No dressing applied Foot x-ray reviewed - no fracture or dislocation, no acute bony pathology Venous duplex US - no DVT noted DEWEY/PVR - mild atherosclerotic changes Vascular consult - As per Dr. Wood, patient will be treated conservatively at this time, recommendations appreciated No podiatric intervention at this time Podiatry will continue to follow while in house
[2019-04-04] MEDS: Brimonidine 0.2% 50 DROP/5 ML BOTTLE OU SCH (08:33)
[2019-04-04] MEDS: Aspirin 325 mg EC Tablets PO SCH (08:36)
[2019-04-04] MEDS: Insulin Lispro (humaLOG) 100 Units/ml Inj SC SCH ×2 (08:38→12:43)
[2019-04-04] MEDS: Multivitamin Vitamin B Complex (Nephro-Vite) Tab PO SCH (08:39)
[2019-04-04] MEDS ORDERED: Cilostazol 100 mg Tab UD PO SCH (09:00)
--- NOTE | 2019-04-04 09:38 | CP.PCM.DIS ---
Provider - Provider Date of Admission: 04/02/19 19:38 Attending physician: Riley Tolbert Consults: 04/02/19 19:00 Podiatry Consult Stat Comment: Consulting Provider: Mila Cevallos Consulting Physician: Mila Cevallos Reason for Consult: severe foot pain 04/02/19 20:04 Cardiology Consult Stat Comment: Consulting Provider: Karthik Wood Consulting Physician: Karthik Wood Reason for Consult: severe RIGHT foot pain, PVD 04/03/19 05:08 Wound Care [Nursing Referral for Wound Care] Routine Comment: Physician Instructions: Reason For Exam: Left leg abrasion Time Spent in preparation of Discharge (in minutes): 33 Diagnosis - Discharge Diagnosis (1) ESRD (end stage renal disease) Status: Acute (2) Intractable pain Status: Acute (3) Peripheral vascular disease of foot Status: Acute Hospital Course - Lab Results Lab Results: Micro Results 04/02/19 18:00 Blood-Venous Blood Culture - Preliminary NO GROWTH AFTER 24 HOURS 04/02/19 17:40 Blood-Venous Blood Culture - Preliminary NO GROWTH AFTER 24 HOURS Most Recent Lab Values WBC 4.7 K/uL (4.8-10.8) L 04/02/19 17:40 RBC 3.96 Mil/uL (4.40-5.90) L 04/02/19 17:40 Hgb 10.9 g/dL (12.0-18.0) L 04/02/19 17:40 Hct 35.1 % (35.0-51.0) 04/02/19 17:40 MCV 88.6 fl (80.0-94.0) 04/02/19 17:40 MCH 27.6 pg (27.0-31.0) 04/02/19 17:40 MCHC 31.2 g/dL (33.0-37.0) L 04/02/19 17:40 RDW 20.4 % (11.5-14.5) H 04/02/19 17:40 Plt Count 118 K/uL (130-400) L D 04/02/19 17:40 MPV 8.7 fl (7.2-11.7) 04/02/19 17:40 Neut % (Auto) 68.5 % (50.0-75.0) 04/02/19 17:40 Lymph % (Auto) 11.5 % (20.0-40.0) L 04/02/19 17:40 [place] % (Auto) 11.1 % (0.0-10.0) H 04/02/19 17:40 Eos % (Auto) 7.8 % (0.0-4.0) H 04/02/19 17:40 Baso % (Auto) 1.1 % (0.0-2.0) 04/02/19 17:40 Neut # (Auto) 3.2 K/uL (1.8-7.0) 04/02/19 17:40 Lymph # (Auto) 0.5 K/uL (1.0-4.3) L 04/02/19 17:40 [place] # (Auto) 0.5 K/uL (0.0-0.8) 04/02/19 17:40 Eos # (Auto) 0.4 K/uL (0.0-0.7) 04/02/19 17:40 Baso # (Auto) 0.0 K/uL (0.0-0.2) 04/02/19 17:40 PT 13.3 Seconds (9.8-13.1) H 04/02/19 17:40 INR 1.2 04/02/19 17:40 APTT 35.6 Seconds (25.6-37.1) 04/02/19 17:40 Sodium 139 mmol/l (132-148) 04/04/19 04:20 Potassium 5.0 MMOL/L (3.6-5.0) 04/04/19 04:20 Chloride 96 mmol/L (98-107) L 04/04/19 04:20 Carbon Dioxide 29 mmol/L (22-30) 04/04/19 04:20 Anion Gap 19 (10-20) 04/04/19 04:20 BUN 42 mg/dl (9-20) H 04/04/19 04:20 Creatinine 10.0 mg/dl (0.8-1.5) H* D 04/04/19 04:20 Est GFR ( Amer) 6 04/04/19 04:20 Est GFR (Non-Af Amer) 5 04/04/19 04:20 POC Glucose (mg/dL) 81 mg/dL (65-110) 04/04/19 05:53 Random Glucose 76 mg/dL (75-110) 04/04/19 04:20 Lactic Acid 1.6 mmol/L (0.7-2.1) 04/02/19 17:57 Uric Acid 4.9 mg/Dl (3.5-8.5) 04/04/19 04:20 Calcium 8.9 mg/dL (8.4-10.2) 04/04/19 04:20 Phosphorus 3.5 mg/dl (2.5-4.5) 04/02/19 17:40 Magnesium 2.0 MG/DL (1.6-2.3) 04/02/19 17:40 Total Bilirubin 0.9 mg/dl (0.2-1.3) 04/02/19 17:40 AST 32 U/L (17-59) 04/02/19 17:40 ALT 31 U/L (21-72) 04/02/19 17:40 Alkaline Phosphatase 153 U/L (38-126) H 04/02/19 17:40 Total Creatine Kinase 131 U/L (55-170) 04/02/19 17:40 Total Protein 6.9 G/DL (6.3-8.2) 04/02/19 17:40 Albumin 4.1 g/dL (3.5-5.0) 04/02/19 17:40 Globulin 2.8 gm/dL (2.2-3.9) 04/02/19 17:40 Albumin/Globulin Ratio 1.4 (1.0-2.1) 04/02/19 17:40 Blood Type O POSITIVE 04/02/19 17:40 Antibody Screen Negative 04/02/19 17:40 BBK History Checked Patient has bt 04/02/19 17:40 - Hospital Course Hospital Course: 63 Y/O male with hx of DM II and ESRD on HD, presented with worsening painful right lower leg and foot. Ultrasound showed No evidence of DVT, has mild atherosclerosis in the arteries of the legs. Dr Wood elevator inspector consulted recommneds to attempt conservative therapy with antiplatelet therapy, cilostazol for PVD and to consider treatment for neuropathic pain. Pain management for this Intractable right foot and pain. Podiatry Dr Cevallos evaluated patient, no fracture or acute infection noted.Patient is ESRD on Hemodialusis, followed up by Dr Gonzales for HD., due for scheduled HD tomorrow 04/05/19 Patient today is hemodinamically stable and clinically stable, c/o LE chronic pain secondary to chronic neuropathy and PVD. Patient to be satred on Cilostazol, c/w asa, for neuropathy c/w gabapentin, tramadol for neuropathy pain. Chart and clinical data reviewed. Patient denies CP ,SINGER,SOB, fever clinically stable to be discharge in stable condition. Instructions to f/u with PMD and Sanitizer. F/u HD as schedule tomorrow Thursday04/05/19. Discharge Exam - Head Exam Head Exam: ATRAUMATIC, NORMOCEPHALIC - Additional Findings Additional findings: - Constitutional Appears: No Acute Distress - Head Exam Head Exam: ATRAUMATIC, NORMOCEPHALIC - ENT Exam ENT Exam: Mucous Membranes Moist - Respiratory Exam Respiratory Exam: NORMAL BREATHING PATTERN. absent: Rales, Rhonchi - Cardiovascular Exam Cardiovascular Exam: REGULAR RHYTHM - GI/Abdominal Exam GI & Abdominal Exam: Soft, Normal Bowel Sounds - Extremities Exam Extremities Exam: Tenderness diffuse to right leg and foot, chronic venous stasis skin changes. absent: Calf Tenderness, Pedal Edema Additional comments: s/p amputation right hallux - Neurological Exam Neurological Exam: Alert, Awake, Oriented x3 - Psychiatric Exam Psychiatric exam: Normal Affect, Normal Mood - Skin Skin Exam: Dry, Normal Color, Warm Discharge Plan - Discharge Medications Prescriptions: Cilostazol [Pletal] 100 mg PO DAILY #30 tab Isosorbide Mononitrate [Imdur] 60 mg PO DAILY #30 tab Losartan [Cozaar] 100 mg PO DAILY #30 tab Pregabalin [Lyrica] 50 mg PO TID #90 cap - Follow Up Plan Condition: FAIR Disposition: HOME/ ROUTINE Instructions: Peripheral Neuropathy, Peripheral Vascular (Arterial) Disease (DC), End Stage Kidney Disease (DC) Additional Instructions: Follow up with your PMD in 2 to 3 days Follow up with your grant manager this Thursday for your dialysis ED Precautions: Go to the ED if you have chest pain, shortness of breath, pa lpitations, fever, abdominal pain or other new symptoms or concerns presents. Continue taking your medications as prescribed. Referrals: Marek Hess DO [Doctor Osteopathy] - Alan Gonzales MD [Staff Provider] -
--- NOTE | 2019-04-04 13:35 | US ---
Date of service: Juan sahu thanks 04/02/2019 PROCEDURE: Duplex ultrasound of the right lower extremity arteries. HISTORY: severe RIGHT foot pain COMPARISON: None available. TECHNIQUE: Grayscale and duplex Doppler evaluation of the right common femoral, superficial femoral, popliteal, posterior tibial and dorsalis pedis arteries was performed.. FINDINGS: COMMON FEMORAL ARTERY: Patent. Maximal flow velocity of 83.5 cm/s. SUPERFICIAL FEMORAL ARTERY:Patent. Maximal flow velocity of 66.9 cm/s. POPLITEAL ARTERY:Patent. Maximal flow velocity of 52.6 cm/s. POSTERIOR TIBIAL ARTERY: Patent. Maximal flow velocity of 69.0 cm/s. DORSALIS PEDIS ARTERY: Patent. Maximal flow velocity of 33.6 cm/s. OTHER FINDINGS: None. IMPRESSION: Normal Duplex Doppler of the right lower extremity arteries. Concordant findings (preliminary report) provided by [facility].
[2019-04-04 13:56] VITALS: BP 144/80; PULSE 66
[2019-04-04 15:52] VITALS: O2SAT 98
--- NOTE | 2019-04-05 16:09 | PQF ---
PROVIDER RESPONSE TEXT: Chronic diastolic heart failure with preserved ejection fraction, Stable. REVIEWER QUERY TEXT: CHF Acuity and Type A hx. of Congestive Heart Failure is documented in the Medical Record. Please document the type and a cuity (includes probable or suspected) if known: versus: No CHF:hx. only and not a chronic condition Such as: Type: -- Systolic -- Diastolic -- Combined -- Other, please specify Acuity: -- Acute -- Chronic -- Acute on chronic -- Other, please specify H and P includes: hx. of CHF: Yes Respiratory: Exam: Clear to Auscultation Bilateral, NORMAL BREATHING PATTERN. absent: Respiratory Di stress PE: Extremities exam: Positive for: calf tenderness, normal capillary refill, pedal edema, pedal puls es present -minoxidil, cozaar The patient's Clinical Indicators include: --- Query created by: Maria Eugenia Martinez on 04/04/2019 2:47 PM Electronically signed by: Mehdi Field 04/05/2019 4:06 PM
== END 2019-04-04 14:00 | disposition home health service (06) | DRG 299 ==
LOC: H.ER 16:53 → H.ERHOLD 19:38 → H.TEL 22:04
PROVIDERS: ADMIT Internal Medicine; ATTEND Internal Medicine
DX: E11.51 Type 2 diabetes mellitus with diabetic peripheral angiopathy without gangrene (principal); N18.6 End stage renal disease; I13.2 Hypertensive heart and chronic kidney disease with heart failure and with stage 5 chronic kidney disease, or end stage renal disease; E11.40 Type 2 diabetes mellitus with diabetic neuropathy, unspecified; E11.22 Type 2 diabetes mellitus with diabetic chronic kidney disease; I44.1 Atrioventricular block, second degree; Z99.2 Dependence on renal dialysis; Z89.411 Acquired absence of right great toe; I16.0 Hypertensive urgency; Z79.02 Long term (current) use of antithrombotics/antiplatelets; Z86.73 Personal history of transient ischemic attack (TIA), and cerebral infarction without residual deficits; Z87.01 Personal history of pneumonia (recurrent); Z87.891 Personal history of nicotine dependence; H26.9 Unspecified cataract; E78.5 Hyperlipidemia, unspecified; Z79.899 Other long term (current) drug therapy; R00.1 Bradycardia, unspecified; D63.8 Anemia in other chronic diseases classified elsewhere; E03.9 Hypothyroidism, unspecified; E78.00 Pure hypercholesterolemia, unspecified